=== PATIENT | male | born 1955 | race Caucasian/White ===

== ENCOUNTER 2019-07-05 17:29 | Inpatient (IN) | payer MEDICARE, SELFPAY ==
--- NOTE | ~2019-07-05 | XR_ITS ---
XR finger 4th RT min 2V 07/05/2019 18:31 INDICATION: Infection distal aspect of the right fourth digit PROCEDURE: 3 views right fourth finger COMPARISON: No prior studies for comparison. FINDINGS: Fracture, dislocation or subluxation is not identified. No erosive changes or periosteal re action to suggest osteomyelitis. The soft tissues appear within normal limits. No foreign bodies are identified. IMPRESSION: 1: NO ACUTE BONE OR JOINT ABNORMALITY IDENTIFIED. Reviewed, dictated and finalized at location A.
[2019-07-05 17:30] VITALS: BP 153/84; PULSE 90; RESP 16; TEMP 36.8; O2SAT 100
[2019-07-05 17:39] VITALS: BP 153/84; PULSE 80; RESP 18; TEMP 36.8; O2SAT 98
[2019-07-05 18:20] LABS: Basophils Percent Auto 0.4 % (0.2-1.2); Eosinophils Absolute Auto 0.1 K/mm3 (0-0.3); Eosinophils Percent Auto 1.4 % (0-4.4); Hematocrit 42.7 % (42.0-52.0); Hemoglobin 14.4 g/dL (14.0-18.0); Immature Granulocyte Absolute 0.06 K/mm3 (0.00-0.031); Immature Granulocyte Percent A 0.8 % (0-0.5); Lymphocytes Absolute Auto 2.38 K/mm3 (0.9-3.2); Lymphocytes Percent Auto 31.2 % (18.3-44.2); Mean Corpuscular HGB Conc 33.7 g/dl (32-36); Mean Corpuscular Hemoglobin 27.3 pg (26-34); Mean Corpuscular Volume 80.9 fl (80-100); Mean Platelet Volume 10.5 fl (7.4-10.4); Monocytes Absolute Auto 0.6 K/mm3 (0.1-0.6); Monocytes Percent Auto 8.1 % (2.6-8.5); Neutrophils Absolute Auto 4.4 K/mm3 (1.3-6.7); Neutrophils Percent Auto 58.1 % (45.5-73.1); Platelet Count Result 200 k/mm3 (150-375); Red Blood Count 5.28 M/mm3 (4.6-6.20); White Blood Count 7.6 K/mm3 (4.5-10.0)
[2019-07-05 18:28] LABS: INR 0.9; Prothrombin Time 12.3 Seconds (11.1-14.7)
[2019-07-05 18:30] LABS: Lactic Acid Reflex 3.4 mmol/L (0.7-2.1)
[2019-07-05 18:34] LABS: Partial Thromboplastin Time 27.6 SECONDS (22.3-36.8)
[2019-07-05 18:48] LABS: Alanine Aminotransferase 22 U/L (4-50); Alkaline Phosphatase 86 U/L (38-126); Aspartate Amino Transferase 22 U/L (17-59); Bilirubin,Total 0.4 mg/dL (0.2-1.3); Blood Urea Nitrogen 17 mg/dL (9-20); CRP 3.3 mg/dL (<1.0); Calcium 9.1 mg/dL (8.4-10.2); Carbon Dioxide 26 mmol/L (22-30); Chloride 90 mmol/L (98-107); Estimated CRCL calculation 87 ml/min; Estimated Glomerular Filt Rate > 60; Glucose 597 mg/dL (75-110); Potassium 4.3 mmol/L (3.4-5.0); Sodium 128 mmol/L (137-145)
[2019-07-05] MEDS: SODIUM CHLORIDE 0.9% IV 1,000 ML 999 ML IV CONT ×2 (18:51→19:25)
--- NOTE | 2019-07-05 19:11 | ED.GENADULT ---
HPI - General Adult General Chief complaint: Extremity Injury, Upper <NALDO Wyman Last Filed: 07/05/19 20:06> Stated complaint: infection lower right forearm <NALDO Wyman Last Filed: 07/05/19 20:06> Time Seen by Provider: 07/05/19 18:10 <NALDO Wyman Last Filed: 07/05/19 20:06> Source: patient <NALDO Wyman Last Filed: 07/05/19 20:06> Mode of arrival: ambulatory <NALDO Wyman Last Filed: 07/05/19 20:06> Limitations: no limitations <NALDO Wyman Last Filed: 07/05/19 20:06> History of Present Illness HPI narrative: Patient is a 63-year-old male who presents to emergency department for evaluation of right ring finger infection started with some blistering of the dorsal surface of the finger which blistered and became purulent which she has been cleaning and draining but now has red streaking up to the level above the elbow noting aching pain worse with touch and activity. Patient denies fever chills nausea vomiting. Patient notes that his blood sugars have increased during this. <NALDO Wyman Last Filed: 07/05/19 20:06> Related Data Home medications: Home Medications Medication Instructions Recorded Confirmed multivitamin 1 tablet PO DAILY 03/07/19 06/14/19 pen needle, diabetic 31 gauge x #30 each 03/07/19 06/14/19 5/16 niacin 500 mg tablet 1,000 mg PO BID tablet 03/26/19 06/14/19 omega-3 fatty acids 1,000 mg 2,000 mg PO BID cap 03/26/19 06/14/19 capsule pantoprazole 40 mg tablet,delayed 40 mg PO BID tablet 05/08/19 06/14/19 release calcium carbonate-vitamin D3 600 cap PO 06/14/19 06/14/19 mg calcium-200 unit capsule mecobalamin (vitamin B12) 1,000 1,000 mcg SUBLINGUAL DAILY 06/14/19 06/14/19 mcg disintegrating tablet,sublingual <NALDO Wyman Last Filed: 07/05/19 20:06> Allergies/adverse reactions: Allergies Allergy/AdvReac Type Severity Reaction Status Date / Time No Known Allergies Allergy Unknown Uncoded 07/05/19 17:33 <Job Sofia PA-C - Last Filed: 07/05/19 20:06> Review of Systems Review of Systems: All systems reviewed & are unremarkable except as noted in HPI and below <Job Sofia PA-C - Last Filed: 07/05/19 20:06> PMFSH Past Medical History Medical History: Medical History Arthritis Caputo's esophagus with esophagitis Dietary counseling and surveillance Essential hypertension GERD (gastroesophageal reflux disease) Hyperlipidemia LDL goal <70 Hypertension Myocardial infarction Stroke Type 2 diabetes mellitus with hyperglycemia Type 2 diabetes mellitus with hyperglycemia <Job Sofia PA-C - Last Filed: 07/05/19 20:06> Family History Family History: Family History Mother Hypertension Family history of diabetes mellitus in first degree relative Family history of coronary artery disease Cerebrovascular accident Family history of arthritis Diabetes mellitus Father Family history of alcoholism Other Family history of cardiovascular disease <Job Sofia PA-C - Last Filed: 07/05/19 20:06> Social History Social History: Social History Smoking status: Former smoker Second hand tobacco smoke exposure: No Smoking end date: 04/25/1962 Alcohol intake: current Gender identity (if verbalized by the patient): Male <NALDO Wyman Last Filed: 07/05/19 20:06> Exam Narrative: Exam Narrative: GENERAL: Well-appearing, well-nourished, and in no acute distress. HEAD: Normocephalic, atraumatic. EYES: PERRLA and EOMI. ENT: Nares clear, no rhinorrhea or epistaxis. Mucous membranes moist. CHEST: Clear to auscultation. No respiratory distress. No wheezes rales or rhonchi HEART: Regular rate and rhythm. No murm
[2019-07-05] MEDS: INSULIN HUMAN REGULAR (*BKC) 100 UNITS/ML 8 UNITS IV PUSH (19:24)
[2019-07-05] MEDS: TETANUS,DIPHTHERIA,AC PERTUSSIS ADULT (0.5 ML) BOOSTRIX IM (19:25)
[2019-07-05 19:26] LABS: Add Urine Microscopic? YES; Appearance Urine Clear (Clear); Bilirubin Urine Negative (Negative); Blood Urine 1+ (Negative); Color Urine Straw (Yellow); Glucose Urine UA 3+ mg/dL (Negative); Ketones Urine Negative (Negative); Leukocyte Esterase Ur Negative LEU/UL (Negative); Nitrate Urine Negative (Negative); Protein Urine 2+ mg/dL (Negative); RBC Urine 0-2 /hpf (0-2); Squamous Epithelial Cell Urine Rare /hpf (Few); Urobilinogen Urine Negative mg/dL (<2.0); WBC Urine 0-3 /hpf
[2019-07-05 19:28] LABS: Magnesium 1.8 mg/dL (1.6-2.3); Phosphorus 3.8 mg/dL (2.5-4.5)
[2019-07-05 19:30] LABS: Glucose Point of Care 489 (65-105)
[2019-07-05 19:32] LABS: Specific Grav Ur 1.033 (1.001-1.035)
[2019-07-05 20:16] VITALS: BP 168/100; PULSE 70; RESP 16; O2SAT 100
--- NOTE | 2019-07-05 20:18 | PM.IMHP ---
H&P: HPI History of Present Illness Chief complaint: Cellulitis finger, hyperglycemia <Neftaly Aguayo MD - Last Filed: 07/06/19 03:51> Narrative: This is a 63 year old Diabetic male who presented to the hospital today with a complaint of a right fourth finger infection that started approximately 3 days ago. He describes his infection starting out as a blister that opened up on the dorsal aspect of his fourth finger of his right hand and worsened this morning. He denies any trauma to his finger. He describes having purulent drainage as well as red streaking up his forearm to his elbow. His urged him to come to the hospital as she didn't like the streaking. He has been using antibiotic ointment on his infection without any success. He denies any fevers, chills, nausea, vomiting, abdominal pain, dysuria, hematuria, or diarrhea. He also has a poorly healing wound on his left lower leg which he attributes to minor trauma. He denies any previous history of MRSA but he does report having a bad infection of his right toe in the past. The patient had his infection debrided in the ER and he was started on IV antibiotics. We have been asked to admit the patient the patient to the hospital for further care. He denies any other symptoms such as shortness of breath, cough, chest pain, palpitations, or generalized weakness. <Neftaly Aguayo MD - Last Filed: 07/06/19 03:51> Review of Systems Review of Systems: All systems reviewed & are unremarkable except as noted in HPI and below <Neftaly Aguayo MD - Last Filed: 07/06/19 03:51> [facility] Past Medical History Medical History: Medical History Arthritis Caputo's esophagus with esophagitis Dietary counseling and surveillance Essential hypertension GERD (gastroesophageal reflux disease) Hyperlipidemia LDL goal <70 Hypertension Myocardial infarction Stroke Type 2 diabetes mellitus with hyperglycemia Type 2 diabetes mellitus with hyperglycemia <Neftaly Aguayo MD - Last Filed: 07/06/19 03:51> Family History Family History: Family History Mother Diabetes mellitus Family history of arthritis Family history of diabetes mellitus in first degree relative Family history of coronary artery disease Hypertension Cerebrovascular accident Father Family history of alcoholism Sibling Myocardial infarction Diabetes mellitus Other Family history of cardiovascular disease <Neftaly Aguayo MD - Last Filed: 07/06/19 03:51> Social History Social History: Social History Smoking packs per day: 3 Smoking cigarettes per day: 60.0 Years smoked: 30 Smoking pack-years: 90.00 Smoking status: Former smoker Tobacco type: cigarettes Alcohol intake: never Substance use: never Gender identity (if verbalized by the patient): Male Spiritual care concerns: No Agree to blood products: Yes <Neftaly Aguayo MD - Last Filed: 07/06/19 03:51> Meds Home Medications and Allergies Home medications: Home Medications Medication Instructions Recorded Confirmed Type aspirin 81 mg tablet,delayed 81 mg PO DAILY #30 tablet 02/26/19 07/05/19 Rx release atorvastatin 40 mg tablet 40 mg PO DAILY #30 tablet 02/26/19 07/05/19 Rx clopidogrel 75 mg tablet 75 mg PO DAILY #30 tablet 02/26/19 07/05/19 Rx hydrochlorothiazide 25 mg tablet 25 mg PO DAILY #30 tablet 02/26/19 07/05/19 Rx metoprolol succinate 100 mg 100 mg PO DAILY #30 tablet 02/26/19 07/05/19 Rx tablet,extended release 24 hr multivitamin 1 tablet PO DAILY 03/07/19 07/05/19 History isosorbide mononitrate 60 mg 60 mg PO DAILY #90 tablet 03/15/19 07/05/19 Rx tablet,extended release 24 hr niacin 500 mg tablet 500 mg PO BID tablet 03/26/19 07/05/19 History omega-3 fatty acids 1,000 mg 2,000 mg PO BID cap 03/26/19 07/05/19 History capsule
[2019-07-05 21:10] LABS: Glucose Point of Care 302 (65-105)
[2019-07-05 21:15] VITALS: BP 187/79; PULSE 62; RESP 16; TEMP 36.3; O2SAT 100; BMI 26.5
[2019-07-05 21:17] LABS: Reflex Lactic Acid Yes or No Add Lactic
--- NOTE | 2019-07-05 21:22 | ADMGEN ---
This patient, Cornelius Babin, was admitted to [facility] Surg Room 325-01. Patient/family oriented to hospital policies and general routines including ID bracelet, bed and alarms, visiting hours, pain management, procedures, bathroom and other care routines, personal items, smoking policy, room service/diet, and visiting hours. Valuables list has been completed. Information on how to activate the Rapid Response Team has been discussed. Patient/Family are encouraged to report perceived risks to care and to ask questions if they do not understand what they are told or what they should do.
[2019-07-05 21:31] VITALS: BP 168/100; PULSE 70; RESP 16; O2SAT 98
[2019-07-05 21:59] LABS: Lactic Acid 1.8 mmol/L (0.7-2.1)
[2019-07-05] MEDS: FAMOTIDINE 20 MG/2 ML VIAL IV PUSH (22:23)
[2019-07-05] MEDS: LACTATED RINGERS 1,000 ML 125 ML IV CONT (22:23)
[2019-07-05] MEDS: hydrALAZINE HCL 20 MG/ML VIAL 10 MG IV PUSH (22:29)
[2019-07-05 22:40] LABS: Glucose Point of Care 274 (65-105)
[2019-07-06 00:02] LABS: Lactic Acid Reflex 1.9 mmol/L (0.7-2.1)
[2019-07-06 05:23] VITALS: BP 180/73; PULSE 63; RESP 18; TEMP 36.7; O2SAT 100
[2019-07-06 06:00] LABS: Sodium Urine Random 104 meq/L
[2019-07-06 06:02] LABS: Basophils Percent Auto 0.2 % (0.2-1.2); Eosinophils Absolute Auto 0.1 K/mm3 (0-0.3); Eosinophils Percent Auto 1.6 % (0-4.4); Hematocrit 41.2 % (42.0-52.0); Hemoglobin 14.2 g/dL (14.0-18.0); Immature Granulocyte Absolute 0.04 K/mm3 (0.00-0.031); Immature Granulocyte Percent A 0.5 % (0-0.5); Lymphocytes Absolute Auto 2.45 K/mm3 (0.9-3.2); Lymphocytes Percent Auto 29.4 % (18.3-44.2); Mean Corpuscular HGB Conc 34.5 g/dl (32-36); Mean Corpuscular Hemoglobin 27.4 pg (26-34); Mean Corpuscular Volume 79.5 fl (80-100); Mean Platelet Volume 10.1 fl (7.4-10.4); Monocytes Absolute Auto 0.6 K/mm3 (0.1-0.6); Monocytes Percent Auto 6.8 % (2.6-8.5); Neutrophils Absolute Auto 5.1 K/mm3 (1.3-6.7); Neutrophils Percent Auto 61.5 % (45.5-73.1); Platelet Count Result 197 k/mm3 (150-375); Red Blood Count 5.18 M/mm3 (4.6-6.20); Red Cell Distribution Width 12.9 % (11.5-14.5); White Blood Count 8.3 K/mm3 (4.5-10.0)
[2019-07-06 06:13] LABS: Potassium 3.8 mmol/L (3.4-5.0)
[2019-07-06 06:17] LABS: Blood Urea Nitrogen 10 mg/dL (9-20); Calcium 8.2 mg/dL (8.4-10.2); Carbon Dioxide 25 mmol/L (22-30); Chloride 100 mmol/L (98-107); Estimated CRCL calculation 100 ml/min; Estimated Glomerular Filt Rate > 60; Glucose 258 mg/dL (75-110); Sodium 134 mmol/L (137-145)
[2019-07-06 06:21] LABS: Hemoglobin A1C > 14.0 % (<5.7)
[2019-07-06] MEDS: hydrALAZINE HCL 20 MG/ML VIAL 10 MG IV PUSH (06:21)
[2019-07-06] MEDS: LACTATED RINGERS 1,000 ML 125 ML IV CONT ×2 (06:24→21:05)
[2019-07-06] MEDS: INSULIN ASPART (*BKC) 100 UNITS/ML SUB-Q ×3 (08:08→16:52)
[2019-07-06] MEDS: CLOPIDOGREL BISULFATE 75 MG TABLET PO (08:12)
[2019-07-06] MEDS: OMEGA 3 POLYUNSAT FATTY ACIDS 1 GM CAP 2 GM PO ×2 (08:12→16:55)
[2019-07-06 08:13] VITALS: PULSE 64
[2019-07-06] MEDS: AMLODIPINE BESYLATE 5 MG TABLET 10 MG PO (08:13)
[2019-07-06] MEDS: METOPROLOL SUCCINATE EXT REL 100 MG TABCR PO (08:13)
[2019-07-06] MEDS: NIACIN SA 500 MG TABLET PO ×2 (08:13→16:56)
[2019-07-06] MEDS: DULOXETINE 60 MG CAPSULE.DR PO (08:13)
[2019-07-06] MEDS: FENOFIBRATE NANOCRYSTALLIZED 145 MG TABLET PO (08:14)
[2019-07-06] MEDS: PANTOPRAZOLE 40 MG TABLET PO (08:14)
[2019-07-06] MEDS: CYANOCOBALAMIN 1,000 MCG TABLET 1000 MCG PO (08:14)
[2019-07-06] MEDS: SUCRALFATE 1 GM TABLET PO ×2 (08:14→16:56)
[2019-07-06] MEDS: MULTIVITAMINS THERAPEUTIC TAB (*BKC) 1 TABLET PO (08:14)
[2019-07-06] MEDS: hydroCHLOROthiazide 25 MG TABLET PO (08:14)
[2019-07-06] MEDS: ATORVASTATIN 40 MG TABLET PO (08:14)
[2019-07-06] MEDS: FAMOTIDINE 20 MG/2 ML VIAL IV PUSH (08:15)
[2019-07-06] MEDS: ISOSORBIDE MONONITRATE 60 MG TAB.ER.24H PO (08:15)
[2019-07-06] MEDS: ENOXAPARIN 40 MG/0.4 ML SYRINGE SUB-Q (08:15)
[2019-07-06] MEDS: ASPIRIN 81 MG ENTERIC TABLET PO (08:15)
[2019-07-06] MEDS: lisinopriL 20 MG TABLET 40 MG PO (08:15)
[2019-07-06 10:00] VITALS: BP 141/64; PULSE 62; RESP 18; TEMP 36.4; O2SAT 99
[2019-07-06 11:21] LABS: Glucose Point of Care 361 (65-105)
[2019-07-06 11:36] LABS: Glucose Point of Care 323 (65-105)
--- NOTE | 2019-07-06 13:01 | P.PNIM_ITS ---
Progress Note: A&P Assessment and Plan (1) Cellulitis of finger: Code(s): L03.019 - Cellulitis of unspecified finger Status: Acute Assessment and Plan: * Started on IV ancef in ED, switched to IV vancomycin and imipenem this AM per antibiotic stewardship guidelines. Wound Gram stain showing many Gram-positive cocci. Blood cultures pending. * Patient notes improvement this morning. Appreciate wound RN consult. (2) Uncontrolled diabetes mellitus: Code(s): E11.65 - Type 2 diabetes mellitus with hyperglycemia Status: Chronic Assessment and Plan: * Hgb A1c > 14. He follows with an parking lot chauffeur, last seen February 2019. He is on large doses of Humulin U500. He will be maintained on Humulin U 100 here which is formulary. Monitor with Accu-Cheks and adjust treatment as needed. * Recommend following up with his parking lot chauffeur as soon as possible. Tight glycemic control is important for his wound healing. (3) Elevated lactic acid level: Code(s): R79.89 - Other specified abnormal findings of blood chemistry Status: Resolved Assessment and Plan: * Resolved. May have been secondary to acute infection/dehydration. (4) Hyponatremia: Code(s): E87.1 - Hypo-osmolality and hyponatremia Status: Acute Assessment and Plan: * Improved. Will stop IV hydration and monitor BMP. (5) Hypertension: Code(s): I10 - Essential (primary) hypertension Status: Chronic Assessment and Plan: * Blood pressure is elevated on arrival, may be secondary to pain. More stable today after resuming his home antihypertensive regimen. * Continue his home Norvasc, hydrochlorothiazide, lisinopril, metoprolol. (6) Hyperlipidemia LDL goal <70: Code(s): E78.5 - Hyperlipidemia, unspecified Status: Chronic Assessment and Plan: * Continue home fenofibrate and niacin. (7) CAD (coronary artery disease): Qualifiers: Associated angina: with unspecified angina Coronary Disease-Associated Artery/Lesion type: unspecified vessel or lesion type [place] vs. transplanted heart: unspecified whether [place] or transplanted heart Qualified Code(s): I25.119 - Atherosclerotic heart disease of [place] coronary artery with unspecified angina pectoris Code(s): I25.10 - Atherosclerotic heart disease of [place] coronary artery without angina pectoris Status: Chronic Assessment and Plan: * No chest pain. Continue ASA, Plavix, beta blockade, Imdur. (8) PAD (peripheral artery disease): Code(s): I73.9 - Peripheral vascular disease, unspecified Status: Chronic Assessment and Plan: * Significant peripheral vascular disease. Follows with vascular surgery, Dr. Kaiser. Patient reports he has an upcoming left leg bypass surgery planned. (9) GERD (gastroesophageal reflux disease): Qualifiers: Esophagitis presence: with esophagitis Qualified Code(s): K21.0 - Gastro-esophageal reflux disease with esophagitis Code(s): K21.9 - Gastro-esophageal reflux disease without esophagitis Status: Chronic Assessment and Plan: * With history of Caputo's. Follows with Dr. Rhodes. Continue Carafate and PPI. Subjective Date/time seen: 07/06/19 1245 Interval history: Mr. Babin is a 63yo M admitted for
--- NOTE | 2019-07-06 13:01 | PM.IMPN ---
Progress Note: A&P Assessment and Plan (1) Cellulitis of finger: Code(s): L03.019 - Cellulitis of unspecified finger Status: Acute Assessment and Plan: Started on IV ancef in ED, switched to IV vancomycin and imipenem this AM per antibiotic stewardship guidelines. Wound Gram stain showing many Gram-positive cocci. Blood cultures pending. Patient notes improvement this morning. Appreciate wound RN consult. (2) Uncontrolled diabetes mellitus: Code(s): E11.65 - Type 2 diabetes mellitus with hyperglycemia Status: Chronic Assessment and Plan: Hgb A1c > 14. He follows with an poultry process worker, last seen February 2019. He is on large doses of Humulin U500. He will be maintained on Humulin U 100 here which is formulary. Monitor with Accu-Cheks and adjust treatment as needed. Recommend following up with his poultry process worker as soon as possible. Tight glycemic control is important for his wound healing. (3) Elevated lactic acid level: Code(s): R79.89 - Other specified abnormal findings of blood chemistry Status: Resolved Assessment and Plan: Resolved. May have been secondary to acute infection/dehydration. (4) Hyponatremia: Code(s): E87.1 - Hypo-osmolality and hyponatremia Status: Acute Assessment and Plan: Improved. Will stop IV hydration and monitor BMP. (5) Hypertension: Code(s): I10 - Essential (primary) hypertension Status: Chronic Assessment and Plan: Blood pressure is elevated on arrival, may be secondary to pain. More stable today after resuming his home antihypertensive regimen. Continue his home Norvasc, hydrochlorothiazide, lisinopril, metoprolol. (6) Hyperlipidemia LDL goal <70: Code(s): E78.5 - Hyperlipidemia, unspecified Status: Chronic Assessment and Plan: Continue home fenofibrate and niacin. (7) CAD (coronary artery disease): Qualifiers: Associated angina: with unspecified angina Coronary Disease-Associated Artery/Lesion type: unspecified vessel or lesion type [place] vs. transplanted heart: unspecified whether [place] or transplanted heart Qualified Code(s): I25.119 - Atherosclerotic heart disease of [place] coronary artery with unspecified angina pectoris Code(s): I25.10 - Atherosclerotic heart disease of [place] coronary artery without angina pectoris Status: Chronic Assessment and Plan: No chest pain. Continue ASA, Plavix, beta blockade, Imdur. (8) PAD (peripheral artery disease): Code(s): I73.9 - Peripheral vascular disease, unspecified Status: Chronic Assessment and Plan: Significant peripheral vascular disease. Follows with vascular surgery, Dr. Kaiser. Patient reports he has an upcoming left leg bypass surgery planned. (9) GERD (gastroesophageal reflux disease): Qualifiers: Esophagitis presence: with esophagitis Qualified Code(s): K21.0 - Gastro-esophageal reflux disease with esophagitis Code(s): K21.9 - Gastro-esophageal reflux disease without esophagitis Status: Chronic Assessment and Plan: With history of Caputo's. Follows with Dr. Rhodes. Continue Carafate and PPI. Subjective Date/time seen: 07/06/19 1245 Interval history: Mr. Babin is a 63yo M admitted for wound to right 4th finger with surrounding cellulitis. He is sitting up in the bed eating lunch at time of my exam and reports feeling well today overall. He notes that the redness on his right hand and forearm has improved somewhat since starting the IV antibiotics. He denies any chest pain, shortness of breath, or calf tenderness. He is tolerating oral intake without nausea or vomitin
[2019-07-06 14:00] VITALS: BP 115/59; PULSE 63; RESP 16; TEMP 37; O2SAT 99
[2019-07-06] MEDS: SILVERGEL (ELTA) 45 ML 1 APPLIC TOPICAL (16:55)
[2019-07-06] MEDS: INSULIN HUMAN REGULAR (*BKC) 100 UNITS/ML 70 UNITS SUB-Q (17:28)
[2019-07-06 18:01] LABS: Glucose Point of Care 425 (65-105)
[2019-07-06] MEDS: FAMOTIDINE 20 MG TABLET PO (21:06)
[2019-07-06 21:58] LABS: Glucose Point of Care 197 (65-105)
[2019-07-06 22:00] VITALS: BP 120/47; PULSE 57; RESP 18; TEMP 36.6; O2SAT 95
[2019-07-07 06:00] VITALS: BP 147/67; PULSE 59; RESP 18; TEMP 36.4; O2SAT 96
[2019-07-07 06:35] LABS: Blood Urea Nitrogen 12 mg/dL (9-20); Calcium 8.9 mg/dL (8.4-10.2); Carbon Dioxide 27 mmol/L (22-30); Chloride 100 mmol/L (98-107); Estimated CRCL calculation 100 ml/min; Estimated Glomerular Filt Rate > 60; Glucose 197 mg/dL (75-110); Magnesium 1.6 mg/dL (1.6-2.3); Potassium 3.7 mmol/L (3.4-5.0); Sodium 132 mmol/L (137-145)
[2019-07-07 07:07] LABS: Glucose Point of Care 213 (65-105)
[2019-07-07] MEDS: INSULIN HUMAN REGULAR (*BKC) 100 UNITS/ML 70 UNITS SUB-Q ×2 (07:09→17:07)
[2019-07-07] MEDS: INSULIN ASPART (*BKC) 100 UNITS/ML SUB-Q (07:11)
[2019-07-07] MEDS: ASPIRIN 81 MG ENTERIC TABLET PO (08:38)
[2019-07-07 08:39] VITALS: PULSE 64
[2019-07-07] MEDS: NIACIN SA 500 MG TABLET PO ×2 (08:39→17:11)
[2019-07-07] MEDS: CLOPIDOGREL BISULFATE 75 MG TABLET PO (08:39)
[2019-07-07] MEDS: METOPROLOL SUCCINATE EXT REL 100 MG TABCR PO (08:39)
[2019-07-07] MEDS: ISOSORBIDE MONONITRATE 60 MG TAB.ER.24H PO (08:39)
[2019-07-07] MEDS: DULOXETINE 60 MG CAPSULE.DR PO (08:39)
[2019-07-07] MEDS: hydroCHLOROthiazide 25 MG TABLET PO (08:39)
[2019-07-07] MEDS: lisinopriL 20 MG TABLET 40 MG PO (08:40)
[2019-07-07] MEDS: ATORVASTATIN 40 MG TABLET PO (08:40)
[2019-07-07] MEDS: FENOFIBRATE NANOCRYSTALLIZED 145 MG TABLET PO (08:40)
[2019-07-07] MEDS: CYANOCOBALAMIN 1,000 MCG TABLET 1000 MCG PO (08:40)
[2019-07-07] MEDS: SUCRALFATE 1 GM TABLET PO ×2 (08:40→17:11)
[2019-07-07] MEDS: AMLODIPINE BESYLATE 5 MG TABLET 10 MG PO (08:40)
[2019-07-07] MEDS: MULTIVITAMINS THERAPEUTIC TAB (*BKC) 1 TABLET PO (08:40)
[2019-07-07] MEDS: ENOXAPARIN 40 MG/0.4 ML SYRINGE SUB-Q (08:41)
[2019-07-07] MEDS: OMEGA 3 POLYUNSAT FATTY ACIDS 1 GM CAP 2 GM PO ×2 (08:41→17:11)
[2019-07-07] MEDS: PANTOPRAZOLE 40 MG TABLET PO (08:41)
[2019-07-07] MEDS: FAMOTIDINE 20 MG TABLET PO ×2 (08:41→21:49)
[2019-07-07] MEDS: SILVERGEL (ELTA) 45 ML 1 APPLIC TOPICAL (08:47)
[2019-07-07 13:04] LABS: Glucose Point of Care 189 (65-105)
--- NOTE | 2019-07-07 13:16 | P.PNIM_ITS ---
Progress Note: A&P Assessment and Plan (1) Cellulitis of finger: Qualifiers: Laterality: right Qualified Code(s): L03.011 - Cellulitis of right finger Code(s): L03.019 - Cellulitis of unspecified finger Status: Acute Assessment and Plan: * Continue IV vancomycin and imipenem (day 2). Wound culture growing heavy growth of Staph aureus and moderate growth of gram negative bacilli. Wait for final wound culture results to ensure no MRSA. Blood cultures pending with no growth to date. * Evaluated by wound RN, continue wound care. (2) Uncontrolled diabetes mellitus: Qualifiers: Diabetes mellitus type: type 2 Glycemic state: with hyperglycemia Qualified Code(s): E11.65 - Type 2 diabetes mellitus with hyperglycemia Code(s): E11.65 - Type 2 diabetes mellitus with hyperglycemia Status: Chronic Assessment and Plan: * Hgb A1c > 14. He follows with an communications technologist, last seen February 2019. He is on large doses of Humulin U500. He will be maintained on Humulin U 100 here which is formulary (home dose decreased by 30%). Monitor with Accu-Cheks and adjust treatment as needed. * Recommend following up with his communications technologist as soon as possible. Tight glycemic control is important for his wound healing. * Blood sugars improved today on his insulin regimen. (3) Hyponatremia: Code(s): E87.1 - Hypo-osmolality and hyponatremia Status: Acute Assessment and Plan: * Improved. Monitor BMP. (4) Hypertension: Qualifiers: Hypertension type: unspecified Qualified Code(s): I10 - Essential (primary) hypertension Code(s): I10 - Essential (primary) hypertension Status: Chronic Assessment and Plan: * Stable. Continue his home Norvasc, hydrochlorothiazide, lisinopril, metoprolol and monitor BP. (5) Hyperlipidemia LDL goal <70: Code(s): E78.5 - Hyperlipidemia, unspecified Status: Chronic Assessment and Plan: * Continue home fenofibrate and niacin. (6) CAD (coronary artery disease): Qualifiers: Coronary Disease-Associated Artery/Lesion type: unspecified vessel or lesion type [place] vs. transplanted heart: unspecified whether [place] or transplanted heart Associated angina: with unspecified angina Qualified Code(s): I25.119 - Atherosclerotic heart disease of [place] coronary artery with unspecified angina pectoris Code(s): I25.10 - Atherosclerotic heart disease of [place] coronary artery without angina pectoris Status: Chronic Assessment and Plan: * No chest pain. Continue ASA, Plavix, beta blockade, Imdur. (7) PAD (peripheral artery disease): Code(s): I73.9 - Peripheral vascular disease, unspecified Status: Chronic Assessment and Plan: * Significant peripheral vascular disease. Follows with vascular surgery, Dr. Kaiser. Patient reports he has an upcoming left leg bypass surgery planned. (8) GERD (gastroesophageal reflux disease): Qualifiers: Esophagitis presence: with esophagitis Qualified Code(s): K21.0 - Gastro-esophageal reflux disease with esophagitis Code(s): K21.9 - Gastro-esophageal reflux disease without esophagitis Status: Chronic Assessment and Plan: * With history of Caputo's. Follows with Dr. Rhodes. Continue Carafate and PPI. Subj
--- NOTE | 2019-07-07 13:16 | PM.IMPN ---
Progress Note: A&P Assessment and Plan (1) Cellulitis of finger: Qualifiers: Laterality: right Qualified Code(s): L03.011 - Cellulitis of right finger Code(s): L03.019 - Cellulitis of unspecified finger Status: Acute Assessment and Plan: Continue IV vancomycin and imipenem (day 2). Wound culture growing heavy growth of Staph aureus and moderate growth of gram negative bacilli. Wait for final wound culture results to ensure no MRSA. Blood cultures pending with no growth to date. Evaluated by wound RN, continue wound care. (2) Uncontrolled diabetes mellitus: Qualifiers: Diabetes mellitus type: type 2 Glycemic state: with hyperglycemia Qualified Code(s): E11.65 - Type 2 diabetes mellitus with hyperglycemia Code(s): E11.65 - Type 2 diabetes mellitus with hyperglycemia Status: Chronic Assessment and Plan: Hgb A1c > 14. He follows with an tandem operator, last seen February 2019. He is on large doses of Humulin U500. He will be maintained on Humulin U 100 here which is formulary (home dose decreased by 30%). Monitor with Accu-Cheks and adjust treatment as needed. Recommend following up with his tandem operator as soon as possible. Tight glycemic control is important for his wound healing. Blood sugars improved today on his insulin regimen. (3) Hyponatremia: Code(s): E87.1 - Hypo-osmolality and hyponatremia Status: Acute Assessment and Plan: Improved. Monitor BMP. (4) Hypertension: Qualifiers: Hypertension type: unspecified Qualified Code(s): I10 - Essential (primary) hypertension Code(s): I10 - Essential (primary) hypertension Status: Chronic Assessment and Plan: Stable. Continue his home Norvasc, hydrochlorothiazide, lisinopril, metoprolol and monitor BP. (5) Hyperlipidemia LDL goal <70: Code(s): E78.5 - Hyperlipidemia, unspecified Status: Chronic Assessment and Plan: Continue home fenofibrate and niacin. (6) CAD (coronary artery disease): Qualifiers: Coronary Disease-Associated Artery/Lesion type: unspecified vessel or lesion type [place] vs. transplanted heart: unspecified whether [place] or transplanted heart Associated angina: with unspecified angina Qualified Code(s): I25.119 - Atherosclerotic heart disease of [place] coronary artery with unspecified angina pectoris Code(s): I25.10 - Atherosclerotic heart disease of [place] coronary artery without angina pectoris Status: Chronic Assessment and Plan: No chest pain. Continue ASA, Plavix, beta blockade, Imdur. (7) PAD (peripheral artery disease): Code(s): I73.9 - Peripheral vascular disease, unspecified Status: Chronic Assessment and Plan: Significant peripheral vascular disease. Follows with vascular surgery, Dr. Kaiser. Patient reports he has an upcoming left leg bypass surgery planned. (8) GERD (gastroesophageal reflux disease): Qualifiers: Esophagitis presence: with esophagitis Qualified Code(s): K21.0 - Gastro-esophageal reflux disease with esophagitis Code(s): K21.9 - Gastro-esophageal reflux disease without esophagitis Status: Chronic Assessment and Plan: With history of Caputo's. Follows with Dr. Rhodes. Continue Carafate and PPI. Subjective Date/time seen: 07/07/19 1200 Interval history: Mr. Babin is a 63yo M admitted for wound to right 4th finger with surrounding cellulitis. He reports feeling well today, not having much pain to his finger or arm. He denies any chest pain, shortness of breath, or calf tenderness. He has tolerated breakfast without nausea or vomiting. Review of Systems Review of Systems
[2019-07-07] MEDS: MAGNESIUM SULF 2 GM/WATER 50ML 2 GM/50 ML BAG IVPB (13:37)
[2019-07-07 15:08] VITALS: BP 111/50; PULSE 57; RESP 18; TEMP 37.3; O2SAT 99
[2019-07-07 17:10] LABS: Glucose Point of Care 153 (65-105)
[2019-07-07 22:00] VITALS: BP 130/59; PULSE 55; RESP 18; TEMP 36.4; O2SAT 97
[2019-07-07 22:10] LABS: Vancomycin Trough 12.9 ug/mL (10.0-20.0)
[2019-07-07 22:22] LABS: Glucose Point of Care 148 (65-105)
[2019-07-08 06:00] VITALS: BP 131/64; PULSE 54; RESP 18; TEMP 36.4; O2SAT 98
[2019-07-08] MEDS: INSULIN HUMAN REGULAR (*BKC) 100 UNITS/ML 70 UNITS SUB-Q ×2 (07:12→17:02)
[2019-07-08 07:13] LABS: Glucose Point of Care 191 (65-105)
[2019-07-08] MEDS: NIACIN SA 500 MG TABLET PO ×2 (08:07→17:45)
[2019-07-08] MEDS: FENOFIBRATE NANOCRYSTALLIZED 145 MG TABLET PO (08:07)
[2019-07-08] MEDS: OMEGA 3 POLYUNSAT FATTY ACIDS 1 GM CAP 2 GM PO ×2 (08:07→17:45)
[2019-07-08] MEDS: PANTOPRAZOLE 40 MG TABLET PO (08:07)
[2019-07-08] MEDS: ISOSORBIDE MONONITRATE 60 MG TAB.ER.24H PO (08:07)
[2019-07-08] MEDS: FAMOTIDINE 20 MG TABLET PO ×2 (08:08→21:21)
[2019-07-08] MEDS: DULOXETINE 60 MG CAPSULE.DR PO (08:08)
[2019-07-08] MEDS: SUCRALFATE 1 GM TABLET PO ×2 (08:08→17:46)
[2019-07-08] MEDS: AMLODIPINE BESYLATE 5 MG TABLET 10 MG PO (08:08)
[2019-07-08] MEDS: lisinopriL 20 MG TABLET 40 MG PO (08:08)
[2019-07-08] MEDS: ASPIRIN 81 MG ENTERIC TABLET PO (08:08)
[2019-07-08 08:09] VITALS: PULSE 84
[2019-07-08] MEDS: MULTIVITAMINS THERAPEUTIC TAB (*BKC) 1 TABLET PO (08:09)
[2019-07-08] MEDS: ENOXAPARIN 40 MG/0.4 ML SYRINGE SUB-Q (08:09)
[2019-07-08] MEDS: CLOPIDOGREL BISULFATE 75 MG TABLET PO (08:09)
[2019-07-08] MEDS: METOPROLOL SUCCINATE EXT REL 100 MG TABCR PO (08:09)
[2019-07-08] MEDS: CYANOCOBALAMIN 1,000 MCG TABLET 1000 MCG PO (08:10)
[2019-07-08] MEDS: ATORVASTATIN 40 MG TABLET PO (08:10)
[2019-07-08] MEDS: hydroCHLOROthiazide 25 MG TABLET PO (08:10)
[2019-07-08] MEDS: SILVERGEL (ELTA) 45 ML 1 APPLIC TOPICAL (08:17)
--- NOTE | 2019-07-08 10:28 | P.PNIM_ITS ---
Progress Note: A&P Assessment and Plan (1) Cellulitis of finger: Qualifiers: Laterality: right Qualified Code(s): L03.011 - Cellulitis of right finger Code(s): L03.019 - Cellulitis of unspecified finger Status: Acute Assessment and Plan: * Dorsal right 4th finger wound with surrounding cellulitis. Started as a blister 3 days prior to arrival. Wound bed with eschar being treated with silvergel. * Continue IV vancomycin and imipenem (day 3). Cellulitis improving today but with concerns for the wound bed at this point, appreciate general surgery consultation. * Wound culture growing heavy growth of Staph aureus and moderate growth of Klebsilla. * Assessed by wound RN, continue wound care. * Complicated wound healing in the setting of peripheral vascular disease and uncontrolled DM. (2) Uncontrolled diabetes mellitus: Qualifiers: Diabetes mellitus type: type 2 Glycemic state: with hyperglycemia Qualified Code(s): E11.65 - Type 2 diabetes mellitus with hyperglycemia Code(s): E11.65 - Type 2 diabetes mellitus with hyperglycemia Status: Chronic Assessment and Plan: * Hgb A1c > 14. He follows with an leather novelty parts cutter, last seen February 2019. He is on large doses of Humulin U500. He will be maintained on Humulin U 100 here which is formulary (home dose decreased by 30%). Monitor with Accu-Cheks and adjust treatment as needed. * Recommend following up with his leather novelty parts cutter as soon as possible. Tight glycemic control is important for his wound healing. * Blood sugars improved today on the insulin regimen. (3) Hyponatremia: Code(s): E87.1 - Hypo-osmolality and hyponatremia Status: Acute Assessment and Plan: * Improved. Monitor BMP. (4) Hypertension: Qualifiers: Hypertension type: unspecified Qualified Code(s): I10 - Essential (primary) hypertension Code(s): I10 - Essential (primary) hypertension Status: Chronic Assessment and Plan: * Stable. Continue his home Norvasc, hydrochlorothiazide, lisinopril, metoprolol and monitor BP. (5) Hyperlipidemia LDL goal <70: Code(s): E78.5 - Hyperlipidemia, unspecified Status: Chronic Assessment and Plan: * Continue home fenofibrate and niacin. (6) CAD (coronary artery disease): Qualifiers: Associated angina: with unspecified angina Coronary Disease-Associated Artery/Lesion type: unspecified vessel or lesion type [place] vs. transplanted heart: unspecified whether [place] or transplanted heart Qualified Code(s): I25.119 - Atherosclerotic heart disease of [place] coronary artery with unspecified angina pectoris Code(s): I25.10 - Atherosclerotic heart disease of [place] coronary artery without angina pectoris Status: Chronic Assessment and Plan: * No chest pain. Continue ASA, Plavix, beta blockade, Imdur. (7) PAD (peripheral artery disease): Code(s): I73.9 - Peripheral vascular disease, unspecified Status: Chronic Assessment and Plan: * Significant peripheral vascular disease. Follows with vascular surgery, Dr. Kaiser. Patient reports he has an upcoming left leg bypass surgery planned. (8) GERD (gastroesophageal reflux disease): Qualifiers: Esophagitis presence: with esophagitis Qualified Code(s): K21.0 - Gastro-esophageal reflux disease with esophagitis
--- NOTE | 2019-07-08 10:28 | PM.IMPN ---
Progress Note: A&P Assessment and Plan (1) Cellulitis of finger: Qualifiers: Laterality: right Qualified Code(s): L03.011 - Cellulitis of right finger Code(s): L03.019 - Cellulitis of unspecified finger Status: Acute Assessment and Plan: Dorsal right 4th finger wound with surrounding cellulitis. Started as a blister 3 days prior to arrival. Wound bed with eschar being treated with silvergel. Continue IV vancomycin and imipenem (day 3). Cellulitis improving today but with concerns for the wound bed at this point, appreciate general surgery consultation. Wound culture growing heavy growth of Staph aureus and moderate growth of Klebsilla. Assessed by wound RN, continue wound care. Complicated wound healing in the setting of peripheral vascular disease and uncontrolled DM. (2) Uncontrolled diabetes mellitus: Qualifiers: Diabetes mellitus type: type 2 Glycemic state: with hyperglycemia Qualified Code(s): E11.65 - Type 2 diabetes mellitus with hyperglycemia Code(s): E11.65 - Type 2 diabetes mellitus with hyperglycemia Status: Chronic Assessment and Plan: Hgb A1c > 14. He follows with an him specialist, last seen February 2019. He is on large doses of Humulin U500. He will be maintained on Humulin U 100 here which is formulary (home dose decreased by 30%). Monitor with Accu-Cheks and adjust treatment as needed. Recommend following up with his him specialist as soon as possible. Tight glycemic control is important for his wound healing. Blood sugars improved today on the insulin regimen. (3) Hyponatremia: Code(s): E87.1 - Hypo-osmolality and hyponatremia Status: Acute Assessment and Plan: Improved. Monitor BMP. (4) Hypertension: Qualifiers: Hypertension type: unspecified Qualified Code(s): I10 - Essential (primary) hypertension Code(s): I10 - Essential (primary) hypertension Status: Chronic Assessment and Plan: Stable. Continue his home Norvasc, hydrochlorothiazide, lisinopril, metoprolol and monitor BP. (5) Hyperlipidemia LDL goal <70: Code(s): E78.5 - Hyperlipidemia, unspecified Status: Chronic Assessment and Plan: Continue home fenofibrate and niacin. (6) CAD (coronary artery disease): Qualifiers: Associated angina: with unspecified angina Coronary Disease-Associated Artery/Lesion type: unspecified vessel or lesion type [place] vs. transplanted heart: unspecified whether [place] or transplanted heart Qualified Code(s): I25.119 - Atherosclerotic heart disease of [place] coronary artery with unspecified angina pectoris Code(s): I25.10 - Atherosclerotic heart disease of [place] coronary artery without angina pectoris Status: Chronic Assessment and Plan: No chest pain. Continue ASA, Plavix, beta blockade, Imdur. (7) PAD (peripheral artery disease): Code(s): I73.9 - Peripheral vascular disease, unspecified Status: Chronic Assessment and Plan: Significant peripheral vascular disease. Follows with vascular surgery, Dr. Kaiser. Patient reports he has an upcoming left leg bypass surgery planned. (8) GERD (gastroesophageal reflux disease): Qualifiers: Esophagitis presence: with esophagitis Qualified Code(s): K21.0 - Gastro-esophageal reflux disease with esophagitis Code(s): K21.9 - Gastro-esophageal reflux disease without esophagitis Status: Chronic Assessment and Plan: With history of Caputo's. Follows with Dr. Rhodes. Continue Carafate and PPI. Subjective Date/time seen: 07/08/19 0930 Interval history: Mr. Babin is a 63yo M admitted for wound to right 4th finger with munoz
[2019-07-08 12:16] LABS: Glucose Point of Care 241 (65-105)
[2019-07-08] MEDS: INSULIN ASPART (*BKC) 100 UNITS/ML SUB-Q (12:17)
[2019-07-08 14:00] VITALS: BP 110/59; PULSE 56; RESP 18; TEMP 36.4; O2SAT 98
--- NOTE | 2019-07-08 16:52 | PM.CNGS ---
Assessment and Plan Assessment and plan (1) Open wound of finger of right hand: Onset Date: ~07/02/19 Code(s): S61.209A - Unspecified open wound of unspecified finger without damage to nail, initial encounter Status: Acute Assessment and Plan: Wound inspected and I suspect that this is due to microvascular disease on the end of his finger it seems to be like dry gangrene. This is probably a then super infected wound healing the cellulitis. At this time my recommendation is to continue antibiotics and consult Plastic surgery who works more often with the hand and fingers tomorrow. Their input would be valuable. At this time he did not believe that further debridement is needed just continued dressing changes and we may need to consider use of Santyl ointment to debride some of the thick eschar on the surface of his 4th finger. I will touch base with the wound nurses in the morning and we will follow up with further recommendations. (2) Uncontrolled diabetes mellitus: Onset Date: Unknown Qualifiers: Diabetes mellitus type: type 2 Glycemic state: with hyperglycemia Qualified Code(s): E11.65 - Type 2 diabetes mellitus with hyperglycemia Code(s): E11.65 - Type 2 diabetes mellitus with hyperglycemia Status: Chronic Assessment and Plan: Close control of his diabetes is important has you are trying to do. (3) Cellulitis of finger: Onset Date: ~07/02/19 Qualifiers: Laterality: right Qualified Code(s): L03.011 - Cellulitis of right finger Code(s): L03.019 - Cellulitis of unspecified finger Status: Acute Assessment and Plan: This appears to be resolved at the moment as I did not see much redness proximal to the wound when I examined it today. (4) PAD (peripheral artery disease): Onset Date: Unknown Code(s): I73.9 - Peripheral vascular disease, unspecified Status: Chronic Assessment and Plan: On Plavix for this and is certainly affected by his long-term diabetes. History of Present Illness Consult details Consult date: 07/08/19 Requesting physician: Neftaly Aguayo MD Narrative: Mr. Babin is a 63yo M admitted for wound to right 4th finger with surrounding cellulitis ascending up his finger hand and forearm. He is feeling well today and offers no complaints. He has been under treatment with IV antibiotics for several days and the wound clinic nurses have seen his finger and is being treated with serial dressing changes with silver gel. His finger wound only causes him pain during dressing changes. He denies any chest pain, shortness of breath, or calf tenderness. He is tolerating oral intake without nausea or vomiting. He is trying to keep the finger Rt.hand elevated. Review of Systems Constitutional: Constitutional: Reports as per HPI and Denies headache(s) Eyes: Eyes: Denies loss of vision and Denies eye pain ENT: Reports Normal hearing present, Denies change in voice, Denies dizziness and Denies headache(s) Cardiovascular: Cardiovascular: Denies chest pain and Denies dyspnea Comments: History of peripheral vascular disease on Plavix. Respiratory: Respiratory: Denies dyspnea and Denies wheezing Musculoskeletal: Musculoskeletal: Denies back pain and Denies arthralgias Neurologic: Reports Normal hearing present, Denies dizziness, Denies headache(s), Denies loss of vision and Denies memory loss Psychiatric: Psychiatric: Denies memory loss and Denies panic attacks Endocrine: Comments: Severe long-standing diabetes mellitus on insulin. He may have microvascular disease distally on his digits. Hematologic/Lymphatic: Hematologic/Lymphatic: Reports no additional hematologic/lymphatic complaints Allergic/Immunologic: Allergic/Immunologic: Denies wheezing PMFSH Past Medical History Medical History Arthritis Caputo's esophagus with esophagitis Dietary cou
[2019-07-08 17:10] LABS: Glucose Point of Care 185 (65-105)
[2019-07-08 20:26] LABS: Glucose Point of Care 201 (65-105)
[2019-07-08 22:00] VITALS: BP 119/63; PULSE 51; RESP 16; TEMP 36.3; O2SAT 97
[2019-07-09 05:22] LABS: Osmolality, Urine 374 mOsm/kg (50-1200)
[2019-07-09 06:00] VITALS: BP 148/78; PULSE 58; RESP 20; TEMP 36.4; O2SAT 97
[2019-07-09 06:09] LABS: Hematocrit 39.8 % (42.0-52.0); Hemoglobin 13.8 g/dL (14.0-18.0); Mean Corpuscular HGB Conc 34.7 g/dl (32-36); Mean Corpuscular Hemoglobin 27.8 pg (26-34); Mean Corpuscular Volume 80.2 fl (80-100); Mean Platelet Volume 10.1 fl (7.4-10.4); Platelet Count Result 192 k/mm3 (150-375); Red Blood Count 4.96 M/mm3 (4.6-6.20); Red Cell Distribution Width 13.1 % (11.5-14.5); White Blood Count 7.2 K/mm3 (4.5-10.0)
[2019-07-09 06:28] LABS: Blood Urea Nitrogen 15 mg/dL (9-20); Calcium 8.8 mg/dL (8.4-10.2); Carbon Dioxide 33 mmol/L (22-30); Estimated CRCL calculation 69 ml/min; Estimated Glomerular Filt Rate > 60; Glucose 225 mg/dL (75-110); Magnesium 1.5 mg/dL (1.6-2.3)
[2019-07-09 06:38] LABS: Chloride 93 mmol/L (98-107); Potassium 4.1 mmol/L (3.4-5.0); Sodium 133 mmol/L (137-145)
[2019-07-09 07:01] LABS: Glucose Point of Care 240 (65-105)
[2019-07-09] MEDS: INSULIN HUMAN REGULAR (*BKC) 100 UNITS/ML 70 UNITS SUB-Q ×2 (08:07→17:32)
[2019-07-09] MEDS: INSULIN ASPART (*BKC) 100 UNITS/ML SUB-Q ×3 (08:08→17:09)
[2019-07-09] MEDS: ENOXAPARIN 40 MG/0.4 ML SYRINGE SUB-Q (08:17)
[2019-07-09] MEDS: DULOXETINE 60 MG CAPSULE.DR PO (08:19)
[2019-07-09] MEDS: OMEGA 3 POLYUNSAT FATTY ACIDS 1 GM CAP 2 GM PO ×2 (08:19→17:19)
[2019-07-09] MEDS: FAMOTIDINE 20 MG TABLET PO (08:19)
[2019-07-09] MEDS: PANTOPRAZOLE 40 MG TABLET PO (08:20)
[2019-07-09] MEDS: MULTIVITAMINS THERAPEUTIC TAB (*BKC) 1 TABLET PO (08:20)
[2019-07-09] MEDS: ISOSORBIDE MONONITRATE 60 MG TAB.ER.24H PO (08:20)
[2019-07-09] MEDS: FENOFIBRATE NANOCRYSTALLIZED 145 MG TABLET PO (08:20)
[2019-07-09] MEDS: hydroCHLOROthiazide 25 MG TABLET PO (08:21)
[2019-07-09] MEDS: lisinopriL 20 MG TABLET 40 MG PO (08:21)
[2019-07-09] MEDS: NIACIN SA 500 MG TABLET PO ×2 (08:22→17:19)
[2019-07-09] MEDS: SUCRALFATE 1 GM TABLET PO ×2 (08:22→17:20)
[2019-07-09] MEDS: AMLODIPINE BESYLATE 5 MG TABLET 10 MG PO (08:22)
[2019-07-09] MEDS: CYANOCOBALAMIN 1,000 MCG TABLET 1000 MCG PO (08:22)
[2019-07-09 08:23] VITALS: PULSE 72
[2019-07-09] MEDS: ATORVASTATIN 40 MG TABLET PO (08:23)
[2019-07-09] MEDS: METOPROLOL SUCCINATE EXT REL 100 MG TABCR PO (08:23)
[2019-07-09] MEDS: SILVERGEL (ELTA) 45 ML 1 APPLIC TOPICAL (08:26)
[2019-07-09 11:34] LABS: Glucose Point of Care 222 (65-105)
[2019-07-09] MEDS: MAGNESIUM SULF 2 GM/WATER 50ML 2 GM/50 ML BAG IVPB (13:29)
[2019-07-09 14:00] VITALS: BP 138/57; PULSE 56; RESP 18; TEMP 36.3; O2SAT 100
--- NOTE | 2019-07-09 15:11 | P.PNIM_ITS ---
Progress Note: A&P Assessment and Plan (1) Open wound of finger of right hand: Onset Date: ~07/02/19 Qualifiers: Encounter type: initial encounter Qualified Code(s): S61.209A - Unspecified open wound of unspecified finger without damage to nail, initial encounter Code(s): S61.209A - Unspecified open wound of unspecified finger without damage to nail, initial encounter Status: Acute Assessment and Plan: Discharged. See discharge summary. * Dorsal right 4th finger wound with surrounding cellulitis. Started as a blister 3 days prior to arrival. * Continue IV vancomycin and imipenem (day 4). * Appreciate General Surgery and Plastic Surgery recommendations. * Wound culture growing heavy growth of Staph aureus and moderate growth of Kleb siella. * Assessed by wound RN, continue wound care. * Complicated wound healing in the setting of peripheral vascular disease and uncontrolled DM. (2) Cellulitis of finger: Onset Date: ~07/02/19 Qualifiers: Laterality: right Qualified Code(s): L03.011 - Cellulitis of right finger Code(s): L03.019 - Cellulitis of unspecified finger Status: Acute Assessment and Plan: * See above. Improved with IV abx. (3) Uncontrolled diabetes mellitus: Onset Date: Unknown Qualifiers: Diabetes mellitus type: type 2 Glycemic state: with hyperglycemia Qualified Code(s): E11.65 - Type 2 diabetes mellitus with hyperglycemia Code(s): E11.65 - Type 2 diabetes mellitus with hyperglycemia Status: Chronic Assessment and Plan: * Hgb A1c > 14. He follows with an commercial service technician, last seen February 2019. He is on large doses of Humulin U500. He will be maintained on Humulin U 100 here which is formulary (home dose decreased by 30%). Monitor with Accu-Cheks and adjust treatment as needed. * Recommend following up with his commercial service technician as soon as possible. Tight glycemic control is important for his wound healing. * Blood sugars improved on the insulin regimen. (4) Hyponatremia: Code(s): E87.1 - Hypo-osmolality and hyponatremia Status: Acute Assessment and Plan: * Improved. Monitor BMP. (5) Hypertension: Qualifiers: Hypertension type: unspecified Qualified Code(s): I10 - Essential (primary) hypertension Code(s): I10 - Essential (primary) hypertension Status: Chronic Assessment and Plan: * Stable. Continue his home Norvasc, hydrochlorothiazide, lisinopril, metoprolol and monitor BP. (6) Hyperlipidemia LDL goal <70: Code(s): E78.5 - Hyperlipidemia, unspecified Status: Chronic Assessment and Plan: * Continue home fenofibrate and niacin. (7) CAD (coronary artery disease): Qualifiers: Associated angina: with unspecified angina Coronary Disease-Associated Artery/Lesion type: unspecified vessel or lesion type [place] vs. transplanted heart: unspecified whether [place] or transplanted heart Qualified Code(s): I25.119 - Atherosclerotic heart disease of [place] coronary artery with unspecified angina pectoris Code(s): I25.10 - Atherosclerotic heart disease of [place] coronary artery without angina pectoris Status: Chronic Assessment and Plan: * No chest pain. Continue ASA, Plavix, beta blockade, Imdur. He has an upcoming stress test to clear for him for L leg vascular surgery. _
--- NOTE | 2019-07-09 15:11 | PM.IMPN ---
Progress Note: A&P Assessment and Plan (1) Open wound of finger of right hand: Onset Date: ~07/02/19 Qualifiers: Encounter type: initial encounter Qualified Code(s): S61.209A - Unspecified open wound of unspecified finger without damage to nail, initial encounter Code(s): S61.209A - Unspecified open wound of unspecified finger without damage to nail, initial encounter Status: Acute Assessment and Plan: Discharged. See discharge summary. Dorsal right 4th finger wound with surrounding cellulitis. Started as a blister 3 days prior to arrival. Continue IV vancomycin and imipenem (day 4). Appreciate General Surgery and Plastic Surgery recommendations. Wound culture growing heavy growth of Staph aureus and moderate growth of Klebsiella. Assessed by wound RN, continue wound care. Complicated wound healing in the setting of peripheral vascular disease and uncontrolled DM. (2) Cellulitis of finger: Onset Date: ~07/02/19 Qualifiers: Laterality: right Qualified Code(s): L03.011 - Cellulitis of right finger Code(s): L03.019 - Cellulitis of unspecified finger Status: Acute Assessment and Plan: See above. Improved with IV abx. (3) Uncontrolled diabetes mellitus: Onset Date: Unknown Qualifiers: Diabetes mellitus type: type 2 Glycemic state: with hyperglycemia Qualified Code(s): E11.65 - Type 2 diabetes mellitus with hyperglycemia Code(s): E11.65 - Type 2 diabetes mellitus with hyperglycemia Status: Chronic Assessment and Plan: Hgb A1c > 14. He follows with an coding support specialist, last seen February 2019. He is on large doses of Humulin U500. He will be maintained on Humulin U 100 here which is formulary (home dose decreased by 30%). Monitor with Accu-Cheks and adjust treatment as needed. Recommend following up with his coding support specialist as soon as possible. Tight glycemic control is important for his wound healing. Blood sugars improved on the insulin regimen. (4) Hyponatremia: Code(s): E87.1 - Hypo-osmolality and hyponatremia Status: Acute Assessment and Plan: Improved. Monitor BMP. (5) Hypertension: Qualifiers: Hypertension type: unspecified Qualified Code(s): I10 - Essential (primary) hypertension Code(s): I10 - Essential (primary) hypertension Status: Chronic Assessment and Plan: Stable. Continue his home Norvasc, hydrochlorothiazide, lisinopril, metoprolol and monitor BP. (6) Hyperlipidemia LDL goal <70: Code(s): E78.5 - Hyperlipidemia, unspecified Status: Chronic Assessment and Plan: Continue home fenofibrate and niacin. (7) CAD (coronary artery disease): Qualifiers: Associated angina: with unspecified angina Coronary Disease-Associated Artery/Lesion type: unspecified vessel or lesion type [place] vs. transplanted heart: unspecified whether [place] or transplanted heart Qualified Code(s): I25.119 - Atherosclerotic heart disease of [place] coronary artery with unspecified angina pectoris Code(s): I25.10 - Atherosclerotic heart disease of [place] coronary artery without angina pectoris Status: Chronic Assessment and Plan: No chest pain. Continue ASA, Plavix, beta blockade, Imdur. He has an upcoming stress test to clear for him for L leg vascular surgery. (8) PAD (peripheral artery disease): Onset Date: Unknown Code(s): I73.9 - Peripheral vascular disease, unspecified Status: Chronic Assessment and Plan: Significant peripheral vascular disease. Follows with vascular surgery, Dr. Kaiser. Patient reports he has an upcoming left leg bypass surgery planned.
[2019-07-09 16:33] LABS: Glucose Point of Care 205 (65-105)
--- NOTE | 2019-07-09 17:05 | WPDCN ---
Assessment and Plan Additional Plan Okay for discharge. Continue Silvergel daily as long as there is eschar or open wound. May wash area with soap and water. He can follow up with his primary regarding this. Should resolve in about 4 weeks. HPI Data of Consult Date/Time: 07/09/19 17:05 Requesting Physician: MARISELA Acosta Primary Care Provider: Shakila Smyth MD Consult Narrative Narrative: Cornelius Babin Jr. is a 63 year old male poorly controled diabetic admitted several days ago with black eschar on his right ring finger distal phalanx and associated cellulitis and lymphangitis. The redness has resolved on IV antibiotics, culture results have been reported. The eschar which is dorsal and periungual has begun to slough. It seems to involve mostly epidermis and superficial dermis. This infection apparently began with small blisters. Pt's Hb A1c is 14. He has peripheral neuropathy. He seems to have a good grasp of the process he is experiencing and is comfortable going home to continue the Silvergel daily dressing. [facility] Past Medical History Medical History Arthritis Caputo's esophagus with esophagitis Dietary counseling and surveillance Essential hypertension GERD (gastroesophageal reflux disease) Hyperlipidemia LDL goal <70 Hypertension Myocardial infarction Stroke Type 2 diabetes mellitus with hyperglycemia Type 2 diabetes mellitus with hyperglycemia Family History Family History Mother Diabetes mellitus Family history of arthritis Family history of diabetes mellitus in first degree relative Family history of coronary artery disease Hypertension Cerebrovascular accident Father Family history of alcoholism Sibling Myocardial infarction Diabetes mellitus Other Family history of cardiovascular disease Social History Social History Smoking packs per day: 3 Smoking cigarettes per day: 60.0 Years smoked: 30 Smoking pack-years: 90.00 Smoking status: Former smoker Tobacco type: cigarettes Alcohol intake: never Substance use: never Gender identity (if verbalized by the patient): Male Spiritual care concerns: No Agree to blood products: Yes Meds Home Medications and Allergies Home Medications Medication Instructions Recorded Confirmed Type aspirin 81 mg tablet,delayed 81 mg PO DAILY #30 tablet 02/26/19 07/05/19 Rx release atorvastatin 40 mg tablet 40 mg PO DAILY #30 tablet 02/26/19 07/05/19 Rx clopidogrel 75 mg tablet 75 mg PO DAILY #30 tablet 02/26/19 07/05/19 Rx hydrochlorothiazide 25 mg tablet 25 mg PO DAILY #30 tablet 02/26/19 07/05/19 Rx metoprolol succinate 100 mg 100 mg PO DAILY #30 tablet 02/26/19 07/05/19 Rx tablet,extended release 24 hr multivitamin 1 tablet PO DAILY 03/07/19 07/05/19 History isosorbide mononitrate 60 mg 60 mg PO DAILY #90 tablet 03/15/19 07/05/19 Rx tablet,extended release 24 hr niacin 500 mg tablet 500 mg PO BID tablet 03/26/19 07/05/19 History omega-3 fatty acids 1,000 mg 2,000 mg PO BID cap 03/26/19 07/05/19 History capsule sucralfate 1 gram tablet 1 gm PO BID #60 tablet 04/02/19 07/05/19 Rx pantoprazole 40 mg tablet,delayed 40 mg PO DAILY tablet 05/08/19 07/05/19 History release lisinopril 40 mg tablet 40 mg PO DAILY #90 tablet 05/28/19 07/05/19 Rx albuterol sulfate 90 mcg/actuation 1 inhalation INHALATION Q4H PRN 06/01/19 07/05/19 Rx aerosol inhaler #6.7 gm amlodipine 10 mg tablet 10 mg PO DAILY #30 tablet 06/05/19 07/05/19 Rx duloxetine 60 mg capsule,delayed 60 mg PO DAILY #30 cap 06/05/19 07/05/19 Rx release calcium carbonate-vitamin D3 600 1 cap PO DAILY 06/14/19 07/05/19 History mg calcium-200 unit capsule mecobalamin (vitamin B12) 1,000 1,000 mcg SUBLINGUAL DAILY 06/14/19 07/05/19 History mcg disintegrating tablet,
--- NOTE | 2019-07-09 17:42 | PM.DS ---
DS: Diagnosis Admitting Diagnosis Admitting Diagnosis: Cellulitis of unspecified finger Discharge Diagnosis (1) Open wound of finger of right hand: Onset Date: ~07/02/19 Qualifiers: Encounter type: initial encounter Qualified Code(s): S61.209A - Unspecified open wound of unspecified finger without damage to nail, initial encounter Code(s): S61.209A - Unspecified open wound of unspecified finger without damage to nail, initial encounter Status: Acute Assessment and Plan: Date of Service 07/09/19 Mr. Babin is a 63yo M with hypertension, peripheral vascular disease, and uncontrolled insulin-dependent type 2 diabetes mellitus who presented to the ER for evaluation of a wound to his right 4th finger. He noted that the wound began as a blister 3 days prior to arrival. It was debrided by the ER provider. Surrounding the wound, the entire digit was edematous and erythematous with a linear erythematous streak up his posterior forearm to the elbow. He was treated with 5 days of IV vancomycin and imipenem. His cellulitis was much improved with this regimen. He was evaluated by General Surgery - Dr Vergara, and Plastic Surgery, Dr Montoya. Dr Montoya advised daily dressing changes with Silver Gel (while the wound still had black eschar) to be followed by PCP, which he anticipated would heal over the next 4 weeks. Wound culture grew Staph aureus and Klebsiella. He was discharged with oral Bactrim based on the wound culture sensitivity report and instructed to follow up with PCP to monitor wound healing. He was hemodynamically stable for discharge 07/09/19. Hgb A1c > 14. He does follow with an conflicts analyst and he is encouraged to follow up as soon as possible due to poor glycemic control in the setting of wound healing. He is on large doses of insulin and was continued on the same regimen, decreased by 30% while inpatient which he tolerated well. Consultations: -- General Surgery - Dr Vergara -- Plastic Surgery - Dr Montoya Dorsal right 4th finger wound with surrounding cellulitis. Started as a blister 3 days prior to arrival. Treated with IV vancomycin and imipenem (day 4). Appreciate General Surgery and Plastic Surgery recommendations. Wound culture growing heavy growth of Staph aureus and moderate growth of Klebsiella. Blood cultures negative. Assessed by wound RN, continue wound care with daily dressing changes. Complicated wound healing in the setting of peripheral vascular disease and uncontrolled DM. (2) Cellulitis of finger: Onset Date: ~07/02/19 Qualifiers: Laterality: right Qualified Code(s): L03.011 - Cellulitis of right finger Code(s): L03.019 - Cellulitis of unspecified finger Status: Acute Assessment and Plan: See above. Improved with IV abx. (3) Uncontrolled diabetes mellitus: Onset Date: Unknown Qualifiers: Diabetes mellitus type: type 2 Glycemic state: with hyperglycemia Qualified Code(s): E11.65 - Type 2 diabetes mellitus with hyperglycemia Code(s): E11.65 - Type 2 diabetes mellitus with hyperglycemia Status: Chronic Assessment and Plan: Hgb A1c > 14. He follows with an conflicts analyst, last seen February 2019. He is on large doses of Humulin U500. He will be maintained on Humulin U 100 here which is formulary (home dose decreased by 30%). Monitor with Accu-Cheks and adjust treatment as needed. Recommend following up with his conflicts analyst as soon as possible. Tight glycemic control is important for his wound healing. Blood sugars improved on the insulin regimen. (4) Hyponatremia: Code(s): E87.1 - Hypo-osmolality and hyponatremia Status: Acute Assessment and Plan: Improved. Monitor BMP. (5) Hypertension: Qualifiers: Hypertension typ
== END 2019-07-09 20:20 | disposition home or self-care (01) | DRG 603 ==
LOC: ANHED 20:08 → ANH3MEDSUR 21:03
PROVIDERS: Emergency Medicine Emergency Medical Services; Physician Assistant; Admitting Provider Family Medicine; Emergency Provider Emergency Medicine; PCP Family Medicine; Visit Provider Internal Medicine
DX: L03.011 Cellulitis of right finger (principal); E87.1 Hypo-osmolality and hyponatremia; E11.52 Type 2 diabetes mellitus with diabetic peripheral angiopathy with gangrene; I96 Gangrene, not elsewhere classified; Z23 Encounter for immunization; E11.65 Type 2 diabetes mellitus with hyperglycemia; M19.90 Unspecified osteoarthritis, unspecified site; I10 Essential (primary) hypertension; I25.2 Old myocardial infarction; Z86.73 Personal history of transient ischemic attack (TIA), and cerebral infarction without residual deficits; Z87.891 Personal history of nicotine dependence; E78.5 Hyperlipidemia, unspecified; K21.9 Gastro-esophageal reflux disease without esophagitis; A49.01 Methicillin susceptible Staphylococcus aureus infection, unspecified site; E11.51 Type 2 diabetes mellitus with diabetic peripheral angiopathy without gangrene; I25.10 Atherosclerotic heart disease of native coronary artery without angina pectoris; E11.42 Type 2 diabetes mellitus with diabetic polyneuropathy
CPT/HCPCS: 11042; 36415; 73140; 80048; 80053; 80202; 81001; 82010; 82948; 83036; 83605; 83735; 83935; 84100; 84300; 85025; 85027; 85610; 85730; 86140; 87040; 87070; 87075; 87077; 87147; 87186; 87205; 90471; 90715; 96361; 96365; 96366; 96367; 96372; 96375; 99285; A9270; G0378; J0360; J0690; J0743; J1650; J1815; J3370; J3475; J7030; J7120

== ENCOUNTER 2019-07-20 06:33 | Outpatient (CLI) | payer MEDICARE, SELFPAY ==
--- NOTE | ~2019-07-20 | NM_ITS ---
EXAMINATION: NM cele stress w perfusion DATE: 07/20/2019 11:33 INDICATION: Dyspnea TECHNIQUE: Rest images were obtained following intravenous administration of 11.3 mCi Tc99m tetrofosm in (Myoview). The patient was infused intravenously with Lexiscan (Regadenoson). Then, 32.4 mCi Tc99m tetrofosmin (Myoview) was administered intravenously, and stress images were obtained. Data was phu nstructed into short axis and horizontal and vertical long axis SPECT images. Gated SPECT images were also obtained. COMPARISON: None. FINDINGS: There is no definite reversible or fixed perfusion abnormality to suggest ischemia or infar ction. There is normal left ventricular chamber size, wall motion and ejection fraction. Left ventr icular ejection fraction measures 55%. IMPRESSION: 1. Normal myocardial perfusion at rest and during stress. 2. Left ventricular ejection fraction measuring 55%. Reviewed, dictated and finalized at location A.
--- NOTE | 2019-07-20 06:55 | ECHO_ITS ---
Patient Info Name: Cornelius Babin Age: 63 years : 1955 Gender: Male Ht: 67 in Wt: 167 lbs BSA: 1.91 m2 HR: 62 bpm BP: 145 / 81 mmHg Heart Rhythm: Sinus Rhythm Technical Quality: Good Exam Date: 07/20/2019 7:05 AM Exam Location: [facility] Pulmonary Patient Status: Outpatient Admit Date: 07/20/2019 Staff Ordering Physician: Raulito Hoyt DO Title Curative Specialist: Ghada García RDCS Attending Provider: Raulito Hoyt DO Referring Physician: Lia GONSALVES; Exam Type: CA echo doppler color flow Study Info Indications R01.1 - Cardiac murmur, unspecified Complete two-dimensional, color flow and Doppler transthoracic echocardiogram is performed. Summary 1. Left ventricular chamber dimension is normal. 2. Left ventricular systolic function is normal, estimated at 60-65%. 3. There is mildly increased left ventricular wall thickness. 4. The left ventricular diastolic function is grade II diastolic dysfunction. 5. E/e' 14 is mildly elevated. 6. Left atrial chamber dimension is mildly enlarged. 7. There is mild aortic valve sclerosis. 8. No pulmonary hypertension, estimated pulmonary arterial systolic pressure is 33 mmHg. 9. The aortic root size at the sinus of Valsalva is borderline dilated at 4.0 cm. 10. There is trivial pericardial effusion. Left Ventricle E/e' 14 is mildly elevated. Left ventricular chamber dimension is normal. Left ventricular systolic function is normal, estimated at 60-65%. There is mildly increased left ventricular wall thickness. The left ventricular diastolic function is grade II diastolic dysfunction. Right Ventricle Right ventricular chamber dimension is normal. Right ventricular systolic function is normal. Left Atria Left atrial chamber dimension is mildly enlarged. Right Atria Right atrial chamber dimension is normal. Aortic Valve The aortic valve is trileaflet. There is mild aortic valve sclerosis. There is no aortic valve stenosis. There is no aortic valve regurgitation. Pulmonic Valve There is no pulmonic regurgitation. Mitral Valve There is no mitral valve stenosis. There is no mitral valve regurgitation. Tricuspid Valve There is no tricuspid valve regurgitation. No pulmonary hypertension, estimated pulmonary arterial systolic pressure is 33 mmHg. Pericardium/Pleural There is trivial pericardial effusion. Inferior Vena Cava Normal inferior vena cava with >50% collapse upon inspiration consistent with normal right atrial pressure, 5 mmHg. Aorta The aortic root size at the sinus of Valsalva is borderline dilated at 4.0 cm. Left Ventricular Outflow Tract Name Value Normal LVOT 2D LVOT Diameter 2.0 cm LVOT Doppler LVOT Peak Gradient 4 mmHg LVOT Mean Gradient 2 mmHg LVOT VTI 19 cm LVOT VTI/AV VTI Ratio 0.8 LVOT Stroke Volume 61 ml LVOT CO 3.2 l/min LVOT CI 1.7 l/min/m2 Pulmonic Valve
--- NOTE | 2019-07-20 06:55 | EST_ITS ---
Patient Info Name: Cornelius Babin Age: 63 years : 1955 Gender: Male Ht: 67 in Wt: 167 lbs BSA: 1.91 m2 Exam Date: 07/20/2019 9:24 AM Exam Location: [facility] Stress Patient Status: Outpatient Admit Date: 07/20/2019 Staff Ordering Physician: Raulito Hoyt DO Attending Provider: Raulito Hoyt DO Exercise Technologist: Ghada García RDCS Exercise Physician: Raulito Hoyt DO Exam Type: CA stress cele w NM Study Info Indications Z01.818 - Encounter for other preprocedural examination R06.09 - Other forms of dyspnea A regadenoson stress test was performed. Summary 1. 1. Negative lexiscan stress test for ischemic ST changes by ECG criteria. 2. 2. Relative hypotension with lexiscan. 3. 3. Nuclear scan to follow and will be reported separately. Please correlate with it. 4. 4. Patient informed of the above results. Protocol: Lexiscan Stress ECG Details Stage: REST Duration (min): 10 min : 41 sec HR (bpm): 57 SBP (mmHg): 118 DBP (mmHg): 75 Stage: REST Duration (min): 21 min : 19 sec HR (bpm): 54 SBP (mmHg): 118 DBP (mmHg): 75 Stage: STAGE 1 Duration (min): 1 min : 0 sec HR (bpm): 56 SBP (mmHg): 136 DBP (mmHg): 67 Stage: RECOVERY Duration (min): 1 min : 0 sec HR (bpm): 58 SBP (mmHg): 126 DBP (mmHg): 64 Stage: RECOVERY Duration (min): 2 min : 0 sec HR (bpm): 55 SBP (mmHg): 126 DBP (mmHg): 64 Stage: RECOVERY Duration (min): 3 min : 0 sec HR (bpm): 56 SBP (mmHg): 92 DBP (mmHg): 59 Stage: RECOVERY Duration (min): 3 min : 59 sec HR (bpm): 64 SBP (mmHg): 84 DBP (mmHg): 57 Stage: RECOVERY Duration (min): 5 min : 0 sec HR (bpm): 59 SBP (mmHg): 95 DBP (mmHg): 57 Stage: RECOVERY Duration (min): 6 min : 0 sec HR (bpm): 59 SBP (mmHg): 95 DBP (mmHg): 57 Stage: RECOVERY Duration (min): 7 min : 0 sec HR (bpm): 57 SBP (mmHg): 97 DBP (mmHg): 57 Stage: RECOVERY Duration (min): 8 min : 0 sec HR (bpm): 56 SBP (mmHg): 97 DBP (mmHg): 57 Stage: RECOVERY Duration (min): 8 min : 43 sec HR (bpm): 57 SBP (mmHg): 105 DBP (mmHg): 63 Rest HR: 54 bpm Peak HR: 64 bpm Rest Sys BP: 118 mmHg Peak Sys BP: 136 mmHg Max Pred HR: 157 bpm % Max Pred HR: 41 % Target HR: 133 bpm Max RPP: 8,704 bpm*mmHg Termination Reason: Completed protocol Cardiac Symptoms: Shortness of breath, Dizziness Total Time: 1 min : 0 sec Rest Sheriff BP: 75 mmHg Peak Sheriff BP: 67 mmHg Total Dose: 0.4 mg Resting ECG Sinus rhythm with borderline T wave in inf/lat leads. Stress ECG No ST changes. Arrhythmias None. Report Signatures
== END 2019-07-20 06:34 | disposition home or self-care (01) ==
LOC: ANHCARD 06:36
PROVIDERS: PCP Family Medicine; Visit Provider Internal Medicine Cardiovascular Disease
DX: Z01.810 Encounter for preprocedural cardiovascular examination (principal); R01.1 Cardiac murmur, unspecified; R06.09 Other forms of dyspnea
CPT/HCPCS: 78452; 93017; 93306; A9502; J2785

== ENCOUNTER 2019-11-13 08:45 | Outpatient (CLI) | payer MEDICARE, SELFPAY ==
[2019-11-13 09:24] LABS: Alanine Aminotransferase 27 U/L (4-50); Albumin Level 4.3 g/dL (3.5-5.1); Alkaline Phosphatase 94 U/L (38-126); Aspartate Amino Transferase 27 U/L (17-59); Bilirubin,Total 0.3 mg/dL (0.2-1.3); Blood Urea Nitrogen 25 mg/dL (9-20); Calcium 9.8 mg/dL (8.4-10.2); Carbon Dioxide 29 mmol/L (22-30); Chloride 95 mmol/L (98-107); Cholesterol 175 mg/dL (0-200); Estimated Glomerular Filt Rate > 60; Glucose 186 mg/dL (75-110); HDL Direct 26 mg/dL; Potassium 4.2 mmol/L (3.4-5.0); Sodium 136 mmol/L (137-145); Triglycerides 488 mg/dL (<150)
[2019-11-13 09:35] LABS: LDL Cholesterol Direct 101 mg/dL
== END 2019-11-13 08:46 | disposition home or self-care (01) ==
PROVIDERS: PCP Family Medicine; Visit Provider Internal Medicine Cardiovascular Disease
DX: E78.5 Hyperlipidemia, unspecified (principal)
CPT/HCPCS: 36415; 80053; 80061

== ENCOUNTER 2020-04-10 08:56 | Outpatient (CLI) | payer MEDICARE, SELFPAY ==
[2020-04-10 10:19] LABS: Cholesterol 191 mg/dL (0-200); HDL Direct 34 mg/dL; Triglycerides 436 mg/dL (<150)
[2020-04-10 10:29] LABS: LDL Cholesterol Direct 121 mg/dL
== END 2020-04-10 08:57 | disposition home or self-care (01) ==
LOC: ANHLAB 08:59
PROVIDERS: PCP Family Medicine; Visit Provider Internal Medicine Cardiovascular Disease
DX: E78.5 Hyperlipidemia, unspecified (principal)
CPT/HCPCS: 36415; 80061

== ENCOUNTER 2020-04-14 16:03 | Emergency (ER) | payer MEDICARE, SELFPAY ==
--- NOTE | ~2020-04-14 | XR_ITS ---
XR chest 2V 04/14/2020 17:39 Indication: Left-sided chest pain Procedure: 2 view chest Comparison: 09/03/2015 Findings: Chronic left basilar atelectasis/scarring. There is left pleural calcification at the diaph ragm. There are scattered calcified granulomas. Impression: 1: No acute cardiopulmonary disease. 2: Chronic left basilar atelectasis/scarring with adjacent pleural calcification. Reviewed, dictated and finalized at location A. S OPERATIONS ANALYST Impression: 1: No acute cardiopulmonary disease. 2: Chronic left basilar atelectasis/scarring with adjacent pleural calcificatio n.
[2020-04-14 16:10] VITALS: BP 137/82; PULSE 70; RESP 16; TEMP 36; O2SAT 100
--- NOTE | 2020-04-14 16:11 | ECG_ITS ---
Measurements Intervals [place] Rate: 71 P: 54 TN: 163 QRS: 12 QRSD: 98 T: 78 QT: 351 QTc: 383 Interpretive Statements SINUS RHYTHM DELAYED PRECORDIAL R/S TRANSITION INFERIOR INFARCT, AGE INDETERMINATE BORDERLINE T WAVE ABNORMALITY- HIGH LATERAL LEADS BASELINE ARTIFACT- I, II, AVR, AVL, AVF, V3 ABNORMAL ECG Electronically Signed On 04-14-2020 16:16:24 STOCK SHIPPER by Raulito Hoyt D.O.
[2020-04-14 16:24] LABS: Basophils Percent Auto 0.4 % (0.2-1.2); Eosinophils Absolute Auto 0.2 K/mm3 (0-0.3); Eosinophils Percent Auto 1.8 % (0-4.4); Hematocrit 47.3 % (42.0-52.0); Hemoglobin 15.8 g/dL (14.0-18.0); Immature Granulocyte Absolute 0.05 K/mm3 (0.00-0.031); Immature Granulocyte Percent A 0.6 % (0-0.5); Lymphocytes Absolute Auto 2.61 K/mm3 (0.9-3.2); Lymphocytes Percent Auto 30.5 % (18.3-44.2); Mean Corpuscular HGB Conc 33.4 g/dl (32-36); Mean Corpuscular Hemoglobin 27.7 pg (26-34); Mean Platelet Volume 9.5 fl (7.4-10.4); Monocytes Absolute Auto 0.6 K/mm3 (0.1-0.6); Monocytes Percent Auto 6.9 % (2.6-8.5); Neutrophils Absolute Auto 5.1 K/mm3 (1.3-6.7); Neutrophils Percent Auto 59.8 % (45.5-73.1); Platelet Count Result 216 k/mm3 (150-375); Red Cell Distribution Width 13.5 % (11.5-14.5); White Blood Count 8.6 K/mm3 (4.5-10.0)
[2020-04-14 16:34] LABS: Anion Gap 11 mmol/L (8-16); Blood Urea Nitrogen 22 mg/dL (9-20); Calcium 10.3 mg/dL (8.4-10.2); Carbon Dioxide 25 mmol/L (22-30); Chloride 97 mmol/L (98-107); Estimated CRCL calculation 68 ml/min; Estimated Glomerular Filt Rate > 60; Glucose 227 mg/dL (75-110); INR 0.9; Partial Thromboplastin Time 26.1 SECONDS (22.3-36.8); Potassium 4.7 mmol/L (3.4-5.0); Sodium 133 mmol/L (137-145)
[2020-04-14 16:46] LABS: Troponin I 0.013 ng/mL (0.000-0.034)
[2020-04-14 18:06] VITALS: BP 157/84; PULSE 66; RESP 20; O2SAT 99
[2020-04-14] MEDS: FAMOTIDINE 20 MG/2 ML VIAL IV PUSH (18:07)
[2020-04-14] MEDS: ASPIRIN 81 MG CHEWABLE TABLET 324 MG PO (18:08)
[2020-04-14] MEDS: BELLADONNA ALK/PHENOB ELIX 10 ML, MAG HYDROX/ALUMINUM HYD/SIMETH 30 ML, LIDOCAINE HCL 2... PO (18:08)
--- NOTE | 2020-04-14 18:10 | ED.CHESTPAIN ---
HPI - Chest Pain General Chief Complaint: Chest Pain <Yesenia Ni PA-C - Last Filed: 04/14/20 20:02> Stated Complaint: chest pain <Yesenia Ni PA-C - Last Filed: 04/14/20 20:02> Time Seen by Provider: 04/14/20 17:29 <Yesenia Ni PA-C - Last Filed: 04/14/20 20:02> Source: patient <NALDO Salinas Last Filed: 04/14/20 20:02> Mode of arrival: ambulatory <NALDO Salinas Last Filed: 04/14/20 20:02> Limitations: no limitations <Yesenia Ni PA-C - Last Filed: 04/14/20 20:02> History of Present Illness HPI narrative: This is a 64-year-old male that presents to the emergency department for burning chest pain since yesterday. Reports he took Nexium with some relief. Pain seems to be worsened by certain foods. Reports he does have history of reflux and noticed that it was worsening lately. Denies fever, cough, shortness of breath. <Yesenia Ni PA-C - Last Filed: 04/14/20 20:02> Related Data Home Medications: Home Medications Medication Instructions Recorded Confirmed multivitamin 1 tablet PO DAILY 03/07/19 03/27/20 pantoprazole 40 mg tablet,delayed 40 mg PO DAILY tablet 05/08/19 03/27/20 release mecobalamin (vitamin B12) 1,000 1,000 mcg SUBLINGUAL DAILY 06/14/19 03/27/20 mcg disintegrating tablet,sublingual omega-3 fatty acids 1,000 mg 3,000 mg PO BID cap 11/14/19 03/27/20 capsule metoprolol succinate 50 mg 50 mg PO DAILY 01/08/20 03/27/20 tablet,extended release 24 hr <NALDO Salinas Last Filed: 04/14/20 20:02> Allergies/Adverse Reactions: Allergies Allergy/AdvReac Type Severity Reaction Status Date / Time No Known Allergies Allergy Verified 03/27/20 14:15 <NALDO Salinas Last Filed: 04/14/20 20:02> Review of Systems Review of Systems: Narrative: CONSTITUTIONAL: Denies fever CARDIOVASCULAR: Reports chest pain. Denies edema. RESPIRATORY: Denies cough or dyspnea. GASTROINTESTINAL: Denies abdominal pain, nausea, vomiting <Yesenia Ni PA-C - Last Filed: 04/14/20 20:02> All systems reviewed & are unremarkable except as noted in HPI and below <Yesenia Ni PA-C - Last Filed: 04/14/20 20:02> [facility] Past Medical History Medical History: Medical History Arthritis Caputo's esophagus with esophagitis CAD (coronary artery disease) Diabetic foot ulcer Diabetic peripheral neuropathy Dietary counseling and surveillance Essential hypertension GERD (gastroesophageal reflux disease) Hyperlipidemia LDL goal <70 IDDM (insulin dependent diabetes mellitus) Myocardial infarction (~2003) Open wound of finger of right hand (~07/02/19) PAD (peripheral artery disease) (~2011) Stroke Type 2 diabetes mellitus with hyperglycemia Vitamin D deficiency <Yesenia Ni PA-C - Last Filed: 04/14/20 20:02> Surgical History Surgical History: Surgical History History of coronary artery stent placement 2004 History of femoropopliteal bypass left - 09/11 <NALDO Salinas Last Filed: 04/14/20 20:02> Family History Family History: Family History Mother Diabetes mellitus Family history of arthritis Family history of diabetes mellitus in first degree relative Family history of coronary artery disease Hypertension Cerebrovascular accident Father Family history of alcoholism Sibling Myocardial infarction Diabetes mellitus Other Family history of cardiovascular disease <NALDO Salinas Last Filed: 04/14/20 20:02> Social History Social History: Social History (Updated 03/27/20 @ 14:16 by Sherri Garza [facility]) Smoking packs per day: 3 Smoking cigarettes per day: 60.0 Years smoked: 30 Smoking pack-years: 90.00 Smoking status: Former smoker Tobacco type:
[2020-04-14 18:56] VITALS: BP 145/72; PULSE 62; RESP 17; O2SAT 100
[2020-04-14 19:37] LABS: Troponin I 0.016 ng/mL (0.000-0.034)
[2020-04-14 20:09] VITALS: BP 145/78; PULSE 78; RESP 18; O2SAT 98
== END 2020-04-14 20:10 | disposition home or self-care (01) ==
PROVIDERS: Emergency Provider Emergency Medicine; PCP Family Medicine
DX: K21.9 Gastro-esophageal reflux disease without esophagitis (principal); K22.70 Barrett's esophagus without dysplasia; I25.10 Atherosclerotic heart disease of native coronary artery without angina pectoris; E11.42 Type 2 diabetes mellitus with diabetic polyneuropathy; I10 Essential (primary) hypertension; I25.2 Old myocardial infarction; E11.51 Type 2 diabetes mellitus with diabetic peripheral angiopathy without gangrene; Z86.73 Personal history of transient ischemic attack (TIA), and cerebral infarction without residual deficits; E55.9 Vitamin D deficiency, unspecified; Z87.891 Personal history of nicotine dependence
CPT/HCPCS: 36415; 71046; 80048; 84484; 85025; 85610; 85730; 93005; 96374; 99284; A9270

== ENCOUNTER 2020-05-24 12:23 | Emergency (ER) | payer MEDICARE, SELFPAY ==
--- NOTE | ~2020-05-24 | XR_ITS ---
EXAMINATION: XR chest 2V DATE: 05/24/2020 13:39 INDICATION: Chest pain TECHNIQUE: PA and lateral views of the chest were obtained. COMPARISON: Chest radiograph dated 04/14/2020 FINDINGS: Few bilateral small scattered calcified pulmonary nodules consistent with old granulomatous disease. Chronic calcified pleural plaque along the left hemidiaphragm with minimal adjacent linear atelectasi s/scarring. No other airspace opacities, pulmonary edema, pleural effusion or pneumothorax. The cardi omediastinal silhouette is normal. Mild thoracic and moderate upper lumbar spondylosis with bridging osteophytes at multiple levels consistent with diffuse idiopathic skeletal hyperostosis (DISH). IMPRESSION: 1. Minimal chronic atelectasis/scarring at the left lower lung zone along side a calcified pleural pl aque along the diaphragm likely sequela of chronic infection or trauma. 2. No acute cardiopulmonary disease. Reviewed, dictated and finalized at location A. ERY SHOPPER IMPRESSION: 1. Minimal chronic atelectasis/scarring at the left lower lung zone along side a calcified pleural plaque along the diaphragm likely sequela of chronic infect ion or trauma. 2. No acute cardiopulmonary disease.
--- NOTE | 2020-05-24 12:27 | ED.CHESTPAIN ---
HPI - Chest Pain General Chief Complaint: Chest Pain Stated Complaint: chest pain, SOB Time Seen by Provider: 05/24/20 12:26 Source: patient and RN notes reviewed Mode of arrival: ambulatory Limitations: no limitations History of Present Illness MD complaint: chest discomfort Pertinent past history: coronary artery disease and prior AL Onset (ago): day(s) (1) Timing of current episode: episodic Prior episodes: Yes Onset: during rest Pain location: left chest Pain radiation: none Severity: severe Pain scale (0-10): 10 Quality: aching Exacerbating factors: eating Associated symptoms: nausea and dyspnea (sometimes mild) Treatment prior to arrival: none Risk Factors Coronary artery disease risk factors: smoking history, hyperlipidemia and hypertension Related Data Home Medications Medication Instructions Recorded Confirmed multivitamin 1 tablet PO DAILY 03/07/19 04/30/20 pantoprazole 40 mg tablet,delayed 40 mg PO DAILY tablet 05/08/19 04/30/20 release mecobalamin (vitamin B12) 1,000 1,000 mcg SUBLINGUAL DAILY 06/14/19 04/30/20 mcg disintegrating tablet,sublingual omega-3 fatty acids 1,000 mg 3,000 mg PO BID cap 11/14/19 04/30/20 capsule metoprolol succinate 50 mg 50 mg PO DAILY 01/08/20 04/30/20 tablet,extended release 24 hr Allergies Allergy/AdvReac Type Severity Reaction Status Date / Time No Known Allergies Allergy Verified 05/22/20 08:11 Review of Systems Constitutional: Constitutional: Denies chills, Denies fever(s) and Denies weakness Eyes: Eyes: Reports no additional eye complaints ENT: Reports system reviewed and no additional complaints, except as documented Cardiovascular: Cardiovascular: Reports as per HPI, Denies rapid heart rate and Denies radiating jaw, neck or arm pain Respiratory: Respiratory: Denies cough and Denies wheezing Gastrointestinal: Gastrointestinal: Denies constipation, Reports heartburn and Denies diarrhea Genitourinary: Genitourinary: Reports no additional male genitourinary complaints Musculoskeletal: Musculoskeletal: Reports no additional musculoskeletal complaints Integumentary/Breasts: Skin/Breast: Reports system reviewed and no additional complaints, except as docu Neurologic: Reports system reviewed and no additional complaints, except as documented Psychiatric: Psychiatric: Reports no additional psychiatric complaints PMFSH Past Medical History Medical History Adenomatous colon polyp Arthritis Caputo's esophagus with esophagitis CAD (coronary artery disease) Diabetic foot ulcer Diabetic peripheral neuropathy Dietary counseling and surveillance Essential hypertension GERD (gastroesophageal reflux disease) Hyperlipidemia LDL goal <70 IDDM (insulin dependent diabetes mellitus) Myocardial infarction (~2003) Non-cardiac chest pain Open wound of finger of right hand (~07/02/19) PAD (peripheral artery disease) (~2011) Stroke Type 2 diabetes mellitus with hyperglycemia Vitamin D deficiency Surgical History Surgical History History of coronary artery stent placement 2004 History of femoropopliteal bypass left - 09/11 Family History Family History Mother Diabetes mellitus Family history of arthritis Family history of diabetes mellitus in first degree relative Family history of coronary artery disease Hypertension Cerebrovascular accident Father Family history of alcoholism Sibling Myocardial infarction Diabetes mellitus Other Family history of cardiovascular disease Social History Social History Smoking packs per day: 3 Smoking cigarettes per day: 60.0 Years smoked: 30 Smoking pack-years: 90.00 Smoking status: Former smoker Tobacco type: cigarettes Second hand tobacco smoke exposure: Yes
[2020-05-24 12:35] VITALS: BP 174/93; PULSE 75; RESP 16; TEMP 36.7; O2SAT 100
--- NOTE | 2020-05-24 12:48 | ECG_ITS ---
Measurements Intervals [place] Rate: 72 P: 38 [place]: 173 QRS: 0 QRSD: 107 T: 75 QT: 371 QTc: 409 Interpretive Statements SINUS RHYTHM INFERIOR INFARCT, AGE INDETERMINATE BASELINE ARTIFACT- I, II, III, AVR, AVF ABNORMAL ECG Electronically Signed On 05-25-2020 17:13:42 FRAUD EXAMINER by Raulito Hoyt D.O.
[2020-05-24] MEDS: MAG HYDROX/ALUMINUM HYD/SIMETH 30 ML, PHENobarb/HYOSCY/ATROPINE/SCOP 32.4 MG, LIDOCAINE... PO (12:58)
[2020-05-24 13:09] LABS: Basophils Absolute Auto 0.02 K/mm3 (0.00-0.10); Basophils Percent Auto 0.3 % (0.0-1.0); Eosinophils Absolute Auto 0.16 K/mm3 (0.02-0.50); Eosinophils Percent Auto 2.4 % (1.0-6.0); Hematocrit 46.2 % (40.0-54.0); Hemoglobin 15.3 g/dL (14.0-18.0); Immature Granulocyte Absolute 0.04 K/mm3 (0.00-0.00); Immature Granulocyte Percent A 0.6 % (0.0-0.0); Lymphocytes Absolute Auto 1.89 K/mm3 (1.10-4.50); Mean Corpuscular HGB Conc 33.1 g/dL (32.0-36.0); Mean Corpuscular Hemoglobin 27.5 pg (27.0-31.0); Mean Corpuscular Volume 82.9 fL (78.0-102.0); Mean Platelet Volume 9.9 fl (8.7-11.0); Monocytes Absolute Auto 0.51 K/mm3 (0.10-0.90); Monocytes Percent Auto 7.6 % (2.0-11.0); Neutrophils Absolute Auto 4.1 K/mm3 (1.7-7.2); Neutrophils Percent Auto 61.1 % (50.0-70.0); Platelet Count Result 216 K/mm3 (150-420); Red Blood Count 5.57 M/mm3 (4.70-6.10); Red Cell Distribution Width 12.3 % (11.6-14.4); White Blood Count 6.8 K/mm3 (4.8-10.8)
[2020-05-24 13:26] LABS: Alanine Aminotransferase 43 U/L (16-63); Albumin Level 3.6 g/dL (3.4-5.0); Alkaline Phosphatase 91 U/L (46-116); Anion Gap 6 mmol/L (8-16); Aspartate Amino Transferase 22 U/L (15-37); Bilirubin,Total 0.3 mg/dL (0.00-1.00); Blood Urea Nitrogen 38 mg/dL (7-18); CRP 0.5 mg/dL (0.0-0.9); Calcium 9.6 mg/dL (8.5-10.1); Carbon Dioxide 32 mmol/L (21-32); Chloride 93 mmol/L (98-108); Estimated CRCL calculation 43 ml/min; Estimated Glomerular Filt Rate 49; Glucose 322 mg/dL (70-99); Osmolality Calculated 293 mOsm/kg (285-295); Potassium 5.5 mmol/L (3.5-5.1); Sodium 131 mmol/L (136-145); Total Protein 7.3 g/dL (6.4-8.2); Troponin I 11.2 ng/L (0.00-60.4)
[2020-05-24 14:30] VITALS: PULSE 71; RESP 16; O2SAT 99
[2020-05-24 14:45] VITALS: BP 119/80; PULSE 69; O2SAT 100
== END 2020-05-24 15:04 | disposition home or self-care (01) ==
PROVIDERS: Emergency Provider Emergency Medicine; PCP Family Medicine
DX: R07.89 Other chest pain (principal); K21.9 Gastro-esophageal reflux disease without esophagitis; Z87.891 Personal history of nicotine dependence; I25.10 Atherosclerotic heart disease of native coronary artery without angina pectoris; I10 Essential (primary) hypertension; E78.5 Hyperlipidemia, unspecified; E11.9 Type 2 diabetes mellitus without complications; Z79.4 Long term (current) use of insulin
CPT/HCPCS: 36415; 71046; 80053; 84484; 85025; 86140; 93005; 99283; 99284; A9270

== ENCOUNTER → 2020-06-07 00:52 | Outpatient (CLI) | payer MEDICARE, SELFPAY ==
[2020-06-07 19:48] LABS: SARS-CoV-2 RNA PCR Negative
== END ==
PROVIDERS: PCP Family Medicine; Visit Provider Internal Medicine Gastroenterology
DX: Z01.812 Encounter for preprocedural laboratory examination (principal); Z20.822 Contact with and (suspected) exposure to COVID-19
CPT/HCPCS: C9803; U0003; U0005

== ENCOUNTER 2020-06-10 01:22 | Day surgery (SDC) | payer MEDICARE, SELFPAY ==
[2020-06-03 10:38] VITALS: BMI 27.6
[2020-06-10 09:03] VITALS: BP 142/78; PULSE 66; RESP 16; TEMP 36.7; O2SAT 99
[2020-06-10] MEDS: LACTATED RINGERS 1,000 ML 150 ML IV CONT (09:06)
[2020-06-10 09:15] LABS: Glucose Point of Care 127 (65-105)
--- NOTE | 2020-06-10 09:27 | WPDANESEPPF ---
Anes - Initial Pre Proc Eval Procedure: Operation Date: 06/10/20 10:30 Proposed Procedures p Esophagogastroduodenoscopy & Screening Colonoscopy - Jayden Baker MD Date/Time: 06/10/20 09:27 Surgeon: Jayden Baker MD Pre Op Diagnosis: hx of colon polyp, GERD Patient Data Age: 64 Gender: M Height: 5 ft 7 in Weight: 79.2 kg Last Vital Signs Temp 36.7 C 06/10/20 09:03 Pulse 66 06/10/20 09:03 Resp 16 06/10/20 09:03 BP 142/78 H 06/10/20 09:03 Pulse Ox 99 06/10/20 09:03 Allergies Allergy/AdvReac Type Severity Reaction Status Date / Time No Known Allergies Allergy Verified 06/10/20 09:02 Home Medications Medication Instructions Recorded Confirmed Type aspirin 81 mg tablet,delayed 81 mg PO DAILY #30 tablet 02/26/19 06/03/20 Rx release multivitamin 1 tablet PO DAILY 03/07/19 06/03/20 History pantoprazole 40 mg tablet,delayed 40 mg PO DAILY tablet 05/08/19 06/03/20 History release albuterol sulfate 90 mcg/actuation 1 inhalation INHALATION Q4H PRN 06/01/19 06/03/20 Rx aerosol inhaler #6.7 gm mecobalamin (vitamin B12) 1,000 1,000 mcg SUBLINGUAL DAILY 06/14/19 06/03/20 History mcg disintegrating tablet,sublingual atorvastatin 80 mg tablet 80 mg PO DAILY 90 Days #90 tablet 07/17/19 06/10/20 Rx lisinopril 20 mg tablet 20 mg PO DAILY #90 tablet 09/06/19 06/03/20 Rx nitroglycerin 0.4 mg sublingual 0.4 mg SUBLINGUAL Q5M PRN #30 11/08/19 06/03/20 Rx tablet tablet fenofibrate 160 mg tablet 160 mg PO DAILY #30 tablet 11/14/19 06/03/20 Rx niacin 500 mg tablet 1,000 mg PO BID #120 tablet 11/14/19 06/03/20 Rx omega-3 fatty acids 1,000 mg 3,000 mg PO BID cap 11/14/19 06/03/20 History capsule metoprolol succinate 50 mg 50 mg PO DAILY 01/08/20 06/03/20 History tablet,extended release 24 hr clopidogrel 75 mg tablet 75 mg PO DAILY #90 tablet 01/31/20 06/03/20 Rx hydrochlorothiazide 25 mg tablet 25 mg PO DAILY #90 tablet 01/31/20 06/03/20 Rx pen needle, diabetic 31 gauge x #200 each 02/21/20 04/30/20 Rx 3/16 gabapentin 300 mg capsule See Rx Instructions .ROUTE 04/03/20 06/03/20 Rx .COMPLEX #90 cap dulaglutide 1.5 mg/0.5 mL 1.5 mg SUB-Q WEEKLY 112 Days #8 ml 04/10/20 06/03/20 Rx subcutaneous pen injector ezetimibe 10 mg tablet 10 mg PO DAILY #30 tablet 04/10/20 06/03/20 Rx icosapent ethyl 1 gram capsule 2 g PO BID #60 cap 04/10/20 06/03/20 Rx insulin regular hum U-500 conc 90 unit SUBCUT BID 120 Days #43.2 04/10/20 06/03/20 Rx ml fluconazole 200 mg tablet 200 mg PO DAILY #15 tablet 04/30/20 06/03/20 Rx lidocaine HCl 2 % mucosal solution 1 applic MUCOUS MEMBRANE QID PRN 04/30/20 06/03/20 Rx #600 ml duloxetine 60 mg capsule,delayed 60 mg PO DAILY #30 cap 05/08/20 06/03/20 Rx release sucralfate [Carafate] 1 g PO .qac and hs #120 tablet 05/24/20 06/03/20 Rx amlodipine 10 mg tablet See Rx Instructions .ROUTE 06/05/20 06/10/20 Rx .COMPLEX #30 tablet isosorbide mononitrate 60 mg See Rx Instructions .ROUTE 06/05/20 06/10/20 Rx tablet,extended release 24 hr .COMPLEX #90 tablet Laboratory Tests 06/10/20 09:11 POC Capillary Glucose 127 mg/dl H mg/dl (65-105) Patient hx anesthesia problems: none Family hx anesthesia problems: none PMFSH Past Medical History Medical History Adenomatous colon polyp Arthritis Caputo's esophagus with esophagitis CAD (coronary artery disease) Diabetic foot ulcer Diabetic peripheral neuropathy Dietary counseling and surveillance Essential hypertension GERD (gastroesophageal reflux disease) Hyperlipidemia LDL goal <70 IDDM (insulin dependent diabetes mellitus) Myocardial infarction (~2003) Non-cardiac chest pain Open wound of finger of right hand (~07/02/19) PAD (peripheral artery disease) (~2011) Stroke Type 2 diabetes mellitus with hyperglycemia Vitamin D deficiency Surgical History Surgical History (Reviewed 06/10/20 @ 09:27 by Matthew
[2020-06-10] MEDS: BENZOCAINE (*SP) 60 ML SPRAY CAN (HURRICAINE) 1 SPRAY MUCOUS MEM (10:01)
--- NOTE | 2020-06-10 10:01 | WPDHPUPDATE1 ---
History and Physical Update Update Date/Time: 06/10/20 10:01 History and Physical has been reviewed, including an updated exam of the patient. There are NO changes in the patient's condition. Risks, benefits, and alternatives have been discussed and questions answered. Patient agrees to proceed with procedure.
[2020-06-10 10:30] VITALS: BP 114/63; PULSE 61; RESP 17; O2SAT 100
[2020-06-10 10:36] LABS: Glucose Point of Care 128 (65-105)
[2020-06-10 10:40] VITALS: BP 115/67; PULSE 71; RESP 19; O2SAT 99
[2020-06-10 10:50] VITALS: BP 114/69; PULSE 68; RESP 21; O2SAT 99
== END 2020-06-10 11:10 | disposition home or self-care (01) ==
PROVIDERS: PCP Family Medicine; Visit Provider Internal Medicine Gastroenterology
PROC: 0DJ08ZZ Inspection of Upper Intestinal Tract, Via Natural or Artificial Opening Endoscopic (ICD-10-PCS; CPT 43235; principal; 2020-06-10 10:30)
DX: K21.00 Gastro-esophageal reflux disease with esophagitis, without bleeding (principal); K29.50 Unspecified chronic gastritis without bleeding; K44.9 Diaphragmatic hernia without obstruction or gangrene; D12.2 Benign neoplasm of ascending colon; K64.4 Residual hemorrhoidal skin tags; I73.9 Peripheral vascular disease, unspecified; I10 Essential (primary) hypertension; I25.10 Atherosclerotic heart disease of native coronary artery without angina pectoris; I25.2 Old myocardial infarction; E11.51 Type 2 diabetes mellitus with diabetic peripheral angiopathy without gangrene; E11.42 Type 2 diabetes mellitus with diabetic polyneuropathy; E55.9 Vitamin D deficiency, unspecified; E78.5 Hyperlipidemia, unspecified; M19.90 Unspecified osteoarthritis, unspecified site; Z86.010 Personal history of colon polyps; Z95.5 Presence of coronary angioplasty implant and graft; Z86.73 Personal history of transient ischemic attack (TIA), and cerebral infarction without residual deficits; Z87.891 Personal history of nicotine dependence; Z79.4 Long term (current) use of insulin
CPT/HCPCS: 43239; 45380; 82948; 88305; C9803; J2405; J2704; J7120; U0003; U0005

== ENCOUNTER 2020-09-18 10:11 | Outpatient (CLI) | payer MEDICARE, SELFPAY ==
--- NOTE | ~2020-09-18 | XR_ITS ---
EXAMINATION: XR ribs RT 2V w CXR 2V INDICATION: Right chest pain TECHNIQUE: PA and lateral views of the chest and 3 views of the right ribs were obtained. COMPARISON: 05/24/2020 FINDINGS: The lungs are free of acute opacities. Again seen is calcified pleural plaque along the lef t hemidiaphragm with mild atelectasis of the left lung base. No pleural effusion or pneumothorax. Winston cified pulmonary nodules are consistent with old granulomatous disease. The cardiomediastinal silhoue tte is normal. There is moderate osteoarthritis of the right shoulder. There are bridging osteophytes at multiple levels in the spine, consistent with diffuse idiopathic skeletal hyperostosis (DISH). No displaced rib fracture is identified. IMPRESSION: 1. No acute cardiopulmonary abnormality or evidence of displaced rib fracture. Reviewed, dictated and finalized at location A.
[2020-09-18 10:41] LABS: Basophils Percent Auto 0.2 % (0.2-1.2); Eosinophils Absolute Auto 0.4 K/mm3 (0-0.3); Eosinophils Percent Auto 4.8 % (0-4.4); Hematocrit 42.9 % (42.0-52.0); Hemoglobin 14.3 g/dL (14.0-18.0); Immature Granulocyte Absolute 0.07 K/mm3 (0.00-0.031); Immature Granulocyte Percent A 0.8 % (0-0.5); Lymphocytes Absolute Auto 2.27 K/mm3 (0.9-3.2); Lymphocytes Percent Auto 25.1 % (18.3-44.2); Mean Corpuscular HGB Conc 33.3 g/dl (32-36); Mean Corpuscular Hemoglobin 27.9 pg (26-34); Mean Corpuscular Volume 83.8 fl (80-100); Monocytes Absolute Auto 0.7 K/mm3 (0.1-0.6); Monocytes Percent Auto 7.2 % (2.6-8.5); Neutrophils Absolute Auto 5.6 K/mm3 (1.3-6.7); Neutrophils Percent Auto 61.9 % (45.5-73.1); Platelet Count Result 238 k/mm3 (150-375); Red Blood Count 5.12 M/mm3 (4.6-6.20); Red Cell Distribution Width 13.7 % (11.5-14.5); White Blood Count 9.1 K/mm3 (4.5-10.0)
[2020-09-18 10:51] LABS: Alanine Aminotransferase 27 U/L (4-50); Albumin Level 4.2 g/dL (3.5-5.1); Alkaline Phosphatase 82 U/L (38-126); Anion Gap 8 mmol/L (8-16); Aspartate Amino Transferase 34 U/L (17-59); Bilirubin,Total 0.6 mg/dL (0.2-1.3); Blood Urea Nitrogen 19 mg/dL (9-20); Calcium 9.9 mg/dL (8.4-10.2); Carbon Dioxide 31 mmol/L (22-30); Chloride 102 mmol/L (98-107); Cholesterol 198 mg/dL (0-200); Estimated Glomerular Filt Rate > 60; Glucose 119 mg/dL (75-110); HDL Direct 30 mg/dL; Sodium 141 mmol/L (137-145); Triglycerides 281 mg/dL (<150)
[2020-09-18 10:59] LABS: Creatinine Urine 85.3 mg/dL
[2020-09-18 11:03] LABS: LDL Cholesterol Direct 114 mg/dL
[2020-09-18 11:23] LABS: Prostate Specific Antigen 9.4 ng/mL (< OR = 4.0)
[2020-09-18 11:28] LABS: Thyroid Stimulating Hormone Reflex 0.595 uIU/mL (0.465-4.68)
[2020-09-18 11:56] LABS: MALB Creatinine Ratio 1092.8 mg/g (0-30); Microalbumin Urine Random 932.2 mg/L (0-16.7)
== END 2020-09-18 10:12 | disposition home or self-care (01) ==
LOC: ANHLAB 10:17
PROVIDERS: PCP Family Medicine; Visit Provider Family Medicine
DX: R07.81 Pleurodynia (principal); I10 Essential (primary) hypertension; E78.5 Hyperlipidemia, unspecified; Z12.5 Encounter for screening for malignant neoplasm of prostate; E53.8 Deficiency of other specified B group vitamins; E11.42 Type 2 diabetes mellitus with diabetic polyneuropathy; E55.9 Vitamin D deficiency, unspecified
CPT/HCPCS: 36415; 71046; 71100; 80053; 80061; 82043; 82306; 82607; 84153; 84443; 85025; G0103

== ENCOUNTER 2020-10-09 09:32 | Outpatient (CLI) | payer MEDICARE, SELFPAY ==
--- NOTE | ~2020-10-09 | XR_ITS ---
XR foot RT min 3V DATE: 10/09/2020 10:13 INDICATION: Lateral foot pain since fall one week ago. TECHNIQUE: 3 views COMPARISON: 04/28/2018 right foot 02/14/2018 right foot FINDINGS: Old fracture deformity of the head of the proximal phalanx of the first digit. Osteoarthrit is at the interphalangeal joint of the first digit and the first metatarsophalangeal joint. Plantar and posterior calcaneal enthesopathy. Chronic small bony ossicle at the lateral aspect of the base of the fifth metatarsal. No recent fracture or dislocation, periosteal reaction or bone destruction. IMPRESSION: No recent fracture or dislocation Old fracture deformity of proximal phalanx of great toe Osteoarthritis at first metatarsophalangeal and interphalangeal joints Plantar and posterior calcaneal enthesopathy Reviewed, dictated and finalized at location A.
== END 2020-10-09 09:33 | disposition home or self-care (01) ==
LOC: CHSIMG 09:39
PROVIDERS: PCP Family Medicine
DX: M79.671 Pain in right foot (principal)
CPT/HCPCS: 73630

== ENCOUNTER 2020-12-20 08:20 | Outpatient (CLI) | payer MEDICARE, SELFPAY ==
[2020-12-20 09:07] LABS: Alanine Aminotransferase 22 U/L (4-50); Albumin Level 4.3 g/dL (3.5-5.1); Alkaline Phosphatase 103 U/L (38-126); Anion Gap 12 mmol/L (8-16); Aspartate Amino Transferase 22 U/L (17-59); Bilirubin,Total 0.2 mg/dL (0.2-1.3); Blood Urea Nitrogen 44 mg/dL (9-20); Calcium 10.4 mg/dL (8.4-10.2); Carbon Dioxide 26 mmol/L (22-30); Chloride 94 mmol/L (98-107); Cholesterol 175 mg/dL (0-200); Estimated Glomerular Filt Rate 55; Glucose 380 mg/dL (65-110); LDL Cholesterol Direct 80 mg/dL; Potassium 5.1 mmol/L (3.4-5.0); Sodium 132 mmol/L (137-145)
[2020-12-20 09:16] LABS: Triglycerides 674 mg/dL (<150)
== END 2020-12-20 08:21 | disposition home or self-care (01) ==
PROVIDERS: PCP Family Medicine; Visit Provider Internal Medicine Cardiovascular Disease
DX: E78.5 Hyperlipidemia, unspecified (principal)
CPT/HCPCS: 36415; 80053; 80061

== ENCOUNTER 2020-12-30 14:15 | Emergency (ER) | payer MEDICARE, SELFPAY ==
--- NOTE | ~2020-12-30 | CT_ITS ---
EXAMINATION: CT abdomen pelvis wo con EXAM DATE: 12/30/2020 15:25 INDICATION: Left Flank Pain. TECHNIQUE: Spiral CT of the abdomen and pelvis was performed without contrast. Axial, coronal and sag ittal images were reviewed. The dose-length product (DLP) for this examination was 569.78 mGy-cm. T he exposure was tailored according to patient size (auto mA exposure control), and iterative reconstr uction (ASIR) was used as additional dose reduction technique. Comparison is made to prior examinatio n from 02/20/2019. FINDINGS: Renal hilar calcifications appear most likely vascular. No ureteral stones or hydronephros is. The prostate is unremarkable. Small bilateral inguinal fat-containing hernias. There is left sup erficial femoral arterial graft or stent. The bladder is undistended at time of imaging. Pancreatic calcifications, chronic pancreatitis. Liver, spleen, left adrenal gland unremarkable. There is 12 mm right adrenal gland adenoma. Gallbladder is unremarkable. No biliary obstruction. There is no ret roperitoneal or pelvic lymphadenopathy. There is moderate to severe scattered arteriosclerotic dise ase. The appendix is normal. The stomach and small bowel are unremarkable. There is expected amount of c olonic stool. No free intraperitoneal gas. The heart is normal in size. There are no pericardial or pleural effusions. Chronic focal left pleural calcifications likely from resolved chronic empyema or loculated effusion. There are no osteoblastic or osteolytic lesions identified. IMPRESSION: 1. No nephrolithiasis, hydronephrosis or acute intra-abdominal findings. 2. Chronic pancreatitis. 3. Small inguinal hernias. 4. Right adrenal adenoma. Reviewed, dictated and finalized at location A.
--- NOTE | 2020-12-30 14:53 | ED.MALEGU ---
HPI - Male Genitourinary General Chief complaint: Urogenital-Male Stated complaint: kidney pain Source: patient, family and RN notes reviewed Mode of arrival: ambulatory Limitations: no limitations Related Data Home Medications Medication Instructions Recorded Confirmed multivitamin 1 tablet PO DAILY 03/07/19 10/21/20 mecobalamin (vitamin B12) 1,000 1,000 mcg SUBLINGUAL DAILY 06/14/19 10/21/20 mcg disintegrating tablet,sublingual metoprolol succinate 50 mg 50 mg PO DAILY 01/08/20 10/21/20 tablet,extended release 24 hr amlodipine 10 mg tablet 10 mg PO DAILY tablet 09/16/20 10/21/20 fenofibrate 160 mg tablet 160 mg PO DAILY tablet 09/16/20 10/21/20 isosorbide mononitrate 60 mg 60 mg PO DAILY tablet 09/16/20 10/21/20 tablet,extended release 24 hr omega-3 fatty acids 1,000 mg 2,000 mg PO BID cap 10/21/20 10/21/20 capsule Allergies Allergy/AdvReac Type Severity Reaction Status Date / Time No Known Allergies Allergy Verified 10/21/20 11:27 [facility] Past Medical History Medical History Adenomatous colon polyp Arthritis Caputo's esophagus with esophagitis CAD (coronary artery disease) Diabetic peripheral neuropathy Essential hypertension GERD (gastroesophageal reflux disease) History of stroke 11/2016 Hyperlipidemia LDL goal <70 Myocardial infarction (~2003) Open wound of finger of right hand (~07/02/19) PAD (peripheral artery disease) (~2011) Type 2 diabetes mellitus with hyperglycemia Vitamin D deficiency Surgical History Surgical History History of coronary artery stent placement 2003 History of femoropopliteal bypass left - 09/11 History of skin graft for left 5th toe diabetic ulcer Family History Family History Mother Diabetes mellitus Family history of arthritis Family history of diabetes mellitus in first degree relative Family history of coronary artery disease Hypertension Cerebrovascular accident Father Family history of alcoholism Sibling Myocardial infarction Diabetes mellitus Other Family history of cardiovascular disease Social History Social History Smoking packs per day: 4 Smoking cigarettes per day: 80.0 Years smoked: 30 Smoking pack-years: 120.00 Smoking status: Former smoker Tobacco type: cigarettes Second hand tobacco smoke exposure: Yes Alcohol intake: never Substance use: former Substance use type: does not use Gender identity (if verbalized by the patient): Male Spiritual care concerns: No Agree to blood products: Yes Discharge Plan Discharge Prescriptions: No Action nitroglycerin 0.4 mg tablet, sublingual 0.4 mg SUBLINGUAL Q5M PRN (Reason: chest pain) Qty: 30 RF: 2 atorvastatin 80 mg tablet 80 mg PO DAILY 90 Days Qty: 90 RF: 3 Trulicity 3 mg/0.5 mL pen injector 3 mg subcut WEEKLY 30 Days Qty: 2.5 RF: 6 amlodipine 10 mg tablet 10 mg PO DAILY RF: 0 fenofibrate 160 mg tablet 160 mg PO DAILY RF: 0 isosorbide mononitrate 60 mg tablet extended release 24 hr 60 mg PO DAILY RF: 0 gabapentin 300 mg capsule 300 mg PO TID Qty: 270 RF: 0 omega-3 fatty acids [Fish Oil Concentrate] 1,000 mg capsule 2,000 mg PO BID RF: 0 aspirin [Aspir-81] 81 mg tablet,delayed release (DR/EC) 81 mg PO DAILY Qty: 30 RF: 0 multivitamin [Multiple Vitamins] Tablet 1 tablet PO DAILY RF: 0 mecobalamin (vitamin B12) 1,000 mcg tablet,disintegrating 1,000 mcg SUBLINGUAL DAILY RF: 0 albuterol sulfate 90 mcg/actuation HFA aerosol inhaler 1 inhalation INHALATION Q4H PRN (Reason: shortness of breath or wheezing) Qty: 6.7 RF: 0 metoprolol succinate 50 mg tablet extended release 24 hr 50 mg PO DAILY RF: 0 clopidogrel 75 mg tablet 75 mg PO DAILY Qty: 90 RF: 3 hydro
[2020-12-30 14:58] LABS: Appearance Urine Clear (Clear); Bilirubin Urine Negative (Negative); Color Urine Light Yellow (Yellow); Glucose Urine UA 3+ (Negative); Ketones Urine Negative (Negative); Leukocyte Esterase Ur Negative LEU/UL (Negative); Nitrate Urine Negative (Negative); Protein Urine 2+ (Negative); Urobilinogen Urine 0.2 mg/dL (0.2-1.0)
[2020-12-30 15:00] VITALS: BP 142/98; PULSE 69; RESP 14; TEMP 36.3; O2SAT 97
[2020-12-30 15:03] LABS: Add Urine Microscopic? YES; Bacteria Urine Trace /hpf; Blood Urine Trace-Intact (Negative); RBC Urine 0-2 /hpf (0-2); Squamous Epithelial Cell Urine Rare /hpf (Few); WBC Urine None seen /hpf (0-3)
[2020-12-30 15:16] LABS: Basophils Absolute Auto 0.03 K/mm3 (0.00-0.10); Basophils Percent Auto 0.4 % (0.0-1.0); Eosinophils Absolute Auto 0.45 K/mm3 (0.02-0.50); Eosinophils Percent Auto 5.6 % (1.0-6.0); Hemoglobin 13.5 g/dL (12.4-15.3); Immature Granulocyte Absolute 0.05 K/mm3 (0.00-0.00); Immature Granulocyte Percent A 0.6 % (0.0-0.0); Lymphocytes Absolute Auto 2.05 K/mm3 (1.10-4.50); Lymphocytes Percent Auto 25.7 % (18.0-42.0); Mean Corpuscular HGB Conc 34.6 g/dL (32.0-36.0); Mean Corpuscular Hemoglobin 27.7 pg (27.0-31.0); Mean Corpuscular Volume 80.1 fL (78.0-102.0); Monocytes Absolute Auto 0.43 K/mm3 (0.10-0.90); Monocytes Percent Auto 5.4 % (2.0-11.0); Neutrophils Percent Auto 62.3 % (50.0-70.0); Platelet Count Result 188 K/mm3 (150-420); Red Blood Count 4.87 M/mm3 (4.70-6.10); Red Cell Distribution Width 12.9 % (11.6-14.4)
[2020-12-30 15:30] LABS: Alanine Aminotransferase 30 U/L (16-63); Albumin Level 3.5 g/dL (3.4-5.0); Alkaline Phosphatase 101 U/L (46-116); Anion Gap 8 mmol/L (8-16); Aspartate Amino Transferase 24 U/L (15-37); Bilirubin,Total 0.2 mg/dL (0.00-1.00); Blood Urea Nitrogen 39 mg/dL (7-18); Calcium 9.6 mg/dL (8.5-10.1); Carbon Dioxide 30 mmol/L (21-32); Chloride 95 mmol/L (98-108); Estimated CRCL calculation 37 ml/min; Estimated Glomerular Filt Rate 41; Osmolality Calculated 307 mOsm/kg (285-295); Potassium 4.7 mmol/L (3.5-5.1); Sodium 133 mmol/L (136-145); Total Protein 7.1 g/dL (6.4-8.2)
[2020-12-30 15:33] LABS: Glucose 492 mg/dL (70-99)
[2020-12-30 15:34] LABS: CRP 1.3 mg/dL (0.0-0.9)
--- NOTE | 2020-12-30 15:57 | ED.ABDPAIN ---
HPI - Abdominal Pain General Chief Complaint: Urogenital-Male Stated Complaint: kidney pain Source: patient, family and RN notes reviewed Mode of arrival: ambulatory History of Present Illness HPI narrative: patient thinks he may have a kidney stone he has had those in the past. MD elicited complaint: flank pain Pertinent past history: none Onset (ago): day(s) (3) Pain Consistency: intermittent Location: LUQ and L flank Severity: moderate Quality: cramping, aching and dull Radiation: none Migration to: no migration Exacerbating factors: movement Relieving factors: nothing Related Data Home Medications Medication Instructions Recorded Confirmed multivitamin 1 tablet PO DAILY 03/07/19 10/21/20 mecobalamin (vitamin B12) 1,000 1,000 mcg SUBLINGUAL DAILY 06/14/19 10/21/20 mcg disintegrating tablet,sublingual metoprolol succinate 50 mg 50 mg PO DAILY 01/08/20 10/21/20 tablet,extended release 24 hr fenofibrate 160 mg tablet 160 mg PO DAILY tablet 09/16/20 10/21/20 isosorbide mononitrate 60 mg 60 mg PO DAILY tablet 09/16/20 10/21/20 tablet,extended release 24 hr omega-3 fatty acids 1,000 mg 2,000 mg PO BID cap 10/21/20 10/21/20 capsule Allergies Allergy/AdvReac Type Severity Reaction Status Date / Time No Known Allergies Allergy Verified 10/21/20 11:27 Review of Systems Review of Systems: All systems reviewed & are unremarkable except as noted in HPI and below Constitutional: Constitutional: Denies chills and Denies fever(s) Cardiovascular: Cardiovascular: Denies chest pain Respiratory: Respiratory: Denies cough and Denies dyspnea Gastrointestinal: Gastrointestinal: Denies diarrhea, Denies nausea and Denies vomiting PMF Past Medical History Medical History Adenomatous colon polyp Arthritis Caputo's esophagus with esophagitis CAD (coronary artery disease) Diabetic peripheral neuropathy Essential hypertension GERD (gastroesophageal reflux disease) History of stroke 11/2016 Hyperlipidemia LDL goal <70 Myocardial infarction (~2003) Open wound of finger of right hand (~07/02/19) PAD (peripheral artery disease) (~2011) Type 2 diabetes mellitus with hyperglycemia Vitamin D deficiency Surgical History Surgical History History of coronary artery stent placement 2004 History of femoropopliteal bypass left - 09/11 History of skin graft for left 5th toe diabetic ulcer Family History Family History Mother Diabetes mellitus Family history of arthritis Family history of diabetes mellitus in first degree relative Family history of coronary artery disease Hypertension Cerebrovascular accident Father Family history of alcoholism Sibling Myocardial infarction Diabetes mellitus Other Family history of cardiovascular disease Social History Social History Smoking packs per day: 4 Smoking cigarettes per day: 80.0 Years smoked: 30 Smoking pack-years: 120.00 Smoking status: Former smoker Tobacco type: cigarettes Second hand tobacco smoke exposure: Yes Alcohol intake: never Substance use: former Substance use type: does not use Gender identity (if verbalized by the patient): Male Spiritual care concerns: No Agree to blood products: Yes Course Course Emergency Course: I had a long discussion with patient and spouse. He has evidence of chronic pancreatitis although his amylase and lipase are normal. The pain he has on his left side would correspond with episode of pancreatitis. Also to his knowledge he has no problem with his kidney function. I offered observation admission overnight with IV fluids and they declined at this time. They want to go home and try just drinking clear liquids for the next 24 hours and a prescription for some pain
[2020-12-30 16:23] LABS: Amylase 63 U/L (25-115); Lipase 235 U/L (73-393)
[2020-12-30] MEDS: INSULIN HUMAN REGULAR (*BKC) 100 UNITS/ML 15 UNITS SUB-Q (16:45)
[2020-12-30 17:17] VITALS: BP 131/82; PULSE 86; RESP 16
== END 2020-12-30 17:18 | disposition home or self-care (01) ==
PROVIDERS: Emergency Provider Emergency Medicine; PCP Family Medicine
DX: K86.1 Other chronic pancreatitis (principal); N28.9 Disorder of kidney and ureter, unspecified; I25.10 Atherosclerotic heart disease of native coronary artery without angina pectoris; I10 Essential (primary) hypertension; K21.9 Gastro-esophageal reflux disease without esophagitis; E78.5 Hyperlipidemia, unspecified; E11.9 Type 2 diabetes mellitus without complications; E55.9 Vitamin D deficiency, unspecified; Z87.891 Personal history of nicotine dependence
CPT/HCPCS: 36415; 74176; 80053; 81001; 82150; 83690; 85025; 86140; 99283; 99284; J1815

== ENCOUNTER 2021-01-13 12:19 | Outpatient (CLI) | payer MEDICARE, SELFPAY ==
--- NOTE | ~2021-01-13 | CT_ITS ---
EXAMINATION: CT abdomen pelvis w con DATE: 01/13/2021 12:53 INDICATION: Prostate cancer TECHNIQUE: Computed tomography (CT) of the abdomen and pelvis was performed with 100 cc Omnipaque 350 intravenous contrast. The dose-length product was 596.70 mGy-cm. Automated exposure control and iter ative reconstruction technique were employed. COMPARISON: CT dated 12/30/2020. FINDINGS: There are chronic left pleural calcifications, likely from resolved pneumonia/empyema. Hear t size normal. There is atherosclerosis. Small hiatal hernia with mild thickening of the distal esoph julius. Fatty infiltration of the liver. No focal hepatic masses. The spleen and left adrenal gland are unrem arkable. There are small low-density lesions in both kidneys, likely cysts. There is a subtle area of decreased cortical perfusion in the right kidney, upper pole. Consider pyelonephritis in the appropr iate clinical setting. Gallbladder is contracted. There is sequela of chronic pancreatitis. Nonobstru ctive bowel gas pattern. Normal appendix. Bladder is unremarkable. Prostate gland is enlarged and het erogeneous with bladder base impression. There is atherosclerosis of the aorta. No aneurysm. Stable s mall low-density lesion in the right adrenal gland, most likely benign adenoma. No lymphadenopathy. No focal lytic or blastic lesions. IMPRESSION: 1. No evidence for metastatic disease. Mildly enlarged heterogeneous prostate gland with mild bladder base impression. 2: Chronic pancreatitis. 3: Subtle hypoperfusion at the upper pole of the right kidney. Consider pyelonephritis in the appropr iate clinical setting. Reviewed, dictated and finalized at location A. IMPRESSION: 1. No evidence for metastatic disease. Mildly enlarged heterogeneous prostate g land with mild bladder base impression. 2: Chronic pancreatitis. 3: Subtle hypoperfusion at the upper pole of the right kidney. Consider pyelone phritis in the appropriate clinical setting.
== END 2021-01-13 12:20 | disposition home or self-care (01) ==
LOC: ANHIMG 12:20
PROVIDERS: PCP Family Medicine; Visit Provider Urology
DX: C61 Malignant neoplasm of prostate (principal); K85.90 Acute pancreatitis without necrosis or infection, unspecified
CPT/HCPCS: 74177; Q9967

== ENCOUNTER 2021-02-09 14:41 | Inpatient (IN) | payer MEDICARE, MEDICAID, SELFPAY ==
[2021-02-09] VITALS (7 sets, daily range): BP systolic 128–161; BP diastolic 73–81; PULSE 71–95; RESP 14–20; TEMP 36.9–37.2; O2SAT 99–100
--- NOTE | ~2021-02-09 | CT_ITS ---
EXAMINATION: CT abdomen pelvis w con DATE: 02/09/2021 15:58 INDICATION: Epigastric pain, nausea and vomiting TECHNIQUE: Computed tomography (CT) of the abdomen and pelvis was performed with 100 mL Omnipaque-350 intravenous contrast. Automated exposure control and iterative reconstruction technique were employe d. The dose-length product was 587.98 mGy-cm. COMPARISON: 01/13/2021 and 08/29/2020 FINDINGS: Calcified nodules in the right middle lobe and lingula and calcified left hilar and mediastinal lymph nodes consistent with old granulomatous disease. Calcified pleural plaque along the posterior left h emidiaphragm with associated chronic atelectasis/scarring, likely sequela of chronic pneumonia/empyem a.. Heart size is normal. Atherosclerotic coronary artery calcific location. Aortic valve calcificati on. No pericardial or pleural effusion. Small sliding-type hiatal hernia with mild wall thickening an d fluid in the distal esophagus consistent with reflux. Diffuse hepatic steatosis. Gallbladder and left adrenal gland are normal. Unchanged 10 mm left adrena l adenoma with characteristic low attenuation on prior noncontrast CT . Multiple splenic calcific les ions consistent with old granulomatous disease. Multiple dystrophic calcifications throughout the jones creas consistent with sequela of chronic pancreatitis. No peripancreatic inflammatory stranding to munoz ggest acute pancreatitis. Bilateral low-attenuation renal cysts, the largest measuring 1.6 cm the upp er pole of the left kidney. Interval evolution of a hypoenhancing infarct at the upper pole of the ri ght kidney with mild interval volume loss. Bowels including the appendix are normal. There is calcifi ed atherosclerosis of the aorta and several of its branch arteries. Prostatomegaly measuring 5.2 x 3. 5 cm. Bilateral small fat-containing inguinal hernias. No free intraperitoneal gas or fluid. No patho logically enlarged abdominal or pelvic lymphadenopathy. There are bridging osteophytes at multiple le vels in the lower thoracic spine consistent with diffuse idiopathic skeletal hyperostosis (DISH). IMPRESSION: 1. Small sliding-type hiatal hernia with mild reflux and mild wall thickening the distal esophagus li tita due to secondary esophagitis. 2. Likely evolving subacute infarct at the upper pole of the right kidney. 3. Prostatomegaly. Reviewed, dictated and finalized at location A. IMPRESSION: 1. Small sliding-type hiatal hernia with mild reflux and mild wall thickening t he distal esophagus likely due to secondary esophagitis. 2. Likely evolving subacute infarct at the upper pole of the right kidney. 3. Prostatomegaly.
--- NOTE | ~2021-02-09 | CT_ITS ---
EXAMINATION: CTA abdomen pelvis DATE: 02/12/2021 08:39 INDICATION: Epigastric abdominal pain. TECHNIQUE: Computed tomographic angiography (CTA) of the abdomen and pelvis was performed with 100 mL Omnipaque-350 intravenous contrast. Automated exposure control and iterative reconstruction techniqu e were employed. The dose-length product was 564.29 mGy-cm. Maximum intensity projection 3D-reconstru ctions of the aorta and other arteries were constructed by the technologist on a separate workstation . COMPARISON: CT abdomen and pelvis 02/09/2021, 01/13/2021, 12/30/2020, 02/20/2019 FINDINGS: The visualized portions of the lung bases demonstrate mild atelectasis. There are calcified pleural plaques on the left. Calcified bilateral lung nodules and calcified paraesophageal lymph nod es are consistent with old granulomatous disease. The heart size is normal. There are coronary artery calcifications. No pericardial effusion. There is a 4 mm cyst in the liver. Calcifications in the sp aiden are consistent with old granulomatous disease. There is contrast in the gallbladder. There is th ickening of the wall of the fundus of the gallbladder, consistent with adenomyomatosis. There are pancho cifications in the pancreas, consistent with chronic pancreatitis. There is a 13 mm mass in right adr enal gland measuring low attenuation, consistent with an adenoma. Left adrenal gland is normal. There is cortical thinning of the kidneys. There is a striated nephrogram in right kidney upper pole. Ther e are cysts in the kidneys measuring up to 16 mm on the right. The prostate is moderately enlarged. T here is a small left inguinal hernia containing fat. There is prominent fat in right inguinal canal t hat may be a hernia. There are no dilated loops of bowel. The appendix is normal. There are no pathol ogically enlarged lymph nodes. There is no free intraperitoneal fluid. There is calcified atheroscler osis of the aorta and many of the other arteries. There is mild stenosis of celiac axis and moderate stenosis of superior mesenteric artery. There is moderate stenosis of origin of inferior mesenteric a rtery. There is mild stenosis of proximal right renal artery. There are foci of moderate stenosis in the mid left renal artery and in branches of left renal artery. There is total occlusion of [place] ira le ft superficial femoral artery. There is a bypass graft from left common femoral artery that extends d istally. There is mild thoracolumbar spondylosis. IMPRESSION: 1. Striated nephrogram of right kidney upper pole that was first seen on 01/13/2021 and may be seconda ry to infarct or pyelonephritis. 2. Arterial occlusive disease including moderate stenosis of superior and inferior mesenteric arterie s and left renal artery. Reviewed, dictated and finalized at location A. IMPRESSION: 1. Striated nephrogram of right kidney upper pole that was first seen on 021 and may be secondary to infarct or pyelonephritis. 2. Arterial occlusive disease including moderate stenosis of superior and infer ior mesenteric arteries and left renal artery.
--- NOTE | ~2021-02-09 | XR_ITS ---
XR abdomen/kub 1V 02/09/2021 16:05 Indication: GI bleed. Vomiting. Procedure: KUB Comparison: CT dated 01/13/2021 Findings: Bowel gas pattern is nonobstructive. Moderate colonic fecal loading. There is residual cont rast in nondilated renal collecting systems. There are coarse left diaphragmatic calcifications. Mild lumbar spondylosis. Impression: 1: Nonobstructive bowel gas pattern. Reviewed, dictated and finalized at location B. Impression: 1: Nonobstructive bowel gas pattern.
[2021-02-09 15:06] LABS: Basophils Absolute Auto 0.1 K/mm3 (0.0-0.1); Basophils Percent Auto 0.4 % (0.2-1.2); Eosinophils Absolute Auto 0.1 K/mm3 (0-0.3); Eosinophils Percent Auto 0.6 % (0-4.4); Hematocrit 45.1 % (42.0-52.0); Hemoglobin 15.4 g/dL (14.0-18.0); Immature Granulocyte Absolute 0.09 K/mm3 (0.00-0.031); Immature Granulocyte Percent A 0.6 % (0-0.5); Lymphocytes Absolute Auto 1.72 K/mm3 (0.9-3.2); Lymphocytes Percent Auto 11.8 % (18.3-44.2); Mean Corpuscular HGB Conc 34.1 g/dl (32-36); Mean Corpuscular Hemoglobin 29.1 pg (26-34); Mean Corpuscular Volume 85.1 fl (80-100); Monocytes Absolute Auto 0.9 K/mm3 (0.1-0.6); Neutrophils Absolute Auto 11.7 K/mm3 (1.3-6.7); Neutrophils Percent Auto 80.6 % (45.5-73.1); Platelet Count Result 242 k/mm3 (150-375); Red Cell Distribution Width 13.5 % (11.5-14.5); White Blood Count 14.6 K/mm3 (4.5-10.0)
[2021-02-09 15:26] LABS: INR 0.9; Prothrombin Time 12.4 Seconds (11.1-14.7)
[2021-02-09 15:27] LABS: Partial Thromboplastin Time 29.2 SECONDS (22.3-36.8)
[2021-02-09 15:28] LABS: Alanine Aminotransferase 25 U/L (4-50); Albumin Level 4.9 g/dL (3.5-5.1); Alkaline Phosphatase 92 U/L (38-126); Anion Gap 12 mmol/L (8-16); Aspartate Amino Transferase 29 U/L (17-59); Bilirubin,Total 0.6 mg/dL (0.2-1.3); Blood Urea Nitrogen 31 mg/dL (9-20); Calcium 10.1 mg/dL (8.4-10.2); Carbon Dioxide 30 mmol/L (22-30); Chloride 94 mmol/L (98-107); Estimated CRCL calculation 44 ml/min; Estimated Glomerular Filt Rate 51; Glucose 178 mg/dL (65-110); Potassium 4.5 mmol/L (3.4-5.0); Sodium 136 mmol/L (137-145)
--- NOTE | 2021-02-09 15:45 | ED.GENADULT ---
HPI - General Adult General Chief complaint: Abdominal Pain Stated complaint: vomiting dark fluid Time Seen by Provider: 02/09/21 15:22 Source: patient and family Limitations: no limitations History of Present Illness HPI narrative: 65 years old white male presented to the ED with his from home complaining of vomiting dark, blackish, brownish material at least 4 times a day. Patient been complaining of upper abdominal pain for the last 2 days. Patient denies any fever, chills, diarrhea, constipation. Patient is fully vaccinated for COVID-19. History of GERD on Protonix and Pepcid. Patient also on aspirin and Plavix. No history of GI bleed. Related Data Home Medications Medication Instructions Recorded Confirmed multivitamin 1 tablet PO DAILY 03/07/19 01/02/21 mecobalamin (vitamin B12) 1,000 1,000 mcg SUBLINGUAL DAILY 06/14/19 01/02/21 mcg disintegrating tablet,sublingual metoprolol succinate 50 mg 50 mg PO DAILY 01/08/20 01/02/21 tablet,extended release 24 hr fenofibrate 160 mg tablet 160 mg PO DAILY tablet 09/16/20 01/02/21 isosorbide mononitrate 60 mg 60 mg PO DAILY tablet 09/16/20 01/02/21 tablet,extended release 24 hr omega-3 fatty acids 1,000 mg 2,000 mg PO BID cap 10/21/20 01/02/21 capsule icosapent ethyl 1 gram capsule 2 g PO BID 01/02/21 01/02/21 Allergies Allergy/AdvReac Type Severity Reaction Status Date / Time No Known Allergies Allergy Verified 02/09/21 15:08 Review of Systems Review of Systems: CONSTITUTIONAL: Denies fever, chills, or sweats. EYES: Denies visual changes, redness, or discharge. ENT: Denies rhinorrhea, congestion, sore throat, or otalgia. CARDIOVASCULAR: Denies chest pain, palpitations, or edema. RESPIRATORY: Denies cough or dyspnea. GASTROINTESTINAL: Denies abdominal pain, nausea, vomiting, or diarrhea. GENITOURINARY: Denies dysuria or hematuria. SKIN: Denies rash or itching. MUSCULOSKELETAL: Denies back pain, joint pain, or myalgia. NEUROLOGIC: Denies headache, numbness, or weakness. PSYCHIATRIC: Denies anxiety or depression. [facility] Past Medical History Medical History Adenomatous colon polyp Arthritis Caputo's esophagus with esophagitis CAD (coronary artery disease) Chronic pancreatitis CKD (chronic kidney disease) stage 3, GFR 30-59 ml/min Diabetic peripheral neuropathy Essential hypertension GERD (gastroesophageal reflux disease) History of stroke 11/2016 Hyperlipidemia LDL goal <70 Myocardial infarction (~2003) Open wound of finger of right hand (~07/02/19) PAD (peripheral artery disease) (~2011) Renal insufficiency Type 2 diabetes mellitus with hyperglycemia Vitamin D deficiency Surgical History Surgical History History of coronary artery stent placement 2003 History of femoropopliteal bypass left - 09/11 History of skin graft for left 5th toe diabetic ulcer Family History Family History Mother Diabetes mellitus Family history of arthritis Family history of diabetes mellitus in first degree relative Family history of coronary artery disease Hypertension Cerebrovascular accident Father Family history of alcoholism Sibling Myocardial infarction Diabetes mellitus Other Family history of cardiovascular disease Social History Social History Smoking packs per day: 4 Smoking cigarettes per day: 80.0 Years smoked: 30 Smoking pack-years: 120.00 Smoking status: Former smoker Tobacco type: cigarettes Second hand tobacco smoke exposure: Yes Alcohol intake: never Substance use: former Substance use type: does not use Gender identity (if verbalized by the patient): Male Spiritual care concerns: No Agree to blood products: Yes Exam Narrative: General appearance: Well-developed, well-nourished, r
--- NOTE | 2021-02-09 15:49 | PC.NURSE ---
Called lab to add on Lip
[2021-02-09] MEDS: SODIUM CHLORIDE 0.9% IV 1,000 ML 999 ML IV CONT (16:13)
[2021-02-09] MEDS: ONDANSETRON INJ 4 MG/2 ML VIAL 8 MG IV PUSH (16:14)
[2021-02-09] MEDS: HYDROmorphone HCL INJ (*CRX) 1 MG/ML SYR 0.5 MG IV PUSH ×2 (16:19→23:32)
[2021-02-09] MEDS: PANTOPRAZOLE SODIUM IV 40 MG VIAL IV PUSH ×2 (16:25→21:12)
[2021-02-09 16:49] LABS: Lipase 171 U/L (23-300)
[2021-02-09 17:53] LABS: Hematocrit 40.3 % (42.0-52.0); Hemoglobin 13.6 g/dL (14.0-18.0)
--- NOTE | 2021-02-09 21:00 | PM.IMHP ---
H&P: HPI History of Present Illness Date/Time: 02/09/21 21:00 Chief Complaint: Coffee-ground emesis Narrative: This is a 65-year-old male with past medical history significant for hypertension, GERD, coronary artery disease, type 2 diabetes mellitus, peripheral diabetic neuropathy, chronic kidney disease, dyslipidemia, peripheral vascular disease. Patient was brought to the emergency room after he had several bouts of coffee-ground emesis, epigastric pain, retrosternal burning and heartburn, patient denies any melena, any hematemesis, hematochezia, no weight loss, no stool character changes no changes in bowel habits, no weight loss, has been tolerating his meals well ,no constipation, no diarrhea. At the time of my visit his main complaint was retrosternal burning, his appetite has been however has early satiety. Preliminary workup has been essentially nonrevealing CT of abdomen and pelvis was significant for small sliding-type hiatal hernia with mild reflux and mild wall thickening the distal esophagus likely due to secondary esophagitis,likely evolving subacute infarct at the upper pole of the right kidney,prostatomegaly. Review of Systems Review of Systems: Coffee-ground emesis, Constitutional: Constitutional: Denies chills, Denies fatigue, Denies fever(s), Denies malaise and Denies weight loss Eyes: Eyes: Denies change in vision ENT: Denies dysphagia, Denies vertigo, Denies dizziness, Denies nasal congestion, Denies nasal discharge, Denies nasal obstruction and Denies odynophagia Cardiovascular: Cardiovascular: Denies edema, Denies irregular heart rhythm, Denies lightheadedness, Denies radiating jaw, neck or arm pain, Denies palpitations, Denies dyspnea on exertion and Denies orthopnea Respiratory: Respiratory: Denies cough and Denies dyspnea Gastrointestinal: Gastrointestinal: Reports abdominal pain (Epigastric), Reports coffee ground emesis, Denies dysphagia, Reports heartburn, Reports nausea and Reports vomiting Genitourinary: Genitourinary: Reports no additional male genitourinary complaints Musculoskeletal: Musculoskeletal: Reports no additional musculoskeletal complaints Integumentary/Breasts: Skin/Breast: Reports system reviewed and no additional complaints, except as docu Neurologic: Reports system reviewed and no additional complaints, except as documented Psychiatric: Psychiatric: Reports no additional psychiatric complaints Endocrine: Endocrine: Reports no additional endocrine complaints Hematologic/Lymphatic: Hematologic/Lymphatic: Reports no additional hematologic/lymphatic complaints Allergic/Immunologic: Allergic/Immunologic: Reports no additional allergic/immunologic complaints [facility] Past Medical History Medical History Adenomatous colon polyp Arthritis Caputo's esophagus with esophagitis CAD (coronary artery disease) Chronic pancreatitis CKD (chronic kidney disease) stage 3, GFR 30-59 ml/min Diabetic peripheral neuropathy Essential hypertension GERD (gastroesophageal reflux disease) History of stroke 11/2016 Hyperlipidemia LDL goal <70 Myocardial infarction (~2003) Open wound of finger of right hand (~07/02/19) PAD (peripheral artery disease) (~2011) Renal insufficiency Type 2 diabetes mellitus with hyperglycemia Vitamin D deficiency Surgical History Surgical History History of coronary artery stent placement 2003 History of femoropopliteal bypass left - 09/11 History of skin graft for left 5th toe diabetic ulcer Family History Family History Mother Diabetes mellitus Family history of arthritis Family history of diabetes mellitus in first degree relative Family history of coronary artery disease Hypertension Cerebrovascular accident Father Family history of alcoholism Sibling Myocardial infarction Diabetes mellitus Ot
[2021-02-09] MEDS: SODIUM CHLORIDE 0.9% IV 1,000 ML 75 ML IV CONT (21:12)
--- NOTE | 2021-02-09 21:16 | ADMGEN ---
This patient, Cornelius Babin Jr., was admitted to Medical Room 252-01. Patient/family oriented to hospital policies and general routines including ID bracelet, bed and alarms, visiting hours, pain management, procedures, bathroom and other care routines, personal items, smoking policy, room service/diet, and visiting hours. Information on how to activate the Rapid Response Team has been discussed. Patient/Family are encouraged to report perceived risks to care and to ask questions if they do not understand what they are told or what they should do.
[2021-02-09 21:53] LABS: Hematocrit 37.3 % (42.0-52.0); Hemoglobin 12.8 g/dL (14.0-18.0)
[2021-02-09 21:58] LABS: Glucose Point of Care 36 mg/dl (65-105)
[2021-02-09 21:58] LABS: Glucose Point of Care 84 mg/dl (65-105)
[2021-02-10] MEDS: HYDROcodone/acetaminophen (*CRX) 5-325 MG TABLET 1 TAB PO ×2 (05:43→17:33)
[2021-02-10 06:00] VITALS: BP 169/78; PULSE 69; RESP 16; TEMP 36.7; O2SAT 97
[2021-02-10 06:15] LABS: Hemoglobin 12.4 g/dL (14.0-18.0)
[2021-02-10 06:50] LABS: Glucose Point of Care 72 mg/dl (65-105)
[2021-02-10 07:32] VITALS: BMI 27.4
[2021-02-10] MEDS: NIACIN SA 500 MG TABLET 1000 MG PO ×2 (08:46→16:47)
[2021-02-10] MEDS: DULoxetine HCL 60 MG CAPSULE.DR PO (08:46)
[2021-02-10 08:47] VITALS: PULSE 66
[2021-02-10] MEDS: ISOSORBIDE MONONITRATE 60 MG TAB.ER.24H PO (08:47)
[2021-02-10] MEDS: CYANOCOBALAMIN 1,000 MCG TABLET 1000 MCG PO (08:47)
[2021-02-10] MEDS: PANTOPRAZOLE 40 MG TABLET PO ×2 (08:47→16:48)
[2021-02-10] MEDS: MULTIVITAMINS THERAPEUTIC TAB (*BKC) 1 TABLET PO (08:47)
[2021-02-10] MEDS: amLODIPine BESYLATE 5 MG TABLET 10 MG PO (08:47)
[2021-02-10] MEDS: METOPROLOL SUCCINATE EXT REL 50 MG TABCR PO (08:47)
[2021-02-10] MEDS: ATORVASTATIN 40 MG TABLET 80 MG PO (08:47)
[2021-02-10] MEDS: SODIUM CHLORIDE 0.9% IV 1,000 ML 75 ML IV CONT (08:49)
--- NOTE | 2021-02-10 11:05 | WPDGICN ---
Assessment and Plan Assessment and plan (1) Gastrointestinal hemorrhage with hematemesis: Code(s): K92.0 - Hematemesis Status: Acute Assessment and Plan: admitted to hospital known history of esophagitis, also previously had Caputo's continue with iv protonix monitor for more signs of bleeding also wonder if more nausea and vomiting due to uncontrolled DM (2) Acute blood loss anemia: Code(s): D62 - Acute posthemorrhagic anemia Status: Acute Assessment and Plan: continue to monitor (3) Erosive esophagitis: Code(s): K22.10 - Ulcer of esophagus without bleeding Status: Acute Assessment and Plan: continue with medical treatment (4) CAD (coronary artery disease): Qualifiers: Coronary Disease-Associated Artery/Lesion type: unspecified vessel or lesion type [place] vs. transplanted heart: unspecified whether [place] or transplanted heart Associated angina: with unspecified angina Qualified Code(s): I25.119 - Atherosclerotic heart disease of [place] coronary artery with unspecified angina pectoris Code(s): I25.10 - Atherosclerotic heart disease of [place] coronary artery without angina pectoris Status: Chronic (5) Type 2 diabetes mellitus with hyperglycemia: Code(s): E11.65 - Type 2 diabetes mellitus with hyperglycemia Status: Acute Assessment and Plan: by primary team (6) Caputo's esophagus with esophagitis: Code(s): K22.70 - Caputo's esophagus without dysplasia; K20.9 - Esophagitis, unspecified Status: Acute GI Consult Note Consult date/time: 02/10/21 11:05 Reason for consult: coffee ground emesis, esophagitis HPI: Cornelius Gautam Babin Jr. is a 65 year old male with history of hypertension, coronary artery disease on plavix, type 2 diabetes mellitus, peripheral diabetic neuropathy, chronic kidney disease, dyslipidemia, peripheral vascular disease. He is my clinic patient and I performed EGD and colonoscopy on May 2020 that showed moderate esophagitis and 1 cm hiatal hernia recommended to keep using protonix bid and carafate because persistent esophagitis. He was in our office not too long about and was doing better with less breakthrough symptoms however lately had harder time to control his DM, few days glucose as high as 600's. His doctor increased dose of trulance and better readings lately. He came to ER with worsening chest burning and nausea with coffee ground emesis. He had CT scan that was reviewed, small sliding-type hiatal hernia with mild reflux and mild wall thickening the distal esophagus likely due to secondary esophagitis, likely evolving subacute infarct at the upper pole of the right kidney,prostatomegaly. Admitted to hospital, started on iv protonix and doing better, no more emesis. Hb 12.8 (baseline 14-15) Review of Systems Constitutional: Constitutional: Denies chills Eyes: Eyes: Reports no additional eye complaints ENT: Reports Normal hearing present Cardiovascular: Cardiovascular: Reports chest pain Respiratory: Respiratory: Denies cough Gastrointestinal: Gastrointestinal: Reports abdominal pain, Reports nausea and Reports vomiting Genitourinary: Genitourinary: Denies dysuria Musculoskeletal: Musculoskeletal: Denies neck pain Integumentary/Breasts: Skin/Breast: Denies dry skin Neurologic: Denies headache(s) Psychiatric: Psychiatric: Reports no additional psychiatric complaints [facility] Past Medical History Medical History (Updated 02/10/21 @ 11:20 by Jayden Baker MD) Acute blood loss anemia Adenomatous colon polyp Arthritis Caputo's esophagus with esophagitis CAD (coronary artery disease) Chronic pancreatitis CKD (chronic kidney disease) stage 3, GFR 30-59 ml/min Diabetic peripheral neuropathy Erosive esophagitis Essential hypertension GERD (gastroesophageal reflux disease) History of stroke 11/2016 Hyperlipidemia LDL goal <70 Myocardial infarction (~2003) Open
[2021-02-10 11:08] LABS: Hematocrit 34.5 % (42.0-52.0); Hemoglobin 11.9 g/dL (14.0-18.0)
[2021-02-10 11:56] LABS: Glucose Point of Care 103 mg/dl (65-105)
--- NOTE | 2021-02-10 13:01 | PM.IMPN ---
Progress Note: A&P Assessment and Plan (1) Gastrointestinal hemorrhage with hematemesis: Code(s): K92.0 - Hematemesis Status: Acute Assessment and Plan: No further Gi bleeds, Pt is on oral protonix Holding Plavix and aspirin GI consult, pt is for EGD tomorrow (2) Esophageal hiatal hernia: Code(s): K44.9 - Diaphragmatic hernia without obstruction or gangrene Status: Acute Assessment and Plan: Small hernia (3) Caputo's esophagus with esophagitis: Code(s): K22.70 - Caputo's esophagus without dysplasia; K20.9 - Esophagitis, unspecified Status: Acute Assessment and Plan: Follow-up in outpatient setting (4) GERD (gastroesophageal reflux disease): Qualifiers: Esophagitis presence: with esophagitis Esophagitis bleeding: with hemorrhage Qualified Code(s): K21.01 - Gastro-esophageal reflux disease with esophagitis, with bleeding Code(s): K21.9 - Gastro-esophageal reflux disease without esophagitis Status: Chronic Assessment and Plan: On PPI (5) CAD (coronary artery disease): Qualifiers: Coronary Disease-Associated Artery/Lesion type: unspecified vessel or lesion type [place] vs. transplanted heart: unspecified whether [place] or transplanted heart Associated angina: with unspecified angina Qualified Code(s): I25.119 - Atherosclerotic heart disease of [place] coronary artery with unspecified angina pectoris Code(s): I25.10 - Atherosclerotic heart disease of [place] coronary artery without angina pectoris Status: Chronic Assessment and Plan: Continue home medications hold plavix and ASA. (6) PAD (peripheral artery disease): Onset Date: ~2011 Code(s): I73.9 - Peripheral vascular disease, unspecified Status: Chronic Assessment and Plan: Stable (7) Essential hypertension: Code(s): I10 - Essential (primary) hypertension Status: Acute Assessment and Plan: Bp is 161/78 cut back fluids (8) Type 2 diabetes mellitus with hyperglycemia: Code(s): E11.65 - Type 2 diabetes mellitus with hyperglycemia Status: Acute Assessment and Plan: Insulin sliding scale as needed (9) CKD (chronic kidney disease) stage 3, GFR 30-59 ml/min: Code(s): N18.30 - Chronic kidney disease, stage 3 unspecified Status: Acute Assessment and Plan: creat is 1.4 Subjective Date/time seen: 02/10/21 13:01 Interval history: 65-year-old male with past medical history significant for hypertension, GERD, coronary artery disease, type 2 diabetes mellitus, peripheral diabetic neuropathy, chronic kidney disease, dyslipidemia, peripheral vascular disease. Patient was brought to the emergency room after he had several bouts of coffee-ground emesis, epigastric pain, retrosternal burning and heartburn. Pt complains of GERD symptoms, pt seen by GI will be going to have EGD tomorrow. Review of Systems Review of Systems: All systems reviewed & are unremarkable except as noted in HPI and below Exam Const: General: cooperative, comfortable, no acute distress, well developed, alert, awake and other (Well-appearing) Orientation/consciousness: patient oriented x3 Resp: Effort & Inspection: normal respiratory effort and able to speak in complete sentences Cardio: Rate: regular rate Rhythm: regular rhythm Heart sounds: S1 normal heart sound present and S2 normal heart sound present GI: Inspection: other (Soft non tender ) Skin: Rashes: no rashes Wounds: no wounds Neuro: General: patient oriented x3 and CN's II-XI intact bilaterally Cranial nerves: Yes CN's II-XII intact bilaterally and Yes Equal, round and reactive pupils present Cognition (Neuro): normal cognition Speech: normal speech Gait exam (Neuro): Normal gait present Motor exam (neuro): 5/5 motor strength present throughout Extrem: General: normal to inspection, full ROM, no joint enlargement and no pedal e
[2021-02-10] MEDS: ONDANSETRON INJ 4 MG/2 ML VIAL IV PUSH (13:35)
[2021-02-10 14:00] VITALS: BP 127/61; PULSE 72; RESP 22; TEMP 36.6; O2SAT 100
[2021-02-10 16:24] LABS: Glucose Point of Care 116 mg/dl (65-105)
[2021-02-10] MEDS: polyethylene glycoL 3350 17 GM POWD.PACK PO (17:33)
[2021-02-10 20:40] VITALS: PULSE 72; RESP 20; O2SAT 98
[2021-02-10 21:06] LABS: Glucose Point of Care 153 mg/dl (65-105)
[2021-02-10 22:00] VITALS: BP 156/75; PULSE 74; RESP 18; TEMP 37.2; O2SAT 98
[2021-02-11] VITALS (12 sets, daily range): BP systolic 134–174; BP diastolic 64–82; PULSE 69–79; RESP 16–18; TEMP 36.4–36.8; O2SAT 98–100
[2021-02-11] MEDS: SODIUM CHLORIDE 0.9% IV 1,000 ML 50 ML IV CONT (06:29)
[2021-02-11] MEDS: ONDANSETRON INJ 4 MG/2 ML VIAL IV PUSH (06:32)
[2021-02-11 07:48] LABS: Glucose Point of Care 134 mg/dl (65-105)
[2021-02-11 09:11] LABS: Hematocrit 37.7 % (42.0-52.0); Hemoglobin 12.5 g/dL (14.0-18.0); Mean Corpuscular HGB Conc 33.2 g/dl (32-36); Mean Corpuscular Hemoglobin 28.9 pg (26-34); Mean Corpuscular Volume 87.1 fl (80-100); Mean Platelet Volume 9.6 fl (7.4-10.4); Platelet Count Result 192 k/mm3 (150-375); Red Blood Count 4.33 M/mm3 (4.6-6.20); Red Cell Distribution Width 13.2 % (11.5-14.5); White Blood Count 8.4 K/mm3 (4.5-10.0)
--- NOTE | 2021-02-11 09:46 | PC.NURSE ---
Called report to [facility].
[2021-02-11 09:50] LABS: Anion Gap 8 mmol/L (8-16); Blood Urea Nitrogen 14 mg/dL (9-20); Calcium 8.6 mg/dL (8.4-10.2); Carbon Dioxide 26 mmol/L (22-30); Chloride 100 mmol/L (98-107); Estimated CRCL calculation 67 ml/min; Estimated Glomerular Filt Rate > 60; Glucose 152 mg/dL (65-110); Potassium 4.1 mmol/L (3.4-5.0); Sodium 134 mmol/L (137-145)
[2021-02-11 11:55] LABS: Glucose Point of Care 138 mg/dl (65-105)
--- NOTE | 2021-02-11 13:15 | PM.IMPN ---
Progress Note: A&P Assessment and Plan (1) Gastrointestinal hemorrhage with hematemesis: Code(s): K92.0 - Hematemesis Status: Acute Assessment and Plan: No clinically active bleeding, patient wa started on oral protonix Holding Plavix and aspirin GI consult, plan for EGD today. (2) Esophageal hiatal hernia: Code(s): K44.9 - Diaphragmatic hernia without obstruction or gangrene Status: Acute Assessment and Plan: Small hernia. (3) Caputo's esophagus with esophagitis: Code(s): K22.70 - Caputo's esophagus without dysplasia; K20.9 - Esophagitis, unspecified Status: Acute Assessment and Plan: Follow-up with GI in outpatient setting Continue PPI (4) GERD (gastroesophageal reflux disease): Qualifiers: Esophagitis presence: with esophagitis Esophagitis bleeding: with hemorrhage Qualified Code(s): K21.01 - Gastro-esophageal reflux disease with esophagitis, with bleeding Code(s): K21.9 - Gastro-esophageal reflux disease without esophagitis Status: Chronic Assessment and Plan: On PPI (5) CAD (coronary artery disease): Qualifiers: Coronary Disease-Associated Artery/Lesion type: unspecified vessel or lesion type [place] vs. transplanted heart: unspecified whether [place] or transplanted heart Associated angina: with unspecified angina Qualified Code(s): I25.119 - Atherosclerotic heart disease of [place] coronary artery with unspecified angina pectoris Code(s): I25.10 - Atherosclerotic heart disease of [place] coronary artery without angina pectoris Status: Chronic Assessment and Plan: No active symptoms Continue home medications; hold plavix and ASA. (6) PAD (peripheral artery disease): Onset Date: ~2011 Code(s): I73.9 - Peripheral vascular disease, unspecified Status: Chronic Assessment and Plan: Stable (7) Essential hypertension: Code(s): I10 - Essential (primary) hypertension Status: Acute Assessment and Plan: Bp is 165/78 Continue metoprolol 50 mg PO daily Continue amlodipine 10 mg PO daily Resume hydrochlorothiazide 25 mg PO daily. (8) Type 2 diabetes mellitus with hyperglycemia: Code(s): E11.65 - Type 2 diabetes mellitus with hyperglycemia Status: Acute Assessment and Plan: Insulin sliding scale as needed trulicity on hold Fasting blood sugar 152. Accu-checks 134-138. (9) CKD (chronic kidney disease) stage 3, GFR 30-59 ml/min: Code(s): N18.30 - Chronic kidney disease, stage 3 unspecified Status: Acute Assessment and Plan: Creatinine back to normal at 1. CT scan: Bilateral low-attenuation renal cysts, the largest measuring 1.6 cm the upper pole of the left kidney. Interval evolution of a hypoenhancing infarct at the upper pole of the right kidney with mild interval volume loss. Start telemetry Obtain renal US . Nephrology consult. Subjective Date/time seen: 02/11/21 11:15 S: The patient was examined at the bedside. He is NPO for EGD and complains of dry mouth. Interval history: 65-year-old male with past medical history significant for hypertension, GERD, coronary artery disease, type 2 diabetes mellitus, peripheral diabetic neuropathy, chronic kidney disease, dyslipidemia, peripheral vascular disease. Patient was brought to the emergency room after he had several bouts of coffee-ground emesis, epigastric pain, retrosternal burning and heartburn. He is scheduled for an EGD today. Review of Systems Review of Systems: All systems reviewed & are unremarkable except as noted in HPI and below Constitutional: Constitutional: Denies chills, Denies fatigue, Denies fever(s), Denies malaise and Denies weight loss Eyes: Eyes: Denies change in vision ENT: Denies dysphagia, Denies vertigo, Denies dizziness, Denies nasal congestion, Denies nasal discharge, Denies nasal obstruction and Denies odynophagia Cardiovascular: Ca
--- NOTE | 2021-02-11 13:30 | PC.NURSE ---
To GI Lab via stretcher. Voiding without difficulty.
[2021-02-11 13:40] LABS: Glucose Point of Care 145 mg/dl (65-105)
[2021-02-11] MEDS: LACTATED RINGERS 1,000 ML 150 ML IV CONT (13:46)
--- NOTE | 2021-02-11 13:49 | WPDANESEPPF ---
Anes - Initial Pre Proc Eval Procedure: Operation Date: 02/11/21 14:30 Proposed Procedures p Esophagogastroduodenoscopy - Jayden Baker MD Date/Time: 02/11/21 13:49 Surgeon: Carmelo Pre Op Diagnosis: Hematemesis,GERD with Esophagitis Patient Data Age: 65 Gender: M Height: 1.7 m Weight: 79.6 kg Last Vital Signs Temp 36.8 C 02/11/21 13:43 Pulse 69 02/11/21 13:43 Resp 18 02/11/21 13:43 BP 174/81 H 02/11/21 13:43 Pulse Ox 98 02/11/21 13:43 Allergies Allergy/AdvReac Type Severity Reaction Status Date / Time No Known Allergies Allergy Verified 02/11/21 13:41 Home Medications Medication Instructions Recorded Confirmed Type aspirin 81 mg tablet,delayed 81 mg PO DAILY #30 tablet 02/26/19 02/09/21 Rx release multivitamin 1 tablet PO DAILY 03/07/19 02/09/21 History mecobalamin (vitamin B12) 1,000 1,000 mcg SUBLINGUAL DAILY 06/14/19 02/09/21 History mcg disintegrating tablet,sublingual nitroglycerin 0.4 mg sublingual 0.4 mg SUBLINGUAL Q5M PRN #30 11/08/19 02/09/21 Rx tablet tablet metoprolol succinate 50 mg 50 mg PO DAILY 01/08/20 02/09/21 History tablet,extended release 24 hr clopidogrel 75 mg tablet 75 mg PO DAILY #90 tablet 01/31/20 02/09/21 Rx hydrochlorothiazide 25 mg tablet 25 mg PO DAILY #90 tablet 01/31/20 02/09/21 Rx duloxetine 60 mg capsule,delayed 60 mg PO DAILY #30 cap 05/08/20 02/09/21 Rx release blood sugar diagnostic #400 ea 08/26/20 02/09/21 Rx pen needle, diabetic 31 gauge x #200 each 08/28/20 02/09/21 Rx 3/16 fenofibrate 160 mg tablet 160 mg PO DAILY tablet 09/16/20 01/02/21 History gabapentin 300 mg capsule 300 mg PO TID #270 cap 09/16/20 02/09/21 Rx isosorbide mononitrate 60 mg 60 mg PO DAILY tablet 09/16/20 02/09/21 History tablet,extended release 24 hr lisinopril 20 mg tablet 20 mg PO DAILY #90 tablet 09/30/20 02/09/21 Rx omega-3 fatty acids 1,000 mg 2,000 mg PO BID cap 10/21/20 02/09/21 History capsule dulaglutide 3 mg/0.5 mL 3 mg SUBCUT WEEKLY 30 Days #2.5 ml 12/10/20 02/09/21 Rx subcutaneous pen injector niacin 500 mg tablet See Rx Instructions .ROUTE 12/20/20 02/09/21 Rx .COMPLEX #120 tablet hydrocodone-acetaminophen 1 tablet PO Q8H PRN #10 tablet 12/30/20 02/09/21 Rx icosapent ethyl 1 gram capsule 2 g PO BID 01/02/21 02/09/21 History amlodipine [Norvasc] 10 mg PO DAILY 02/09/21 02/09/21 History atorvastatin [Lipitor] 80 mg PO DAILY 02/09/21 02/09/21 History ezetimibe [Zetia] See Rx Instructions .ROUTE .COMPLEX 02/09/21 02/09/21 History famotidine [Pepcid] See Rx Instructions .ROUTE .COMPLEX 02/09/21 02/09/21 History pantoprazole [Protonix] 40 mg PO BID 02/09/21 02/09/21 History Laboratory Tests 02/10/21 02/10/21 02/11/21 16:22 20:55 07:45 WBC RBC Hgb Hct MCV MCH MCHC RDW Plt Count MPV Sodium Potassium Chloride Carbon Dioxide Anion Gap BUN Creatinine Estim Creat Clear Calc Estimated GFR Glucose POC Capillary Glucose 116 mg/dl H mg/dl 153 mg/dl H mg/dl 134 mg/dl H mg/dl (65-105) (65-105) (65-105) Calcium Iron TIBC % Saturation Ferritin 02/11/21 02/11/21 02/11/21 09:03 09:03 09:03 WBC 8.4 K/mm3 K/mm3 (4.5-10.0) RBC 4.33 M/mm3 L M/mm3 (4.6-6.20) Hgb 12.5 g/dL L g/dL (14.0-18.0) Hct 37.7 % L % (42.0-52.0) MCV 87.1 fl fl (80-100) MCH 28.9 pg pg (26-34) MCHC 33.2 g/dl g/dl (32-36) RDW 13.2 % % (11.5-14.5) Plt Count 192 k/mm3 k/mm3 (150-375) MPV 9.6 fl fl (7.4-10.4) Sodium 134 mmol/L L mmol/L (137-145) Potassium 4.1 mmol/L mmol/L (3.4-5.0) Chlori
[2021-02-11 15:02] LABS: Iron 41 ug/dL (49-181)
[2021-02-11 15:14] LABS: Percent Iron Saturation 13 % (20-50)
--- NOTE | 2021-02-11 15:20 | PC.NURSE ---
Returned from GI Lab via stretcher. Voiding without difficulty.
[2021-02-11] MEDS: DULoxetine HCL 60 MG CAPSULE.DR PO (15:43)
[2021-02-11] MEDS: amLODIPine BESYLATE 5 MG TABLET 10 MG PO (15:43)
[2021-02-11] MEDS: ISOSORBIDE MONONITRATE 60 MG TAB.ER.24H PO (15:43)
[2021-02-11] MEDS: METOPROLOL SUCCINATE EXT REL 50 MG TABCR PO (15:45)
[2021-02-11 16:36] LABS: Glucose Point of Care 124 mg/dl (65-105)
[2021-02-11] MEDS: PANTOPRAZOLE 40 MG TABLET PO (17:16)
[2021-02-11] MEDS: NIACIN SA 500 MG TABLET 1000 MG PO (17:16)
--- NOTE | 2021-02-11 19:13 | PM.CNNEP ---
Assessment and Plan Assessment and plan (1) Renal infarction: Code(s): N28.0 - Ischemia and infarction of kidney Status: Acute Assessment and Plan: Cornelius has a subacute infarct in the superior pole of his right kidney. Etiology of this is unclear. This could be embolic. Atrial fibrillation could do this or possibly just very rough atherosclerotic disease in the aorta Or an artery to artery embolus from within the kidney.. This could be thrombotic or have some other vascular issues such as an aneurysm or dissection. Has no history of other types of clots to suggest a primary clotting defect. At this point on like to get a CT angio to see what the renal arteries and the aorta look like. (2) Acute blood loss anemia: Code(s): D62 - Acute posthemorrhagic anemia Status: Acute Assessment and Plan: his hemoglobin was low. He was vomiting blood. EGD was unremarkable however. (3) Esophageal hiatal hernia: Code(s): K44.9 - Diaphragmatic hernia without obstruction or gangrene Status: Acute (4) History of stroke: Code(s): Z86.73 - Personal history of transient ischemic attack (TIA), and cerebral infarction without residual deficits Status: Acute Assessment and Plan: No recent symptoms (5) CAD (coronary artery disease): Qualifiers: Coronary Disease-Associated Artery/Lesion type: unspecified vessel or lesion type [place] vs. transplanted heart: unspecified whether [place] or transplanted heart Associated angina: with unspecified angina Qualified Code(s): I25.119 - Atherosclerotic heart disease of [place] coronary artery with unspecified angina pectoris Code(s): I25.10 - Atherosclerotic heart disease of [place] coronary artery without angina pectoris Status: Chronic Assessment and Plan: no cardiac issues now (6) Abnormal kidney function study: Code(s): R94.4 - Abnormal results of kidney function studies Status: Acute Assessment and Plan: the creatinine is actually normal today. He has had elevated creatinine is in the past but they look like more of an acute change rather than a chronic issue. History of Present Illness Reason for Consult Consult date: 02/11/21 Chief Complaint Chief complaint: Hematemesis,GERD with Esophagitis History of Present Illness Narrative: Cornelius is a very pleasant 65-year-old gentleman who has multiple medical problems including coronary artery disease, myocardial infarction, hypertension, hyperlipidemia, peripheral arterial disease, chronic kidney disease, vitamin-D deficiency, stroke, CKD stage 3, chronic pancreatitis, Caputo's esophagus, arthritis, adenomatous colon polyp. The patient came in the hospital because he had nausea and vomiting with dark vomit plus black vomit. He felt he was bleeding. This would get better so he came to the ER. In the ER he was evaluated and given IV fluids and admitted. His Plavix and aspirin were held. He was given clear liquids and PPI his. GI consult was obtained. Dr. Rhodes to [facility] for any EGD and this showed Caputo's esophagus and hiatal hernia but no evidence of active bleeding. In the meantime he had a CT of the abdomen which showed a subacute infarct at the upper pole of the right kidney so renal consultation was requested. The patient does not have any flank pain. He has not had any problems with blood in his urine. His creatinine has not changed. His liver enzymes were not elevated. He does not have a history of blood clots. He has no history of atrial fibrillation. Review of Systems Constitutional: Constitutional: Reports no additional constitutional complaints Eyes: Eyes: Reports no additional eye complaints ENT: Reports system reviewed and no additional complaints, except as documented Cardiovascular: Cardiovascular: Reports no additional cardiovascular complaints Respiratory: Respiratory: Reports no ad
[2021-02-11 19:58] LABS: Prothrombin Time 13.3 Seconds (11.1-14.7)
[2021-02-11 19:59] LABS: Partial Thromboplastin Time 33.3 SECONDS (22.3-36.8)
[2021-02-11] MEDS: HYDROCORTISONE ACETATE 25 MG SUPPOSITORY RECTAL (20:21)
[2021-02-11 20:50] LABS: Glucose Point of Care 199 mg/dl (65-105)
[2021-02-12] VITALS (10 sets, daily range): BP systolic 127–143; BP diastolic 59–70; PULSE 66–80; RESP 14–20; TEMP 36.6–36.9; O2SAT 100
[2021-02-12 05:34] LABS: Hematocrit 36.6 % (42.0-52.0); Hemoglobin 12.3 g/dL (14.0-18.0); Mean Corpuscular HGB Conc 33.6 g/dl (32-36); Mean Corpuscular Hemoglobin 28.8 pg (26-34); Mean Corpuscular Volume 85.7 fl (80-100); Mean Platelet Volume 9.6 fl (7.4-10.4); Platelet Count Result 205 k/mm3 (150-375); Red Blood Count 4.27 M/mm3 (4.6-6.20); Red Cell Distribution Width 13.2 % (11.5-14.5); White Blood Count 10.2 K/mm3 (4.5-10.0)
[2021-02-12 05:46] LABS: Albumin Level 3.7 g/dL (3.5-5.1); Anion Gap 7 mmol/L (8-16); Blood Urea Nitrogen 14 mg/dL (9-20); Carbon Dioxide 31 mmol/L (22-30); Chloride 97 mmol/L (98-107); Estimated CRCL calculation 51 ml/min; Estimated Glomerular Filt Rate > 60; Glucose 158 mg/dL (65-110); Phosphorus 3.7 mg/dL (2.5-4.5); Sodium 135 mmol/L (137-145)
--- NOTE | 2021-02-12 07:24 | PM.IMPN ---
Progress Note: A&P Assessment and Plan (1) Gastrointestinal hemorrhage with hematemesis: Code(s): K92.0 - Hematemesis Status: Acute Assessment and Plan: No clinically active bleeding, patient was started on oral protonix consider push enteroscopy, capsule endoscopy Differential diagnoses may include Dieulafoy, AVMs Holding Plavix and aspirin (2) Esophageal hiatal hernia: Code(s): K44.9 - Diaphragmatic hernia without obstruction or gangrene Status: Acute Assessment and Plan: Small hernia. (3) Caputo's esophagus with esophagitis: Code(s): K22.70 - Caputo's esophagus without dysplasia; K20.9 - Esophagitis, unspecified Status: Acute Assessment and Plan: Follow-up with GI in outpatient setting Continue PPI (4) GERD (gastroesophageal reflux disease): Qualifiers: Esophagitis bleeding: with hemorrhage Esophagitis presence: with esophagitis Qualified Code(s): K21.01 - Gastro-esophageal reflux disease with esophagitis, with bleeding Code(s): K21.9 - Gastro-esophageal reflux disease without esophagitis Status: Chronic Assessment and Plan: On PPI (5) CAD (coronary artery disease): Qualifiers: Associated angina: with unspecified angina Coronary Disease-Associated Artery/Lesion type: unspecified vessel or lesion type [place] vs. transplanted heart: unspecified whether [place] or transplanted heart Qualified Code(s): I25.119 - Atherosclerotic heart disease of [place] coronary artery with unspecified angina pectoris Code(s): I25.10 - Atherosclerotic heart disease of [place] coronary artery without angina pectoris Status: Chronic Assessment and Plan: No active symptoms Continue home medications; hold plavix and ASA. (6) PAD (peripheral artery disease): Onset Date: ~2011 Code(s): I73.9 - Peripheral vascular disease, unspecified Status: Chronic Assessment and Plan: Stable (7) Essential hypertension: Code(s): I10 - Essential (primary) hypertension Status: Acute Assessment and Plan: Bp is 127/70 this AM Continue metoprolol 50 mg PO daily Continue amlodipine 10 mg PO daily Continue hydrochlorothiazide 25 mg PO daily. (8) Type 2 diabetes mellitus with hyperglycemia: Code(s): E11.65 - Type 2 diabetes mellitus with hyperglycemia Status: Acute Assessment and Plan: Insulin sliding scale as needed trulicity on hold Fasting blood sugar 158. Accu-checks 138. (9) CKD (chronic kidney disease) stage 3, GFR 30-59 ml/min: Code(s): N18.30 - Chronic kidney disease, stage 3 unspecified Status: Deleted Assessment and Plan: Creatinine stable 1-1.2. CT scan: Bilateral low-attenuation renal cysts, the largest measuring 1.6 cm the upper pole of the left kidney. Interval evolution of a hypoenhancing infarct at the upper pole of the right kidney with mild interval volume loss. No telemetry events overnight Rule out thrombotic, or embolic phenomenon Delineate aortic vasculature Plan for CT abdomen pelvis with contrast and echocardiogram today. Continue telemetry monitoring. Subjective Date/time seen: 02/12/21 07:24 S: Patient is examined at the bedside. Mild abdominal discomfort. Currently NPO for abdomen CT scan; will also undergo echocardiogram. Interval history: 65-year-old male with past medical history significant for hypertension, GERD, coronary artery disease, type 2 diabetes mellitus, peripheral diabetic neuropathy, chronic kidney disease, dyslipidemia, peripheral vascular disease. Patient was brought to the emergency room after he had several bouts of coffee-ground emesis, epigastric pain, retrosternal burning and heartburn. He underwent an EGD on 02/12/2021. Review of Systems Review of Systems: All systems reviewed & are unremarkable except as noted in HPI and below Constitutional: Constitutional: Denies chills, Denies fatigue, Denies f
[2021-02-12 07:33] LABS: Glucose Point of Care 138 mg/dl (65-105)
--- NOTE | 2021-02-12 07:41 | PM.PNNEP ---
Progress Note: A&P Assessment and Plan (1) Renal infarction: Code(s): N28.0 - Ischemia and infarction of kidney Status: Acute Assessment and Plan: Cornelius has a subacute infarct in the superior pole of his right kidney. Etiology of this is unclear. The timing is also unclear. CT angio is ordered. I will also order an echocardiogram, To look for an embolic source. (2) Acute blood loss anemia: Code(s): D62 - Acute posthemorrhagic anemia Status: Acute Assessment and Plan: his hemoglobin was low. He was vomiting blood. EGD was unremarkable however. (3) Esophageal hiatal hernia: Code(s): K44.9 - Diaphragmatic hernia without obstruction or gangrene Status: Acute (4) History of stroke: Code(s): Z86.73 - Personal history of transient ischemic attack (TIA), and cerebral infarction without residual deficits Status: Acute Assessment and Plan: No recent symptoms (5) CAD (coronary artery disease): Qualifiers: Coronary Disease-Associated Artery/Lesion type: unspecified vessel or lesion type [place] vs. transplanted heart: unspecified whether [place] or transplanted heart Associated angina: with unspecified angina Qualified Code(s): I25.119 - Atherosclerotic heart disease of [place] coronary artery with unspecified angina pectoris Code(s): I25.10 - Atherosclerotic heart disease of [place] coronary artery without angina pectoris Status: Chronic Assessment and Plan: No chest pain or shortness of breath (6) Abnormal kidney function study: Code(s): R94.4 - Abnormal results of kidney function studies Status: Acute Assessment and Plan: his GFR is above 60. Because of the renal infarct this would be considered CKD stage 2.. Subjective Date/time seen: 02/12/21 07:41 Interval history: Patient is feeling about the same. He slept well last night. He eating okay. Review of Systems Cardiovascular: Cardiovascular: Reports no additional cardiovascular complaints Respiratory: Respiratory: Reports no additional respiratory complaints Gastrointestinal: Gastrointestinal: Reports no additional gastrointestinal complaints Genitourinary: Genitourinary: Reports no additional male genitourinary complaints Exam Narrative: WDWN in NAD skin no rash head ncat lungs clear cor reg no rub abd BS+ nontender and soft ext no edema. Objective Data Vital Signs Vital Signs: Vital Signs - 24 hr 02/11/21 09:30 02/11/21 13:00 02/11/21 13:43 Temperature 36.5 C 36.8 C Pulse Rate 69 69 Respiratory Rate 16 16 18 Blood Pressure 165/78 H 174/81 H Pulse Oximetry 98 98 98 02/11/21 14:48 02/11/21 14:58 02/11/21 15:08 Temperature Pulse Rate 70 71 72 Respiratory Rate 18 18 18 Blood Pressure 160/72 H 160/82 H 163/80 H Pulse Oximetry 100 100 100 02/11/21 15:45 02/11/21 16:00 02/11/21 20:00 Temperature Pulse Rate 72 79 79 Respiratory Rate Blood Pressure Pulse Oximetry 02/11/21 20:25 02/11/21 21:44 02/12/21 00:00 Temperature 36.8 C Pulse Rate 70 71 80 Respiratory Rate 18 16 Blood Pressure 134/66 Pulse Oximetry 99 98 02/12/21 04:00 02/12/21 04:36 Temperature 36.6 C Pulse Rate 71 69 Respiratory Rate 14 Blood Pressure 127/70 Pulse Oximetry 100 Intake/Output Intake/Output: Intake & Output 02/09/21 02/10/21 02/11/21 02/12/21 23:59 23:59 23:59 23:59 Intake Total 1000 2850 1120 250 Output Total 1175 2250 400 Balance 1000 8435 -1130 -150 Meds/Results Medications: Active Medications Generic Name Dose Route Start Last Admin Trade Name Freq PRN Reason Stop Dose Admin Hydrocodone Bitart/Acetaminophen 1 tab 02/09/21 23:13 02/10/21 17:33 Hydrocodone/Acetaminophen (*Crx) 5-325 Mg Tablet PO 1 tab Q8H PRN Administration Pain Rated 4-6 Amlodipine Besylate 10 mg 02/10/21 09:00 02/11/21 15:43 Amlodipine Besylate 5 Mg Tablet PO 10 mg D
--- NOTE | 2021-02-12 07:43 | ECHO_ITS ---
Patient Info Name: Cornelius Babin Age: 65 years : 1955 Gender: Male Ht: 67 in Wt: 175 lbs BSA: 1.95 m2 HR: 67 bpm BP: 127 / 70 mmHg Technical Quality: Fair Exam Date: 02/12/2021 10:33 AM Exam Location: [facility] Exam Room: 252 Patient Status: Inpatient Admit Date: 02/09/2021 Staff Ordering Physician: hBaskar Coto MD Agriculture Teacher: Yanelis Heredia RDCS Attending Provider: Toni Smiley MD Referring Physician: Chica ROGERS; Exam Type: CA echo doppler color flow Study Info Indications - renal infarct r/o cse Complete two-dimensional, color flow and Doppler transthoracic echocardiogram is performed. Summary 1. Complete two-dimensional, color flow and Doppler transthoracic echocardiogram is performed. 2. Left ventricular systolic function is normal, estimated at 55-60%. 3. There is moderately increased left ventricular wall thickness. 4. The left ventricular diastolic function is grade I diastolic dysfunction. 5. There is mild aortic valve calcification. 6. There is mild tricuspid valve regurgitation. 7. No pulmonary hypertension, estimated pulmonary arterial systolic pressure is 24 mmHg. 8. There is mild pulmonic regurgitation. 9. There is trivial pericardial effusion. Left Ventricle Left ventricular chamber dimension is normal. Left ventricular systolic function is normal, estimated at 55-60%. There is moderately increased left ventricular wall thickness. Left ventricular septal wall motion is normal. The left ventricular diastolic function is grade I diastolic dysfunction. Right Ventricle Right ventricular chamber dimension is normal. Right ventricular systolic function is normal. Left Atria Left atrial chamber dimension is normal. Right Atria Right atrial chamber dimension is normal. Atrial Septum Intact interatrial septum visualized by color flow imaging. Aortic Valve The aortic valve is trileaflet. There is no aortic valve stenosis. There is no aortic valve regurgitation. There is mild aortic valve calcification. Pulmonic Valve The pulmonic valve is normal. There is no pulmonic valve stenosis. There is mild pulmonic regurgitation. Mitral Valve The mitral valve has normal leaflets. There is no mitral valve stenosis. There is no mitral valve regurgitation. Tricuspid Valve The tricuspid valve leaflets are normal. There is no significant tricuspid valve stenosis. There is mild tricuspid valve regurgitation. No pulmonary hypertension, estimated pulmonary arterial systolic pressure is 24 mmHg. Pericardium/Pleural The pericardium appears normal. There is trivial pericardial effusion. Inferior Vena Cava Normal inferior vena cava with >50% collapse upon inspiration consistent with normal right atrial pressure, 5 mmHg. Aorta The aortic root size at the sinus of Valsalva is normal. The prox ascending aorta size is normal. Left Ventricular Outflow Tract Name Value Normal LVOT 2D LVOT Diameter 2.1 cm LVOT Doppler LVOT Peak Gradient 5 mmHg LVOT Mean Gradient 2 mmHg
--- NOTE | 2021-02-12 09:02 | WPDANESPN ---
Anes - Prog Note Post-Op Date/Time: 02/12/21 09:02 Cardiovascular status: normal Respiratory status: normal Airway patency: baseline Mental status: baseline Post-Op hydration status: normal Vital Signs: Last Vital Signs Temp 97.9 F 02/12/21 04:36 Pulse 69 02/12/21 04:36 Resp 14 02/12/21 04:36 BP 127/70 02/12/21 04:36 Pulse Ox 100 02/12/21 04:36 Pain Score (VAS): 05/04 I/O: Intake & Output 02/11/21 02/12/21 02/12/21 23:59 07:59 15:59 Intake Total 240 250 Output Total 700 400 Balance -460 -150 Laboratory Tests 02/12/21 05:17 02/12/21 05:17 02/11/21 02/11/21 02/11/21 09:03 09:03 09:03 WBC 8.4 RBC 4.33 L Hgb 12.5 L Hct 37.7 L MCV 87.1 MCH 28.9 MCHC 33.2 RDW 13.2 Plt Count 192 MPV 9.6 PT INR APTT Sodium 134 L Potassium 4.1 Chloride 100 Carbon Dioxide 26 Anion Gap 8 BUN 14 D Creatinine 0.90 Estim Creat Clear Calc 67 Estimated GFR > 60 Glucose 152 H POC Capillary Glucose Calcium 8.6 Phosphorus Iron 41 L TIBC 311 % Saturation 13 L Ferritin 198.00 Albumin 02/11/21 02/11/21 02/11/21 11:52 13:38 16:34 WBC RBC Hgb Hct MCV MCH MCHC RDW Plt Count MPV PT INR APTT Sodium Potassium Chloride Carbon Dioxide Anion Gap BUN Creatinine Estim Creat Clear Calc Estimated GFR Glucose POC Capillary Glucose 138 H 145 H 124 H Calcium Phosphorus Iron TIBC % Saturation Ferritin Albumin 02/11/21 02/11/21 02/12/21 19:43 20:45 05:17 WBC 10.2 H RBC 4.27 L Hgb 12.3 L Hct 36.6 L MCV 85.7 MCH 28.8 MCHC 33.6 RDW 13.2 Plt Count 205 MPV 9.6 PT 13.3 INR 1.0 APTT 33.3 Sodium Potassium Chloride Carbon Dioxide Anion Gap BUN Creatinine Estim Creat Clear Calc Estimated GFR Glucose POC Capillary Glucose 199 H Calcium Phosphorus Iron TIBC % Saturation Ferritin Albumin 02/12/21 02/12/21 05:17 07:26 WBC RBC Hgb Hct MCV MCH MCHC RDW Plt Count MPV PT INR APTT Sodium 135 L Potassium 4.0 Chloride 97 L Carbon Dioxide 31 H Anion Gap 7 L BUN 14 Creatinine 1.20 Estim Creat Clear Calc 51 Estimated GFR > 60 Glucose 158 H POC Capillary Glucose 138 H Calcium 9.0 Phosphorus 3.7 Iron TIBC % Saturation Ferritin Albumin 3.7 Post-procedural complaints: none Patient Feedback: Patient satisfied with anesthetic care.
[2021-02-12] MEDS: ISOSORBIDE MONONITRATE 60 MG TAB.ER.24H PO (09:16)
[2021-02-12] MEDS: ATORVASTATIN 40 MG TABLET 80 MG PO (09:16)
[2021-02-12] MEDS: amLODIPine BESYLATE 5 MG TABLET 10 MG PO (09:17)
[2021-02-12] MEDS: PANTOPRAZOLE 40 MG TABLET PO ×2 (09:17→16:43)
[2021-02-12] MEDS: CYANOCOBALAMIN 1,000 MCG TABLET 1000 MCG PO (09:17)
[2021-02-12] MEDS: NIACIN SA 500 MG TABLET 1000 MG PO ×2 (09:17→16:43)
[2021-02-12] MEDS: DULoxetine HCL 60 MG CAPSULE.DR PO (09:17)
[2021-02-12] MEDS: MULTIVITAMINS THERAPEUTIC TAB (*BKC) 1 TABLET PO (09:18)
[2021-02-12] MEDS: HYDROCORTISONE ACETATE 25 MG SUPPOSITORY RECTAL ×2 (09:18→20:30)
[2021-02-12] MEDS: METOPROLOL SUCCINATE EXT REL 50 MG TABCR PO (09:18)
[2021-02-12] MEDS: hydroCHLOROthiazide 25 MG TABLET PO (09:19)
[2021-02-12] MEDS: polyethylene glycoL 3350 17 GM POWD.PACK PO (09:19)
[2021-02-12 11:40] LABS: Glucose Point of Care 222 mg/dl (65-105)
[2021-02-12] MEDS: INSULIN ASPART (*BKC) 100 UNITS/ML SUB-Q (12:21)
--- NOTE | 2021-02-12 13:08 | WPDGIPROGNO ---
Progress Note: A&P Assessment and Plan (1) Gastrointestinal hemorrhage with hematemesis: Code(s): K92.0 - Hematemesis Status: Acute Assessment and Plan: no signs of bleeding continue ppi because he also has Lewis's, next egd in 3 years for surveillance but final recommendation based on path report (2) Lewis's esophagus with esophagitis: Code(s): K22.70 - Lewis's esophagus without dysplasia; K20.9 - Esophagitis, unspecified Status: Acute (3) Nausea and vomiting in adult: Code(s): R11.2 - Nausea with vomiting, unspecified Status: Acute Assessment and Plan: improved probably from other medical issues (uncontrolled DM, renal infarction, etc) tolerating diet (4) Type 2 diabetes mellitus with hyperglycemia: Code(s): E11.65 - Type 2 diabetes mellitus with hyperglycemia Status: Acute (5) Renal infarction: Code(s): N28.0 - Ischemia and infarction of kidney Status: Acute Assessment and Plan: just completed CT angiogram, nephrology on board Subjective Date/time seen: 02/12/21 13:08 Interval history: egd yesterday showed lewis's, no active esophagitis or signs of bleeding. Nausea better, now undergoing work up for renal infarct Review of Systems Review of Systems: All systems reviewed & are unremarkable except as noted in HPI and below Exam Const: General: comfortable and no acute distress HENMT: General nose exam: Normal nares present Eyes: General: appearance normal, both eyes and all related structures Neck: Neck: no JVD Resp: Auscultation: clear to auscultation bilaterally Cardio: Rate: regular rate Rhythm: regular rhythm GI: Inspection: non-distended GI Palp: Yes Soft to palpation and No Guarding due to palpation present (GI) Auscultation: normal bowel sounds Skin: General skin exam: normal color Neuro: Speech: normal speech Motor exam (neuro): Normal motor muscle tone present throughout Extrem: General: normal to inspection Psych: Mental Status: mental status grossly normal Objective Data Vital Signs Vital Signs: Vital Signs - 24 hr 02/11/21 13:43 02/11/21 14:48 02/11/21 14:58 Temperature 98.3 F Pulse Rate 69 70 71 Respiratory Rate 18 18 18 Blood Pressure 174/81 H 160/72 H 160/82 H Pulse Oximetry 98 100 100 02/11/21 15:08 02/11/21 15:45 02/11/21 16:00 Temperature Pulse Rate 72 72 79 Respiratory Rate 18 Blood Pressure 163/80 H Pulse Oximetry 100 02/11/21 20:00 02/11/21 20:25 02/11/21 21:44 Temperature 98.2 F Pulse Rate 79 70 71 Respiratory Rate 18 16 Blood Pressure 134/66 Pulse Oximetry 99 98 02/12/21 00:00 02/12/21 04:00 02/12/21 04:36 Temperature 97.9 F Pulse Rate 80 71 69 Respiratory Rate 14 Blood Pressure 127/70 Pulse Oximetry 100 02/12/21 08:00 02/12/21 09:18 Temperature Pulse Rate 68 69 Respiratory Rate Blood Pressure Pulse Oximetry Intake/Output Intake/Output: Intake & Output 02/09/21 02/10/21 02/11/21 02/12/21 23:59 23:59 23:59 23:59 Intake Total 1000 2850 1120 250 Output Total 1175 2250 400 Balance 1000 1675 -1130 -150 Meds/Results Medications: Active Medications Generic Name Dose Route Start Last Admin Trade Name Freq PRN Reason Stop Dose Admin Hydrocodone Bitart/Acetaminophen 1 tab 02/09/21 23:13 02/10/21 17:33 Hydrocodone/Acetaminophen (*Crx) 5-325 Mg Tablet PO 1 tab Q8H PRN Administration Pain Rated 4-6 Amlodipine Besylate 10 mg 02/10/21 09:00 02/12/21 09:17 Amlodipine Besylate 5 Mg Tablet PO 10 mg DAILY SAVITA Administration Atorvastatin Calcium 80 mg 02/10/21 09:00 02/12/21 09:16 Atorvastatin 40 Mg Tablet PO 80 mg DAILY SAVITA Administration Cyanocobalamin 1,000 mcg 02/10/21 09:00 02/12/21 09:17 Cyanocobalamin 1,000 Mcg Tablet PO 1,000 mcg QAM SAVITA Administration Dextrose 12.5 gm 02/12/21 11:58 Dextrose 50% 25 Gm/50 Ml Syringe IV PUSH PRN PRN
[2021-02-12 16:38] LABS: Glucose Point of Care 198 mg/dl (65-105)
[2021-02-12 21:14] LABS: Glucose Point of Care 168 mg/dl (65-105)
[2021-02-13] VITALS (9 sets, daily range): BP systolic 120–142; BP diastolic 63–74; PULSE 67–76; RESP 14; TEMP 36.6; O2SAT 96
[2021-02-13] MEDS: ONDANSETRON INJ 4 MG/2 ML VIAL IV PUSH (04:37)
[2021-02-13 05:30] LABS: Hematocrit 38.5 % (42.0-52.0); Hemoglobin 12.9 g/dL (14.0-18.0); Mean Corpuscular HGB Conc 33.5 g/dl (32-36); Mean Corpuscular Hemoglobin 28.6 pg (26-34); Mean Corpuscular Volume 85.4 fl (80-100); Mean Platelet Volume 9.8 fl (7.4-10.4); Platelet Count Result 224 k/mm3 (150-375); Red Blood Count 4.51 M/mm3 (4.6-6.20); Red Cell Distribution Width 13.1 % (11.5-14.5); White Blood Count 11.3 K/mm3 (4.5-10.0)
[2021-02-13 05:49] LABS: Anion Gap 7 mmol/L (8-16); Blood Urea Nitrogen 16 mg/dL (9-20); Calcium 9.2 mg/dL (8.4-10.2); Carbon Dioxide 28 mmol/L (22-30); Chloride 98 mmol/L (98-107); Estimated CRCL calculation 51 ml/min; Estimated Glomerular Filt Rate > 60; Glucose 173 mg/dL (65-110); Potassium 3.6 mmol/L (3.4-5.0); Sodium 133 mmol/L (137-145)
[2021-02-13 06:47] LABS: Glucose Point of Care 204 mg/dl (65-105)
[2021-02-13 08:13] LABS: Glucose Point of Care 174 mg/dl (65-105)
[2021-02-13] MEDS: MULTIVITAMINS THERAPEUTIC TAB (*BKC) 1 TABLET PO (08:36)
[2021-02-13] MEDS: polyethylene glycoL 3350 17 GM POWD.PACK PO (08:36)
[2021-02-13] MEDS: amLODIPine BESYLATE 5 MG TABLET 10 MG PO (08:37)
[2021-02-13] MEDS: ATORVASTATIN 40 MG TABLET 80 MG PO (08:37)
[2021-02-13] MEDS: hydroCHLOROthiazide 25 MG TABLET PO (08:38)
[2021-02-13] MEDS: ISOSORBIDE MONONITRATE 60 MG TAB.ER.24H PO (08:38)
[2021-02-13] MEDS: PANTOPRAZOLE 40 MG TABLET PO ×2 (08:38→16:12)
[2021-02-13] MEDS: METOPROLOL SUCCINATE EXT REL 50 MG TABCR PO (08:38)
[2021-02-13] MEDS: NIACIN SA 500 MG TABLET 1000 MG PO ×2 (08:38→16:12)
[2021-02-13] MEDS: CYANOCOBALAMIN 1,000 MCG TABLET 1000 MCG PO (08:38)
[2021-02-13] MEDS: HYDROCORTISONE ACETATE 25 MG SUPPOSITORY RECTAL (08:38)
[2021-02-13] MEDS: DULoxetine HCL 60 MG CAPSULE.DR PO (08:38)
[2021-02-13 11:24] LABS: Glucose Point of Care 235 mg/dl (65-105)
[2021-02-13] MEDS: INSULIN ASPART (*BKC) 100 UNITS/ML SUB-Q ×2 (11:49→16:36)
--- NOTE | 2021-02-13 13:18 | PM.DS ---
DS: Admitting Diagnosis Discharge Date 02/13/2021 Admitting Diagnosis Upper GI bleeding. DS: Discharge Diagnosis Discharge Diagnosis (1) Gastrointestinal hemorrhage with hematemesis: Code(s): K92.0 - Hematemesis Status: Acute Assessment and Plan: No clinically active bleeding, patient was started on oral protonix consider push enteroscopy, capsule endoscopy Differential diagnoses may include Dieulafoy, AVMs Holding Plavix and aspirin (2) Esophageal hiatal hernia: Code(s): K44.9 - Diaphragmatic hernia without obstruction or gangrene Status: Acute Assessment and Plan: Small hernia. (3) Caputo's esophagus with esophagitis: Code(s): K22.70 - Caputo's esophagus without dysplasia; K20.9 - Esophagitis, unspecified Status: Acute Assessment and Plan: Follow-up with GI in outpatient setting Continue PPI (4) GERD (gastroesophageal reflux disease): Qualifiers: Esophagitis presence: with esophagitis Esophagitis bleeding: with hemorrhage Qualified Code(s): K21.01 - Gastro-esophageal reflux disease with esophagitis, with bleeding Code(s): K21.9 - Gastro-esophageal reflux disease without esophagitis Status: Chronic Assessment and Plan: On PPI (5) CAD (coronary artery disease): Qualifiers: Coronary Disease-Associated Artery/Lesion type: unspecified vessel or lesion type [place] vs. transplanted heart: unspecified whether [place] or transplanted heart Associated angina: with unspecified angina Qualified Code(s): I25.119 - Atherosclerotic heart disease of [place] coronary artery with unspecified angina pectoris Code(s): I25.10 - Atherosclerotic heart disease of [place] coronary artery without angina pectoris Status: Chronic Assessment and Plan: No active symptoms Continue home medications; hold plavix and ASA. (6) PAD (peripheral artery disease): Onset Date: ~2011 Code(s): I73.9 - Peripheral vascular disease, unspecified Status: Chronic Assessment and Plan: Stable (7) Essential hypertension: Code(s): I10 - Essential (primary) hypertension Status: Acute Assessment and Plan: Bp is 127/70 this AM Continue metoprolol 50 mg PO daily Continue amlodipine 10 mg PO daily Continue hydrochlorothiazide 25 mg PO daily. (8) Type 2 diabetes mellitus with hyperglycemia: Code(s): E11.65 - Type 2 diabetes mellitus with hyperglycemia Status: Acute Assessment and Plan: Insulin sliding scale as needed trulicity on hold Fasting blood sugar 158. Accu-checks 138. (9) CKD (chronic kidney disease) stage 3, GFR 30-59 ml/min: Code(s): N18.30 - Chronic kidney disease, stage 3 unspecified Status: Deleted Assessment and Plan: Creatinine stable 1-1.2. CT scan: Bilateral low-attenuation renal cysts, the largest measuring 1.6 cm the upper pole of the left kidney. Interval evolution of a hypoenhancing infarct at the upper pole of the right kidney with mild interval volume loss. No telemetry events overnight Rule out thrombotic, or embolic phenomenon Delineate aortic vasculature Plan for CT abdomen pelvis with contrast and echocardiogram today. Continue telemetry monitoring. DS: Summary Hospital Course Reason for hospitalization: Coffee-ground emesis. Hospital Course: This is a 65-year-old gentleman with past medical history significant for hypertension, GERD, coronary artery disease, type 2 diabetes mellitus, peripheral diabetic neuropathy, chronic kidney disease, dyslipidemia, peripheral vascular disease. Patient was brought to the emergency room after he had several bouts of coffee-ground emesis, epigastric pain, retrosternal burning and heartburn, patient denies any melena, any hematemesis, hematochezia, no weight loss, no stool character changes no changes in bowel habits, no weight loss, has been tolerating his meals well ,no constipation, no diarrhea.
--- NOTE | 2021-02-13 15:17 | PC.NURSE ---
Dr. Rhodes and Dr. Coto okay for discharge. Dr. Coto stated to follow up with vascular surgery. Dr. Rhodes wants patient to follow up in four weeks. Otherwise both are okay with Discharge.
[2021-02-13 16:35] LABS: Glucose Point of Care 202 mg/dl (65-105)
== END 2021-02-13 17:45 | disposition home or self-care (01) | DRG 377 ==
LOC: ANHED 16:55 → ANH2MED 19:29
PROVIDERS: Emergency Medicine; Family Medicine; Internal Medicine Gastroenterology; Internal Medicine Nephrology; Admitting Provider Internal Medicine; Emergency Provider Emergency Medicine; PCP Family Medicine; Visit Provider Internal Medicine
PROC: 0DJ08ZZ Inspection of Upper Intestinal Tract, Via Natural or Artificial Opening Endoscopic (ICD-10-PCS; CPT 43235; principal; 2021-02-11 14:30)
DX: K92.0 Hematemesis (principal); K21.01 Gastro-esophageal reflux disease with esophagitis, with bleeding; N28.0 Ischemia and infarction of kidney; D62 Acute posthemorrhagic anemia; E11.22 Type 2 diabetes mellitus with diabetic chronic kidney disease; I12.9 Hypertensive chronic kidney disease with stage 1 through stage 4 chronic kidney disease, or unspecified chronic kidney disease; N18.30 Chronic kidney disease, stage 3 unspecified; K44.9 Diaphragmatic hernia without obstruction or gangrene; K22.70 Barrett's esophagus without dysplasia; I25.10 Atherosclerotic heart disease of native coronary artery without angina pectoris; E11.65 Type 2 diabetes mellitus with hyperglycemia; E11.42 Type 2 diabetes mellitus with diabetic polyneuropathy; I73.9 Peripheral vascular disease, unspecified; M19.90 Unspecified osteoarthritis, unspecified site; E55.9 Vitamin D deficiency, unspecified; Z79.02 Long term (current) use of antithrombotics/antiplatelets; Z79.82 Long term (current) use of aspirin; Z86.73 Personal history of transient ischemic attack (TIA), and cerebral infarction without residual deficits; I25.2 Old myocardial infarction; Z95.5 Presence of coronary angioplasty implant and graft; Z87.891 Personal history of nicotine dependence
CPT/HCPCS: 36415; 74018; 74174; 74177; 80048; 80053; 80069; 82728; 82948; 83540; 83550; 83690; 85014; 85018; 85025; 85027; 85610; 85730; 86850; 86900; 86901; 88305; 93306; 96361; 96374; 96375; 96376; 99285; A9270; C9113; G0378; J1170; J1815; J2405; J2704; J7030; J7120; Q9967

== ENCOUNTER 2021-02-16 17:49 | Emergency (ER) | payer MEDICARE, MEDICAID, SELFPAY ==
--- NOTE | ~2021-02-16 | CT_ITS ---
EXAMINATION: CT abdomen pelvis w con DATE: 02/16/2021 20:16 INDICATION: Perirectal abscess TECHNIQUE: Computed tomography (CT) of the abdomen and pelvis was performed with 100 cc Omnipaque 350 intravenous contrast. The dose-length product was 815.40 mGy-cm. Automated exposure control and iter ative reconstruction technique were employed. COMPARISON: CT dated 02/12/2021. FINDINGS: Dependent atelectasis. Heart size normal. No significant pleural or pericardial effusion. T here are left pleural calcifications, consistent with previous asbestos exposure. There are areas of renal hypoperfusion particularly in the right kidney upper pole. Considerations include resolving inf arct and pyelonephritis. There are pancreatic calcifications, consistent with chronic pancreatitis. F atty infiltration of the liver. The spleen, adrenal glands are unremarkable. Gallbladder is present. Nonobstructive bowel gas pattern. Bladder is unremarkable. Enlarged prostate gland. There is a comple x septated perirectal abscess measuring approximately 5.4 x 4.8 x 6.8 cm. There is atherosclerosis of the aorta without aneurysm. No lymphadenopathy. IMPRESSION: 1. Complex septated perirectal abscess measuring 5.4 x 4.8 x 6.8 cm. 2: Irregular hypoperfusion of the kidneys, most prominent at the upper pole of the right kidney which may represent resolving infarction or pyelonephritis. 3: Chronic pancreatitis. Reviewed, dictated and finalized at location A.
[2021-02-16 18:05] VITALS: BP 142/70; PULSE 75; RESP 18; TEMP 36.4; O2SAT 100
--- NOTE | 2021-02-16 18:07 | ED.SKABFB ---
HPI - Skin/Abscess/Foreign Bdy General Chief complaint: Wound/Laceration Stated complaint: lump on butt Time Seen by Provider: 02/16/21 18:16 Source: patient Mode of arrival: ambulatory Limitations: no limitations History of Present Illness HPI narrative: 65-year-old man With a history of type 2 diabetes, peripheral artery disease, and hypertension comes to the ER complaining of several days of a bump on his bottom that is becoming larger and more painful. pain is worse with sitting, palpation and having a bowel movement. He has had no blood or pus in his stools. Patient states that he has had no fever or vomiting but feels nauseous and has some pain in his right groin. He denies prior similar symptoms. He was recently discharged from the hospital after upper GI bleeding and diagnosis of Caputo's esophagus. MD complaint: lesion Onset (ago): day(s) (2-3) Tetanus up to date: unsure Location: buttocks Severity: severe Quality: burning and sharp Pain Consistency: constant Relieving factors: none Exacerbating factors: palpation and other ( BMs and sitting) Associated symptoms: nausea Treatments prior to arrival: none Related Data Home Medications Medication Instructions Recorded Confirmed multivitamin 1 tablet PO DAILY 03/07/19 02/16/21 mecobalamin (vitamin B12) 1,000 1,000 mcg SUBLINGUAL DAILY 06/14/19 02/16/21 mcg disintegrating tablet,sublingual metoprolol succinate 50 mg 50 mg PO DAILY 01/08/20 02/16/21 tablet,extended release 24 hr fenofibrate 160 mg tablet 160 mg PO DAILY tablet 09/16/20 02/16/21 isosorbide mononitrate 60 mg 60 mg PO DAILY tablet 09/16/20 02/16/21 tablet,extended release 24 hr omega-3 fatty acids 1,000 mg 2,000 mg PO BID cap 10/21/20 02/16/21 capsule icosapent ethyl 1 gram capsule 2 g PO BID 01/02/21 02/16/21 amlodipine [Norvasc] 10 mg PO DAILY 02/09/21 02/16/21 atorvastatin [Lipitor] 80 mg PO DAILY 02/09/21 02/16/21 ezetimibe [Zetia] See Rx Instructions .ROUTE .COMPLEX 02/09/21 02/16/21 famotidine [Pepcid] See Rx Instructions .ROUTE .COMPLEX 02/09/21 02/16/21 pantoprazole [Protonix] 40 mg PO BID 02/09/21 02/16/21 Allergies Allergy/AdvReac Type Severity Reaction Status Date / Time No Known Allergies Allergy Verified 02/11/21 13:41 Review of Systems Review of Systems: All systems reviewed & are unremarkable except as noted in HPI and below Constitutional: Constitutional: Denies chills, Denies fever(s) and Denies weakness Eyes: Eyes: Denies change in vision and Denies photophobia ENT: Denies nasal congestion and Denies sore throat Cardiovascular: Cardiovascular: Denies chest pain and Denies radiating jaw, neck or arm pain Respiratory: Respiratory: Denies cough, Denies dyspnea and Denies wheezing Gastrointestinal: Gastrointestinal: Reports abdominal pain, Denies diarrhea, Reports nausea and Denies vomiting Genitourinary: Genitourinary: Denies hematuria, Denies dysuria and Denies urinary frequency Musculoskeletal: Musculoskeletal: Denies arthralgias and Denies joint swelling Integumentary/Breasts: Skin/Breast: Denies pruritus, Denies erythema and Denies rash Neurologic: Denies vertigo, Denies dizziness and Denies syncope Allergic/Immunologic: Allergic/Immunologic: Denies lip swelling and Denies throat swelling PMFSH Past Medical History Medical History Abnormal kidney function study Acute blood loss anemia Adenomatous colon polyp Arthritis Caputo's esophagus with esophagitis CAD (coronary artery disease) Chronic pancreatitis Diabetic peripheral neuropathy Erosive esophagitis Essential hypertension GERD (gastroesophageal reflux disease) History of stroke 11/2016 Hyperlipidemia LDL goal <70 Myocardial infarction (~2003) Nausea and vomiting in adult Open wound of finger of right hand (~07/02/19) PAD (peripheral artery disease) (~2011) Renal infarction Renal insufficiency Type 2 diabetes mellitus with hyp
[2021-02-16 18:30] LABS: Occult Blood Negative (Negative)
[2021-02-16 18:40] LABS: Basophils Absolute Auto 0.03 K/mm3 (0.00-0.10); Basophils Percent Auto 0.2 % (0.0-1.0); Eosinophils Absolute Auto 0.17 K/mm3 (0.02-0.50); Eosinophils Percent Auto 1.2 % (1.0-6.0); Hematocrit 42.5 % (37.0-46.0); Hemoglobin 14.5 g/dL (12.4-15.3); Immature Granulocyte Absolute 0.09 K/mm3 (0.00-0.00); Immature Granulocyte Percent A 0.6 % (0.0-0.0); Lymphocytes Absolute Auto 1.82 K/mm3 (1.10-4.50); Lymphocytes Percent Auto 12.6 % (18.0-42.0); Mean Corpuscular HGB Conc 34.1 g/dL (32.0-36.0); Mean Corpuscular Volume 82.2 fL (78.0-102.0); Monocytes Absolute Auto 1.19 K/mm3 (0.10-0.90); Monocytes Percent Auto 8.2 % (2.0-11.0); Neutrophils Absolute Auto 11.1 K/mm3 (1.7-7.2); Neutrophils Percent Auto 77.2 % (50.0-70.0); Platelet Count Result 279 K/mm3 (150-420); Red Blood Count 5.17 M/mm3 (4.70-6.10); Red Cell Distribution Width 12.9 % (11.6-14.4); White Blood Count 14.4 K/mm3 (4.8-10.8)
[2021-02-16 18:53] LABS: INR 1.1; Prothrombin Time 11.7 Seconds (9.50-12.10)
[2021-02-16 18:55] LABS: Alanine Aminotransferase 37 U/L (16-63); Albumin Level 3.2 g/dL (3.4-5.0); Alkaline Phosphatase 107 U/L (46-116); Anion Gap 10 mmol/L (8-16); Aspartate Amino Transferase 18 U/L (15-37); Bilirubin,Total 0.4 mg/dL (0.00-1.00); Blood Urea Nitrogen 19 mg/dL (7-18); Calcium 8.6 mg/dL (8.5-10.1); Carbon Dioxide 29 mmol/L (21-32); Chloride 96 mmol/L (98-108); Estimated CRCL calculation 39 ml/min; Estimated Glomerular Filt Rate 44; Glucose 239 mg/dL (70-99); Osmolality Calculated 290 mOsm/kg (285-295); Sodium 135 mmol/L (136-145); Total Protein 7.5 g/dL (6.4-8.2)
[2021-02-16 18:56] LABS: Partial Thromboplastin Time 27.5 SEC (23.90-30.70)
--- NOTE | 2021-02-16 19:23 | PC.NURSE ---
[facility] who states im waiting for the surgeon to call, youre tying up my line Will attempt to speak with [place] general surgeon.
--- NOTE | 2021-02-16 19:27 | PC.NURSE ---
Information provided to Magaly Nath at this time. ERP speaking with Dr. Galvez.
[2021-02-16] MEDS: SODIUM CHLORIDE 0.9% IV 1,000 ML 999 ML IV CONT ×2 (19:50→20:58)
[2021-02-16] MEDS: HYDROmorphone HCL INJ (*CRX) 2 MG/ML VIAL 0.5 MG IV PUSH ×2 (19:50→20:59)
[2021-02-16] MEDS: ONDANSETRON INJ 4 MG/2 ML VIAL IV PUSH (19:55)
--- NOTE | 2021-02-16 20:02 | PC.NURSE ---
PATIENT UNABLE TO URINATE AT THIS TIME. WILL TRY AGAIN AFTER IVF BOLUS
[2021-02-16] MEDS: CIPROFLOXACIN 400 MG/D5W 200ML 200 ML 200 MG IVPB (20:28)
[2021-02-16] MEDS: metroNIDAZOLE 500 MG/ISO 100ML 500 MG/100 ML BAG 100 MG IVPB (20:58)
[2021-02-16 21:19] LABS: Appearance Urine Clear (Clear); Bilirubin Urine Negative (Negative); Color Urine Yellow (Yellow); Glucose Urine UA 1+ (Negative); Ketones Urine Negative (Negative); Leukocyte Esterase Ur Negative LEU/UL (Negative); Nitrate Urine Negative (Negative); Protein Urine 3+ (Negative); Specific Grav Ur 1.025 (1.010-1.020)
--- NOTE | 2021-02-16 21:21 | PC.NURSE ---
SHONDA PARISI SUPERVISOR AT [facility] PROVIDED ROOM 320 FOR TRANSFER.
[2021-02-16 21:22] LABS: Add Urine Microscopic? YES; Blood Urine Trace (Negative)
[2021-02-16 21:26] LABS: Amorphous Sediment Urine Few; Bacteria Urine Trace /hpf; RBC Urine 0-2 /hpf (0-2); WBC Urine 0-3 /hpf (0-3)
[2021-02-16 21:30] VITALS: BP 162/63; PULSE 65; RESP 18; O2SAT 99
--- NOTE | 2021-02-16 22:09 | PC.NURSE ---
ATTEMPTED TO CALL REPORT TO RECEIVING RN AT [facility] FOR THE 4TH TIME.
--- NOTE | 2021-02-16 22:20 | PC.NURSE ---
TELEPHONE REPORT PROVIDED TO SHONDA MANJARREZ AT [facility].
== END 2021-02-16 21:52 | disposition short-term general hospital (02) ==
PROVIDERS: Emergency Provider Emergency Medicine; PCP Family Medicine
DX: K61.1 Rectal abscess (principal); I25.10 Atherosclerotic heart disease of native coronary artery without angina pectoris; K21.9 Gastro-esophageal reflux disease without esophagitis; E78.5 Hyperlipidemia, unspecified; E55.9 Vitamin D deficiency, unspecified; Z87.891 Personal history of nicotine dependence; N28.9 Disorder of kidney and ureter, unspecified; E11.42 Type 2 diabetes mellitus with diabetic polyneuropathy
CPT/HCPCS: 36415; 74177; 80053; 81001; 85025; 85610; 85730; 96361; 96365; 96375; 96376; 99285; J0744; J1170; J2405; J7030; Q9967

== ENCOUNTER 2021-02-16 23:52 | Observation (INO) | payer MEDICARE, MEDICAID, SELFPAY ==
--- NOTE | ~2021-02-16 | US_ITS ---
EXAMINATION: US retroperitoneal duplex ltd EXAM DATE: 02/17/2021 09:34 INDICATION: Elevated bp, possible renal infarction. Abnormal CT scan. TECHNIQUE: Multiple grayscale and Doppler images of the kidneys and renal arteries were obtained. Co rrelation is made to CTA abdomen from 02/12/2021. FINDINGS: Right renal artery demonstrated mild origin stenosis on recent CTA. There are 2 left renal arteries which are both patent proximally but with scattered regions of left renal artery narrowing a t the hilar branches. The aorta peak systolic velocity is 69 cm/s. Renal arteries interrogated in several segments from origin to hilum. RIGHT RENAL ARTERY Proximal segment (origin): 225 cm/s. Middle segment: 81 cm/s. Distal segment (hilum): 91 cm/s. LEFT RENAL ARTERY (likely dominant artery image) Proximal segment (origin): 232 cm/s. Middle segment: 115 cm/s. Distal segment (hilum): 169 cm/s. IMPRESSION: Mildly elevated velocities in the proximal renal artery origins, with only mild stenosis on the right identified on recent CTA. Reviewed, dictated and finalized at location B. IMPRESSION: Mildly elevated velocities in the proximal renal artery origins, wi th only mild stenosis on the right identified on recent CTA.
--- NOTE | 2021-02-16 23:13 | ADMGEN ---
This patient, Cornelius Babin Jr., was admitted to 3 [facility] Surg Room 320-01. Patient/family oriented to hospital policies and general routines including ID bracelet, bed and alarms, visiting hours, pain management, procedures, bathroom and other care routines, personal items, smoking policy, room service/diet, and visiting hours. Information on how to activate the Rapid Response Team has been discussed. Patient/Family are encouraged to report perceived risks to care and to ask questions if they do not understand what they are told or what they should do.
[2021-02-16 23:24] VITALS: BMI 28.3
[2021-02-16 23:58] VITALS: BP 180/57; PULSE 67; RESP 18; TEMP 36.9; O2SAT 99
[2021-02-17] VITALS (15 sets, daily range): BP systolic 99–159; BP diastolic 53–73; PULSE 58–84; RESP 14–20; TEMP 36.6–37.7; O2SAT 95–100
[2021-02-17] MEDS: MORPHINE SULFATE (*CRX) 2 MG/ML INJ IV PUSH ×2 (00:29→04:05)
[2021-02-17] MEDS: SODIUM CHLORIDE 0.9% IV 1,000 ML 100 ML IV CONT ×2 (02:07→21:42)
--- NOTE | 2021-02-17 04:28 | PM.IMHP ---
H&P: HPI History of Present Illness Date/Time: 02/17/21 04:28 Chief Complaint: A painful lump on his bottom Narrative: 65-year-old male with past medical history of peripheral vascular disease, coronary artery disease, Caputo's esophagus with recent coffee-ground emesis, historically poorly controlled diabetes mellitus, and hypertension who presented to the ER at [facility] due to a painful lump on his bottom. The patient had been admitted to [facility] 02/12/2021 through 02/13/2021 due to coffee-ground emesis and had EGD which demonstrated Caputo's esophagus. Patient had no active bleeding while he was in the hospital. However he does report that he had actually started to have pain with a small lump to the left side of his rectum a few days before that admission. He thought it was due to hemorrhoids. While he was hospitalized he was provided with preparation H but the preparation H did not help his symptoms. The day after he was discharged from hospital above lump got larger and over the following days it became significantly more tender. He was no longer able to sit without discomfort. Any time he tried to walk or move it also hurt. He reports the pain is constant and throbbing but when it is touched is much more severe. His pain is been as bad as a 10/10 in intensity and after he received morphine on admission his pain was down to a 7/10 in intensity. He has not been having any pain with bowel movements in his last bowel movement was yesterday. He has never had any pain similar to this before. He denies any hematochezia or melena. He had a reports that he does have a large prostate. He occasionally has difficulty starting and stopping his urine. At the time of my evaluation he denied having any difficulty urinating in the last tear to however in the ER at [facility] he was unable to urinate despite 1 L fluid bolus and evidently had a Ruiz catheter placed. The patient reports that he has prostate cancer and had his 1st appointment with Urology last month and the patient has decided to proceed with a prostatectomy in the near future. He has not been having any hematuria or dysuria. Although he did report significant discomfort when they were placing the Ruiz catheter. He had noticed that his urine had been darker the last couple of days. He has had decreased appetite due to his discomfort in his rectum. He denies any nausea or vomiting. He denies any cough, congestion or history of COPD however he did have a history of heavy tobacco use. Labs from his on hospital [place] was 19618 hemoglobin 14.5 platelet count 279,000 with 77% neutrophils. His BMP did show acute kidney injury with BUN of 19 creatinine of 1.6 up from prior values of 0.9 and 1.2. His glucoses were 239 and the patient's last hemoglobin A1c was 9.8 in November 2020. He reports that his glucoses have been much improved after initiating therapy with Tresiba. He is edentulous and does not wear his dentures at home. He denies any history of snoring or excessive daytime fatigue but has crowded posterior oropharynx and large neck circumference. Review of Systems Review of Systems: 12 systems were reviewed with pertinent positives and negatives per HPI. Except as documented in the HPI, all other systems were reviewed and are negative. [facility] Past Medical History Medical History (Updated 02/17/21 @ 05:06 by Johnna Joyner, DO) Adenomatous colon polyp Arthritis Caputo's esophagus with esophagitis CAD (coronary artery disease) Managed by Dr. Hoyt Chronic pancreatitis CVA (cerebral vascular accident) (~2014) Diabetic peripheral neuropathy Esophageal hiatal hernia Essential hypertension GERD (gastroesophageal reflux disease) History of stroke (~11/2016) Hyperlipidemia LDL goal <70 Kidney stones Myocardial infarction (~2003) Open wound of finger of right hand (~07/02/19) PAD (peripheral artery disease) (~2011) With right lower extremity stent and left aortofemo
[2021-02-17 06:04] LABS: Basophils Percent Auto 0.3 % (0.2-1.2); Eosinophils Absolute Auto 0.2 K/mm3 (0-0.3); Eosinophils Percent Auto 1.5 % (0-4.4); Hematocrit 36.6 % (42.0-52.0); Hemoglobin 12.5 g/dL (14.0-18.0); Immature Granulocyte Absolute 0.13 K/mm3 (0.00-0.031); Immature Granulocyte Percent A 0.9 % (0-0.5); Lymphocytes Absolute Auto 1.84 K/mm3 (0.9-3.2); Lymphocytes Percent Auto 12.2 % (18.3-44.2); Mean Corpuscular HGB Conc 34.2 g/dl (32-36); Mean Corpuscular Hemoglobin 28.4 pg (26-34); Mean Corpuscular Volume 83.2 fl (80-100); Mean Platelet Volume 9.2 fl (7.4-10.4); Monocytes Absolute Auto 1.2 K/mm3 (0.1-0.6); Monocytes Percent Auto 8.2 % (2.6-8.5); Neutrophils Absolute Auto 11.7 K/mm3 (1.3-6.7); Neutrophils Percent Auto 76.9 % (45.5-73.1); Platelet Count Result 240 k/mm3 (150-375); White Blood Count 15.1 K/mm3 (4.5-10.0)
[2021-02-17 06:50] LABS: Anion Gap 7 mmol/L (8-16); Blood Urea Nitrogen 17 mg/dL (9-20); Calcium 8.1 mg/dL (8.4-10.2); Carbon Dioxide 27 mmol/L (22-30); Chloride 100 mmol/L (98-107); Estimated CRCL calculation 61 ml/min; Estimated Glomerular Filt Rate > 60; Glucose 164 mg/dL (65-110); Potassium 3.8 mmol/L (3.4-5.0); Sodium 134 mmol/L (137-145)
[2021-02-17 07:50] LABS: Glucose Point of Care 138 mg/dl (65-105)
[2021-02-17] MEDS: MORPHINE SULFATE (*CRX) 4 MG/ML INJ IV PUSH (08:00)
[2021-02-17] MEDS: ONDANSETRON INJ 4 MG/2 ML VIAL IV PUSH (08:03)
[2021-02-17 09:01] LABS: Glucose Point of Care 178 mg/dl (65-105)
--- NOTE | 2021-02-17 11:26 | PM.IMPN ---
Progress Note: A&P Assessment and Plan (1) Perirectal abscess: Code(s): K61.1 - Rectal abscess Status: Acute Assessment and Plan: Plans for surgery later today -continue Zosyn and pain control (2) Acute kidney injury: Code(s): N17.9 - Acute kidney failure, unspecified Status: Acute Assessment and Plan: Could be due to combination of dehydration, possible retention, and IV contrast used recently -his creatinine has improved to normal today -he was just seen by Urology last month due to new onset prostate cancer I spoke with him about the plan of care. Will continue the Ruiz throughout today due to surgery and likely do a voiding trial tomorrow. I will start Flomax as well. (3) Type 2 diabetes mellitus with hyperglycemia: Qualifiers: Diabetes mellitus mcc insulin use: without mcc use Qualified Code(s): E11.65 - Type 2 diabetes mellitus with hyperglycemia Code(s): E11.65 - Type 2 diabetes mellitus with hyperglycemia Status: Acute Assessment and Plan: Last glucose 138 -continue sliding scale insulin (4) Hypertension: Qualifiers: Hypertension type: unspecified Qualified Code(s): I10 - Essential (primary) hypertension Code(s): I10 - Essential (primary) hypertension Status: Acute Assessment and Plan: Last blood pressure 147/59 but patient was much higher last night -continue amlodipine, hydrochlorothiazide, isosorbide, and metoprolol Additional Plan Additional problems- -CT of the abdomen pelvis noted, it does mention irregular hypoperfusion of the kidneys which may represent resolving infarction or pyelonephritis. UA shows no sign infection. He does have bilateral evidence of stenosis in his renal arteries. Consider stopping lisinopril -urinary retention. Urology consulted, likely undergo voiding trial tomorrow. Start Flomax. Patient does have a recent history prostate cancer. Time Spent With Patient Time with patient: 25 - 35 minutes Subjective Date/time seen: 02/17/21 11:26 Interval history: Pt is a 65-year-old male here for perirectal abscess. Patient was seen today and states his pain continues to be a 7/10. He says the pain is little bit better with the medication but can get up to 10/10. He has had some nausea with this pain but no vomiting. He denies diarrhea, constipation, fevers, chills, chest pain or shortness of breath. He said that he was told at the prior hospital that he was not urinating enough and that he would probably get a catheter during surgery anyway so a catheter was placed. He has no history of retention that he knows of. He was just diagnosed with prostate cancer and sees Dr. Diaz he thinks. Review of Systems Review of Systems: All systems reviewed & are unremarkable except as noted in HPI and below Exam Narrative: General: Well developed well nourished patient in NAD HEENT: normocephalic Neck: supple Neuro: Alert and oriented x4 CV:RRR Resp:CTA Abd: Soft, non distended. No pain to palpation. Positive bowel sounds : Large tender fluctuant abscess with erythema to the right of the gluteal cleft Extremities: No swelling, erythema, or pain to palpation. Objective Data Vital Signs Vital Signs: Vital Signs - 24 hr 02/16/21 23:58 02/17/21 08:05 Temperature 98.5 F 98.8 F Pulse Rate 67 65 Respiratory Rate 18 16 Blood Pressure 180/57 H 147/59 H Pulse Oximetry 99 100 Intake/Output Intake/Output: Intake & Output 02/14/21 02/15/21 02/16/21 02/17/21 23:59 23:59 23:59 23:59 Output Total 750 Balance -750 Meds/Results Medications: Active Medications Generic Name Dose Route Start Last Admin Trade Name Freq PRN Reason Stop Dose Admin Amlodipine Besylate 10 mg 02/17/21 09:00 Amlodipine Besylate 5 Mg Tablet PO DAILY SAVITA Aspirin 81 mg 02/17/21 09:00 Aspirin 81 Mg Enteric Tablet PO COURT
--- NOTE | 2021-02-17 11:30 | PM.CNGS ---
Assessment and Plan Assessment and plan (1) Perirectal abscess: Code(s): K61.1 - Rectal abscess Status: Acute Assessment and Plan: This is the reason for our consultation. CT scan reviewed and discussed with the patient and his in detail. There is evidence of a perirectal abscess that correlates with his physical exam. We discussed treatment options at this point, including the recommendation of proceeding with an incision and drainage of the perirectal abscess in the OR by Dr. Almonte later today. Description of the procedure, as well as the risks, typical post-operative wound care, and expected recovery were discussed. All questions were answered. He agrees to proceed with surgery. Would continue with broad-spectrum IV antibiotics, NPO status, IV fluids, and analgesics pre-operatively. Thank you for allowing us to see the patient in consultation and we will continue to follow along with you. (2) Acute kidney injury: Code(s): N17.9 - Acute kidney failure, unspecified Status: Acute Assessment and Plan: Creatinine normalized today following IV fluid hydration. He had issues with urinating in [place] ED, unsure if this was retention, but a Ruiz catheter was placed. Discussed with the Hospitalist and plan will be to attempt a voiding trial tomorrow and initiate Flomax. (3) CAD (coronary artery disease): Qualifiers: Coronary Disease-Associated Artery/Lesion type: unspecified vessel or lesion type [place] vs. transplanted heart: unspecified whether [place] or transplanted heart Associated angina: with unspecified angina Qualified Code(s): I25.119 - Atherosclerotic heart disease of [place] coronary artery with unspecified angina pectoris Code(s): I25.10 - Atherosclerotic heart disease of [place] coronary artery without angina pectoris Status: Chronic Assessment and Plan: Currently on Plavix. (4) PAD (peripheral artery disease): Onset Date: ~2011 Code(s): I73.9 - Peripheral vascular disease, unspecified Status: Chronic (5) Antiplatelet or antithrombotic long-term use: Code(s): Z79.02 - terminologist (current) use of antithrombotics/antiplatelets Status: Acute Assessment and Plan: Plavix has been continued. (6) Type 2 diabetes mellitus with hyperglycemia: Qualifiers: Diabetes mellitus terminal make up operator insulin use: without alf use Qualified Code(s): E11.65 - Type 2 diabetes mellitus with hyperglycemia Code(s): E11.65 - Type 2 diabetes mellitus with hyperglycemia Status: Acute (7) History of stroke: Onset Date: ~11/2016 Code(s): Z86.73 - Personal history of transient ischemic attack (TIA), and cerebral infarction without residual deficits Status: Acute Assessment and Plan: 2014 (8) Caputo's esophagus with esophagitis: Code(s): K22.70 - Caputo's esophagus without dysplasia; K20.9 - Esophagitis, unspecified Status: Acute Assessment and Plan: Known history. Most recent EGD was 02/11/21 on his last hospitalization. (9) Hypertension: Qualifiers: Hypertension type: unspecified Qualified Code(s): I10 - Essential (primary) hypertension Code(s): I10 - Essential (primary) hypertension Status: Acute (10) Prostate cancer: Code(s): C61 - Malignant neoplasm of prostate Status: Inactive Additional Plan I have discussed the patient's case and plan of care with Dr. Almonte. History of Present Illness Consult details Consult date: 02/17/21 Reason for consult: other (Perirectal abscess) Requesting physician: Johnna Joyner, Narrative: This is a 65-year-old male with multiple medical problems including but not limited to coronary artery disease, peripheral vascular disease, on chronic anti-platelet therapy, and diabetes mellitus type 2, who presented to the emergency department in [place] for perirectal pain and swelling. The noman
--- NOTE | 2021-02-17 11:38 | PC.NURSE ---
On 02/17/21, the student, [Meka Machuca ], provided care and completed [facility] documentation on this patient. I have reviewed the student's documentation and agree with the findings.
--- NOTE | 2021-02-17 12:10 | WPDANESEPPF ---
Anes - Initial Pre Proc Eval Procedure: Operation Date: 02/17/21 15:00 Proposed Procedures p I&D Renetta-Rectal Abscess - Augusto Almonte DO Date/Time: 02/17/21 12:10 Surgeon: Cristina Loving PA-C Pre Op Diagnosis: Renetta Rectal abscess Patient Data Age: 65 Gender: M Height: 1.7 m Weight: 82 kg Last Vital Signs Temp 37.1 C 02/17/21 08:05 Pulse 65 02/17/21 08:05 Resp 16 02/17/21 08:05 BP 147/59 H 02/17/21 08:05 Pulse Ox 100 02/17/21 08:05 Allergies Allergy/AdvReac Type Severity Reaction Status Date / Time No Known Allergies Allergy Verified 02/11/21 13:41 Home Medications Medication Instructions Recorded Confirmed Type aspirin 81 mg tablet,delayed 81 mg PO DAILY #30 tablet 02/26/19 02/17/21 Rx release multivitamin 1 tablet PO DAILY 03/07/19 02/17/21 History nitroglycerin 0.4 mg sublingual 0.4 mg SUBLINGUAL Q5M PRN #30 11/08/19 02/17/21 Rx tablet tablet metoprolol succinate 50 mg 50 mg PO DAILY 01/08/20 02/17/21 History tablet,extended release 24 hr clopidogrel 75 mg tablet 75 mg PO DAILY #90 tablet 01/31/20 02/17/21 Rx hydrochlorothiazide 25 mg tablet 25 mg PO DAILY #90 tablet 01/31/20 02/17/21 Rx duloxetine 60 mg capsule,delayed 60 mg PO DAILY #30 cap 05/08/20 02/17/21 Rx release blood sugar diagnostic #400 ea 08/26/20 02/16/21 Rx pen needle, diabetic 31 gauge x #200 each 08/28/20 02/16/21 Rx 3/16 fenofibrate 160 mg tablet 160 mg PO DAILY tablet 09/16/20 02/17/21 History gabapentin 300 mg capsule 300 mg PO TID #270 cap 09/16/20 02/17/21 Rx isosorbide mononitrate 60 mg 60 mg PO DAILY tablet 09/16/20 02/17/21 History tablet,extended release 24 hr lisinopril 20 mg tablet 20 mg PO DAILY #90 tablet 09/30/20 02/17/21 Rx omega-3 fatty acids 1,000 mg 2,000 mg PO BID cap 10/21/20 02/17/21 History capsule dulaglutide 3 mg/0.5 mL 3 mg SUBCUT WEEKLY 30 Days #2.5 ml 12/10/20 02/17/21 Rx subcutaneous pen injector icosapent ethyl 1 gram capsule 2 g PO BID 01/02/21 02/17/21 History amlodipine [Norvasc] 10 mg PO DAILY 02/09/21 02/17/21 History ezetimibe [Zetia] See Rx Instructions .ROUTE .COMPLEX 02/09/21 02/17/21 History famotidine [Pepcid] See Rx Instructions .ROUTE .COMPLEX 02/09/21 02/17/21 History pantoprazole [Protonix] 40 mg PO BID 02/09/21 02/17/21 History niacin 1,000 mg PO BID 02/17/21 02/17/21 History Laboratory Tests 02/17/21 02/17/21 02/17/21 02:57 05:50 05:50 WBC 15.1 K/mm3 H K/mm3 (4.5-10.0) RBC 4.40 M/mm3 L M/mm3 (4.6-6.20) Hgb 12.5 g/dL L g/dL (14.0-18.0) Hct 36.6 % L % (42.0-52.0) MCV 83.2 fl fl (80-100) MCH 28.4 pg pg (26-34) MCHC 34.2 g/dl g/dl (32-36) RDW 13.0 % % (11.5-14.5) Plt Count 240 k/mm3 k/mm3 (150-375) MPV 9.2 fl fl (7.4-10.4) Immature Gran % (Auto) 0.9 % H % (0-0.5) Neut % (Auto) 76.9 % H % (45.5-73.1) Lymph % (Auto) 12.2 % L % (18.3-44.2) [place] % (Auto) 8.2 % % (2.6-8.5) Eos % (Auto) 1.5 % % (0-4.4) Baso % (Auto) 0.3 % % (0.2-1.2) Lymph # (Auto) 1.84 K/mm3 K/mm3 (0.9-3.2) Lyon # (Auto) 1.2 K/mm3 H K/mm3 (0.1-0.6) Eos # (Auto) 0.2 K/mm3 K/mm3 (0-0.3) Baso # (Auto) 0.0 K/mm3 K/mm3 (0.0-0.1) Abs Immat Gran (auto) 0.13 K/mm3 H K/mm3 (0.00-0.031) Absolute Neuts (auto) 11.7 K/mm3 H K/mm3 (1.3-6.7) Absolute Nucleated RBC 0.0 K/mm3 K/mm3 (0.0-0.012) Nucleated RBC % 0.0 % % (0.0-0.2) Sodium 134 mmol/L L mmol/L (137-145) Potassium 3.8 mmol/L mmol/L (3.4-5.0) Chloride 100 mmol/L mmol/L (98-107) Carbon Dioxide 27 mmol/L mmol/L (22-30) Anion Gap 7 mmol/L L mmol/L (8-16) BUN 17 mg/dL mg/dL (9-20) Creatinine 1.00 mg/dL mg/dL (0.7-1.3) Estim Creat Clear Calc 61 ml/min ml/min
[2021-02-17 12:11] LABS: Glucose Point of Care 150 mg/dl (65-105)
[2021-02-17] MEDS: METOPROLOL SUCCINATE EXT REL 50 MG TABCR PO (12:27)
[2021-02-17] MEDS: LACTATED RINGERS 1,000 ML 30 ML IV CONT (13:24)
--- NOTE | 2021-02-17 14:05 | WPDHPUPDATE1 ---
History and Physical Update Update Date/Time: 02/17/21 14:05 History and Physical has been reviewed, including an updated exam of the patient. There are NO changes in the patient's condition. Risks, benefits, and alternatives have been discussed and questions answered. Patient agrees to proceed with procedure.
[2021-02-17] MEDS: BUPIVACAINE HCL 0.5% PF 30 ML VIAL INFILTRATE (14:25)
--- NOTE | 2021-02-17 14:44 | W.PM.PROC2 ---
Procedure Note - Detailed Date of Procedure 02/17/21 Pre-op Diagnosis Renetta Rectal abscess Post-op Diagnosis same Procedure Performed Incision and drainage of complex left anterior perirectal abscess Surgeon Augusto Almonte, DO Anesthesia general and local (0.5% bupivacaine) Indications This is a 65-year-old man who presented to [facility] last night with complaints of perirectal swelling and pain. Pain had progressively worsened over the past several days. He does have a history of transrectal prostate biopsies about 1 month ago, but did not seem to be complaining of any issues with his rectum until just the past few days. He was found to have evidence of a large left perirectal abscess. Decision was made to proceed with incision and drainage of the perirectal abscess in the operating room. Findings Incision and drainage of perirectal abscess was performed. Patient was found to have a large perirectal abscess in the left anterior region. A 2 cm cruciate incision was made over this region and about 4 oz of purulence fluid was drained. The loculations were broken up and then the abscess cavity was irrigated with sterile saline. This was then packed with half-inch iodoform gauze. No specimens were obtained for pathology and no cultures were taken. Description of Procedure Procedure as well as risks, benefits, and alternatives were discussed with the patient. Written consent was obtained and placed in chart prior to procedure. Patient was brought back to surgical suite. He was placed supine on operating table. Time-out was done to confirm patient and procedure. He was then placed in under general anesthesia with LMA by the Anesthesia Department. He was then repositioned to dorsal lithotomy position. His perirectal region was prepped and draped in sterile fashion using Betadine prep. The area of fluctuance was palpated in the left anterior region. 0.5% bupivacaine with epinephrine was infiltrated over the skin overlying this region. A 2 cm incision was then made with a 15 blade scalpel. Purulence fluid was drained. The incision was then extended to a 2 cm cruciate incision. Loculations were broken up with careful finger dissection. All the purulence fluid was drained and then the abscess cavity was irrigated with sterile saline. Careful inspection was made no other loculations or abnormalities were noted. The abscess cavity was then packed with half-inch iodoform gauze. About 10 ft of packing was used. Fluff gauze ABD pads and mesh underwear were then applied. The patient was then awakened from anesthesia, extubated, and transferred to recovery. Estimated Blood Loss 10 Packing Yes (Half-inch iodoform gauze) Complications No immediate complications Condition stable Disposition floor
[2021-02-17 15:01] LABS: Glucose Point of Care 113 mg/dl (65-105)
[2021-02-17 16:56] LABS: Glucose Point of Care 117 mg/dl (65-105)
[2021-02-17] MEDS: FENOFIBRATE 160 MG TABLET PO (18:44)
[2021-02-17] MEDS: ASPIRIN 81 MG ENTERIC TABLET PO (18:44)
[2021-02-17] MEDS: TAMSULOSIN HCL 0.4 MG CAPSULE PO (18:45)
[2021-02-17] MEDS: CLOPIDOGREL BISULFATE 75 MG TABLET PO (18:45)
[2021-02-17] MEDS: PANTOPRAZOLE 40 MG TABLET PO (18:45)
[2021-02-17] MEDS: DULoxetine HCL 60 MG CAPSULE.DR PO (18:45)
[2021-02-17 21:50] LABS: Glucose Point of Care 220 mg/dl (65-105)
[2021-02-17] MEDS: HYDROcodone/acetaminophen (*CRX) 5-325 MG TABLET 1 TAB PO (23:42)
[2021-02-18] VITALS (7 sets, daily range): BP systolic 97–163; BP diastolic 47–89; PULSE 54–64; RESP 16–18; TEMP 36.5–36.7; O2SAT 94–100
[2021-02-18 06:17] LABS: Basophils Percent Auto 0.3 % (0.2-1.2); Eosinophils Absolute Auto 0.3 K/mm3 (0-0.3); Eosinophils Percent Auto 2.4 % (0-4.4); Hematocrit 37.3 % (42.0-52.0); Hemoglobin 12.4 g/dL (14.0-18.0); Immature Granulocyte Absolute 0.13 K/mm3 (0.00-0.031); Immature Granulocyte Percent A 1.1 % (0-0.5); Lymphocytes Absolute Auto 2.14 K/mm3 (0.9-3.2); Lymphocytes Percent Auto 18.8 % (18.3-44.2); Mean Corpuscular HGB Conc 33.2 g/dl (32-36); Mean Corpuscular Hemoglobin 28.6 pg (26-34); Mean Corpuscular Volume 85.9 fl (80-100); Mean Platelet Volume 9.3 fl (7.4-10.4); Monocytes Absolute Auto 0.8 K/mm3 (0.1-0.6); Neutrophils Percent Auto 70.4 % (45.5-73.1); Platelet Count Result 218 k/mm3 (150-375); Red Blood Count 4.34 M/mm3 (4.6-6.20); Red Cell Distribution Width 13.2 % (11.5-14.5); White Blood Count 11.4 K/mm3 (4.5-10.0)
[2021-02-18 06:39] LABS: Anion Gap 10 mmol/L (8-16); Blood Urea Nitrogen 14 mg/dL (9-20); Carbon Dioxide 25 mmol/L (22-30); Chloride 101 mmol/L (98-107); Estimated CRCL calculation 56 ml/min; Estimated Glomerular Filt Rate > 60; Glucose 186 mg/dL (65-110); Potassium 3.9 mmol/L (3.4-5.0); Sodium 136 mmol/L (137-145)
[2021-02-18 08:43] LABS: Glucose Point of Care 178 mg/dl (65-105)
[2021-02-18] MEDS: METOPROLOL SUCCINATE EXT REL 50 MG TABCR PO (10:03)
[2021-02-18] MEDS: OMEGA 3 POLYUNSAT FATTY ACIDS 1 GM CAP 2 GM PO ×2 (10:03→16:30)
[2021-02-18] MEDS: GABAPENTIN 300 MG CAPSULE PO ×3 (10:04→16:29)
[2021-02-18] MEDS: PANTOPRAZOLE 40 MG TABLET PO ×2 (10:04→16:30)
[2021-02-18] MEDS: hydroCHLOROthiazide 25 MG TABLET PO (10:04)
[2021-02-18] MEDS: HYDROcodone/acetaminophen (*CRX) 5-325 MG TABLET 1 TAB PO (10:10)
--- NOTE | 2021-02-18 12:05 | PM.PNGS ---
Progress Note: A&P Assessment and Plan (1) Perirectal abscess: Code(s): K61.1 - Rectal abscess Status: Acute Assessment and Plan: POD#1 and doing well. This has been adequately drained in the OR. Continue IV antibiotics and local wound care. Possibly discharge home tomorrow if he continues to do well. (2) Antiplatelet or antithrombotic long-term use: Code(s): Z79.02 - correction (current) use of antithrombotics/antiplatelets Status: Acute (3) Type 2 diabetes mellitus with hyperglycemia: Qualifiers: Diabetes mellitus longterm insulin use: without exterminator helper termite use Qualified Code(s): E11.65 - Type 2 diabetes mellitus with hyperglycemia Code(s): E11.65 - Type 2 diabetes mellitus with hyperglycemia Status: Acute Subjective Subjective Date/Time Seen: 02/18/21 12:05 Post Op day: 1 (I&D perirectal abscess) Patient reports: no new complaints, feels better, pain is less, flatus, no bowel movement and afebrile Interval history: Patient seen and examined today. He reports the pressure pain he was having yesterday has improved since surgery. He is still having some pain and is unable to sit up due to the discomfort. No nausea. Tolerating his diet. He had a low grade fever of 99.8F yesterday afternoon, but afebrile since. Review of Systems Review of Systems: All systems reviewed & are unremarkable except as noted in HPI and below Exam Const: General: cooperative, comfortable and no acute distress Orientation/consciousness: patient oriented x3 Skin: Other: Perirectal abscess dressing and packing removed. Induration and erythema improved. No purulent drainage. Neuro: General: moves all extremities and no focal motor deficits Extrem: General: normal to inspection Psych: Mental Status: mental status grossly normal Insight: Good insight present (Psych) Judgement: Good judgement present (Psych) Objective Data Vital Signs Vital Signs: Vital Signs - 24 hr 02/17/21 12:15 02/17/21 12:27 02/17/21 13:17 Temperature 98.7 F 98.9 F Pulse Rate 63 84 62 Respiratory Rate 14 18 Blood Pressure 143/67 H 147/69 H Pulse Oximetry 98 99 02/17/21 14:44 02/17/21 15:00 02/17/21 15:15 Temperature 97.9 F Pulse Rate 58 L 58 L 58 L Respiratory Rate 20 19 19 Blood Pressure 99/60 L 115/62 119/67 Pulse Oximetry 100 100 100 02/17/21 15:18 02/17/21 15:30 02/17/21 15:45 Temperature Pulse Rate 59 L 62 61 Respiratory Rate 19 18 20 Blood Pressure 140/71 143/69 H Pulse Oximetry 100 98 97 02/17/21 16:00 02/17/21 16:15 02/17/21 17:04 Temperature 99.8 F H 99.8 F H Pulse Rate 68 62 68 Respiratory Rate 18 18 18 Blood Pressure 159/73 H 154/69 H 159/73 H Pulse Oximetry 95 99 95 02/17/21 18:35 02/17/21 22:00 02/18/21 03:53 Temperature 98.3 F 98.5 F 98.1 F Pulse Rate 65 65 59 L Respiratory Rate 16 18 18 Blood Pressure 125/68 135/53 L 138/62 Pulse Oximetry 99 98 97 02/18/21 08:00 02/18/21 10:03 Temperature 97.7 F Pulse Rate 58 L 64 Respiratory Rate 18 Blood Pressure 161/76 H Pulse Oximetry 100 Intake/Output Intake/Output: Intake & Output 02/15/21 02/16/21 02/17/21 02/18/21 23:59 23:59 23:59 23:59 Intake Total 1860 930 Output Total 1450 900 Balance 410 30 Meds/Results Medications: Active Medications Generic Name Dose Route Start Last Admin Trade Name Freq PRN Reason Stop Dose Admin Acetaminophen 500 mg 02/17/21 16:19 Acetaminophen 500 Mg Tablet PO Q6H PRN Mild Pain (1-3) or Fever Hydrocodone Bitart/Acetaminophen 1 tab 02/17/21 16:19 02/18/21 10:10 Hydrocodone/Acetaminophen (*Crx) 5-325 Mg Tablet PO 1 tab Q4H PRN Administration Pain Rated 4-6 Hydrocodone Bitart/Acetaminophen 1 tab 02/17/21 16:19 Hydrocodone/Acetaminophen (*Crx) 10-325 Mg Tablet PO Q6H PRN Pain Rated 7-10 Amlodipine Besylate 10 mg 02/17/21 09:00 02/17/21 18:46 Amlodipine Besylate 5 Mg Tablet PO Not Given GUME
[2021-02-18 12:12] LABS: Glucose Point of Care 240 mg/dl (65-105)
--- NOTE | 2021-02-18 12:24 | WPDURCON ---
Assessment and Plan Assessment and plan (1) Acute kidney injury: Code(s): N17.9 - Acute kidney failure, unspecified Status: Acute Assessment and Plan: Creatinine is stable. (2) Renal infarction: Code(s): N28.0 - Ischemia and infarction of kidney Status: Acute Assessment and Plan: Versus Pyelonephritis, no urine culture or UA obtained this visit. Will get a UA to assess despite being on Zosyn to rule out pyelonephritis. Will plan to re-image with CT in one month. (3) BPH (benign prostatic hyperplasia): Code(s): N40.0 - Benign prostatic hyperplasia without lower urinary tract symptoms Status: Acute Assessment and Plan: Continue Tamsulosin, Start Finasteride. (4) Retention of urine: Code(s): R33.9 - Retention of urine, unspecified Status: Acute Assessment and Plan: I recommend keeping nguyen for duration of hospital stay, ok to do a voiding trial prior to discharge, however if for recovery purposes for rectal abscess the catheter is helpful, it may stay in for up to one month before needing to be changed. If it needs to stay in until then that is fine, we can remove it when Dr. Acuna is comfortable with that either way he needs to f/u in the office within a month of discharge. No further evaluation at this time. Ok to discharge at anytime. Urology Consult Note HPI Date Seen: 02/18/21 Requesting Physician: Cristina Loving PA-C Primary Care Provider: Jan Espinosa MD Consult Narrative Narrative: Cornelius Babin Jr. is a 65 year old male who presented to the ER on 02/16/2021 for a bump near his rectum and worsening pain. He was diagnosed with a perirectal abscess, however was also found to be in retention and had a nguyen placed. This was placed in [facility] ER before his transfer. His CT scan showed a possible right renal infarct versus pyelonephritis on both 02/09/2021 and 02/16/2021 which seems to be improving, however prostatomegaly is also noted. He denies hesitancy or straining with urination except on 02/16/2021 this was the first time he couldn't urinate. He does state he gets up at night to urinate 4-5x and urinates every 30 minutes during the day. He denies dysuria, hematuria, flank pain, abdominal pain or incontinence. His WBC is 11.4 down from 14.4 on 02/16/2021 and creatinine is stable at 1.10. He was started on Tamsulosin yesterday. The amount of urine that was removed via catheter initially at [facility] is unknown. He is s/p I&D perirectal abscess of the left anterior position which was noted as complex. His catheterization was noted to be difficult in the ER at [facility]. Review of Systems Cardiovascular: Cardiovascular: Denies chest pain Respiratory: Respiratory: Reports no additional respiratory complaints Gastrointestinal: Gastrointestinal: Denies abdominal pain, Denies nausea and Denies vomiting Comments: Rectal Pain Genitourinary: Genitourinary: Denies hematuria, Denies genital pain, Denies dysuria, Denies flank pain, Reports nocturia, Denies testicular pain, Reports urinary frequency, Denies urinary incontinence and Reports urinary urgency [facility] Past Medical History Medical History Adenomatous colon polyp Arthritis Caputo's esophagus with esophagitis CAD (coronary artery disease) Managed by Dr. Hoyt Chronic pancreatitis CVA (cerebral vascular accident) (~2014) Diabetic peripheral neuropathy Esophageal hiatal hernia Essential hypertension GERD (gastroesophageal reflux disease) History of stroke (~11/2016) Hyperlipidemia LDL goal <70 Kidney stones Myocardial infarction (~2003) Open wound of finger of right hand (~07/02/19) PAD (peripheral artery disease) (~2011) With right lower extremity stent and left aortofemoral bypass in 2019. CT evidence of moderate stenosis. 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
[2021-02-18] MEDS: CLOPIDOGREL BISULFATE 75 MG TABLET PO (12:30)
[2021-02-18] MEDS: FENOFIBRATE 160 MG TABLET PO (12:30)
[2021-02-18] MEDS: amLODIPine BESYLATE 5 MG TABLET 10 MG PO (12:30)
[2021-02-18] MEDS: TAMSULOSIN HCL 0.4 MG CAPSULE PO (12:30)
[2021-02-18] MEDS: DULoxetine HCL 60 MG CAPSULE.DR PO (12:30)
[2021-02-18] MEDS: ASPIRIN 81 MG ENTERIC TABLET PO (12:30)
[2021-02-18] MEDS: ISOSORBIDE MONONITRATE 60 MG TAB.ER.24H PO (12:30)
[2021-02-18] MEDS: INSULIN ASPART (*BKC) 100 UNITS/ML SUB-Q ×2 (12:58→18:01)
--- NOTE | 2021-02-18 13:47 | WPDANESPN ---
Anes - Prog Note Post-Op Date/Time: 02/18/21 13:47 Cardiovascular status: normal Respiratory status: normal Airway patency: baseline Mental status: baseline Post-Op hydration status: normal Vital Signs: Last Vital Signs Temp 97.8 F 02/18/21 10:04 Pulse 59 L 02/18/21 10:04 Resp 18 02/18/21 10:04 BP 163/89 H 02/18/21 10:04 Pulse Ox 100 02/18/21 10:04 Pain Score (VAS): 0 I/O: Intake & Output 02/17/21 02/18/21 02/18/21 23:59 07:59 15:59 Intake Total 460 450 480 Output Total 200 900 Balance 260 -450 480 Laboratory Tests 02/18/21 05:49 02/18/21 05:49 02/17/21 02/17/21 02/17/21 14:57 16:40 21:44 WBC RBC Hgb Hct MCV MCH MCHC RDW Plt Count MPV Immature Gran % (Auto) Neut % (Auto) Lymph % (Auto) [place] % (Auto) Eos % (Auto) Baso % (Auto) Lymph # (Auto) [place] # (Auto) Eos # (Auto) Baso # (Auto) Abs Immat Gran (auto) Absolute Neuts (auto) Absolute Nucleated RBC Nucleated RBC % Sodium Potassium Chloride Carbon Dioxide Anion Gap BUN Creatinine Estim Creat Clear Calc Estimated GFR Glucose POC Capillary Glucose 113 H 117 H 220 H Calcium 02/18/21 02/18/21 02/18/21 05:49 05:49 08:39 WBC 11.4 H RBC 4.34 L Hgb 12.4 L Hct 37.3 L MCV 85.9 MCH 28.6 MCHC 33.2 RDW 13.2 Plt Count 218 MPV 9.3 Immature Gran % (Auto) 1.1 H Neut % (Auto) 70.4 Lymph % (Auto) 18.8 [place] % (Auto) 7.0 Eos % (Auto) 2.4 Baso % (Auto) 0.3 Lymph # (Auto) 2.14 [place] # (Auto) 0.8 H Eos # (Auto) 0.3 Baso # (Auto) 0.0 Abs Immat Gran (auto) 0.13 H Absolute Neuts (auto) 8.0 H Absolute Nucleated RBC 0.0 Nucleated RBC % 0.0 Sodium 136 L Potassium 3.9 Chloride 101 Carbon Dioxide 25 Anion Gap 10 BUN 14 Creatinine 1.10 Estim Creat Clear Calc 56 Estimated GFR > 60 Glucose 186 H POC Capillary Glucose 178 H Calcium 8.0 L 02/18/21 12:00 WBC RBC Hgb Hct MCV MCH MCHC RDW Plt Count MPV Immature Gran % (Auto) Neut % (Auto) Lymph % (Auto) [place] % (Auto) Eos % (Auto) Baso % (Auto) Lymph # (Auto) [place] # (Auto) Eos # (Auto) Baso # (Auto) Abs Immat Gran (auto) Absolute Neuts (auto) Absolute Nucleated RBC Nucleated RBC % Sodium Potassium Chloride Carbon Dioxide Anion Gap BUN Creatinine Estim Creat Clear Calc Estimated GFR Glucose POC Capillary Glucose 240 H Calcium Post-procedural complaints: none Patient Feedback: Patient satisfied with anesthetic care.
--- NOTE | 2021-02-18 14:02 | PM.IMPN ---
Progress Note: A&P Assessment and Plan (1) Perirectal abscess: Code(s): K61.1 - Rectal abscess Status: Acute Assessment and Plan: Status post I&D from the OR postop day 1 -continue Zosyn and pain control -likely transition to oral antibiotics and discharge tomorrow if patient continues to improve (2) Acute kidney injury: Code(s): N17.9 - Acute kidney failure, unspecified Status: Acute Assessment and Plan: Resolved, Could be due to combination of dehydration, possible retention, and IV contrast used recently -Flomax started, will put in for a voiding trial -he was just seen by Urology last month due to new onset prostate cancer I spoke with him about the plan of care. 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 I have called the RN who was going to verify what he takes at home (4) Hypertension: Qualifiers: Hypertension type: unspecified Qualified Code(s): I10 - Essential (primary) hypertension Code(s): I10 - Essential (primary) hypertension Status: Acute Assessment and Plan: Last blood pressure 163/89 but fluctuates -continue amlodipine, hydrochlorothiazide, isosorbide, and metoprolol -consider adding schedule hydralazine if he continues to run high since we have stopped his lisinopril. Additional Plan Additional problems- -CT of the abdomen pelvis noted, it does mention irregular hypoperfusion of the kidneys which may represent resolving infarction or pyelonephritis. UA shows no sign infection. He does have bilateral evidence of stenosis in his renal arteries. lisinopril discontinued -urinary retention. Urology consulted, vodiing trial today. continue flomax. Patient does have a recent history prostate cancer. Subjective Date/time seen: 02/18/21 14:02 Interval history: Pt is a 65-year-old male here for perirectal abscess. P patient was seen today and doing much better. He says his pain is now a 2/10 and he is finally feeling relief. Pt denies nausea, vomiting, fevers, chills, constipation, diarrhea, chest pain, sob, or abdominal pain. He is eating and drinking well. Exam Narrative: General: Well developed well nourished patient in NAD HEENT: normocephalic Neck: supple Neuro: Alert and oriented x4 CV:RRR Resp:CTA Abd: Soft, non distended. No pain to palpation. Positive bowel sounds : Bandage over the abscess which was just packed. This was deferred. Please see to surgery note Extremities: No swelling, erythema, or pain to palpation. Objective Data Vital Signs Vital Signs: Vital Signs - 24 hr 02/17/21 14:44 02/17/21 15:00 02/17/21 15:15 Temperature 97.9 F Pulse Rate 58 L 58 L 58 L Respiratory Rate 20 19 19 Blood Pressure 99/60 L 115/62 119/67 Pulse Oximetry 100 100 100 02/17/21 15:18 02/17/21 15:30 02/17/21 15:45 Temperature Pulse Rate 59 L 62 61 Respiratory Rate 19 18 20 Blood Pressure 140/71 143/69 H Pulse Oximetry 100 98 97 02/17/21 16:00 02/17/21 16:15 02/17/21 17:04 Temperature 99.8 F H 99.8 F H Pulse Rate 68 62 68 Respiratory Rate 18 18 18 Blood Pressure 159/73 H 154/69 H 159/73 H Pulse Oximetry 95 99 95 02/17/21 18:35 02/17/21 22:00 02/18/21 03:53 Temperature 98.3 F 98.5 F 98.1 F Pulse Rate 65 65 59 L Respiratory Rate 16 18 18 Blood Pressure 125/68 135/53 L 138/62 Pulse Oximetry 99 98 97 02/18/21 08:00 02/18/21 10:03 02/18/21 10:04 Temperature 97.7 F 97.8 F Pulse Rate 58 L 64 59 L Respirat
--- NOTE | 2021-02-18 14:46 | PC.NURSE ---
On 02/18/21, the student, Caryl Azul, provided care and completed [facility] documentation on this patient. I have reviewed the student's documentation and agree with the findings.
[2021-02-18] MEDS: HYDROcodone/acetaminophen (*CRX) 10-325 MG TABLET 1 TAB PO ×2 (16:28→22:49)
[2021-02-18] MEDS: FINASTERIDE 5 MG TABLET PO (16:30)
[2021-02-18 17:04] LABS: Glucose Point of Care 202 mg/dl (65-105)
[2021-02-18 22:34] LABS: Glucose Point of Care 173 mg/dl (65-105)
[2021-02-19 06:00] VITALS: BP 129/51; PULSE 55; RESP 16; TEMP 36; O2SAT 99
[2021-02-19 06:20] LABS: Basophils Percent Auto 0.5 % (0.2-1.2); Eosinophils Absolute Auto 0.3 K/mm3 (0-0.3); Eosinophils Percent Auto 3.7 % (0-4.4); Hematocrit 34.3 % (42.0-52.0); Hemoglobin 11.6 g/dL (14.0-18.0); Immature Granulocyte Absolute 0.11 K/mm3 (0.00-0.031); Immature Granulocyte Percent A 1.3 % (0-0.5); Lymphocytes Absolute Auto 1.97 K/mm3 (0.9-3.2); Lymphocytes Percent Auto 23.7 % (18.3-44.2); Mean Corpuscular HGB Conc 33.8 g/dl (32-36); Mean Corpuscular Hemoglobin 28.2 pg (26-34); Mean Corpuscular Volume 83.5 fl (80-100); Mean Platelet Volume 9.6 fl (7.4-10.4); Monocytes Absolute Auto 0.5 K/mm3 (0.1-0.6); Monocytes Percent Auto 5.8 % (2.6-8.5); Neutrophils Absolute Auto 5.4 K/mm3 (1.3-6.7); Platelet Count Result 240 k/mm3 (150-375); Red Blood Count 4.11 M/mm3 (4.6-6.20); Red Cell Distribution Width 12.9 % (11.5-14.5); White Blood Count 8.3 K/mm3 (4.5-10.0)
[2021-02-19 06:27] LABS: Anion Gap 9 mmol/L (8-16); Blood Urea Nitrogen 16 mg/dL (9-20); Calcium 8.5 mg/dL (8.4-10.2); Carbon Dioxide 30 mmol/L (22-30); Chloride 96 mmol/L (98-107); Estimated CRCL calculation 51 ml/min; Estimated Glomerular Filt Rate > 60; Glucose 155 mg/dL (65-110); Sodium 135 mmol/L (137-145)
[2021-02-19 07:44] LABS: Glucose Point of Care 146 mg/dl (65-105)
[2021-02-19 08:00] VITALS: PULSE 60; RESP 16; O2SAT 99
[2021-02-19 08:00] LABS: Glucose Point of Care 149 mg/dl (65-105)
--- NOTE | 2021-02-19 08:09 | PM.DS ---
DS: Admitting Diagnosis Discharge Date 02/19/21 Admitting Diagnosis perirectal abscess DS: Discharge Diagnosis Discharge Diagnosis (1) Perirectal abscess: Code(s): K61.1 - Rectal abscess Status: Acute Assessment and Plan: Status post I&D from the OR postop day 2 -Pt was on Zosyn during his stay and transitioned to Augmentin at d/c. WBC now down to 8.3 -plan to f/u with surgery outpt (2) Acute kidney injury: Code(s): N17.9 - Acute kidney failure, unspecified Status: Acute Assessment and Plan: Resolved, Could be due to combination of dehydration, possible retention, and IV contrast used recently -He did have a catheter during his stay but successfully completed a voiding trial. 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 If he has questions I told him to call his pcp and/or pharmacist (4) Hypertension: Qualifiers: Hypertension type: unspecified Qualified Code(s): I10 - Essential (primary) hypertension Code(s): I10 - Essential (primary) hypertension Status: Acute Assessment and Plan: Last blood pressure 129/51 but fluctuates -continue amlodipine, hydrochlorothiazide, isosorbide, and metoprolol -lisinopril discontinueddue to bilateral SUSAN -pt to f/u with pcp for routine bp monitoring DS: Summary Hospital Course Hospital Course: dos 02/19/21 Patient is a 65-year-old male who presented to an outside area emergency room on 02/16/2021 for pain and swelling to his gluteal cleft. Vitals in the ER were temperature 36.4? C, pulse 75, respiratory rate 18, blood pressure 142/70, pulse ox 100 on room air. Initial white blood cell count 14.4, hemoglobin 14.5, hematocrit 42.5, platelets 279. BMP showed slight BALTAZAR 1.6. He apparently may have had retention in the ER and a Ruiz catheter was placed. CT of the area showed complex septated perirectal abscess measuring 5 x 4 x 6. It also showed an irregular hypoperfusion of the kidneys most predominant in the right kidney which could be infarction or pyelonephritis as well as chronic pancreatitis. Patient was transferred to [facility] and evaluated by the surgeon. He underwent incision and drainage in the OR 02/17 with resolution of pain and IV antibiotics. His white blood cell count resolves with this treatment and the patient was feeling much better. Urology was consulted and he underwent a voiding trial and did well with this. They are going to follow up with him outpatient he is just been diagnosed with prostate cancer so they are going to see him for that as well. He does have some evidence of bilateral renal artery stenosis so his lisinopril was discontinued. His blood pressure fluctuated but was 129/51 at discharge. She is I do recommend he follow-up with his primary care physician for monitoring of his blood pressure. He is also going to follow up with surgery as well. He was educated about the worrisome signs and symptoms to come back to emergency room for and was discharged in stable condition. Time Spent with Patient Time attestation: Total time spent providing and/or coordinating discharge services: 38 minutes Exam Narrative: General: Well developed well nourished patient in NAD HEENT: normocephalic Neck: supple Neuro: Alert and oriented x4 CV:RRR Resp:CTA Abd: Soft, non distended. No pain to palpation. Positive bowel sounds : Abscess much resolv
[2021-02-19] MEDS: FINASTERIDE 5 MG TABLET PO (08:28)
[2021-02-19] MEDS: hydroCHLOROthiazide 25 MG TABLET PO (08:28)
[2021-02-19] MEDS: OMEGA 3 POLYUNSAT FATTY ACIDS 1 GM CAP 2 GM PO (08:28)
[2021-02-19 08:29] VITALS: PULSE 60
[2021-02-19] MEDS: amLODIPine BESYLATE 5 MG TABLET 10 MG PO (08:29)
[2021-02-19] MEDS: GABAPENTIN 300 MG CAPSULE PO ×2 (08:29→12:10)
[2021-02-19] MEDS: METOPROLOL SUCCINATE EXT REL 50 MG TABCR PO (08:29)
[2021-02-19] MEDS: ASPIRIN 81 MG ENTERIC TABLET PO (08:29)
[2021-02-19] MEDS: TAMSULOSIN HCL 0.4 MG CAPSULE PO (08:29)
[2021-02-19] MEDS: CLOPIDOGREL BISULFATE 75 MG TABLET PO (08:30)
[2021-02-19] MEDS: PANTOPRAZOLE 40 MG TABLET PO (08:30)
[2021-02-19] MEDS: DULoxetine HCL 60 MG CAPSULE.DR PO (08:30)
[2021-02-19] MEDS: ISOSORBIDE MONONITRATE 60 MG TAB.ER.24H PO (08:30)
[2021-02-19] MEDS: FENOFIBRATE 160 MG TABLET PO (08:30)
[2021-02-19] MEDS: HYDROcodone/acetaminophen (*CRX) 10-325 MG TABLET 1 TAB PO (08:32)
--- NOTE | 2021-02-19 09:14 | PM.PNGS ---
Progress Note: A&P Assessment and Plan (1) Perirectal abscess: Code(s): K61.1 - Rectal abscess Status: Acute Assessment and Plan: Adequately drained in the OR. Continue local wound care with gauze dressing changes. Can stop packing the incision. Agree with oral antibiotics on discharge as ordered by Hospitalist. Follow-up with Dr. Almonte in the office in 2 weeks. (2) Antiplatelet or antithrombotic long-term use: Code(s): Z79.02 - superintendent terminal (current) use of antithrombotics/antiplatelets Status: Acute (3) Type 2 diabetes mellitus with hyperglycemia: Qualifiers: Diabetes mellitus alf insulin use: without alf use Qualified Code(s): E11.65 - Type 2 diabetes mellitus with hyperglycemia Code(s): E11.65 - Type 2 diabetes mellitus with hyperglycemia Status: Acute Additional Plan I have discussed the plan of care with Dr. Almonte. Subjective Subjective Date/Time Seen: 02/19/21 09:14 Post Op day: 2 (I&D perirectal abscess) Patient reports: no new complaints, tolerating a regular diet, voiding w/o difficulty, flatus and afebrile Interval history: Patient seen this morning without any new complaints. He feels his pain is better again today. Exam Const: General: comfortable and no acute distress Orientation/consciousness: patient oriented x3 Skin: Other: Perirectal abscess with no packing in place, no purulent drainage, no induration and erythema improving. Extrem: General: normal to inspection Psych: Mental Status: mental status grossly normal Insight: Good insight present (Psych) Judgement: Good judgement present (Psych) Objective Data Vital Signs Vital Signs: Vital Signs - 24 hr 02/18/21 10:03 02/18/21 10:04 02/18/21 21:10 Temperature 97.8 F Pulse Rate 64 59 L Respiratory Rate 18 Blood Pressure 163/89 H Pulse Oximetry 100 94 02/18/21 22:00 02/18/21 22:30 02/19/21 06:00 Temperature 97.7 F 96.8 F L Pulse Rate 54 L 55 L Respiratory Rate 16 16 Blood Pressure 97/47 L 131/64 129/51 L Pulse Oximetry 98 99 02/19/21 08:29 Temperature Pulse Rate 60 Respiratory Rate Blood Pressure Pulse Oximetry Intake/Output Intake/Output: Intake & Output 02/16/21 02/17/21 02/18/21 02/19/21 23:59 23:59 23:59 23:59 Intake Total 1860 2130 100 Output Total 1450 2200 Balance 410 -70 100 Meds/Results Medications: Active Medications Generic Name Dose Route Start Last Admin Trade Name Freq PRN Reason Stop Dose Admin Acetaminophen 500 mg 02/17/21 16:19 Acetaminophen 500 Mg Tablet PO Q6H PRN Mild Pain (1-3) or Fever Hydrocodone Bitart/Acetaminophen 1 tab 02/17/21 16:19 02/18/21 10:10 Hydrocodone/Acetaminophen (*Crx) 5-325 Mg Tablet PO 1 tab Q4H PRN Administration Pain Rated 4-6 Hydrocodone Bitart/Acetaminophen 1 tab 02/17/21 16:19 02/19/21 08:32 Hydrocodone/Acetaminophen (*Crx) 10-325 Mg Tablet PO 1 tab Q6H PRN Administration Pain Rated 7-10 Amlodipine Besylate 10 mg 02/17/21 09:00 02/19/21 08:29 Amlodipine Besylate 5 Mg Tablet PO 10 mg DAILY SAVITA Administration Aspirin 81 mg 02/17/21 09:00 02/19/21 08:29 Aspirin 81 Mg Enteric Tablet PO 81 mg DAILY SAVITA Administration Clopidogrel Bisulfate 75 mg 02/17/21 09:00 02/19/21 08:30 Clopidogrel Bisulfate 75 Mg Tablet PO 75 mg DAILY SAVITA Administration Dextrose 12.5 gm 02/16/21 23:57 Dextrose 50% 25 Gm/50 Ml Syringe IV PUSH PRN PRN Hypoglycemia Protocol Duloxetine HCl 60 mg 02/17/21 09:00 02/19/21 08:30 Duloxetine Hcl 60 Mg Capsule.Dr PO 60 mg DAILY ASVITA Administration Fenofibrate 160 mg 02/17/21 09:00 02/19/21 08:30 Fenofibrate 160 Mg Tablet PO 160 mg DAILY SAVITA Administration Finasteride 5 mg 02/18/21 14:00 02/19/21 08:28 Finasteride 5 Mg Tablet PO 5 mg QAM SAVITA Administration Fish Oil 2 gm 02/17/21 09:00 02/19/21 08:28 [place] 3 Polyunsat Fatt
[2021-02-19 11:51] LABS: Glucose Point of Care 217 mg/dl (65-105)
[2021-02-19] MEDS: INSULIN ASPART (*BKC) 100 UNITS/ML SUB-Q (12:07)
--- NOTE | 2021-02-19 13:31 | PCAUD ---
Pt declined flu shot at discharge.
== END 2021-02-19 13:25 | disposition home health service (06) ==
PROVIDERS: Physician Assistant; Surgery; Admitting Provider Internal Medicine; PCP Family Medicine; Visit Provider Family Medicine
PROC: (CPT 46040; principal; 2021-02-17 15:00)
DX: K61.1 Rectal abscess (principal); R33.9 Retention of urine, unspecified; C61 Malignant neoplasm of prostate; E11.65 Type 2 diabetes mellitus with hyperglycemia; I10 Essential (primary) hypertension; I73.9 Peripheral vascular disease, unspecified; I25.10 Atherosclerotic heart disease of native coronary artery without angina pectoris; K22.70 Barrett's esophagus without dysplasia; Z87.891 Personal history of nicotine dependence; Z79.02 Long term (current) use of antithrombotics/antiplatelets; Z86.73 Personal history of transient ischemic attack (TIA), and cerebral infarction without residual deficits; Z79.4 Long term (current) use of insulin
CPT/HCPCS: 46040; 36415; 80048; 82948; 85025; 93976; 96365; 96372; 96375; 96376; 97161; 97165; A9270; G0378; G0379; J1170; J1815; J2250; J2270; J2405; J2543; J2704; J3010; J7030; J7120

== ENCOUNTER 2021-02-27 17:27 | Emergency (ER) | payer MEDICARE, MEDICAID, SELFPAY ==
[2021-02-27 17:31] VITALS: BP 157/92; PULSE 86; RESP 14; TEMP 36.3; O2SAT 100
[2021-02-27 17:33] LABS: Glucose Point of Care 415 mg/dl (65-105)
[2021-02-27] MEDS: SODIUM CHLORIDE 0.9% IV 1,000 ML 999 ML IV CONT ×2 (18:13→19:30)
[2021-02-27 18:30] LABS: Basophils Percent Auto 0.4 % (0.2-1.2); Eosinophils Absolute Auto 0.3 K/mm3 (0-0.3); Hematocrit 39.5 % (42.0-52.0); Hemoglobin 13.3 g/dL (14.0-18.0); Immature Granulocyte Absolute 0.07 K/mm3 (0.00-0.031); Immature Granulocyte Percent A 0.7 % (0-0.5); Lymphocytes Absolute Auto 2.34 K/mm3 (0.9-3.2); Lymphocytes Percent Auto 23.4 % (18.3-44.2); Mean Corpuscular HGB Conc 33.7 g/dl (32-36); Mean Corpuscular Hemoglobin 28.6 pg (26-34); Mean Corpuscular Volume 84.9 fl (80-100); Mean Platelet Volume 9.9 fl (7.4-10.4); Monocytes Absolute Auto 0.6 K/mm3 (0.1-0.6); Monocytes Percent Auto 6.2 % (2.6-8.5); Neutrophils Absolute Auto 6.6 K/mm3 (1.3-6.7); Neutrophils Percent Auto 66.3 % (45.5-73.1); Platelet Count Result 246 k/mm3 (150-375); Red Blood Count 4.65 M/mm3 (4.6-6.20); Red Cell Distribution Width 13.2 % (11.5-14.5)
[2021-02-27 18:36] LABS: Add Urine Microscopic? YES; Appearance Urine Clear (Clear); Bilirubin Urine Negative (Negative); Blood Urine Negative (Negative); Color Urine Yellow (Yellow); Glucose Urine UA 3+ mg/dL (Negative); Ketones Urine Negative (Negative); Leukocyte Esterase Ur Negative LEU/UL (Negative); Nitrate Urine Negative (Negative); Protein Urine 2+ mg/dL (Negative); RBC Urine 0-2 /hpf (0-2); Specific Grav Ur 1.022 (1.001-1.035); Urobilinogen Urine Negative mg/dL (<2.0); WBC Urine 0-3 /hpf
--- NOTE | 2021-02-27 18:46 | ED.RECABL ---
HPI - Recheck/Abnormal Lab/Rx General Chief Complaint: Recheck/Abnormal Lab/Rx Stated Complaint: High Blood Sugars Time Seen by Provider: 02/27/21 17:43 Source: patient, family and RN notes reviewed Mode of arrival: ambulatory Limitations: no limitations History of Present Illness HPI narrative: This is a 65 year old male with history of hypertension, diabetes mellitus who presents for evaluation of hyperglycemia. Patient reports he takes insulin 25 units BID with breakfast and dinner. This morning his blood sugar was 105 at 830 so he did not give himself his insulin but he ate breakfast. His home health nurse found his blood sugar to be 570 at 1130 am. Patient gave himself insulin 25 units at 1130. His blood sugar was checked again at 4 pm, and it was still elevated in 500s. His home health nurse spoke to PCP office who recommended patient go to ER. He took an additional 100 units of insulin before coming to ER. Patient states he used to take insulin 100 units twice a day before he was decreased to 25 units. He states he feels great and he has no complaints. Related Data Home Medications Medication Instructions Recorded Confirmed multivitamin 1 tablet PO DAILY 03/07/19 02/26/21 metoprolol succinate 50 mg 50 mg PO DAILY 01/08/20 02/26/21 tablet,extended release 24 hr fenofibrate 160 mg tablet 160 mg PO DAILY tablet 09/16/20 02/26/21 isosorbide mononitrate 60 mg 60 mg PO DAILY tablet 09/16/20 02/26/21 tablet,extended release 24 hr omega-3 fatty acids 1,000 mg 2,000 mg PO BID cap 10/21/20 02/26/21 capsule icosapent ethyl 1 gram capsule 2 g PO BID 01/02/21 02/26/21 amlodipine [Norvasc] 10 mg PO DAILY 02/09/21 02/26/21 pantoprazole [Protonix] 40 mg PO BID 02/09/21 02/26/21 niacin 1,000 mg PO BID 02/17/21 02/26/21 ezetimibe 10 mg tablet 10 mg PO DAILY tablet 02/26/21 02/26/21 famotidine 40 mg tablet 40 mg PO DAILY tablet 02/26/21 02/26/21 insulin regular hum U-500 conc 25 unit SUBCUT BID ml 02/26/21 02/26/21 Allergies Allergy/AdvReac Type Severity Reaction Status Date / Time No Known Allergies Allergy Verified 02/27/21 17:34 Review of Systems Review of Systems: All systems reviewed & are unremarkable except as noted in HPI and below Constitutional: Constitutional: Denies chills, Denies fever(s) and Denies weakness Eyes: Eyes: Denies change in vision Cardiovascular: Cardiovascular: Denies chest pain Respiratory: Respiratory: Denies cough and Denies dyspnea Gastrointestinal: Gastrointestinal: Denies abdominal pain, Denies diarrhea, Denies nausea and Denies vomiting [facility] Past Medical History Medical History Adenomatous colon polyp Arthritis Caputo's esophagus with esophagitis CAD (coronary artery disease) Managed by Dr. Hoyt Chronic pancreatitis CVA (cerebral vascular accident) (~2014) Diabetic peripheral neuropathy Esophageal hiatal hernia Essential hypertension GERD (gastroesophageal reflux disease) History of stroke (~11/2016) Hyperlipidemia LDL goal <70 Kidney stones Myocardial infarction (~2003) Open wound of finger of right hand (~07/02/19) PAD (peripheral artery disease) (~2011) With right lower extremity stent and left aortofemoral bypass in 2019. CT evidence of moderate stenosis. 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
[2021-02-27 18:49] LABS: Alanine Aminotransferase 35 U/L (4-50); Albumin Level 4.5 g/dL (3.5-5.1); Alkaline Phosphatase 74 U/L (38-126); Anion Gap 12 mmol/L (8-16); Aspartate Amino Transferase 35 U/L (17-59); Bilirubin,Total 0.3 mg/dL (0.2-1.3); Blood Urea Nitrogen 48 mg/dL (9-20); Calcium 10.3 mg/dL (8.4-10.2); Carbon Dioxide 27 mmol/L (22-30); Chloride 97 mmol/L (98-107); Estimated CRCL calculation 41 ml/min; Estimated Glomerular Filt Rate 47; Glucose 308 mg/dL (65-110); Potassium 4.8 mmol/L (3.4-5.0); Sodium 136 mmol/L (137-145)
[2021-02-27 20:54] LABS: Glucose Point of Care 154 mg/dl (65-105)
[2021-02-27 20:59] VITALS: BP 122/78; PULSE 78; RESP 18; O2SAT 99
[2021-02-27 21:53] LABS: Glucose Point of Care 117 mg/dl (65-105)
== END 2021-02-27 22:43 | disposition home or self-care (01) ==
PROVIDERS: Emergency Provider General Practice; PCP Family Medicine
DX: E11.65 Type 2 diabetes mellitus with hyperglycemia (principal); N17.9 Acute kidney failure, unspecified; E86.0 Dehydration; E11.42 Type 2 diabetes mellitus with diabetic polyneuropathy; E11.51 Type 2 diabetes mellitus with diabetic peripheral angiopathy without gangrene; I10 Essential (primary) hypertension; I25.2 Old myocardial infarction; K86.1 Other chronic pancreatitis; K22.70 Barrett's esophagus without dysplasia; E55.9 Vitamin D deficiency, unspecified; M19.90 Unspecified osteoarthritis, unspecified site; Z86.010 Personal history of colon polyps; Z86.73 Personal history of transient ischemic attack (TIA), and cerebral infarction without residual deficits; Z79.4 Long term (current) use of insulin; Z87.442 Personal history of urinary calculi; Z85.46 Personal history of malignant neoplasm of prostate; Z95.5 Presence of coronary angioplasty implant and graft; Z98.42 Cataract extraction status, left eye; Z98.41 Cataract extraction status, right eye; Z96.1 Presence of intraocular lens; Z87.891 Personal history of nicotine dependence
CPT/HCPCS: 36415; 80053; 81001; 82948; 85025; 96360; 96361; 99283; J7030

== ENCOUNTER 2021-03-23 07:15 | Outpatient (CLI) | payer MEDICARE, MEDICAID, SELFPAY ==
--- NOTE | ~2021-03-23 | CT_ITS ---
EXAMINATION: CT abdomen pelvis wo/w con EXAM DATE: 03/23/2021 08:28 INDICATION: N28.0 - Ischemia and infarction of kidney. TECHNIQUE: Spiral CT of the abdomen without contrast followed by both abdomen and pelvis with 100 cc intravenous Omnipaque 350. Axial, coronal and sagittal images of the abdomen and pelvis were reviewe d. The dose-length product (DLP) for this examination was 1059.60 mGy-cm. The exposure was tailored according to patient size (auto mA exposure control), and iterative reconstruction (ASIR) was used a s additional dose reduction technique. Comparison is made to prior examination from 02/16/2021. FINDINGS: Are scattered regions of cortical scarring bilaterally, with some interval evolution of the previously seen region in the superior pole right kidney, expected evolution. Renal hilar calcificat ions, difficult to exclude punctate nephrolithiasis. Prostate normal in size. Pancreatic calcificatio ns, chronic pancreatitis. Right adrenal adenoma. Liver and splenic granulomata. The gallbladder is contracted but otherwise unremarkable. Small inguinal fat-containing hernias. Th e bladder is unremarkable. There is no retroperitoneal or pelvic lymphadenopathy. There is moderat e to severe scattered arteriosclerotic disease. Regions of moderate right-sided iliac artery stenosis . There are no findings to suggest appendicitis. There are a few sigmoid diverticula. The stomach and s mall bowel are unremarkable. There is expected amount of colonic stool. Previously seen perirectal a bscess not identified. No free intraperitoneal gas. The heart is normal in size. There are no елена cardial or pleural effusions. The lung bases are unremarkable. The bones are unremarkable. IMPRESSION: 1. Resolution of perirectal abscess. 2. Scattered regions of renal cortical scarring. 3. Chronic pancreatitis. 4. Small inguinal hernias. Reviewed, dictated and finalized at location A. EN ROOM OPERATOR
== END 2021-03-23 07:16 | disposition home or self-care (01) ==
LOC: ANHIMG 07:18
PROVIDERS: PCP Family Medicine; Visit Provider Nurse Practitioner Adult Health
DX: N28.0 Ischemia and infarction of kidney (principal); K40.90 Unilateral inguinal hernia, without obstruction or gangrene, not specified as recurrent; K86.1 Other chronic pancreatitis
CPT/HCPCS: 74178; Q9967

== ENCOUNTER 2021-03-30 03:16 | Day surgery (SDC) | payer MEDICARE, MEDICAID, SELFPAY ==
[2021-03-23 10:20] VITALS: BMI 28.3
[2021-03-30] MEDS: LACTATED RINGERS 1,000 ML 150 ML IV CONT (11:02)
[2021-03-30 11:03] VITALS: BP 120/60; PULSE 77; RESP 18; TEMP 36.2; O2SAT 100; BMI 30.1
--- NOTE | 2021-03-30 11:06 | WPDANESEPPF ---
Anes - Initial Pre Proc Eval Procedure: Operation Date: 03/30/21 11:30 Proposed Procedures p Esophagogastroduodenoscopy - Jayden Baker MD Date/Time: 03/30/21 11:06 Surgeon: Jayden Baker MD Pre Op Diagnosis: dysphagia Patient Data Age: 65 Gender: M Height: 1.7 m Weight: 87.3 kg Last Vital Signs Temp 97.1 F L 03/30/21 11:03 Pulse 77 03/30/21 11:03 Resp 18 03/30/21 11:03 BP 120/60 03/30/21 11:03 Pulse Ox 100 03/30/21 11:03 Allergies Allergy/AdvReac Type Severity Reaction Status Date / Time No Known Allergies Allergy Verified 03/30/21 10:52 Home Medications Medication Instructions Recorded Confirmed Type aspirin 81 mg tablet,delayed 81 mg PO DAILY #30 tablet 02/26/19 03/30/21 Rx release multivitamin 1 tablet PO DAILY 03/07/19 03/30/21 History clopidogrel 75 mg tablet 75 mg PO DAILY #90 tablet 01/31/20 03/30/21 Rx hydrochlorothiazide 25 mg tablet 25 mg PO DAILY #90 tablet 01/31/20 03/30/21 Rx blood sugar diagnostic #400 ea 08/26/20 03/30/21 Rx pen needle, diabetic 31 gauge x #200 each 08/28/20 03/30/21 Rx 3/16 fenofibrate 160 mg tablet 160 mg PO DAILY tablet 09/16/20 03/30/21 History isosorbide mononitrate 60 mg 60 mg PO DAILY tablet 09/16/20 03/30/21 History tablet,extended release 24 hr omega-3 fatty acids 1,000 mg 2,000 mg PO BID cap 10/21/20 03/30/21 History capsule amlodipine [Norvasc] 10 mg PO DAILY 02/09/21 03/30/21 History niacin 500 mg PO BID 02/17/21 03/30/21 History finasteride [Proscar] 5 mg PO QAM 30 Days #30 tablet 02/18/21 03/30/21 Rx tamsulosin 0.4 mg PO QAM 30 Days #30 cap 02/18/21 03/30/21 Rx duloxetine 60 mg capsule,delayed 60 mg PO DAILY #30 cap 02/23/21 03/30/21 Rx release ezetimibe 10 mg tablet 10 mg PO DAILY tablet 02/26/21 03/30/21 History famotidine 40 mg tablet 40 mg PO DAILY tablet 02/26/21 03/30/21 History dulaglutide 3 mg/0.5 mL 3 mg SUBCUT WEEKLY 30 Days #2.5 ml 03/04/21 03/30/21 Rx subcutaneous pen injector insulin regular hum U-500 conc 25 unit SUBCUT BID #9 ml 03/04/21 03/30/21 Rx flash glucose scanning reader #1 ea 03/17/21 03/30/21 Rx metoprolol succinate 50 mg 50 mg PO DAILY #90 tablet 03/17/21 03/30/21 Rx tablet,extended release 24 hr pantoprazole 40 mg tablet,delayed See Rx Instructions .ROUTE 03/17/21 03/30/21 Rx release .COMPLEX #60 tablet atorvastatin 80 mg tablet 80 mg PO DAILY #90 tablet 03/23/21 03/30/21 Rx nitroglycerin 0.4 mg sublingual See Rx Instructions .ROUTE 03/24/21 03/30/21 Rx tablet .COMPLEX #25 tablet Patient hx anesthesia problems: none Family hx anesthesia problems: none Results Review: All pre-operative results and documents have been reviewed as part of the pre-operative evaluation. [facility] Past Medical History Medical History Adenomatous colon polyp Arthritis Caputo's esophagus with esophagitis CAD (coronary artery disease) Managed by Dr. Hoyt Chronic pancreatitis CVA (cerebral vascular accident) (~2014) Diabetic peripheral neuropathy Esophageal hiatal hernia Essential hypertension GERD (gastroesophageal reflux disease) History of stroke (~11/2016) Hyperlipidemia LDL goal <70 Kidney stones Myocardial infarction (~2003) Open wound of finger of right hand (~07/02/19) PAD (peripheral artery disease) (~2011) With right lower extremity stent and left aortofemoral bypass in 2018. CT evidence of moderate stenosis. 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
[2021-03-30 11:08] LABS: Glucose Point of Care 134 mg/dl (65-105)
--- NOTE | 2021-03-30 11:30 | WPDHPUPDATE1 ---
History and Physical Update Update Date/Time: 03/30/21 11:30 History and Physical has been reviewed, including an updated exam of the patient. There are NO changes in the patient's condition. Risks, benefits, and alternatives have been discussed and questions answered. Patient agrees to proceed with procedure.
[2021-03-30 11:48] VITALS: BP 100/54; PULSE 64; RESP 22; O2SAT 99
[2021-03-30 11:58] VITALS: BP 120/63; PULSE 66; RESP 18; O2SAT 99
[2021-03-30 12:08] VITALS: BP 129/68; PULSE 65; RESP 18; O2SAT 99
[2021-03-30 12:15] LABS: Glucose Point of Care 100 mg/dl (65-105)
== END 2021-03-30 12:30 | disposition home or self-care (01) ==
PROVIDERS: PCP Family Medicine; Visit Provider Internal Medicine Gastroenterology
PROC: 0DJ08ZZ Inspection of Upper Intestinal Tract, Via Natural or Artificial Opening Endoscopic (ICD-10-PCS; CPT 43235; principal; 2021-03-30 11:30)
DX: R13.10 Dysphagia, unspecified (principal); K22.70 Barrett's esophagus without dysplasia; K44.9 Diaphragmatic hernia without obstruction or gangrene; K31.84 Gastroparesis; K21.00 Gastro-esophageal reflux disease with esophagitis, without bleeding; I25.10 Atherosclerotic heart disease of native coronary artery without angina pectoris; K86.1 Other chronic pancreatitis; E11.42 Type 2 diabetes mellitus with diabetic polyneuropathy; I10 Essential (primary) hypertension; E11.51 Type 2 diabetes mellitus with diabetic peripheral angiopathy without gangrene; E78.5 Hyperlipidemia, unspecified; I25.2 Old myocardial infarction; E55.9 Vitamin D deficiency, unspecified; Z86.73 Personal history of transient ischemic attack (TIA), and cerebral infarction without residual deficits; Z85.46 Personal history of malignant neoplasm of prostate; Z79.02 Long term (current) use of antithrombotics/antiplatelets; Z79.82 Long term (current) use of aspirin; Z79.899 Other long term (current) drug therapy; Z95.5 Presence of coronary angioplasty implant and graft; Z95.820 Peripheral vascular angioplasty status with implants and grafts; Z87.891 Personal history of nicotine dependence; E66.9 Obesity, unspecified; Z68.30 Body mass index [BMI] 30.0-30.9, adult
CPT/HCPCS: 43248; 82948; 88305; J2704; J7120

== ENCOUNTER 2021-03-31 09:23 | Outpatient (CLI) | payer MEDICARE, MEDICAID, SELFPAY ==
--- NOTE | ~2021-03-31 | XR_ITS ---
EXAMINATION: XR chest 2V DATE: 03/31/2021 11:51 INDICATION: Malignant neoplasm of the prostate TECHNIQUE: PA and lateral views of the chest are obtained. COMPARISON: 09/18/2020 FINDINGS: The lungs are free of acute opacities. There is no pleural effusion or pneumothorax. The ca rdiomediastinal silhouette is normal. There are bridging osteophytes at multiple levels in the spine, consistent with diffuse idiopathic skeletal hyperostosis (DISH). Calcified pulmonary nodules are con sistent with old granulomatous disease. Calcified pleural plaque on the left suggest prior asbestos e xposure. IMPRESSION: 1. No acute cardiopulmonary abnormality. Reviewed, dictated and finalized at location A. ES SUPERVISOR
[2021-03-31 11:03] LABS: Add Urine Microscopic? YES; Appearance Urine Clear (Clear); Bilirubin Urine Negative (Negative); Blood Urine Negative (Negative); Color Urine Yellow (Yellow); Glucose Urine UA Negative (Negative); Ketones Urine Negative (Negative); Leukocyte Esterase Ur Negative LEU/UL (Negative); Nitrate Urine Negative (Negative); Protein Urine 2+ mg/dL (Negative); RBC Urine 0-2 /hpf (0-2); Specific Grav Ur 1.015 (1.001-1.035); Urobilinogen Urine Negative mg/dL (<2.0); WBC Urine 0-3 /hpf
[2021-03-31 11:18] LABS: Alanine Aminotransferase 30 U/L (4-50); Alkaline Phosphatase 64 U/L (38-126); Anion Gap 8 mmol/L (8-16); Aspartate Amino Transferase 33 U/L (17-59); Bilirubin,Total 0.2 mg/dL (0.2-1.3); Blood Urea Nitrogen 22 mg/dL (9-20); Carbon Dioxide 28 mmol/L (22-30); Chloride 97 mmol/L (98-107); Estimated Glomerular Filt Rate > 60; Glucose 243 mg/dL (65-110); Potassium 4.7 mmol/L (3.4-5.0); Sodium 133 mmol/L (137-145)
== END 2021-03-31 09:24 | disposition home or self-care (01) ==
PROVIDERS: PCP Family Medicine; Visit Provider Urology
DX: C61 Malignant neoplasm of prostate (principal); Z01.818 Encounter for other preprocedural examination
CPT/HCPCS: 36415; 71046; 80053; 81001; 86850; 86900; 86901

== ENCOUNTER 2021-04-02 12:58 | Outpatient (CLI) | payer MEDICARE, MEDICAID, SELFPAY ==
--- NOTE | ~2021-04-02 | NM_ITS ---
EXAM: NM gastric emptying study DATE: 04/02/2021 12:57 INDICATION: Type 2 diabetes with hyperglycemia TECHNIQUE: A gastric emptying study was performed using the methodology of Vaughn GUTIERRES, et al. J Nucl Med 2007; 48:568-572. The patient was given a meal consisting of 2 scrambled eggs labeled with 0.942 mCi Tc-99m sulfur colloid, 2 slices of toast, two packages of jam, and approximately 120 mL of water . Simultaneous anterior and posterior 1-min images of the abdomen were obtained with the patient supi ne at multiple time points over a total period of 4 hours. The geometric mean of anterior and posteri or views was determined, and the percentage retention was calculated for each time point. COMPARISON: None. FINDINGS: Gastric retention of the radiotracer-labeled meal was 66%, 23%, and 8% at the 1-hour, 2-hour, and 4-h our time points, respectively. With this technique, apparent rapid gastric emptying is suggested by < 30% gastric retention at 1 hour. Delayed gastric emptying is defined by gastric retention of >90% at 1 hour, >60% retention at 2 hours, or >10% retention at 4 hours. IMPRESSION: 1. Normal gastric emptying. Reviewed, dictated and finalized at location B. N RESOURCE ADVISOR IMPRESSION: 1. Normal gastric emptying.
[2021-04-02 13:20] LABS: Hematocrit 39.7 % (42.0-52.0); Mean Corpuscular HGB Conc 32.7 g/dl (32-36); Mean Corpuscular Hemoglobin 28.4 pg (26-34); Mean Corpuscular Volume 86.9 fl (80-100); Mean Platelet Volume 10.3 fl (7.4-10.4); Platelet Count Result 207 k/mm3 (150-375); Red Blood Count 4.57 M/mm3 (4.6-6.20); Red Cell Distribution Width 14.2 % (11.5-14.5); White Blood Count 6.9 K/mm3 (4.5-10.0)
== END 2021-04-02 12:59 | disposition home or self-care (01) ==
PROVIDERS: PCP Family Medicine; Referring Provider Nurse Practitioner Family; Visit Provider Internal Medicine Gastroenterology
DX: E11.65 Type 2 diabetes mellitus with hyperglycemia (principal); R11.0 Nausea; K92.1 Melena
CPT/HCPCS: 36415; 78264; 85027; A9541

== ENCOUNTER 2021-04-08 13:00 | Inpatient (IN) | payer MEDICARE, MEDICAID, SELFPAY ==
[2021-04-08] VITALS (14 sets, daily range): BP systolic 113–160; BP diastolic 67–104; PULSE 75–95; RESP 12–20; TEMP 35.9–37; O2SAT 97–100; BMI 28.2
--- NOTE | ~2021-04-08 | XR_ITS ---
EXAMINATION: XR chest 2V DATE: 04/08/2021 13:40 INDICATION: Chest pain. TECHNIQUE: Frontal and lateral views of the chest were obtained. COMPARISON: Chest 2 views 03/31/2021, CT abdomen and pelvis 03/23/2021 FINDINGS: Calcified bilateral pulmonary nodules and calcified hilar lymph nodes are consistent with o ld granulomatous disease. There are calcified pleural plaques on the left. No pleural effusion or pne umothorax. The heart size is normal. There is a prominent left paracardial fat pad. IMPRESSION: 1. No acute cardiopulmonary disease. Reviewed, dictated and finalized at location A. 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
--- NOTE | 2021-04-08 13:01 | ECG_ITS ---
Measurements Intervals [place] Rate: 96 P: 103 OH: 146 QRS: 6 QRSD: 106 T: 73 QT: 354 QTc: 449 Interpretive Statements SINUS RHYTHM CONSIDER INFERIOR INFARCT, AGE INDETERMINATE BORDERLINE ST ABNORMALITY- ANTEROLATERAL LEADS ABNORMAL ECG Electronically Signed On 04-08-2021 14:08:07 CNC MILL AND LATHE OPERATOR by Raulito Hoyt D.O.
[2021-04-08 13:26] LABS: Basophils Percent Auto 0.4 % (0.2-1.2); Eosinophils Absolute Auto 0.2 K/mm3 (0-0.3); Hematocrit 42.7 % (42.0-52.0); Hemoglobin 14.3 g/dL (14.0-18.0); Immature Granulocyte Absolute 0.05 K/mm3 (0.00-0.031); Immature Granulocyte Percent A 0.6 % (0-0.5); Lymphocytes Percent Auto 22.7 % (18.3-44.2); Mean Corpuscular HGB Conc 33.5 g/dl (32-36); Mean Corpuscular Hemoglobin 28.7 pg (26-34); Mean Corpuscular Volume 85.6 fl (80-100); Mean Platelet Volume 9.8 fl (7.4-10.4); Monocytes Absolute Auto 0.7 K/mm3 (0.1-0.6); Monocytes Percent Auto 8.1 % (2.6-8.5); Neutrophils Absolute Auto 5.5 K/mm3 (1.3-6.7); Neutrophils Percent Auto 66.2 % (45.5-73.1); Platelet Count Result 244 k/mm3 (150-375); Red Blood Count 4.99 M/mm3 (4.6-6.20); White Blood Count 8.4 K/mm3 (4.5-10.0)
[2021-04-08 13:42] LABS: INR 0.9; Prothrombin Time 12.5 Seconds (11.1-14.7)
[2021-04-08 13:43] LABS: Partial Thromboplastin Time 29.1 SECONDS (22.3-36.8)
[2021-04-08 13:44] LABS: Alanine Aminotransferase 29 U/L (4-50); Albumin Level 4.6 g/dL (3.5-5.1); Alkaline Phosphatase 79 U/L (38-126); Anion Gap 10 mmol/L (8-16); Aspartate Amino Transferase 30 U/L (17-59); Bilirubin,Total 0.3 mg/dL (0.2-1.3); Blood Urea Nitrogen 21 mg/dL (9-20); Calcium 10.1 mg/dL (8.4-10.2); Carbon Dioxide 27 mmol/L (22-30); Chloride 96 mmol/L (98-107); Estimated Glomerular Filt Rate > 60; Glucose 164 mg/dL (65-110); Lipase 186 U/L (23-300); Potassium 4.5 mmol/L (3.4-5.0); Sodium 133 mmol/L (137-145)
[2021-04-08] MEDS: ASPIRIN 81 MG CHEWABLE TABLET 324 MG PO (14:00)
[2021-04-08 14:03] LABS: Troponin I 0.295 ng/mL (0.000-0.034)
[2021-04-08] MEDS: ONDANSETRON INJ 4 MG/2 ML VIAL (14:17)
[2021-04-08] MEDS: NITROGLYCERIN SL 0.4 MG TABLET SUBLINGUAL (14:17)
[2021-04-08] MEDS: NITROGLYCERIN SL 0.4 MG TABLET (14:36)
--- NOTE | 2021-04-08 14:49 | ED.CHESTPAIN ---
HPI - Chest Pain General Chief Complaint: Chest Pain Stated Complaint: CP Time Seen by Provider: 04/08/21 13:04 History of Present Illness HPI narrative: Patient is a 65-year-old male who presents ER with chest pain. Feels like acid reflux. Began at 3 AM. Radiates from lower chest up towards his neck. Symptoms persisted. Patient then started a bowel prep given the fact that he is supposed to have surgery tomorrow and had drinks of magnesium citrate. Symptoms continue to intensify. Has history of coronary disease. Sees Dr. Hoyt. Does not describe any exertional component. No sweats or shortness of breath. Related Data Home Medications Medication Instructions Recorded Confirmed multivitamin 1 tablet PO DAILY 03/07/19 04/08/21 fenofibrate 160 mg tablet 160 mg PO DAILY tablet 09/16/20 04/08/21 isosorbide mononitrate 60 mg 60 mg PO DAILY tablet 09/16/20 04/08/21 tablet,extended release 24 hr omega-3 fatty acids 1,000 mg 2,000 mg PO BID cap 10/21/20 04/08/21 capsule amlodipine [Norvasc] 10 mg PO DAILY 02/09/21 04/08/21 niacin 1,000 mg PO BID 02/17/21 04/08/21 ezetimibe 10 mg tablet 10 mg PO DAILY tablet 02/26/21 04/08/21 famotidine 40 mg tablet 40 mg PO DAILY tablet 02/26/21 04/08/21 gabapentin 300 mg PO TID 03/31/21 04/08/21 icosapent ethyl [Vascepa] 2 g PO BID 03/31/21 04/08/21 pantoprazole 40 mg BID 03/31/21 04/08/21 Allergies Allergy/AdvReac Type Severity Reaction Status Date / Time No Known Allergies Allergy Verified 04/08/21 13:47 Review of Systems Review of Systems: All systems reviewed & are unremarkable except as noted in HPI and below Constitutional: Constitutional: Denies chills, Denies fever(s) and Denies weakness ENT: Denies nasal congestion and Denies sore throat Cardiovascular: Cardiovascular: Reports chest pain, Denies rapid heart rate and Denies radiating jaw, neck or arm pain Respiratory: Respiratory: Denies cough, Denies dyspnea and Denies wheezing Gastrointestinal: Gastrointestinal: Denies abdominal pain, Reports bloating, Reports heartburn, Denies nausea and Denies vomiting [facility] Past Medical History Medical History Adenomatous colon polyp Arthritis Caputo's esophagus with esophagitis CAD (coronary artery disease) Managed by Dr. Hoyt Chronic pancreatitis CVA (cerebral vascular accident) (~2014) Diabetic peripheral neuropathy Esophageal hiatal hernia Essential hypertension GERD (gastroesophageal reflux disease) History of stroke (~11/2016) Hyperlipidemia LDL goal <70 Kidney stones Myocardial infarction (~2003) Nausea Open wound of finger of right hand (~07/02/19) PAD (peripheral artery disease) (~2011) With right lower extremity stent and left aortofemoral bypass in 2019. CT evidence of moderate stenosis. 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 Prostate cancer Renal infarction Right kidney Renal insufficiency Multiple episodes of acute kidney injury Type 2 diabetes mellitus with hyperglycemia Vitamin D deficiency Surgical History Surgical History History of colonoscopy with polypectomy (05/2020) History of coronary artery stent placement (~2003) 4 stents placed History of esophagogastroduodenoscopy (EGD) (01/2021) May 2020 and January 2020 History of femoropopliteal bypass left - 09/11 History of incision and drainage perirectal abscess left anterior 02/17/21 History of skin graft for left 5th toe diabetic ulcer S/P peripheral artery angioplasty with stent placement 11/2020 right superficial femoral artery stent Status post cataract extraction of both eyes with insertion of intraocular lens Status post open reduction with internal fixation of fracture Hips and legs as a child Family History Family History Mother Diabetes mellitus Family history of arthritis Family history o
[2021-04-08] MEDS: HEPARIN SOD/D5W 100 UNITS/ML 25,000 UNITS/250 ML BAG 9 UNITS IV CONT (15:07)
[2021-04-08] MEDS: HEPARIN SODIUM 5,000 UNITS/ML VIAL 4000 UNITS IV PUSH ×2 (15:09→21:51)
--- NOTE | 2021-04-08 15:09 | PM.CNCAR ---
Assessment and Plan Assessment and plan (1) Chest pain: Code(s): R07.9 - Chest pain, unspecified Status: Acute Assessment and Plan: Trend troponin. Start Heparin drip. Continue aspirin, Metoprolol. Intolerant of statins due to myalgia. NTP for chest pain. Clopidogrel was on hold due to supposed to have prostatectomy tomorrow for prostate cancer. Will notify HCG for left heart cath to be done tomorrow. (2) Essential hypertension: Code(s): I10 - Essential (primary) hypertension Status: Acute Assessment and Plan: Resume home BP medication. (3) Hyperlipidemia LDL goal <70: Code(s): E78.5 - Hyperlipidemia, unspecified Status: Chronic Assessment and Plan: Resume Zetia, Fenofibrate, Vascepa, Niacin. (4) PAD (peripheral artery disease): Onset Date: ~2011 Code(s): I73.9 - Peripheral vascular disease, unspecified Status: Chronic (5) CAD (coronary artery disease): Qualifiers: Coronary Disease-Associated Artery/Lesion type: unspecified vessel or lesion type [place] vs. transplanted heart: unspecified whether [place] or transplanted heart Associated angina: with unspecified angina Qualified Code(s): I25.119 - Atherosclerotic heart disease of [place] coronary artery with unspecified angina pectoris Code(s): I25.10 - Atherosclerotic heart disease of [place] coronary artery without angina pectoris Status: Chronic History of Present Illness History of Present Illness Consult date/time: 04/08/21 15:09 Reason for consult: CP. Patient is a 65 yr old man who is my regular cardiology patient presents to ER with chest pain. He has a history of CAD, hypertension, dyslipidemia (not on statins due to myalgia), PAD with left leg bypass surgery by Dr. Kaiser in September 2019 and stenting of right lower leg, IDDM. Reports he woke up with severe chest pain described as a burning sensation. He took some antacids without relief so he came to ER. Patient was given NTG SL with some relief of pain to only mild burning now. He has associated nausea with it. Normally, he can walk up to 1 block now before he has severe bilateral calf pains due to neuropathy. Denies sob, palpitations, edema, orthopnea. EKG shows Sinus rhythm with borderline ST abnormality in anterolateral leads, consider inferior infarct age indeterminate. Troponin 0.295. Cardiovascular Procedures Shot Coat Tender:: 11/01/14 Cardiac cath in [place], [place]: Patent distal RCA stent into right PL branch; Right PDA stent occluded with distal Right PDA filling from collaterals from left circulation; 90% mid LCx stenosis; PCI with MICHELLE to mid LCx with good result. Echo/MUGA:: 02/12/21 Echo: EF 55-60%, mod LVH, grade I diastolic dysfunction, mild TR/PI, trace pericardial effusion. 07/20/19 Echo: EF 60-65%, mild LVH, grade II diastolic dysfunction (E/e' 14), mild LAE, trace pericardial effusion. Echo (EF 69%, grade I diastolic dysfunction, mild LVE, mild LAE, trace MR/TR, trivial pericardial effusion.) - 05/24/2016 Electrophysiology:: EKG (Sinus bradycardia, inferior infarct, age indeterminate.) - 02/13/2018 Stress Tests:: 07/20/19 Lexiscan myoview: Negative for ischemia. MISAEL (Right MISAEL 1.06, TBI 0.33; Left MISAEL 0.88, TBI 0.52.) - 12/05/2018 Carotid Duplex (<50% ICA bilaterally, mild plaques.) - 05/24/2016 Reason For Visit: CP Review of Systems Review of Systems: All systems reviewed & are unremarkable except as noted in HPI and below Constitutional: Constitutional: Reports as per HPI, Denies chills and Denies fever(s) Cardiovascular: Cardiovascular: Reports as per HPI, Reports chest pain, Denies irregular heart rhythm, Denies leg edema and Denies lightheadedness Respiratory: Respiratory: Reports as per HPI and Denies dyspnea Gastrointestinal: Gastrointestinal: Reports as per HPI, Denies abdominal pain, Reports heartburn, Reports nausea and Reports vomiting Genitourinary: Genitourinary: Reports as per HPI and Denies dysuria Musc
[2021-04-08 17:09] LABS: Glucose Point of Care 114 mg/dl (65-105)
[2021-04-08 17:57] LABS: Troponin I 0.314 ng/mL (0.000-0.034)
[2021-04-08 20:57] LABS: Glucose Point of Care 129 mg/dl (65-105)
[2021-04-08] MEDS: ONDANSETRON INJ 4 MG/2 ML VIAL IV PUSH (21:03)
[2021-04-08 21:21] LABS: Partial Thromboplastin Time 35.7 SECONDS (22.3-36.8)
--- NOTE | 2021-04-08 21:59 | PM.IMHP ---
H&P: HPI History of Present Illness Date/Time: 04/08/21 21:59 Chief Complaint: Chest pain Narrative: This is a 65-year-old male presents to the ED with chest pain which started about 3:00 a.m. in the morning. He is scheduled to have a prostatectomy done today and had rings of magnesium citrate for the preoperation. He initially thought he had of her acid reflux as he normally gets 1 but it continued to bother him and persisted and came to the ER for evaluation. His EKG showed some nonspecific ST-T changes however his troponin came back elevated and hence getting admitted for further evaluation and management. He does have a history of coronary artery disease and had stents in the past. He denies any shortness of breath or diaphoresis during the episode of other chest pain that he had. He does have severe GERD om and history of Caputo's esophagus at requiring what is what sounds like dilatation in the past. Review of Systems Review of Systems: - CONSTITUTIONAL: Denies weight loss, fever and chills. - HEENT: Denies changes in vision and hearing - RESPIRATORY: Denies SOB and cough. - CV: Denies palpitations and reports CP. - GI: Denies abdominal pain, nausea, vomiting and diarrhea. - : Denies dysuria and urinary frequency. - MSK: Denies myalgia and joint pain. - SKIN: Denies rash and pruritus. - NEUROLOGICAL: Denies headache and syncope. - PSYCHIATRIC: Denies recent changes in mood. Denies anxiety and depression. All systems reviewed & are unremarkable except as noted in HPI and below Constitutional: Constitutional: Reports fatigue and Reports weakness Neurologic: Reports weakness Endocrine: Endocrine: Reports fatigue [facility] Past Medical History Medical History (Reviewed 04/07/21 @ 10:24 by Rae Harris [facility]) Adenomatous colon polyp Arthritis Caputo's esophagus with esophagitis CAD (coronary artery disease) Managed by Dr. Hoyt Chronic pancreatitis CVA (cerebral vascular accident) (~2014) Diabetic peripheral neuropathy Esophageal hiatal hernia Essential hypertension GERD (gastroesophageal reflux disease) History of stroke (~11/2016) Hyperlipidemia LDL goal <70 Kidney stones Myocardial infarction (~2003) Nausea Open wound of finger of right hand (~07/02/19) PAD (peripheral artery disease) (~2011) With right lower extremity stent and left aortofemoral bypass in 2019. CT evidence of moderate stenosis. 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 Prostate cancer Renal infarction Right kidney Renal insufficiency Multiple episodes of acute kidney injury Type 2 diabetes mellitus with hyperglycemia Vitamin D deficiency Surgical History Surgical History History of colonoscopy with polypectomy (05/2020) History of coronary artery stent placement (~2003) 4 stents placed History of esophagogastroduodenoscopy (EGD) (01/2021) May 2020 and January 2020 History of femoropopliteal bypass left - 09/11 History of incision and drainage perirectal abscess left anterior 02/17/21 History of skin graft for left 5th toe diabetic ulcer S/P peripheral artery angioplasty with stent placement 11/2020 right superficial femoral artery stent Status post cataract extraction of both eyes with insertion of intraocular lens Status post open reduction with internal fixation of fracture Hips and legs as a child Family History Family History Mother Diabetes mellitus Family history of arthritis Family history of diabetes mellitus in first degree relative Family history of coronary artery disease Hypertension Cerebrovascular accident Father Family history of alcoholism Sibling Myocardial infarction Diabetes mellitus Other Family history of cardiovascular disease Social History Social History Social History: Patient lives with h
[2021-04-08 23:17] LABS: Troponin I 0.289 ng/mL (0.000-0.034)
[2021-04-09] VITALS (34 sets, daily range): BP systolic 100–170; BP diastolic 56–116; PULSE 73–89; RESP 12–20; TEMP 36.1–36.9; O2SAT 95–99
[2021-04-09 05:12] LABS: Basophils Percent Auto 0.3 % (0.2-1.2); Eosinophils Absolute Auto 0.2 K/mm3 (0-0.3); Eosinophils Percent Auto 2.5 % (0-4.4); Hematocrit 38.7 % (42.0-52.0); Immature Granulocyte Absolute 0.05 K/mm3 (0.00-0.031); Immature Granulocyte Percent A 0.7 % (0-0.5); Lymphocytes Percent Auto 32.8 % (18.3-44.2); Mean Corpuscular HGB Conc 33.6 g/dl (32-36); Mean Corpuscular Hemoglobin 28.9 pg (26-34); Mean Platelet Volume 9.8 fl (7.4-10.4); Monocytes Absolute Auto 0.6 K/mm3 (0.1-0.6); Monocytes Percent Auto 8.8 % (2.6-8.5); Neutrophils Absolute Auto 3.7 K/mm3 (1.3-6.7); Neutrophils Percent Auto 54.9 % (45.5-73.1); Platelet Count Result 238 k/mm3 (150-375); Red Cell Distribution Width 14.1 % (11.5-14.5); White Blood Count 6.7 K/mm3 (4.5-10.0)
[2021-04-09 06:04] LABS: Partial Thromboplastin Time 45.3 SECONDS (22.3-36.8)
[2021-04-09] MEDS: HEPARIN SODIUM 5,000 UNITS/ML VIAL 4000 UNITS IV PUSH (06:30)
--- NOTE | 2021-04-09 07:04 | PM.PNCARD ---
Progress Note: A&P Assessment and Plan (1) Chest pain: Code(s): R07.9 - Chest pain, unspecified Status: Acute Assessment and Plan: Troponin peaked at 0.314. Probably mild NSTEMI. On Heparin drip. Continue aspirin, Metoprolol. Intolerant of statins due to myalgia. NTP for chest pain. Clopidogrel was on hold due to supposed to have prostatectomy today for prostate cancer. Will resume either Clopidogrel or Brilinta depending on findings of left heart cath. Notified [facility] for left heart cath to be done this morning. (2) Essential hypertension: Code(s): I10 - Essential (primary) hypertension Status: Acute Assessment and Plan: Stable. Resumed home BP medication. (3) Hyperlipidemia LDL goal <70: Code(s): E78.5 - Hyperlipidemia, unspecified Status: Chronic Assessment and Plan: Resume Zetia, Fenofibrate, Vascepa, Niacin. (4) PAD (peripheral artery disease): Onset Date: ~2011 Code(s): I73.9 - Peripheral vascular disease, unspecified Status: Chronic (5) CAD (coronary artery disease): Qualifiers: Coronary Disease-Associated Artery/Lesion type: unspecified vessel or lesion type [place] vs. transplanted heart: unspecified whether sax[place] or transplanted heart Associated angina: with unspecified angina Qualified Code(s): I25.119 - Atherosclerotic heart disease of sax[place] coronary artery with unspecified angina pectoris Code(s): I25.10 - Atherosclerotic heart disease of sax[place] coronary artery without angina pectoris Status: Chronic Subjective Date/time seen: 04/09/21 07:04 Patient had intermittent chest pressure and some heartburn also this morning. Exam Const: General: cooperative, healthy appearing and comfortable Resp: Auscultation: clear to auscultation bilaterally, no crackles, no rales, no rhonchi and no wheezes Cardio: Jugular venous distension: no JVD Rate: regular rate Rhythm: regular rhythm Heart sounds: no murmurs Other: Very diminished to no appreciable DP/PT pulses bilaterally GI: GI Palp: No abdominal tenderness and Yes Soft to palpation Neuro: General: oriented to person, oriented to place and oriented to time Extrem: Right lower extremity: no edema Left lower extremity: no edema Objective Data Vital Signs Vital Signs: Vital Signs - 24 hr 04/08/21 13:18 04/08/21 13:30 04/08/21 13:44 Temperature 98.6 F Pulse Rate 92 95 93 Respiratory Rate 18 18 18 Blood Pressure 158/104 H Pulse Oximetry 99 04/08/21 13:50 04/08/21 14:05 04/08/21 14:15 Temperature Pulse Rate 94 90 84 Respiratory Rate 18 14 15 Blood Pressure Pulse Oximetry 04/08/21 14:30 04/08/21 14:31 04/08/21 17:46 Temperature 96.6 F L Pulse Rate 92 92 89 Respiratory Rate 12 18 20 Blood Pressure 113/67 153/85 H Pulse Oximetry 100 04/08/21 18:00 04/08/21 20:00 04/08/21 22:00 Temperature 98 F Pulse Rate 75 87 88 Respiratory Rate 20 Blood Pressure 138/84 Pulse Oximetry 100 04/08/21 23:39 04/09/21 00:00 04/09/21 02:00 Temperature 98.2 F Pulse Rate 82 83 85 Respiratory Rate 20 20 Blood Pressure 160/89 H Pulse Oximetry 98 98 04/09/21 04:00 04/09/21 06:00 Temperature 98.1 F Pulse Rate 85 88 Respiratory Rate 20 Blood Pressure 142/56 H Pulse Oximetry 99 Intake/Output Intake/Output: Intake & Output 04/06/21 04/07/21 04/08/21 04/09/21 23:59 23:59 23:59 23:59 Intake Total 440 Balance 440 Meds/Results Medications: Active Medications Generic Name Dose Route Start Last Admin Trade Name Freq PRN Reason Stop Dose Admin Acetaminophen 650 mg 04/08/21 14:59 Acetaminophen 325 Mg Tablet PO Q4H PRN Mild Pain (1-3) or Fever Hydrocodone Bitart/Acetaminophen 1 tab 04/08/21 14:59 Hydrocodone/Acetaminophen (*Crx) 5-325 Mg Tablet PO Q4H PRN Pain Rated 4-6 Amlodipine Besylate 10 mg 04/09/21 09:00 Amlodipine Besylate [address]
[2021-04-09 09:02] LABS: Glucose Point of Care 163 mg/dl (65-105)
--- NOTE | 2021-04-09 09:13 | PM.IMPN ---
Progress Note: A&P Assessment and Plan (1) Non-ST elevation IN (NSTEMI): Code(s): I21.4 - Non-ST elevation (NSTEMI) myocardial infarction Status: Acute (2) Chest pain: Code(s): R07.9 - Chest pain, unspecified Status: Acute (3) Prostate cancer: Code(s): C61 - Malignant neoplasm of prostate Status: Acute (4) BPH (benign prostatic hyperplasia): Code(s): N40.0 - Benign prostatic hyperplasia without lower urinary tract symptoms Status: Acute (5) Chronic pancreatitis: Qualifiers: Pancreatitis type: unspecified pancreatitis type Qualified Code(s): K86.1 - Other chronic pancreatitis Code(s): K86.1 - Other chronic pancreatitis Status: Acute (6) CAD (coronary artery disease): Qualifiers: Associated angina: with unspecified angina Coronary Disease-Associated Artery/Lesion type: unspecified vessel or lesion type [place] vs. transplanted heart: unspecified whether [place]ski or transplanted heart Qualified Code(s): I25.119 - Atherosclerotic heart disease of [place] coronary artery with unspecified angina pectoris Code(s): I25.10 - Atherosclerotic heart disease of [place] coronary artery without angina pectoris Status: Chronic (7) PAD (peripheral artery disease): Onset Date: ~2011 Code(s): I73.9 - Peripheral vascular disease, unspecified Status: Chronic (8) History of stroke: Onset Date: ~11/2016 Code(s): Z86.73 - Personal history of transient ischemic attack (TIA), and cerebral infarction without residual deficits Status: Acute (9) Diabetic peripheral neuropathy: Code(s): E11.42 - Type 2 diabetes mellitus with diabetic polyneuropathy Status: Acute (10) Essential hypertension: Code(s): I10 - Essential (primary) hypertension Status: Acute (11) Hyperlipidemia LDL goal <70: Code(s): E78.5 - Hyperlipidemia, unspecified Status: Chronic Additional Plan # chest pain EKG with ST depressions in lateral leads. Troponin came back elevated suggestive of non ST-elevation IN. # non ST-elevation IN heparin drip aspirin metoprolol intolerant to statins due to myalgia nitroglycerin p.r.n. for chest pain. His clopidogrel was on hold for planned prostatectomy. Three hundred twenty-five aspirin received in the ER with nitroglycerin. Continue aspirin and heparin drip. Plan for heart catheterization in the morning for further assessment # hypertension # hyperlipidemia # intolerance to statin # peripheral vascular disease status post left leg bypass surgery in September 2019 and stenting of right lower leg 11/2020 # coronary artery disease status post stents 2003 # insulin-dependent diabetes mellitus on U 500 Humulin R 20 5 units b.i.d. along with Trulicity at home both of them are currently on hold blood sugar goal will place on SSI for now as he will be NPO for planned procedure. 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 HEAD: Normocephalic, atraumatic. ENT: Mucous membranes moist. NECK: Supple. Nontender CHEST: Clear to auscultation. No respiratory distress. HEART: Regular rate and rhythm. Normal peripheral pulses. ABDOMEN: Soft, nontender, nondistended. EXTREMITIES: No ecchymosis no hematoma pulses symmetric ski
[2021-04-09] MEDS: amLODIPine BESYLATE 5 MG TABLET 10 MG PO (09:17)
[2021-04-09] MEDS: ASPIRIN 81 MG ENTERIC TABLET PO (09:17)
[2021-04-09] MEDS: METOPROLOL SUCCINATE EXT REL 50 MG TABCR PO (09:18)
--- NOTE | 2021-04-09 09:29 | PM.CNCAR ---
Assessment and Plan Additional Plan 1- NSTEMI 2- history of coronary artery disease with stents to right coronary artery left circumflex artery. 3- Peripheral arterial disease with left leg bypass surgery and right leg stent 4- hypertension 5- hyperlipidemia 6- diabetes this 65-year-old patient with history of multiple coronary stents, peripheral arterial disease presents to the hospital chest pain. Troponins mildly elevated. Ischemic changes in EKG. I was consulted by Dr. Hoyt to evaluate this patient and to do cardiac catheterization. risks and benefits of cardiac catheterization discussed with the patient he agrees to proceed. Continue aspirin and Plavix History of Present Illness History of Present Illness Consult date/time: Interventional cardiology consultation date of /16/21 09:29 Requesting physician: Raulito Hoyt, DO Consult reason: chest pain and Other ( NSTEMI, patient needs cardiac catheterization) Reason For Visit: nstemi Narrative: this 65-year-old patient with past medical history of coronary artery disease with stents, peripheral arterial disease with left leg bypass, right lower extremity stenting, hypertension, remote history of tobacco use, diabetes and hyperlipidemia who presents to the hospital with chest pain. It feels burning in sensation, central in location with no radiation. Patient states that he gets a lot of heartburns usually but yesterday was bad. it is associated with nausea. He took some nitroglycerin with partial relief of symptoms. He has limited in terms of physical activity because of neuropathy and claudication. Denies palpitations, dizziness, syncope, orthopnea or paroxysmal nocturnal dyspnea. On review of EKG which was analyzed myself showed sinus rhythm with inferior Q-waves, ST depression V4, V5 and subtle ST depression in V6. 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 Echo/MUGA:: 02/12/21 Echo: EF 55-60%, mod LVH, grade I diastolic dysfunction, mild TR/PI, trace pericardial effusion. 07/20/19 Echo: EF 60-65%, mild LVH, grade II diastolic dysfunction (E/e' 14), mild LAE, trace pericardial effusion. Echo (EF 69%, grade I diastolic dysfunction, mild LVE, mild LAE, trace MR/TR, trivial pericardial effusion.) - 05/24/2016 Electrophysiology:: EKG (Sinus bradycardia, inferior infarct, age indeterminate.) - 02/13/2018 Stress Tests:: 07/20/19 Lexiscan myoview: Negative for ischemia. MISAEL (Right MISAEL 1.06, TBI 0.33; Left MISAEL 0.88, TBI 0.52.) - 12/05/2018 Carotid Duplex (<50% ICA bilaterally, mild plaques.) - 05/24/2016 Review of Systems Constitutional: Constitutional: Denies chills, Denies fever(s) and Denies poor appetite Eyes: Eyes: Denies eye discharge, Denies loss of vision, Denies eye pain and Denies photophobia ENT: Denies dizziness, Denies epistaxis, Denies nasal congestion and Denies sore throat Cardiovascular: Cardiovascular: Reports chest pain, Denies syncope, Denies pedal edema, Denies leg edema, Denies palpitations, Denies dyspnea, Denies dyspnea on exertion and Denies orthopnea Respiratory: Respiratory: Denies cough, Denies dyspnea, Denies dyspnea on exertion and Denies wheezing Gastrointestinal: Gastrointestinal: Denies abdominal pain, Denies diarrhea, Denies nausea and Denies vomiting Genitourinary: Genitourinary: Denies hematuria, Denies genital lesions and Denies dysuria Musculoskeletal: Musculoskeletal: Denies arthralgias, Denies joint swelling and Denies numbness Integumentary/Breasts: Skin/Breast: Denies pruritus and Denies rash Neurologic: Denies dizziness, Denies syncope, Denies loss of vision and Denies numbness Psychiatric: Psychiatric: Denies anxiety and Denies depression Endocrine: Endocrine: Denies cold intolerance, D
--- NOTE | 2021-04-09 09:38 | WPDMODSED ---
Moderate Sedation Note-Pt Data Patient Data Allergies Allergy/AdvReac Type Severity Reaction Status Date / Time No Known Allergies Allergy Verified 04/08/21 13:47 Home Medications Medication Instructions Recorded Confirmed Type aspirin 81 mg tablet,delayed 81 mg PO DAILY #30 tablet 02/26/19 04/08/21 Rx release multivitamin 1 tablet PO DAILY 03/07/19 04/08/21 History clopidogrel 75 mg tablet 75 mg PO DAILY #90 tablet 01/31/20 04/08/21 Rx hydrochlorothiazide 25 mg tablet 25 mg PO DAILY #90 tablet 01/31/20 04/08/21 Rx blood sugar diagnostic #400 ea 08/26/20 04/08/21 Rx pen needle, diabetic 31 gauge x #200 each 08/28/20 04/08/21 Rx 16 fenofibrate 160 mg tablet 160 mg PO DAILY tablet 09/16/20 04/08/21 History isosorbide mononitrate 60 mg 60 mg PO DAILY tablet 09/16/20 04/08/21 History tablet,extended release 24 hr omega-3 fatty acids 1,000 mg 2,000 mg PO BID cap 10/21/20 04/08/21 History capsule amlodipine [Norvasc] 10 mg PO DAILY 02/09/21 04/08/21 History niacin 1,000 mg PO BID 02/17/21 04/08/21 History finasteride [Proscar] 5 mg PO QAM 30 Days #30 tablet 02/18/21 04/08/21 Rx tamsulosin 0.4 mg PO QAM 30 Days #30 cap 02/18/21 04/08/21 Rx duloxetine 60 mg capsule,delayed 60 mg PO DAILY #30 cap 02/23/21 04/08/21 Rx release ezetimibe 10 mg tablet 10 mg PO DAILY tablet 02/26/21 04/08/21 History famotidine 40 mg tablet 40 mg PO DAILY tablet 02/26/21 04/08/21 History dulaglutide 3 mg/0.5 mL 3 mg SUBCUT WEEKLY 30 Days #2.5 ml 03/04/21 04/08/21 Rx subcutaneous pen injector insulin regular hum U-500 conc 25 unit SUBCUT BID #9 ml 03/04/21 04/08/21 Rx metoprolol succinate 50 mg 50 mg PO DAILY #90 tablet 03/17/21 04/08/21 Rx tablet,extended release 24 hr nitroglycerin 0.4 mg sublingual See Rx Instructions .ROUTE 03/24/21 04/08/21 Rx tablet .COMPLEX #25 tablet gabapentin 300 mg PO TID 03/31/21 04/08/21 History icosapent ethyl [Vascepa] 2 g PO BID 03/31/21 04/08/21 History pantoprazole 40 mg BID 03/31/21 04/08/21 History flash glucose scanning reader #1 ea 04/01/21 04/08/21 Rx flash glucose sensor #6 ea 04/01/21 04/08/21 Rx Current Medications: Active Medications Acetaminophen (Acetaminophen 325 Mg Tablet) 650 mg PO Q4H PRN PRN Reason: Mild Pain (1-3) or Fever Hydrocodone Bitart/Acetaminophen (Hydrocodone/Acetaminophen (*Crx) 5-325 Mg Tablet) 1 tab PO Q4H PRN PRN Reason: Pain Rated 4-6 Amlodipine Besylate (Amlodipine Besylate 5 Mg Tablet) 10 mg PO DAILY [facility] Last Admin: 04/09/21 09:17 Dose: 10 mg Documented by: Aspirin (Aspirin 81 Mg Enteric Tablet) 81 mg PO DAILY [facility] Last Admin: 04/09/21 09:17 Dose: 81 mg Documented by: Dextrose (Dextrose 50% 25 Gm/50 Ml Syringe) 12.5 gm IV PUSH PRN PRN; Protocol PRN Reason: Hypoglycemia Duloxetine HCl (Duloxetine Hcl 60 Mg Capsule.Dr) 60 mg PO DAILY [facility] Ezetimibe (Ezetimibe 10 Mg Tablet) 10 mg PO DAILY [facility] Famotidine (Famotidine 20 Mg Tablet) 40 mg PO DAILY [facility] Fenofibrate (Fenofibrate 160 Mg Tablet) 160 mg PO DAILY [facility] Finasteride (Finasteride 5 Mg Tablet) 5 mg PO QAM [facility] Fish Oil ([place] 3 Polyunsat Fatty Acids 1 Gm Cap) 2 gm PO BID [facility] Gabapentin (Gabapentin 300 Mg Capsule) 300 mg PO TID [facility] Glucagon (Glucagon For Inj 1 Mg Vial) 1 mg IM PRN PRN; Protocol PRN Reason: Hypoglycemia Glucose (Glucose Oral Gel 15 Gm Of Glucse In 37.5 Gm Tube) 15 gm PO PRN PRN; Protocol PRN Reason: Hypoglycemia Heparin Sodium (Porcine) (Heparin Sodium 5,000 Units/Ml Vial) 4,000 units IV PUSH PRN PRN PRN Reason: aPTT less than 55 seconds Last Admin: 04/09/21 06:30 Dose: 4,000 units Documented by: Heparin Sodium (Porcine) (Heparin Sodium 5,000 Units/Ml Vial) 3,000 units IV PUSH PRN PRN PRN Reason: aPTT 55 - 70 seconds Hydrochlorothiazide (Hydrochlorothiazide 25 Mg Tablet) 25 mg PO DAILY [facility] Heparin Sodium/Dextrose (Heparin Sodium/D5w 100 Units/Ml) 25,000 units in 250 mls @ 12 mls/hr IV CONT .[id number] [facility]; Protocol Last Titration: 04/08/21 21:00 Dose: 1,200 units/hr
--- NOTE | 2021-04-09 09:38 | WPDCARDPROC ---
Cardiac Cath Procedure Note Date of procedure:: 04/09/21 Performing physician:: Nikole Harman MD date of service 04/09/2021- Indication:: NSTEMI Brief clinical history:: this 65-year-old patient with past medical history of coronary artery disease with stents, peripheral arterial disease with left leg bypass, right lower extremity stenting, hypertension, remote history of tobacco use, diabetes and hyperlipidemia who presents to the hospital with chest pain. It feels burning in sensation, central in location with no radiation. Patient states that he gets a lot of heartburns usually but yesterday was bad. it is associated with nausea. He took some nitroglycerin with partial relief of symptoms. He has limited in terms of physical activity because of neuropathy and claudication. Denies palpitations, dizziness, syncope, orthopnea or paroxysmal nocturnal dyspnea. On review of EKG which was analyzed myself showed sinus rhythm with inferior Q-waves, ST depression V4, V5 and subtle ST depression in V6. 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 Echo/MUGA:: 02/12/21 Echo: EF 55-60%, mod LVH, grade I diastolic dysfunction, mild TR/PI, trace pericardial effusion. 07/20/19 Echo: EF 60-65%, mild LVH, grade II diastolic dysfunction (E/e' 14), mild LAE, trace pericardial effusion. Echo (EF 69%, grade I diastolic dysfunction, mild LVE, mild LAE, trace MR/TR, trivial pericardial effusion.) - 05/24/2016 Electrophysiology:: EKG (Sinus bradycardia, inferior infarct, age indeterminate.) - 02/13/2018 Stress Tests:: 07/20/19 Lexiscan myoview: Negative for ischemia. MISAEL (Right MISAEL 1.06, TBI 0.33; Left MISAEL 0.88, TBI 0.52.) - 12/05/2018 Carotid Duplex (<50% ICA bilaterally, mild plaques.) - 05/24/2016 Procedure Procedure performed:: 1-Moderate sedation that started at 9:46 a.m.and ended at 11:29 a.m. with total duration 104 minutes using 4mg of Versed and 100mcg fentanyl. The registered nurse was luciano madera. 2-Selective left and right coronary angiogram. 3-Left heart catheterization with measurement of LVEDP and measurement of gradient across aortic valve. 4-Right common femoral arterial angiogram. 5-Deployment of a drug-eluting stent 4 x 12 covering ostial right coronary artery and overlapping proximal right coronary stent. 6- Deployment of a drug-eluting stent 3.5 by 33 to distal and mid RCA overlapping distal stent. Deployment under size corresponding to 3.7 mm. Sedation/Medication given:: Moderate sedation. Access site:: Right common femoral artery. Estimated blood loss:: 10cc Procedure note:: After informed consent patient was brought in to r&d lab technician with the was draped and prepped in usual manner. Moderate sedation was given and the right groin was infiltrated using 1% lidocaine. Five [place] sheath was obtained using micropuncture needle and the modified Seldinger technique. Selective left coronary angiogram was done using JL4 catheter with the tip of the catheter placed in the left main coronary artery. Selective right coronary angiogram was done using JR4 catheter with the tip of the catheter placed to the right coronary artery. After that 5 [place] pigtail catheter was advanced across the aortic valve into the left ventricle with measurement of LVEDP and measurement of gradient across aortic valve. Right common femoral arterial angiogram was done. After that the 5 [place] sheath was upgraded to 6 [place] sheath. Subsequently we attempted to cross the lesion using a JR4 guide and we tried luge coronary wire and Trimming Department Blocker 150 but the JR4 was providing very poor support. He switched to WRP guide catheter and using a Trimming Department Blocker 150 wire he managed to cross the lesion. Then balloon angioplasty of the ostial RCA was done using 4 by 15 balloon wi
--- NOTE | 2021-04-09 13:06 | ECG_ITS ---
Measurements Intervals [place] Rate: 75 P: 92 CT: 140 QRS: -4 QRSD: 109 T: 93 QT: 393 QTc: 441 Interpretive Statements SINUS RHYTHM INFERIOR INFARCT, AGE INDETERMINATE BORDERLINE ST-T WAVE ABNORMALITY- HIGH LATERAL LEADS ABNORMAL ECG Electronically Signed On 04-09-2021 13:11:09 MACHINE MAINTENANCE SERVICER by Raulito Hoyt D.O.
[2021-04-09] MEDS: fentaNYL CITRATE INJ (*CRX) 100 MCG/2 ML VIAL 25 MCG IV PUSH (13:28)
[2021-04-09] MEDS: ISOSORBIDE MONONITRATE 60 MG TAB.ER.24H PO (13:29)
[2021-04-09 13:43] LABS: Glucose Point of Care 124 mg/dl (65-105)
--- NOTE | 2021-04-09 15:28 | SUR.PHASEII ---
Report called to Viviane CASEY
--- NOTE | 2021-04-09 16:10 | PC.NURSE ---
Patient returned to 202 with cardiac catheter staff. Oriented x3, no c/o chest pain/shortness of breath. Dressing to right groin dry and intact, pedal pulse palpable.
[2021-04-09 16:33] LABS: Glucose Point of Care 108 mg/dl (65-105)
[2021-04-09] MEDS: NIACIN SA 500 MG TABLET 1000 MG PO (18:08)
[2021-04-09] MEDS: TAMSULOSIN HCL 0.4 MG CAPSULE PO (18:10)
[2021-04-09] MEDS: FENOFIBRATE 160 MG TABLET PO (18:10)
[2021-04-09] MEDS: FAMOTIDINE 20 MG TABLET 40 MG PO (18:10)
[2021-04-09] MEDS: GABAPENTIN 300 MG CAPSULE PO (18:11)
[2021-04-09] MEDS: hydroCHLOROthiazide 25 MG TABLET PO (18:11)
[2021-04-09] MEDS: FINASTERIDE 5 MG TABLET PO (18:11)
[2021-04-09] MEDS: DULoxetine HCL 60 MG CAPSULE.DR PO (18:12)
[2021-04-09] MEDS: EZETIMIBE 10 MG TABLET PO (18:12)
[2021-04-09] MEDS: PANTOPRAZOLE 40 MG TABLET BY MOUTH (18:13)
[2021-04-09] MEDS: HYDROcodone/acetaminophen (*CRX) 5-325 MG TABLET 1 TAB PO (20:28)
[2021-04-09 21:42] LABS: Glucose Point of Care 234 mg/dl (65-105)
[2021-04-10] VITALS (7 sets, daily range): BP systolic 135–154; BP diastolic 67–80; PULSE 76–99; RESP 18–20; TEMP 36.2–36.5; O2SAT 96–100
[2021-04-10 02:34] LABS: Glucose Point of Care 155 mg/dl (65-105)
--- NOTE | 2021-04-10 07:30 | PM.PNCARD ---
Progress Note: A&P Assessment and Plan (1) Chest pain: Code(s): R07.9 - Chest pain, unspecified Status: Acute Assessment and Plan: Resolved. (2) Essential hypertension: Code(s): I10 - Essential (primary) hypertension Status: Acute Assessment and Plan: Stable. Resumed home BP medication. (3) Hyperlipidemia LDL goal <70: Code(s): E78.5 - Hyperlipidemia, unspecified Status: Chronic Assessment and Plan: Resume Zetia, Fenofibrate, Vascepa, Niacin. (4) PAD (peripheral artery disease): Onset Date: ~2011 Code(s): I73.9 - Peripheral vascular disease, unspecified Status: Chronic (5) CAD (coronary artery disease): Qualifiers: Coronary Disease-Associated Artery/Lesion type: unspecified vessel or lesion type [place] vs. transplanted heart: unspecified whether [place] or transplanted heart Associated angina: with unspecified angina Qualified Code(s): I25.119 - Atherosclerotic heart disease of [place] coronary artery with unspecified angina pectoris Code(s): I25.10 - Atherosclerotic heart disease of [place] coronary artery without angina pectoris Status: Chronic Assessment and Plan: Troponin peaked at 0.314. NSTEMI. Continue aspirin, Clopidogrel, Metoprolol. Intolerant of statins due to myalgia. LHC with Dr. Rowland on 04/09/21 shows distal LM 30%, OM ostial 90% and mid LCx 90% as bifurcation lesions, ostial RCA 99% and mid RCA 70%, patent stent RPL, occluded stent in PDA, patent stent in mid LCx. PCI with MICHELLE to ostial and mid RCA, successful. Will need staged PCI of bifurcation lesions at [facility] in [address] Rowland. Informed patient of the results of coronary angiogram. Due to being back on dual antiplatelet agents, will need to hold off on prostatectomy for minimum 3 months unless urgently needed to be done sooner. Check BMP and CBC. If OK, patient may d/c home from cardiology standpoint and f/u with me next week. Subjective Date/time seen: 04/10/21 07:30 He had mild heartburn last night, but no more chest pressure. Right groin access site without bleeding/pain/tenderness/hematoma. Exam Const: General: cooperative, healthy appearing and comfortable Resp: Auscultation: clear to auscultation bilaterally, no crackles, no rales, no rhonchi and no wheezes Cardio: Jugular venous distension: no JVD Rate: regular rate Rhythm: regular rhythm Heart sounds: no murmurs Other: Very diminished to no appreciable DP/PT pulses bilaterally GI: GI Palp: No abdominal tenderness and Yes Soft to palpation Neuro: General: oriented to person, oriented to place and oriented to time Extrem: Right lower extremity: no edema Left lower extremity: no edema Objective Data Vital Signs Vital Signs: Vital Signs - 24 hr 04/09/21 08:00 04/09/21 08:30 04/09/21 09:18 Temperature 98.3 F Pulse Rate 78 78 84 Respiratory Rate 20 Blood Pressure 167/91 H Pulse Oximetry 99 04/09/21 11:40 04/09/21 12:00 04/09/21 12:15 Temperature Pulse Rate 75 80 78 Respiratory Rate 14 14 14 Blood Pressure 158/92 H 153/91 H 156/90 H Pulse Oximetry 97 95 96 04/09/21 12:30 04/09/21 12:45 04/09/21 13:00 Temperature Pulse Rate 76 75 76 Respiratory Rate 18 18 12 Blood Pressure 164/94 H 159/90 H 158/116 H Pulse Oximetry 98 98 98 04/09/21 13:15 04/09/21 13:30 04/09/21 13:45 Temperature Pulse Rate 76 78 78 Respiratory Rate 12 12 15 Blood Pressure 160/85 H 160/85 H 170/93 H Pulse Oximetry 98 98 98 04/09/21 14:00 04/09/21 14:05 04/09/21 14:10 Temperature Pulse Rate 82 83 86 Respiratory Rate 12 12 12 Blood Pressure 133/87 133/86 145/86 H Pulse Oximetry 98 98 98 04/09/21 14:15 04/09/21 14:25 04/09/21 14:30 Temperature Pulse Rate 89 89 87 Respiratory Rate 16 15 20 Blood Pressure 148/88 H 151/93 H 121/84 Pulse Oximetry 99 98 98 04/09/21 14:35 04/09/21 14:45 04/09/21 15:00 Temperature Pulse Rate 84 84
[2021-04-10 08:06] LABS: Glucose Point of Care 178 mg/dl (65-105)
[2021-04-10 08:18] LABS: Hematocrit 36.4 % (42.0-52.0); Hemoglobin 12.3 g/dL (14.0-18.0); Mean Corpuscular HGB Conc 33.8 g/dl (32-36); Mean Corpuscular Hemoglobin 28.5 pg (26-34); Mean Corpuscular Volume 84.3 fl (80-100); Mean Platelet Volume 10.1 fl (7.4-10.4); Platelet Count Result 200 k/mm3 (150-375); Red Blood Count 4.32 M/mm3 (4.6-6.20); Red Cell Distribution Width 13.9 % (11.5-14.5)
[2021-04-10 08:28] LABS: Anion Gap 8 mmol/L (8-16); Blood Urea Nitrogen 30 mg/dL (9-20); Carbon Dioxide 29 mmol/L (22-30); Chloride 96 mmol/L (98-107); Estimated CRCL calculation 44 ml/min; Estimated Glomerular Filt Rate 51; Glucose 155 mg/dL (65-110); Potassium 4.4 mmol/L (3.4-5.0); Sodium 133 mmol/L (137-145)
--- NOTE | 2021-04-10 09:39 | WPDCDIQUERY2 ---
CDI Query Clarification Request Please clarify clinical significance of increased creatinine if known. 04/08/21 0.90 04/10/21 1.40 Thank you! <CHARLEEN Leslie - Last Filed: 04/10/21 09:42> BALTAZAR <Leigh Ann Elizondo MD - Last Filed: 04/10/21 11:23>
[2021-04-10] MEDS: ISOSORBIDE MONONITRATE 60 MG TAB.ER.24H PO (10:00)
[2021-04-10] MEDS: ASPIRIN 81 MG ENTERIC TABLET PO (10:00)
[2021-04-10] MEDS: amLODIPine BESYLATE 5 MG TABLET 10 MG PO (10:00)
[2021-04-10] MEDS: GABAPENTIN 300 MG CAPSULE PO ×2 (10:00→12:31)
[2021-04-10] MEDS: CLOPIDOGREL BISULFATE 75 MG TABLET PO (10:00)
[2021-04-10] MEDS: METOPROLOL SUCCINATE EXT REL 50 MG TABCR PO (10:03)
[2021-04-10] MEDS: OMEGA 3 POLYUNSAT FATTY ACIDS 1 GM CAP 2 GM PO (10:04)
[2021-04-10] MEDS: PANTOPRAZOLE 40 MG TABLET BY MOUTH (10:04)
[2021-04-10] MEDS: MULTIVITAMINS THERAPEUTIC TAB (*BKC) 1 TABLET PO (10:04)
[2021-04-10] MEDS: NIACIN SA 500 MG TABLET 1000 MG PO (10:09)
--- NOTE | 2021-04-10 11:03 | PM.DS ---
DS: Admitting Diagnosis Discharge Date 04/10/21 Admitting Diagnosis (1) Non-ST elevation [place] (NSTEMI): Code(s): I21.4 - Non-ST elevation (NSTEMI) myocardial infarction Status: Acute (2) Chest pain: Code(s): R07.9 - Chest pain, unspecified Status: Acute (3) Prostate cancer: Code(s): C61 - Malignant neoplasm of prostate Status: Acute (4) BPH (benign prostatic hyperplasia): Code(s): N40.0 - Benign prostatic hyperplasia without lower urinary tract symptoms Status: Acute (5) Chronic pancreatitis: Qualifiers: Pancreatitis type: unspecified pancreatitis type Qualified Code(s): K86.1 - Other chronic pancreatitis Code(s): K86.1 - Other chronic pancreatitis Status: Acute (6) CAD (coronary artery disease): Qualifiers: Coronary Disease-Associated Artery/Lesion type: unspecified vessel or lesion type [place] vs. transplanted heart: unspecified whether [place] or transplanted heart Associated angina: with unspecified angina Qualified Code(s): I25.119 - Atherosclerotic heart disease of [place] coronary artery with unspecified angina pectoris Code(s): I25.10 - Atherosclerotic heart disease of [place] coronary artery without angina pectoris Status: Chronic (7) PAD (peripheral artery disease): Onset Date: ~2011 Code(s): I73.9 - Peripheral vascular disease, unspecified Status: Chronic (8) History of stroke: Onset Date: ~11/2016 Code(s): Z86.73 - Personal history of transient ischemic attack (TIA), and cerebral infarction without residual deficits Status: Acute (9) Diabetic peripheral neuropathy: Code(s): E11.42 - Type 2 diabetes mellitus with diabetic polyneuropathy Status: Acute (10) Essential hypertension: Code(s): I10 - Essential (primary) hypertension Status: Acute (11) Hyperlipidemia LDL goal <70: Code(s): E78.5 - Hyperlipidemia, unspecified Status: Chronic DS: Discharge Diagnosis Discharge Diagnosis (1) Non-ST elevation [place] (NSTEMI): Code(s): I21.4 - Non-ST elevation (NSTEMI) myocardial infarction Status: Acute (2) Chest pain: Code(s): R07.9 - Chest pain, unspecified Status: Acute (3) Nausea: Code(s): R11.0 - Nausea Status: Acute (4) BMI 28.0-28.9,adult: Code(s): Z68.28 - Body mass index [BMI] 28.0-28.9, adult Status: Acute (5) Prostate cancer: Code(s): C61 - Malignant neoplasm of prostate Status: Acute (6) BPH (benign prostatic hyperplasia): Code(s): N40.0 - Benign prostatic hyperplasia without lower urinary tract symptoms Status: Acute (7) Antiplatelet or antithrombotic long-term use: Code(s): 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 transplanted heart: unspecified whether [place] or transplanted heart Associated angina: with unspecified angina Qualified Code(s): I25.119 - Atherosclerotic heart disease of [place] coronary artery with unspecified angina pectoris Code(s): I25.10 - Atherosclerotic heart disease of [place] coronary artery without angina pectoris Status: Chronic (10) Type 2 diabetes mellitus with hyperglycemia: Code(s): E11.65 - Type 2 diabetes mellitus with hyperglycemia Status: Acute (11) Hyperlipidemia LDL goal <70: Code(s): E78.5 - Hyperlipidemia, unspecified Status: Chronic (12) Status post left heart catheterization (LHC) by percutaneous approach: Code(s): Z98.890 - Other specified postprocedural states Sta
[2021-04-10 12:04] LABS: Glucose Point of Care 189 mg/dl (65-105)
[2021-04-10] MEDS: DULoxetine HCL 60 MG CAPSULE.DR PO (12:30)
[2021-04-10] MEDS: FAMOTIDINE 20 MG TABLET 40 MG PO (12:31)
[2021-04-10] MEDS: EZETIMIBE 10 MG TABLET PO (12:31)
[2021-04-10] MEDS: FENOFIBRATE 160 MG TABLET PO (12:32)
[2021-04-10] MEDS: FINASTERIDE 5 MG TABLET PO (12:32)
[2021-04-10] MEDS: TAMSULOSIN HCL 0.4 MG CAPSULE PO (12:33)
[2021-04-10] MEDS: hydroCHLOROthiazide 25 MG TABLET PO (12:33)
[2021-04-10] MEDS: SODIUM CHLORIDE 0.9% IV 250 ML 80 ML IV CONT (12:35)
[2021-04-10] MEDS: HYDROcodone/acetaminophen (*CRX) 5-325 MG TABLET 1 TAB PO (15:44)
[2021-04-10 16:47] LABS: Glucose Point of Care 179 mg/dl (65-105)
== END 2021-04-10 16:40 | disposition home health service (06) | DRG 247 ==
LOC: ANHED 13:17 → ANHIMU 16:15
PROVIDERS: Internal Medicine; Internal Medicine Cardiovascular Disease; Physician Assistant; Admitting Provider Internal Medicine; Emergency Provider Emergency Medicine; PCP Family Medicine; Visit Provider Hospitalist
PROC: 4A023N7 Measurement of Cardiac Sampling and Pressure, Left Heart, Percutaneous Approach (ICD-10-PCS; CPT 93452; principal; 2021-04-09 09:00)
PROC: 027034Z Dilation of Coronary Artery, One Artery with Drug-eluting Intraluminal Device, Percutaneous Approach (ICD-10-PCS; 2021-04-09 09:00)
DX: I21.4 Non-ST elevation (NSTEMI) myocardial infarction (principal); K86.1 Other chronic pancreatitis; C61 Malignant neoplasm of prostate; N40.0 Benign prostatic hyperplasia without lower urinary tract symptoms; I25.119 Atherosclerotic heart disease of native coronary artery with unspecified angina pectoris; E11.42 Type 2 diabetes mellitus with diabetic polyneuropathy; E11.51 Type 2 diabetes mellitus with diabetic peripheral angiopathy without gangrene; E11.65 Type 2 diabetes mellitus with hyperglycemia; I10 Essential (primary) hypertension; E78.5 Hyperlipidemia, unspecified; F10.11 Alcohol abuse, in remission; Z79.02 Long term (current) use of antithrombotics/antiplatelets; Z79.82 Long term (current) use of aspirin; Z79.4 Long term (current) use of insulin; Z79.899 Other long term (current) drug therapy; Z86.73 Personal history of transient ischemic attack (TIA), and cerebral infarction without residual deficits; Z87.891 Personal history of nicotine dependence; Z98.42 Cataract extraction status, left eye; Z98.41 Cataract extraction status, right eye; Z96.1 Presence of intraocular lens; Z95.828 Presence of other vascular implants and grafts; Z95.5 Presence of coronary angioplasty implant and graft
CPT/HCPCS: 36415; 71046; 80048; 80053; 82948; 83690; 84484; 85025; 85027; 85610; 85730; 93005; 93458; 96365; 96366; 96375; 99291; A9270; C1725; C1769; C1874; C1887; C1894; C9600; G0378; J0583; J1644; J2250; J2405; J3010; J7030; J7040; J7050

== ENCOUNTER 2021-04-28 19:03 | Emergency (ER) | payer MEDICARE, MEDICAID, SELFPAY ==
[2021-04-28 19:09] VITALS: BP 150/79; PULSE 86; RESP 18; TEMP 36.4; O2SAT 100
--- NOTE | 2021-04-28 22:19 | ED.LOWEXIN ---
HPI - Extremity Injury (Lower) General Chief Complaint: Extremity Injury, Lower Stated Complaint: pain to left leg Time Seen by Provider: 04/28/21 21:48 Source: patient and family Mode of arrival: ambulatory Limitations: no limitations History of Present Illness HPI Narrative: Patient is 65 years old white male came to the emergency room with his because of shooting pain from left foot all the way to the back of left knee and left calf muscle started 4 AM and wake him up from sleep. Patient denies having similar symptoms or recent trauma. The last few days patient been a little work around the house. History vascular bypass at the left leg 6 months ago. Currently patient on aspirin and Plavix. Related Data Home Medications Medication Instructions Recorded Confirmed multivitamin 1 tablet PO DAILY 03/07/19 04/21/21 fenofibrate 160 mg tablet 160 mg PO DAILY tablet 09/16/20 04/21/21 isosorbide mononitrate 60 mg 60 mg PO DAILY tablet 09/16/20 04/21/21 tablet,extended release 24 hr omega-3 fatty acids 1,000 mg 2,000 mg PO BID cap 10/21/20 04/21/21 capsule amlodipine [Norvasc] 10 mg PO DAILY 02/09/21 04/21/21 niacin 1,000 mg PO BID 02/17/21 04/21/21 ezetimibe 10 mg tablet 10 mg PO DAILY tablet 02/26/21 04/21/21 famotidine 40 mg tablet 40 mg PO DAILY tablet 02/26/21 04/21/21 gabapentin 300 mg PO TID 03/31/21 04/21/21 pantoprazole 40 mg BID 03/31/21 04/21/21 atorvastatin 80 mg tablet 80 mg PO DAILY 04/15/21 04/21/21 cholecalciferol (vitamin D3) 25 25 mcg PO DAILY 04/15/21 04/21/21 mcg (1,000 unit) capsule Allergies Allergy/AdvReac Type Severity Reaction Status Date / Time No Known Allergies Allergy Verified 04/15/21 12:50 Review of Systems Review of Systems: CONSTITUTIONAL: Denies fever, chills, or sweats. EYES: Denies visual changes, redness, or discharge. ENT: Denies rhinorrhea, congestion, sore throat, or otalgia. CARDIOVASCULAR: Denies chest pain, palpitations, or edema. RESPIRATORY: Denies cough or dyspnea. GASTROINTESTINAL: Denies abdominal pain, nausea, vomiting, or diarrhea. GENITOURINARY: Denies dysuria or hematuria. SKIN: Denies rash or itching. MUSCULOSKELETAL: Denies back pain, joint pain, or myalgia. NEUROLOGIC: Denies headache, numbness, or weakness. PSYCHIATRIC: Denies anxiety or depression. [facility] Past Medical History Medical History Adenomatous colon polyp Arthritis Caputo's esophagus with esophagitis CAD (coronary artery disease) Managed by Dr. Hoyt Chronic pancreatitis CVA (cerebral vascular accident) (~2014) Diabetic peripheral neuropathy Esophageal hiatal hernia Essential hypertension GERD (gastroesophageal reflux disease) History of stroke (~11/2016) Hyperlipidemia LDL goal <70 Kidney stones Myocardial infarction (~2003) Nausea Open wound of finger of right hand (~07/02/19) PAD (peripheral artery disease) (~2011) With right lower extremity stent and left aortofemoral bypass in 2019. CT evidence of moderate stenosis. 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 Prostate cancer Renal infarction Right kidney Renal insufficiency Multiple episodes of acute kidney injury Type 2 diabetes mellitus with hyperglycemia Vitamin D deficiency Surgical History Surgical History History of colonoscopy with polypectomy (05/2020) History of coronary artery stent placement (~2003) 4 stents placed History of esophagogastroduodenoscopy (EGD) (01/2021) May 2020 and January 2020 History of femoropopliteal bypass left - 09/11 History of incision and drainage perirectal abscess left anterior 02/17/21 History of skin graft for left 5th toe diabetic ulcer S/P peripheral artery angioplasty with stent placement 11/2020 right superficial femoral artery stent Status post cataract extraction of both eyes with insertion of intraocular lens Status post open reduction with internal fix
[2021-04-28] MEDS: HYDROcodone/acetaminophen (*CRX) 5-325 MG TABLET 1 TAB PO (22:50)
[2021-04-28 23:10] LABS: D Dimer 1.15 ug/mL (<0.48)
[2021-04-29] MEDS: ENOXAPARIN 80 MG/0.8 ML SYRINGE SUB-Q (00:27)
[2021-04-29 00:49] VITALS: BP 192/104; PULSE 79; RESP 18; O2SAT 98
== END 2021-04-29 00:34 | disposition home or self-care (01) ==
PROVIDERS: Emergency Provider Emergency Medicine; PCP Family Medicine
DX: M79.605 Pain in left leg (principal); I25.10 Atherosclerotic heart disease of native coronary artery without angina pectoris; E78.5 Hyperlipidemia, unspecified; I25.2 Old myocardial infarction; E11.9 Type 2 diabetes mellitus without complications; I10 Essential (primary) hypertension; Z86.73 Personal history of transient ischemic attack (TIA), and cerebral infarction without residual deficits; Z87.891 Personal history of nicotine dependence
CPT/HCPCS: 36415; 85380; 96372; 99283; A9270; J1650

== ENCOUNTER 2021-04-29 07:13 | Outpatient (CLI) | payer MEDICARE, MEDICAID, SELFPAY ==
--- NOTE | ~2021-04-29 | US_ITS ---
EXAMINATION: US venous doppler [facility] DATE: 04/29/2021 07:58 INDICATION: Left lower limb pain TECHNIQUE: Grayscale ultrasound images without and with compression and Doppler ultrasound images of the left lower extremity veins were obtained. COMPARISON: None. FINDINGS: The visualized portions of left common femoral vein, profunda (deep) femoral vein, femoral vein, popl iteal vein, peroneal veins, posterior tibial veins, gastrocnemius vein and greater saphenous vein out flow are patent. Sluggish flow was noted in the left popliteal vein. There is pain left femoral bypas s graft with normal triphasic waveform on color Doppler. Minimal amount of retrograde flow is seen wi thin the nearly completely thrombosed visualized portion of the [place] left femoral artery. IMPRESSION: 1. No deep venous thrombosis in the left lower limb. 2. Patent left femoral artery bypass graft. Reviewed, dictated and finalized at location B. [place] SUPERVISOR
== END 2021-04-29 07:14 | disposition home or self-care (01) ==
PROVIDERS: PCP Family Medicine; Visit Provider Emergency Medicine
DX: M79.662 Pain in left lower leg (principal)
CPT/HCPCS: 93971

== ENCOUNTER 2021-04-30 05:54 | Outpatient (CLI) | payer MEDICARE, MEDICAID, SELFPAY ==
--- NOTE | 2021-04-30 06:46 | SUR.OPER ---
Patient brought to GI Lab. Instructions for patient undergoing Capsule Endoscopy reviewed with patient. Consent form signed. Sensor array applied to patient's abdomen and connected to recorded. Patient swallowed capsule with 12 ozs of water infused with Simethicone. Patient instructed they may have clear liquids at 0830 this AM and eat or drink at 1030 this AM. Patient instructed to return to GI Lab at 1500 this afternoon for removal of recording device and to call [phone] or to return to the hospital if any nausea and vomiting or abdominal pain is experienced.
--- NOTE | 2021-05-01 09:40 | SUR.PHASEII ---
Patient returned to the GI Lab at 1440 for recorder box removal. Patient voiced no complaints. States they have understanding of instructions. Patient left ambulatory.
== END 2021-04-30 05:55 | disposition home or self-care (01) ==
PROVIDERS: PCP Family Medicine; Visit Provider Internal Medicine Gastroenterology
PROC: 0DJ07ZZ Inspection of Upper Intestinal Tract, Via Natural or Artificial Opening (ICD-10-PCS; CPT 91110; principal; 2021-04-30 07:00)
DX: R19.5 Other fecal abnormalities (principal); R11.10 Vomiting, unspecified
CPT/HCPCS: 91110

== ENCOUNTER 2021-05-08 14:18 | Outpatient (CLI) | payer MEDICARE, MEDICAID, SELFPAY ==
[2021-05-08 14:52] LABS: Basophils Percent Auto 0.2 % (0.2-1.2); Eosinophils Absolute Auto 0.3 K/mm3 (0-0.3); Eosinophils Percent Auto 3.2 % (0-4.4); Hematocrit 41.6 % (42.0-52.0); Hemoglobin 13.8 g/dL (14.0-18.0); Immature Granulocyte Absolute 0.06 K/mm3 (0.00-0.031); Immature Granulocyte Percent A 0.6 % (0-0.5); Lymphocytes Percent Auto 18.2 % (18.3-44.2); Mean Corpuscular HGB Conc 33.2 g/dl (32-36); Mean Corpuscular Hemoglobin 28.2 pg (26-34); Mean Corpuscular Volume 84.9 fl (80-100); Mean Platelet Volume 9.7 fl (7.4-10.4); Monocytes Absolute Auto 0.8 K/mm3 (0.1-0.6); Neutrophils Absolute Auto 6.9 K/mm3 (1.3-6.7); Neutrophils Percent Auto 69.8 % (45.5-73.1); Platelet Count Result 215 k/mm3 (150-375); Red Cell Distribution Width 13.6 % (11.5-14.5); White Blood Count 9.9 K/mm3 (4.5-10.0)
[2021-05-08 14:58] LABS: Prothrombin Time 12.9 Seconds (11.1-14.7)
[2021-05-08 15:00] LABS: Alanine Aminotransferase 36 U/L (4-50); Albumin Level 4.8 g/dL (3.5-5.1); Alkaline Phosphatase 67 U/L (38-126); Anion Gap 15 mmol/L (8-16); Aspartate Amino Transferase 33 U/L (17-59); Bilirubin,Total 0.5 mg/dL (0.2-1.3); Blood Urea Nitrogen 41 mg/dL (9-20); Calcium 10.4 mg/dL (8.4-10.2); Carbon Dioxide 28 mmol/L (22-30); Chloride 97 mmol/L (98-107); Estimated Glomerular Filt Rate 51; Glucose 130 mg/dL (65-110); Potassium 4.3 mmol/L (3.4-5.0); Sodium 140 mmol/L (137-145)
== END 2021-05-08 14:19 | disposition home or self-care (01) ==
PROVIDERS: PCP Family Medicine; Visit Provider Internal Medicine Cardiovascular Disease
DX: I25.10 Atherosclerotic heart disease of native coronary artery without angina pectoris (principal)
CPT/HCPCS: 36415; 80053; 85025; 85610

== ENCOUNTER 2021-05-23 09:50 | Outpatient (CLI) | payer MEDICARE, MEDICAID, SELFPAY ==
[2021-05-23 10:42] LABS: Alanine Aminotransferase 43 U/L (4-50); Albumin Level 4.5 g/dL (3.5-5.1); Alkaline Phosphatase 72 U/L (38-126); Anion Gap 5 mmol/L (8-16); Aspartate Amino Transferase 45 U/L (17-59); Bilirubin,Total 0.3 mg/dL (0.2-1.3); Blood Urea Nitrogen 40 mg/dL (9-20); Calcium 10.7 mg/dL (8.4-10.2); Carbon Dioxide 32 mmol/L (22-30); Chloride 98 mmol/L (98-107); Cholesterol 203 mg/dL (0-200); Estimated Glomerular Filt Rate > 60; Glucose 228 mg/dL (65-110); HDL Direct 38 mg/dL; Potassium 4.7 mmol/L (3.4-5.0); Sodium 135 mmol/L (137-145); Triglycerides 422 mg/dL (<150)
[2021-05-23 10:53] LABS: LDL Cholesterol Direct 112 mg/dL
== END 2021-05-23 09:51 | disposition home or self-care (01) ==
PROVIDERS: PCP Family Medicine; Visit Provider Internal Medicine Cardiovascular Disease
DX: E78.5 Hyperlipidemia, unspecified (principal)
CPT/HCPCS: 36415; 80053; 80061

== ENCOUNTER 2021-06-04 17:51 | Observation (INO) | payer MEDICARE, MEDICAID, SELFPAY ==
--- NOTE | ~2021-06-04 | CT_ITS ---
EXAMINATION: CTA chest PE protocol DATE: 06/04/2021 19:45 INDICATION: Chest pain. TECHNIQUE: Computed tomography angiography (CTA) of the chest was performed with 100 mL Omnipaque-350 intravenous contrast timed to evaluate the pulmonary arteries. Coronal maximum intensity projection 3D-reconstructions were created by the technologist. Automated exposure control and iterative reconst ruction technique were employed. The dose-length product was 686.41 mGy-cm. COMPARISON: Chest CT 02/20/2019 FINDINGS: There is mild emphysema. There is a stable 4 mm nodule in right lower lobe. Calcified pulmo nary nodules and calcified hilar and mediastinal lymph nodes are consistent with old granulomatous di sease. There is a calcified pleural plaque at left lung base. There is mild atelectasis in left lower lobe, lingula, and left upper lobe. No pleural effusion. Cardiomegaly is noted. There are coronary a rtery calcifications. No pericardial effusion. There is no pulmonary embolus. There are calcification s of the pancreas, consistent with chronic pancreatitis. Calcifications in the spleen are consistent with old granulomatous disease. There is mild thoracic spondylosis. IMPRESSION: 1. No pulmonary embolus. 2. Mild emphysema. 3. Cardiomegaly. Reviewed, dictated and finalized at location E. 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
--- NOTE | ~2021-06-04 | XR_ITS ---
EXAMINATION: XR chest 1V portable DATE: 06/04/2021 18:40 INDICATION: Central chest pain. Shortness of breath. TECHNIQUE: A single frontal view of the chest was obtained. COMPARISON: Chest 2 views 04/08/2021, CT abdomen and pelvis 03/23/2021 FINDINGS: Calcified pulmonary nodules and calcified hilar and mediastinal lymph nodes are consistent with old granulomatous disease. There is a calcified pleural plaque at left lung base. No pleural eff usion or pneumothorax. The heart size is normal. There is a prominent left paracardial fat pad. IMPRESSION: 1. No acute cardiopulmonary disease. Reviewed, dictated and finalized at location E. TEGY DIRECTOR
--- NOTE | 2021-06-04 17:57 | ECG_ITS ---
Measurements Intervals [place] Rate: 74 P: 39 MT: 156 QRS: -9 QRSD: 102 T: 66 QT: 390 QTc: 434 Interpretive Statements SINUS RHYTHM INFERIOR INFARCT, AGE INDETERMINATE BORDERLINE ST-T WAVE ABNORMALITY- LAT/HIGH LAT LEADS ABNORMAL ECG Electronically Signed On 06-04-2021 20:38:37 [employer] SUPERVISOR by Raulito Hoyt D.O.
--- NOTE | 2021-06-04 17:58 | ED.CHESTPAIN ---
HPI - Chest Pain General Chief Complaint: Chest Pain Stated Complaint: chest pain Time Seen by Provider: 06/04/21 17:59 Source: patient Mode of arrival: wheelchair History of Present Illness HPI narrative: this is a 65-year-old gentleman with a history of CAD had a cardiac catheterization in mid March appears to have a stent in the RCA and left circumflex presents with a 10/10 chest discomfort substernal with no radiation patient had this pain started about 3 in the afternoon apparently misplaces nitroglycerin so did not take any. Patient had some diaphoresis nausea and some shortness of breath. Currently there is no abdominal pain no diarrhea constipation, patient with no fever chills. 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 Onset (ago): hour(s) Timing of current episode: constant Prior episodes: Yes Onset: during rest Pain location: substernal Pain radiation: none Severity: severe Pain scale (0-10): 10 Quality: heaviness Relieving factors: nothing Exacerbating factors: nothing Context: recent illness Associated symptoms: nausea, diaphoresis and dyspnea Treatment prior to arrival: none Risk Factors Coronary artery disease risk factors: diabetes and hyperlipidemia Related Data Home Medications Medication Instructions Recorded Confirmed multivitamin 1 tablet PO DAILY 03/07/19 06/04/21 isosorbide mononitrate 60 mg 60 mg PO DAILY tablet 09/16/20 06/04/21 tablet,extended release 24 hr amlodipine [Norvasc] 10 mg PO DAILY 02/09/21 06/04/21 ezetimibe 10 mg tablet 10 mg PO DAILY tablet 02/26/21 06/04/21 famotidine 40 mg tablet 40 mg PO DAILY tablet 02/26/21 06/04/21 gabapentin 300 mg PO TID 03/31/21 06/04/21 pantoprazole 40 mg BID 03/31/21 06/04/21 cholecalciferol (vitamin D3) 25 25 mcg PO DAILY 04/15/21 06/04/21 mcg (1,000 unit) capsule fenofibrate 160 mg PO DAILY 06/04/21 06/04/21 niacin 1,000 mg PO BID 06/04/21 06/04/21 Allergies Allergy/AdvReac Type Severity Reaction Status Date / Time No Known Allergies Allergy Verified 06/04/21 18:47 Review of Systems Review of Systems: All systems reviewed & are unremarkable except as noted in HPI and below PMFSH Past Medical History Medical History Adenomatous colon polyp Arthritis Caputo's esophagus with esophagitis CAD (coronary artery disease) Managed by Dr. Hoyt Chronic pancreatitis CVA (cerebral vascular accident) (~2014) Diabetic peripheral neuropathy Esophageal hiatal hernia Essential hypertension GERD (gastroesophageal reflux disease) History of stroke (~11/2016) Hyperlipidemia LDL goal <70 Kidney stones Myocardial infarction (~2003) Nausea Open wound of finger of right hand (~07/02/19) PAD (peripheral artery disease) (~2011) With right lower extremity stent and left aortofemoral bypass in 2019. CT evidence of moderate stenosis. 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 Prostate cancer Renal infarction Right kidney Renal insufficiency Multiple episodes of acute kidney injury Type 2 diabetes mellitus with hyperglycemia Vitamin D deficiency Surgical History Surgical History History of colonoscopy with polypectomy (05/2020) History of coronary artery stent placement (~2003) 4 stents placed History of esophagogastroduodenoscopy (EGD) (01/2021) May 2020 and January 2020 History of femoropopliteal bypass left - 09/11 History of incision and drainage perirectal abscess left anterior 02/17/21 History of skin graft for left 5th toe diabetic ulcer S/P peripheral artery angioplasty with stent placement 11/2020 right superficial femoral artery stent Status post cataract extraction of both eyes with insertion of intraocular lens Status post open reduction with internal fixation of fracture Hips and legs as a child Family History Fam
[2021-06-04 18:00] VITALS: BP 164/99; PULSE 76; RESP 20; TEMP 36.9; O2SAT 98
[2021-06-04] MEDS: ASPIRIN 81 MG CHEWABLE TABLET 324 MG PO (18:05)
[2021-06-04] MEDS: ONDANSETRON INJ 4 MG/2 ML VIAL IV PUSH (18:05)
[2021-06-04] MEDS: NITROGLYCERIN SL 0.4 MG TABLET SUBLINGUAL (18:10)
[2021-06-04 18:20] LABS: Basophils Absolute Auto 0.02 K/mm3 (0.00-0.10); Basophils Percent Auto 0.3 % (0.0-1.0); Eosinophils Absolute Auto 0.44 K/mm3 (0.02-0.50); Eosinophils Percent Auto 6.7 % (1.0-6.0); Hematocrit 37.4 % (37.0-46.0); Hemoglobin 12.4 g/dL (12.4-15.3); Immature Granulocyte Absolute 0.06 K/mm3 (0.00-0.00); Immature Granulocyte Percent A 0.9 % (0.0-0.0); Lymphocytes Absolute Auto 1.69 K/mm3 (1.10-4.50); Lymphocytes Percent Auto 25.7 % (18.0-42.0); Mean Corpuscular HGB Conc 33.2 g/dL (32.0-36.0); Mean Corpuscular Hemoglobin 28.1 pg (27.0-31.0); Mean Corpuscular Volume 84.6 fL (78.0-102.0); Mean Platelet Volume 9.6 fl (8.7-11.0); Monocytes Absolute Auto 0.55 K/mm3 (0.10-0.90); Monocytes Percent Auto 8.4 % (2.0-11.0); Neutrophils Absolute Auto 3.8 K/mm3 (1.7-7.2); Platelet Count Result 219 K/mm3 (150-420); Red Blood Count 4.42 M/mm3 (4.70-6.10); Red Cell Distribution Width 13.6 % (11.6-14.4); White Blood Count 6.6 K/mm3 (4.8-10.8)
[2021-06-04] MEDS: MAG HYDROX/ALUMINUM HYD/SIMETH 30 ML, PHENobarb/HYOSCY/ATROPINE/SCOP 32.4 MG, LIDOCAINE... PO ×2 (18:25→20:38)
[2021-06-04 18:35] LABS: Partial Thromboplastin Time 24.1 SEC (23.90-30.70); Prothrombin Time 10.2 Seconds (9.50-12.10)
[2021-06-04 18:45] LABS: Alanine Aminotransferase 47 U/L (16-63); Albumin Level 3.3 g/dL (3.4-5.0); Alkaline Phosphatase 67 U/L (46-116); Anion Gap 10 mmol/L (8-16); Aspartate Amino Transferase 25 U/L (15-37); Bilirubin,Total 0.2 mg/dL (0.00-1.00); Blood Urea Nitrogen 36 mg/dL (7-18); Calcium 9.4 mg/dL (8.5-10.1); Carbon Dioxide 30 mmol/L (21-32); Chloride 100 mmol/L (98-108); Estimated CRCL calculation 49 ml/min; Estimated Glomerular Filt Rate 57; Glucose 189 mg/dL (70-99); Lactic Acid Reflex 1.5 mmol/L (0.4-2.0); Lipase 430 U/L (73-393); NT Pro B Type Natriuretic Pept 2096 pg/mL (0-125); Osmolality Calculated 303 mOsm/kg (285-295); Potassium 4.2 mmol/L (3.5-5.1); Sodium 140 mmol/L (136-145); Total Protein 7.1 g/dL (6.4-8.2); Troponin I 33.4 ng/L (0.00-60.4)
[2021-06-04 18:57] LABS: D Dimer 1.76 mg/L (0.19-0.50)
--- NOTE | 2021-06-04 19:33 | PC.NURSE ---
Took Pt report on Pt at this time from Nurse Nuzhat CASEY. Pt. resting on stretcher being preped to take to CT. Pt states pain is a 3 on a 1-10 scale. Noted smiling and conversational.
--- NOTE | 2021-06-04 20:17 | PC.NURSE ---
Pt returned for CT via stretcher. no change in condition.
--- NOTE | 2021-06-04 20:30 | PC.NURSE ---
Pt reporting chest preasure at this itmwe. EDER Vasques advised tristian recieved.
--- NOTE | 2021-06-04 21:19 | PC.NURSE ---
Pt report called to Sabi CASEY. Pt packaged for transport to floor. Pt reports pain a 7 but im releasing a lot of Gas
[2021-06-05] VITALS: BP 174/74; PULSE 63; RESP 20; TEMP 36.4; O2SAT 99
[2021-06-05 01:20] VITALS: BP 148/62; PULSE 65; RESP 18; TEMP 36.6; O2SAT 97
--- NOTE | 2021-06-05 01:30 | PC.NURSE ---
Patient admitted to room 209 from the ER, is alert and oriented and denies pain. Request a snack at this time and is oriented to call light and surroundings.
[2021-06-05 01:33] VITALS: BMI 30.2
[2021-06-05 03:53] VITALS: BP 174/64; PULSE 60; TEMP 36.4; O2SAT 98
[2021-06-05 03:54] VITALS: PULSE 60
[2021-06-05 05:18] LABS: Hematocrit 35.5 % (37.0-46.0); Hemoglobin 11.5 g/dL (12.4-15.3); Mean Corpuscular HGB Conc 32.4 g/dL (32.0-36.0); Mean Corpuscular Hemoglobin 27.6 pg (27.0-31.0); Mean Corpuscular Volume 85.1 fL (78.0-102.0); Mean Platelet Volume 10.3 fl (8.7-11.0); Platelet Count Result 195 K/mm3 (150-420); Red Blood Count 4.17 M/mm3 (4.70-6.10); Red Cell Distribution Width 13.7 % (11.6-14.4); White Blood Count 6.3 K/mm3 (4.8-10.8)
[2021-06-05 05:38] LABS: Alanine Aminotransferase 39 U/L (16-63); Alkaline Phosphatase 56 U/L (46-116); Anion Gap 9 mmol/L (8-16); Aspartate Amino Transferase 14 U/L (15-37); Bilirubin,Total 0.2 mg/dL (0.00-1.00); Blood Urea Nitrogen 34 mg/dL (7-18); Calcium 9.2 mg/dL (8.5-10.1); Carbon Dioxide 29 mmol/L (21-32); Chloride 102 mmol/L (98-108); Estimated CRCL calculation 54 ml/min; Estimated Glomerular Filt Rate 56; Glucose 106 mg/dL (70-99); Magnesium 2.1 mg/dL (1.8-2.4); NT Pro B Type Natriuretic Pept 1490 pg/mL (0-125); Osmolality Calculated 297 mOsm/kg (285-295); Potassium 4.2 mmol/L (3.5-5.1); Sodium 140 mmol/L (136-145); Total Protein 6.3 g/dL (6.4-8.2); Troponin I 39.2 ng/L (0.00-60.4)
[2021-06-05] MEDS: HYDROcodone/acetaminophen (*CRX) 5-325 MG TABLET 1 TAB PO (05:44)
[2021-06-05] MEDS: GABAPENTIN 300 MG CAPSULE PO (06:02)
--- NOTE | 2021-06-05 07:20 | PM.SD2 ---
Same Day Admit/Disch: HPI History of Present Illness Chief complaint: atypical chest pain/GERD Narrative: Cornelius Babin Jr. is a 65 year old male that presented to emergency department with complaints of chest pain. Patient has a past medical history of [place] with stent placement, arthritis, Caputo's esophagus with esophagitis, CAD, chronic pancreatitis, CVA, diabetic neuropathy, esophageal hiatal hernia, essential hypertension, GERD, CVA, hyperlipidemia, kidney stones, prostate cancer, renal infarction, renal insufficiency, and type 2 diabetes, patient does have a cardiac history he recently had a cardiac cath with stent placement x4 in March, he also has a history of chronic acid reflux. Patient notes that he has had a esophageal dilation in the past due to his severe acid reflux. According to patient at approximately 3:00 PM he developed chest discomfort. Patient notes that he was not able to distinguish whether it was chest pains from A IN or from his acid reflux. Patient notes that in March he proceeded to the emergency department thinking that his acid reflux was acting up and was admitted for a IN with stent placement. He was told by his management recruiter if he felt any chest discomfort he would need to proceed to the nearest emergency department. Patient notes that at 6:00 his chest discomfort did not resolve so he came to our emergency department. Patient notes that after he received a GI cocktail his symptoms resolved. He also notes that he misplaced his nitro at home and did not take any nitro. . Patient notes that he does eat foods that aggravate his acid reflux. Vital signs 97.5, 60, 98, blood pressure 174/64, 98% on room air. WBC 6.6, hemoglobin 12.4, hematocrit 37.4, platelets 219, D-dimer 1.79, sodium 140, potassium 4.2, BUN 36, creatinine 1.26, glucose 189, lactic acid 1.5, magnesium 2.1, AST 25, ALT 47, troponin 33.4, BUN 2096, chest x-ray no acute findings, CTA no PE indicated mild emphysema, EKG sinus rhythm with a heart rate of 74. Patient admitted for acid reflux and to rule out IN. The patient denies SOB, CP, palpitation, extremity numbness, lightheadedness, dizziness, constipation, diarrhea, chills, or fever. [facility] Past Medical History Medical History Adenomatous colon polyp Arthritis Caputo's esophagus with esophagitis CAD (coronary artery disease) Managed by Dr. Hoyt Chronic pancreatitis CVA (cerebral vascular accident) (~2014) Diabetic peripheral neuropathy Esophageal hiatal hernia Essential hypertension GERD (gastroesophageal reflux disease) History of stroke (~11/2016) Hyperlipidemia LDL goal <70 Kidney stones Myocardial infarction (~2003) Nausea Open wound of finger of right hand (~07/02/19) PAD (peripheral artery disease) (~2011) With right lower extremity stent and left aortofemoral bypass in 2018. CT evidence of moderate stenosis. 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 Prostate cancer Renal infarction Right kidney Renal insufficiency Multiple episodes of acute kidney injury Type 2 diabetes mellitus with hyperglycemia Vitamin D deficiency Surgical History Surgical History History of colonoscopy with polypectomy (05/2020) History of coronary artery stent placement (~2003) 4 stents placed History of esophagogastroduodenoscopy (EGD) (01/2021) May 2020 and January 2020 History of femoropopliteal bypass left - 09/11 History of incision and drainage perirectal abscess left anterior 02/17/21 History of skin graft for left 5th toe diabetic ulcer S/P peripheral artery angioplasty with stent placement 11/2020 right superficial femoral artery stent Status post cataract extraction of both eyes with insertion of intraocular lens Status post open reduction with internal fixation of fracture Hips and legs as a child Family History Family History (Reviewed 06/04/21 @ 18:02 by [place]
[2021-06-05 07:46] LABS: Glucose Point of Care 107 mg/dl (65-105)
[2021-06-05] MEDS: CHOLECALCIFEROL 1,000 UNITS TABLET 1000 UNITS PO (09:14)
[2021-06-05] MEDS: NIACIN SA 500 MG TABLET 1000 MG PO (09:28)
[2021-06-05] MEDS: EZETIMIBE 10 MG TABLET PO (09:28)
[2021-06-05] MEDS: OMEGA 3 POLYUNSAT FATTY ACIDS 1 GM CAP 2 GM PO (09:28)
[2021-06-05] MEDS: ROSUVASTATIN 10 MG TABLET 40 MG PO (09:28)
[2021-06-05] MEDS: ISOSORBIDE MONONITRATE 60 MG TAB.ER.24H PO (09:28)
[2021-06-05] MEDS: ASPIRIN 81 MG ENTERIC TABLET PO (09:29)
[2021-06-05] MEDS: DULoxetine HCL 30 MG CAPSULE.DR 60 MG PO (09:29)
[2021-06-05] MEDS: FAMOTIDINE 20 MG TABLET 40 MG PO (09:30)
[2021-06-05] MEDS: FENOFIBRATE NANOCRYSTALLIZED 145 MG TABLET PO (09:30)
[2021-06-05] MEDS: PANTOPRAZOLE SODIUM IV 40 MG VIAL IV PUSH (09:30)
[2021-06-05 09:31] VITALS: PULSE 100
[2021-06-05] MEDS: TAMSULOSIN HCL 0.4 MG CAPSULE PO (09:31)
[2021-06-05] MEDS: METOPROLOL SUCCINATE EXT REL 50 MG TABCR PO (09:31)
[2021-06-05] MEDS: hydroCHLOROthiazide 25 MG TABLET PO (09:31)
[2021-06-05] MEDS: FINASTERIDE 5 MG TABLET PO (09:31)
[2021-06-05] MEDS: amLODIPine BESYLATE 5 MG TABLET 10 MG PO (09:31)
[2021-06-05] MEDS: MULTIVITAMINS THERAPEUTIC TAB (*BKC) 1 TABLET PO (09:31)
[2021-06-05] MEDS: CLOPIDOGREL BISULFATE 75 MG TABLET PO (09:31)
[2021-06-05 12:07] LABS: Glucose Point of Care 238 mg/dl (65-105)
--- NOTE | 2021-06-08 15:44 | PC.NURSE ---
Pt states he received and understood his discharge instructions. Pt has no other comments.
--- NOTE | 2021-06-10 12:23 | PC.NURSE ---
06-05-21 @ 3289 patient discharge to home. lungs cta. no sob. denies cp or gi distress. importance of sitting up after he eats. importance of picking up new meds. if cp returns to return to er.
== END 2021-06-05 13:40 | disposition home or self-care (01) ==
LOC: CHSED 20:11 → CHS2ND 20:38
PROVIDERS: Nurse Practitioner; Admitting Provider Emergency Medicine; Emergency Provider Emergency Medicine; PCP Family Medicine; Visit Provider Emergency Medicine
DX: R07.89 Other chest pain (principal); K21.9 Gastro-esophageal reflux disease without esophagitis; I25.10 Atherosclerotic heart disease of native coronary artery without angina pectoris; I10 Essential (primary) hypertension; I73.9 Peripheral vascular disease, unspecified; I25.2 Old myocardial infarction; E11.42 Type 2 diabetes mellitus with diabetic polyneuropathy; E55.9 Vitamin D deficiency, unspecified; E78.5 Hyperlipidemia, unspecified; K22.70 Barrett's esophagus without dysplasia; K20.90 Esophagitis, unspecified without bleeding; K44.9 Diaphragmatic hernia without obstruction or gangrene; C61 Malignant neoplasm of prostate; N28.0 Ischemia and infarction of kidney; N28.9 Disorder of kidney and ureter, unspecified; R79.89 Other specified abnormal findings of blood chemistry; Z95.5 Presence of coronary angioplasty implant and graft; Z86.73 Personal history of transient ischemic attack (TIA), and cerebral infarction without residual deficits; Z86.010 Personal history of colon polyps; Z87.891 Personal history of nicotine dependence; Z87.442 Personal history of urinary calculi; Z79.4 Long term (current) use of insulin
CPT/HCPCS: 36415; 71045; 71275; 80053; 82948; 83605; 83690; 83735; 83880; 84484; 85025; 85027; 85380; 85610; 85730; 93005; 96374; 96375; 99285; A9270; C9113; G0378; J1815; J2405; Q9967

== ENCOUNTER 2021-06-17 20:36 | Observation (INO) | payer MEDICARE, MEDICAID, SELFPAY ==
[2021-06-17] VITALS (16 sets, daily range): BP systolic 135–181; BP diastolic 78–94; PULSE 73–89; RESP 13–21; TEMP 36.8; O2SAT 95–100
--- NOTE | ~2021-06-17 | XR_ITS ---
EXAMINATION: XR chest 2V EXAM DATE: 06/17/2021 21:08 INDICATION: Midsternal CP, N,V Today HX Stents, CAD, HTN TECHNIQUE: Frontal and lateral projections of the chest obtained and reviewed. Comparison is made to prior examination from 06/04/2021. FINDINGS: Large bridging lower thoracic endplate osteophytes, diffuse idiopathic skeletal hyperostos is. Some scattered calcified granulomas. The cardiomediastinal silhouette is prominent but magnified on this AP technique. Left pleural blunting unchanged from prior study, probably chronic pleural blun ting. Left calcified pleural plaques. IMPRESSION: 1. No acute cardiothymic findings were interval change. Reviewed, dictated and finalized at location G. R PASTE MIXER
--- NOTE | ~2021-06-17 | CT_ITS ---
EXAMINATION: CT chest abdomen pelvis wo con DATE: 06/18/2021 02:51 INDICATION: Severe esophagitis. Assess for esophageal perforation. TECHNIQUE: Computed tomography (CT) of the chest, abdomen, and pelvis was performed without intraveno us contrast. Automated exposure control and iterative reconstruction technique were employed. The dos e-length product was 933.39 mGy-cm. COMPARISON: Chest CT dated 06/04/[address] abdomen and pelvis dated 03/23/2021 FINDINGS: CHEST CT: Mild emphysema. Calcified pleural plaque along the posterior dome of left hemidiaphragm. There is yuriy e associated atelectasis and pleural parenchymal scarring with architectural distortion in the basila r left lower lobe and lingula. Scattered bilateral calcified pulmonary nodules along with calcified m ediastinal and bilateral hilar lymph nodes consistent with old granulomatous disease. 405 mm noncalci fied right lower lobe nodule unchanged since 02/20/2019 consistent with old granulomatous disease. No pneumonia, pulmonary edema, pleural effusion or pneumothorax. Heart size is normal. Atherosclerotic coronary artery calcification and possible coronary artery stenting. No pericardial effusion. No path ologically enlarged thoracic lymphadenopathy. Small sliding-type hiatal hernia. Esophagus appears unr emarkable with no pneumomediastinum. Mild thoracic spondylosis. ABDOMEN/PELVIS CT: Effusion scattered small hepatic and splenic calcifications consistent with old granulomatous disease . Gallbladder and bilateral adrenal glands are normal. Multiple dystrophic calcifications throughout the pancreas consistent with sequela of chronic pancreatitis. No periappendiceal inflammatory strandi ng to suggest acute pancreatitis. 1.5 cm cyst at the upper pole of the right kidney. There are severa l small calcifications in both kidneys the majority of which appear to be associated with vessels how ever a couple lower pole of the left kidney could represent nonobstructing renal stones. Bowels inclu ding the appendix are normal. Bladder is normal. Prostatomegaly measuring 4.9 x 3.6 cm. No free intra peritoneal gas or fluid. No pathologically enlarged abdominal or pelvic lymphadenopathy. There is pancho cified atherosclerosis of the aorta and many of the other arteries. Mild lumbar spondylosis. IMPRESSION: 1. Mild emphysema and chronic scarring with calcified pleural parenchymal plaques at the left lung ba se likely sequela of prior exudative effusion. 2. Small sliding-type hiatal hernia. No evident esophagitis or pneumoperitoneum. 3. No acute intra-abdominal/pelvic process. 4. Prostatomegaly. 5. A few small scattered calcifications at the bilateral renal trish which appear primarily atheroscle rotic although could not exclude nonobstructing nephrolithiasis. Reviewed, dictated and finalized at location A. PRODUCT PURCHASER IMPRESSION: 1. Mild emphysema and chronic scarring with calcified pleural parenchymal plaqu es at the left lung base likely sequela of prior exudative effusion. 2. Small sliding-type hiatal hernia. No evident esophagitis or pneumoperitoneum . 3. No acute intra-abdominal/pelvic process. 4. Prostatomegaly. 5. A few small scattered calcifications at the bilateral renal trish which appea r primarily atherosclerotic although could not exclude nonobstructing nephrolit hiasis.
--- NOTE | 2021-06-17 20:41 | ECG_ITS ---
Measurements Intervals [place] Rate: 87 P: 34 [place]: 174 QRS: -11 QRSD: 109 T: 68 QT: 366 QTc: 441 Interpretive Statements SINUS RHYTHM INFERIOR INFARCT, AGE INDETERMINATE BORDERLINE ST-T WAVE ABNORMALITY- HIGH LATERAL LEADS ABNORMAL ECG Electronically Signed On 06-18-2021 5:47:37 IN HOME CAREGIVER by Raulito Hoyt D.O.
[2021-06-17] MEDS: ONDANSETRON INJ 4 MG/2 ML VIAL IV PUSH (20:54)
--- NOTE | 2021-06-17 21:02 | ED.CHESTPAIN ---
HPI - Chest Pain General Chief Complaint: Chest Pain Stated Complaint: chest pain Time Seen by Provider: 06/17/21 20:45 Source: patient History of Present Illness HPI narrative: Patient presents with chest pain. Reports has had pain all day today. Describes it as an ache constant but waxes and wanes and intensity worse with laying flat or bending over. He is attempted Maalox at home with some relief he did attempt nitro at home but did not have relief. Symptoms are associated with nausea and vomiting but they are not resolving he came to the ER for evaluation. Reports a recent admission to [facility] earlier this month for similar symptoms he was discharged home with reflux medications and his symptoms improved. He does report a history of GERD as well as coronary artery disease and prior stent placement. Related Data Home Medications Medication Instructions Recorded Confirmed multivitamin 1 tablet PO DAILY 03/07/19 06/08/21 isosorbide mononitrate 60 mg 60 mg PO DAILY tablet 09/16/20 06/08/21 tablet,extended release 24 hr amlodipine [Norvasc] 10 mg PO DAILY 02/09/21 06/08/21 famotidine 40 mg tablet 40 mg PO DAILY tablet 02/26/21 06/08/21 fenofibrate 160 mg PO DAILY 06/04/21 06/08/21 niacin 1,000 mg PO BID 06/04/21 06/08/21 Allergies Allergy/AdvReac Type Severity Reaction Status Date / Time No Known Allergies Allergy Verified 06/17/21 20:47 Review of Systems Review of Systems: CONSTITUTIONAL: Denies fever, chills, or sweats. EYES: Denies visual changes, redness, or discharge. ENT: Denies rhinorrhea, congestion, sore throat, or otalgia. CARDIOVASCULAR: Denies palpitations, or edema. RESPIRATORY: Denies cough or dyspnea. GASTROINTESTINAL: Denies abdominal pain, nausea, vomiting, or diarrhea. GENITOURINARY: Denies dysuria or hematuria. SKIN: Denies rash or itching. MUSCULOSKELETAL: Denies back pain, joint pain, or myalgia. NEUROLOGIC: Denies headache, numbness, dizziness, or weakness. PSYCHIATRIC: Denies anxiety or depression. All systems reviewed & are unremarkable except as noted in HPI and below PMFSH Past Medical History Medical History Adenomatous colon polyp Arthritis Caputo's esophagus with esophagitis CAD (coronary artery disease) Managed by Dr. Hoyt Chronic pancreatitis CVA (cerebral vascular accident) (~2014) Diabetic peripheral neuropathy Esophageal hiatal hernia Essential hypertension GERD (gastroesophageal reflux disease) History of stroke (~11/2016) Hyperlipidemia LDL goal <70 Kidney stones Myocardial infarction (~2003) Nausea Open wound of finger of right hand (~07/02/19) PAD (peripheral artery disease) (~2011) With right lower extremity stent and left aortofemoral bypass in 2018. CT evidence of moderate stenosis. 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 Prostate cancer Renal infarction Right kidney Renal insufficiency Multiple episodes of acute kidney injury Type 2 diabetes mellitus with hyperglycemia Vitamin D deficiency Surgical History Surgical History History of colonoscopy with polypectomy (05/2020) History of coronary artery stent placement (~2003) 4 stents placed History of esophagogastroduodenoscopy (EGD) (01/2021) May 2020 and January 2020 History of femoropopliteal bypass left - 09/11 History of incision and drainage perirectal abscess left anterior 02/17/21 History of skin graft for left 5th toe diabetic ulcer S/P peripheral artery angioplasty with stent placement 11/2020 right superficial femoral artery stent Status post cataract extraction of both eyes with insertion of intraocular lens Status post open reduction with internal fixation of fracture Hips and legs as a child Family History Family History Mother Diabetes mellitus Family history of arthritis Family history
[2021-06-17 21:05] LABS: Basophils Percent Auto 0.4 % (0.2-1.2); Eosinophils Absolute Auto 0.3 K/mm3 (0-0.3); Eosinophils Percent Auto 3.9 % (0-4.4); Hematocrit 43.5 % (42.0-52.0); Hemoglobin 14.4 g/dL (14.0-18.0); Immature Granulocyte Absolute 0.06 K/mm3 (0.00-0.031); Immature Granulocyte Percent A 0.7 % (0-0.5); Lymphocytes Absolute Auto 1.98 K/mm3 (0.9-3.2); Lymphocytes Percent Auto 24.4 % (18.3-44.2); Mean Corpuscular HGB Conc 33.1 g/dl (32-36); Mean Corpuscular Hemoglobin 28.2 pg (26-34); Mean Corpuscular Volume 85.1 fl (80-100); Mean Platelet Volume 9.6 fl (7.4-10.4); Monocytes Absolute Auto 0.7 K/mm3 (0.1-0.6); Neutrophils Absolute Auto 5.1 K/mm3 (1.3-6.7); Neutrophils Percent Auto 62.6 % (45.5-73.1); Platelet Count Result 241 k/mm3 (150-375); Red Blood Count 5.11 M/mm3 (4.6-6.20); White Blood Count 8.1 K/mm3 (4.5-10.0)
[2021-06-17 21:14] LABS: INR 0.9; Prothrombin Time 11.9 Seconds (11.1-14.7)
[2021-06-17 21:15] LABS: Partial Thromboplastin Time 28.4 SECONDS (22.3-36.8)
[2021-06-17 21:16] LABS: Alanine Aminotransferase 31 U/L (4-50); Albumin Level 4.7 g/dL (3.5-5.1); Alkaline Phosphatase 70 U/L (38-126); Anion Gap 7 mmol/L (8-16); Aspartate Amino Transferase 44 U/L (17-59); Bilirubin,Total 0.3 mg/dL (0.2-1.3); Blood Urea Nitrogen 42 mg/dL (9-20); Carbon Dioxide 36 mmol/L (22-30); Chloride 94 mmol/L (98-107); Estimated CRCL calculation 51 ml/min; Estimated Glomerular Filt Rate > 60; Glucose 156 mg/dL (65-110); Lipase 539 U/L (23-300); Potassium 4.3 mmol/L (3.4-5.0); Sodium 137 mmol/L (137-145)
[2021-06-17] MEDS: MAG HYDROX/AL HYDROX/SIMETH 30 ML UDC PO (21:20)
[2021-06-17] MEDS: LIDOCAINE HCL 2% VISC SOLN 15 ML UDC 20 ML PO (21:20)
[2021-06-17] MEDS: PANTOPRAZOLE SODIUM IV 40 MG VIAL (21:23)
[2021-06-17 21:27] LABS: Troponin I 0.021 ng/mL (0.000-0.034)
[2021-06-17] MEDS: SODIUM CHLORIDE 0.9% IV 500 ML 999 ML IV CONT (21:34)
[2021-06-17] MEDS: FAMOTIDINE 20 MG/2 ML VIAL IV PUSH (21:34)
[2021-06-17] MEDS: SUCRALFATE 1 GM TABLET PO (22:31)
[2021-06-17] MEDS: NITROGLYCERIN SL 0.4 MG TABLET SUBLINGUAL (23:28)
[2021-06-17] MEDS: ACETAMINOPHEN 500 MG TABLET 1000 MG PO (23:28)
[2021-06-17] MEDS: ASPIRIN 81 MG CHEWABLE TABLET 324 MG PO (23:28)
[2021-06-18] VITALS (16 sets, daily range): BP systolic 111–161; BP diastolic 67–85; PULSE 70–92; RESP 15–24; TEMP 35.6–36.9; O2SAT 94–100; BMI 27.1
[2021-06-18 00:39] LABS: Glucose Point of Care 77 mg/dl (65-105)
[2021-06-18 00:43] LABS: Troponin I 0.023 ng/mL (0.000-0.034)
[2021-06-18] MEDS: NITROGLYCERIN OINTMENT 1 INCH DOSE TRANSDERM ×4 (01:13→18:01)
--- NOTE | 2021-06-18 01:39 | PM.IMHP ---
H&P: HPI History of Present Illness Date/Time: 06/18/21 01:39 Chief Complaint: Chest pain Narrative: 65 year old male that presented to emergency department with complaints of chest pain. Patient has a past medical history of [place] with stent placement, arthritis, Caputo's esophagus with esophagitis, CAD, chronic pancreatitis, CVA, diabetic neuropathy, esophageal hiatal hernia, essential hypertension, GERD, CVA, hyperlipidemia, kidney stones, prostate cancer, renal infarction, renal insufficiency, and type 2 diabetes, patient does have a cardiac history he recently had a cardiac cath with stent placement x4 patient was told by his nurse practitioner manager to come back to the ER for any chest pain, patient complaining of chest pain all day today dull in nature in the upper chest associated with 1 episode of vomiting worsening with deep breath worsening with movement of the chest did not improve significantly with antacid or nitrate cardiology was consulted plan for admitted to the hospital rule out ACS patient will be treated for ACS and also possible reflux esophagitis Review of Systems Review of Systems: All systems reviewed & are unremarkable except as noted in HPI and below [facility] Past Medical History Medical History Adenomatous colon polyp Arthritis Caputo's esophagus with esophagitis CAD (coronary artery disease) Managed by Dr. Hoyt Chronic pancreatitis CVA (cerebral vascular accident) (~2014) Diabetic peripheral neuropathy Esophageal hiatal hernia Essential hypertension GERD (gastroesophageal reflux disease) History of stroke (~11/2016) Hyperlipidemia LDL goal <70 Kidney stones Myocardial infarction (~2003) Nausea Open wound of finger of right hand (~07/02/19) PAD (peripheral artery disease) (~2011) With right lower extremity stent and left aortofemoral bypass in 2018. CT evidence of moderate stenosis. 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 Prostate cancer Renal infarction Right kidney Renal insufficiency Multiple episodes of acute kidney injury Type 2 diabetes mellitus with hyperglycemia Vitamin D deficiency Surgical History Surgical History History of colonoscopy with polypectomy (05/2020) History of coronary artery stent placement (~2003) 4 stents placed History of esophagogastroduodenoscopy (EGD) (01/2021) May 2020 and January 2020 History of femoropopliteal bypass left - 09/11 History of incision and drainage perirectal abscess left anterior 02/17/21 History of skin graft for left 5th toe diabetic ulcer S/P peripheral artery angioplasty with stent placement 11/2020 right superficial femoral artery stent Status post cataract extraction of both eyes with insertion of intraocular lens Status post open reduction with internal fixation of fracture Hips and legs as a child Family History Family History Mother Diabetes mellitus Family history of arthritis Family history of diabetes mellitus in first degree relative Family history of coronary artery disease Hypertension Cerebrovascular accident Father Family history of alcoholism Sibling Myocardial infarction Diabetes mellitus Other Family history of cardiovascular disease Social History Social History Social History: Patient lives with his of 45 years. They had 3 children. 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 He used to drink alcohol quite heavily (mostly beer) but he quit drinking 20 years ago. He used to smoke quite heavily and smoked between 3-3.5 packs of cigarettes per day for approximately 30 years but quit smoking in 2003. He denies any history of illicit substance use. Primary care physician: Dr. Jan Espinosa Code status: Full code Surrogate decision maker: Smoking pac
[2021-06-18 01:44] LABS: SARS-CoV-2 RNA PCR Negative
[2021-06-18 02:54] LABS: Cholesterol 183 mg/dL (0-200); HDL Direct 32 mg/dL; Lipase 394 U/L (23-300); Triglycerides 337 mg/dL (<150)
[2021-06-18 03:04] LABS: LDL Cholesterol Direct 91 mg/dL
[2021-06-18 03:18] LABS: Troponin I 0.026 ng/mL (0.000-0.034)
[2021-06-18] MEDS: DEXTROSE 50% 25 GM/50 ML SYRINGE IV PUSH (03:19)
[2021-06-18 03:22] LABS: Glucose Point of Care 52 mg/dl (65-105)
--- NOTE | 2021-06-18 03:31 | ADMGEN ---
This patient, Cornelius Babin Jr., was admitted to IMU Room 202-01. Patient/family oriented to hospital policies and general routines including ID bracelet, bed and alarms, visiting hours, pain management, procedures, bathroom and other care routines, personal items, smoking policy, room service/diet, and visiting hours. Information on how to activate the Rapid Response Team has been discussed. Patient/Family are encouraged to report perceived risks to care and to ask questions if they do not understand what they are told or what they should do.
[2021-06-18] MEDS: methylPREDNISolone SOD SUCC 40 MG VIAL IV PUSH (03:57)
[2021-06-18] MEDS: PANTOPRAZOLE SODIUM IV 40 MG VIAL IV PUSH ×3 (03:57→18:01)
[2021-06-18] MEDS: SODIUM CHLORIDE 0.9% IV 1,000 ML 75 ML IV CONT (03:58)
[2021-06-18 04:08] LABS: Glucose Point of Care 105 mg/dl (65-105)
[2021-06-18] MEDS: DEXTROSE 5%/0.9% SOD CHL 1,000 ML 50 ML IV CONT (05:17)
[2021-06-18 05:18] LABS: Basophils Percent Auto 0.3 % (0.2-1.2); Eosinophils Absolute Auto 0.3 K/mm3 (0-0.3); Eosinophils Percent Auto 2.5 % (0-4.4); Hematocrit 35.6 % (42.0-52.0); Hemoglobin 11.9 g/dL (14.0-18.0); Immature Granulocyte Absolute 0.04 K/mm3 (0.00-0.031); Immature Granulocyte Percent A 0.4 % (0-0.5); Lymphocytes Percent Auto 22.7 % (18.3-44.2); Mean Corpuscular HGB Conc 33.4 g/dl (32-36); Mean Corpuscular Hemoglobin 27.9 pg (26-34); Mean Corpuscular Volume 83.6 fl (80-100); Mean Platelet Volume 9.7 fl (7.4-10.4); Monocytes Percent Auto 9.4 % (2.6-8.5); Neutrophils Absolute Auto 6.6 K/mm3 (1.3-6.7); Neutrophils Percent Auto 64.7 % (45.5-73.1); Platelet Count Result 197 k/mm3 (150-375); Red Blood Count 4.26 M/mm3 (4.6-6.20); White Blood Count 10.1 K/mm3 (4.5-10.0)
[2021-06-18 05:35] LABS: Alanine Aminotransferase 25 U/L (4-50); Alkaline Phosphatase 60 U/L (38-126); Anion Gap 6 mmol/L (8-16); Aspartate Amino Transferase 29 U/L (17-59); Bilirubin,Total 0.4 mg/dL (0.2-1.3); Blood Urea Nitrogen 41 mg/dL (9-20); Calcium 9.2 mg/dL (8.4-10.2); Carbon Dioxide 29 mmol/L (22-30); Chloride 101 mmol/L (98-107); Estimated CRCL calculation 41 ml/min; Estimated Glomerular Filt Rate 47; Glucose 72 mg/dL (65-110); Potassium 3.8 mmol/L (3.4-5.0); Sodium 136 mmol/L (137-145)
--- NOTE | 2021-06-18 06:58 | PM.CNCAR ---
Assessment and Plan Assessment and plan (1) Chest pain: Qualifiers: Chest pain type: unspecified Qualified Code(s): R07.9 - Chest pain, unspecified Code(s): R07.9 - Chest pain, unspecified Status: Acute Assessment and Plan: Doubt ACS as a cause of his chest pains. Probably due to esophagitis as seen on CT or heartburn related. Consider GI consult. NV has been ruled out by series of troponin and EKG. (2) Acid reflux disease: Qualifiers: Esophagitis presence: without esophagitis Qualified Code(s): K21.9 - Gastro-esophageal reflux disease without esophagitis Code(s): K21.9 - Gastro-esophageal reflux disease without esophagitis Status: Acute Assessment and Plan: Management per hospitalist. (3) CAD (coronary artery disease): Qualifiers: Coronary Disease-Associated Artery/Lesion type: unspecified vessel or lesion type [place] vs. transplanted heart: unspecified whether [place] or transplanted heart Associated angina: with unspecified angina Qualified Code(s): I25.119 - Atherosclerotic heart disease of [place] coronary artery with unspecified angina pectoris Code(s): I25.10 - Atherosclerotic heart disease of [place] coronary artery without angina pectoris Status: Chronic Assessment and Plan: He does have severe bifurcation lesions in mid LCx and ostial OM that is not amenable to PCI due to severe tortuosity of vessel. On dual antiplatelet agents. (4) PAD (peripheral artery disease): Onset Date: ~2011 Code(s): I73.9 - Peripheral vascular disease, unspecified Status: Chronic Assessment and Plan: Managed by Dr. Wyatt Kaiser. (5) Hyperlipidemia LDL goal <70: Code(s): E78.5 - Hyperlipidemia, unspecified Status: Chronic Assessment and Plan: On Rosuvastatin, Fenofibrate, Vascepa, Niacin. (6) Essential hypertension: Code(s): I10 - Essential (primary) hypertension Status: Acute Assessment and Plan: Stable. History of Present Illness History of Present Illness Consult date/time: 06/18/21 06:58 Patient is a 65 yr old man presents to ER with chest pain. He has a history of CAD (had sob with Brilinta), hypertension, dyslipidemia, PAD, IDDM, chronic GERD. Reports last night having severe mid chest and slightly to the left chest burning pain. He does have chronic heartburns but this was more severe. He also vomited. He came to hospital. GI cocktail took the edge off but did not completely resolve. NTG SL had no effect. It was worse with deep breath or bending down. He currently has no discomfort but it comes and goes. Workup thus far shows negative Troponin x 3 sets; Cr 1.5/Cr Cl 41; Hb 11.9. CXR is unremarkable, EKG shows Sinus rhythm, inferior infarct, age indeterminate, borderline ST-T wave in high lateral leads. CT chest/abd shows distal esophagitis. Previously had NSTEMI on 04/09/21 and unsuccessful staged stenting of bifurcation lesions of mid LCx and ostial OM with 90% lesions due to severe tortuosity. Reports fatigue. He had left leg bypass surgery with Dr. Kaiser in September 2019 and did well. He can walk up to 1 block now before he has severe bilateral calf pains due to neuropathy. Denies palpitations, edema, orthopnea. Cardiovascular Procedures Crawler Dragline Operator:: 05/13/21 Dr. Rowland at [facility]: Haziness of stent in RCA so a redilation of stent performed with good results. Attempt but could not place wire into LCx due to severe tortuosity. 04/10/21 Dr. Rowland: LM distal 30%, ostial OM 90%, mid LCx 90% as bifurcation lesions, ostial RCA 99%, mid RCA 70%, patent stent in prox RPL , occluded stent in PDA, patent stent in mid LCx, PCI to ostial and mid RCA, successful. 11/01/14 Cardiac cath in [place], [place]: Patent distal RCA stent into right PL branch; Right PDA stent occluded with distal Right PDA filling from collaterals from left circulation; 90% mid LCx stenosis; PCI with MICHELLE to mid LCx with good result. Ec
[2021-06-18] MEDS: ENOXAPARIN 40 MG/0.4 ML SYRINGE SUB-Q (08:58)
[2021-06-18] MEDS: ASPIRIN 81 MG CHEWABLE TABLET PO (08:58)
[2021-06-18] MEDS: DICLOFENAC SODIUM 1% 100 GM GEL (*BKC) 1 APPLIC TOPICAL ×4 (08:58→21:00)
[2021-06-18] MEDS: FAMOTIDINE 20 MG/2 ML VIAL IV PUSH ×2 (08:59→21:00)
[2021-06-18 09:29] LABS: Glucose Point of Care 126 mg/dl (65-105)
--- NOTE | 2021-06-18 09:42 | PM.IMPN ---
Progress Note: A&P Assessment and Plan (1) Chest pain: Qualifiers: Chest pain type: unspecified Qualified Code(s): R07.9 - Chest pain, unspecified Code(s): R07.9 - Chest pain, unspecified Status: Acute Assessment and Plan: Rule out ACS serial cardiac marker ECG cardiology consult Aspirin nitrate Pending home medication reconciliation Resume beta-jamie (2) Acid reflux disease: Qualifiers: Esophagitis presence: without esophagitis Qualified Code(s): K21.9 - Gastro-esophageal reflux disease without esophagitis Code(s): K21.9 - Gastro-esophageal reflux disease without esophagitis Status: Acute Assessment and Plan: IV Protonix GI cocktail Consider GI evaluation if no improvement May benefit from CT scan of the chest (3) S/P right coronary artery (RCA) stent placement: Code(s): Z95.5 - Presence of coronary angioplasty implant and graft Status: Acute Assessment and Plan: Continue antiplatelet (4) Erosive esophagitis: Code(s): K22.10 - Ulcer of esophagus without bleeding Status: Acute Assessment and Plan: PPI (5) History of stroke: Onset Date: ~11/2016 Code(s): Z86.73 - Personal history of transient ischemic attack (TIA), and cerebral infarction without residual deficits Status: Acute Assessment and Plan: Continue home medication (6) PAD (peripheral artery disease): Onset Date: ~2011 Code(s): I73.9 - Peripheral vascular disease, unspecified Status: Chronic Assessment and Plan: Continue home medication pending medication reconciliation (7) Type 2 diabetes mellitus with hyperglycemia: Code(s): E11.65 - Type 2 diabetes mellitus with hyperglycemia Status: Acute Assessment and Plan: Started insulin sliding scale Patient is on U 500 pending medication reconciliation (8) Diabetic peripheral neuropathy: Code(s): E11.42 - Type 2 diabetes mellitus with diabetic polyneuropathy Status: Acute Assessment and Plan: Pain control (9) Caputo's esophagus with esophagitis: Code(s): K22.70 - Caputo's esophagus without dysplasia; K20.9 - Esophagitis, unspecified Status: Acute Assessment and Plan: As above (10) Essential hypertension: Code(s): I10 - Essential (primary) hypertension Status: Acute Assessment and Plan: Resume home medication once confirmed Additional Plan # atypical chest pain significant history of coronary artery disease with stent placement in the past. EKG on arrival with normal sinus rhythm, left axis deviation nonspecific ST-T changes. Compared to EKG done 06/04/21 all the changes looks similar. Did not relieve with nitroglycerin or GI cocktail received in the ER. Troponin done in the ER was negative with serial troponins continue to be negative. COVID test is negative. Patient had elevated lipase level of 539 on admission. Patient does have history of chronic pancreatitis. Chest x-ray with no acute findings. Chronic finding of left pleural blunting due to chronic pleural plaques. CT chest abdomen and pelvis done 06/18/2021 with mild emphysema and chronic scarring with calcified pleural plaque, Flax of the left lung base likely sequelae of prior exam dated effusion. Small sliding-type hiatal hernia with no evident esophagitis a pneumoperitoneum no acute intra abdominal or pelvic process. Prostatomegaly. Small scattered calcification at the bilateral renal trish which is here primarily atherosclerotic although not excluded nonobstructing nephrolithiasis. Uric acid checked was 7 Possible pleurisy and Solu-Medrol was given Recent capsule endoscopy done 04/30/2021: Unremarkable Cardiology is consulted recommend GI consultation. Resume home medication for his coronary artery disease and GERD On PPI b.i.d. Very atypical chest pain non STEMI has been ruled out Likely related to GI in pancreatitis mil
[2021-06-18] MEDS: LIDOCAINE 5% PATCH 1 PATCH TRANSDERM (11:48)
[2021-06-18] MEDS: TAMSULOSIN HCL 0.4 MG CAPSULE PO (11:49)
[2021-06-18] MEDS: FINASTERIDE 5 MG TABLET PO (11:49)
[2021-06-18] MEDS: ROSUVASTATIN 10 MG TABLET 40 MG PO (11:49)
[2021-06-18] MEDS: SUCRALFATE SUSP 100 MG/ML 10 ML UDC 1000 MG PO ×3 (11:49→21:00)
[2021-06-18] MEDS: FENOFIBRATE 160 MG TABLET PO (11:49)
[2021-06-18] MEDS: METOPROLOL SUCCINATE EXT REL 50 MG TABCR PO (11:50)
[2021-06-18] MEDS: CLOPIDOGREL BISULFATE 75 MG TABLET PO (11:50)
[2021-06-18] MEDS: DULoxetine HCL 60 MG CAPSULE.DR PO (11:50)
[2021-06-18] MEDS: ISOSORBIDE MONONITRATE 60 MG TAB.ER.24H PO (11:50)
[2021-06-18] MEDS: MULTIVITAMINS THERAPEUTIC TAB (*BKC) 1 TABLET PO (11:50)
[2021-06-18] MEDS: amLODIPine BESYLATE 5 MG TABLET 10 MG PO (11:50)
[2021-06-18] MEDS: INSULIN ASPART (*BKC) 100 UNITS/ML SUB-Q ×2 (12:07→18:00)
[2021-06-18 12:26] LABS: Glucose Point of Care 229 mg/dl (65-105)
--- NOTE | 2021-06-18 13:05 | WPDGICN ---
Assessment and Plan Assessment and plan (1) Atypical chest pain: Code(s): R07.89 - Other chest pain Status: Acute Assessment and Plan: he had a recent EGD 03/2021 that only showed Lewis's without active inflammation. He is managed with proton pump inhibitor, also GI cocktail did not make much of difference. He is complaining of chest pressure but also burning sensation, had recent cardiac intervention with stenting placement but also severe bifurcation lesions in mid LCx and ostial OM that is not amenable to PCI due to severe tortuosity of vessel- cardiology is on board and this is managed medically I do not think that we need to repeat another EGD, also reviewed CT chest- no evidence of esophagitis He also had last month a small bowel capsule endoscopy because dark stools - no sign of bleeding and this was normal continue with ppi, gi cocktail or carafate ok to advance diet (2) Acid reflux disease: Qualifiers: Esophagitis presence: without esophagitis Qualified Code(s): K21.9 - Gastro-esophageal reflux disease without esophagitis Code(s): K21.9 - Gastro-esophageal reflux disease without esophagitis Status: Acute Assessment and Plan: on medical treatment- had EGD 2 months ago egd in 3 years but mostly for lewis's surveillance (3) S/P right coronary artery (RCA) stent placement: Code(s): Z95.5 - Presence of coronary angioplasty implant and graft Status: Acute Assessment and Plan: cardiology on board (4) Type 2 diabetes mellitus with hyperglycemia: Code(s): E11.65 - Type 2 diabetes mellitus with hyperglycemia Status: Acute (5) Lewis's esophagus with esophagitis: Code(s): K22.70 - Lewis's esophagus without dysplasia; K20.9 - Esophagitis, unspecified Status: Acute GI Consult Note Consult date/time: 06/18/21 13:05 Reason for consult: GERD and chest pain HPI: Cornelius Gautam Babin Jr. is a 65 year old male who is my clinic patient with history of hypertension, coronary artery disease on plavix that required stenting Mar 2021 because NSTEMI at [facility] then 04/2021 cath showed haziness of stent in RCA so a redilation of stent performed with good results. Attempt but could not place wire into LCx due to severe tortuosity- patient has been told to come to ER whenever chest pain gets worse. He also has type 2 diabetes mellitus, peripheral diabetic neuropathy, chronic kidney disease, dyslipidemia, peripheral vascular disease s/p vascular procedure in leg. I performed EGD and colonoscopy on May 2020 with moderate esophagitis, Lewis's and 1 cm hiatal hernia, repeat EGGD 03/2021 showed Lewis's without any more active inflammation- patient using ppi. Then he also had small bowel capsule endoscopy because report of dark stools- study was unremarkable, no signs of bleeding with normal SB mucosa. Also had GES that was normal. He is back to the ER because noted more chest pressure with burning sensation and episode of emesis. He received GI cocktail with only minimal improvement, NTG SL had no effect. It was worse with deep breath or bending down. CT chest and abdomen reviewed, with small hiatal hernia, no evidence of esophagitis, mild emphysema. Now he is wearing Nitro patch. Overall better. Cardiac enzymes negative. Review of Systems Constitutional: Constitutional: Denies headache(s) and Denies weakness Eyes: Eyes: Denies blurry vision ENT: Reports Normal hearing present, Denies headache(s) and Denies neck pain Cardiovascular: Cardiovascular: Reports chest pain and Denies dyspnea Respiratory: Respiratory: Denies dyspnea Gastrointestinal: Gastrointestinal: Reports heartburn Genitourinary: Genitourinary: Denies dysuria Musculoskeletal: Musculoskeletal: Denies neck pain Integumentary/Breasts: Skin/Breast: Denies dry skin Neurologic: Reports Normal hearing present, Denies headache(s) and Denies weakness Psychiatric: Psychiatric: Denies anxiety Endo
--- NOTE | 2021-06-18 14:04 | PCCCNOTE ---
On 06/18/21, the student, Michelle Gomez, provided care and completed [facility] documentation on this patient. I have reviewed the student's documentation and agree with the findings.
[2021-06-18 16:53] LABS: Glucose Point of Care 236 mg/dl (65-105)
[2021-06-18] MEDS: OMEGA 3 POLYUNSAT FATTY ACIDS 1 GM CAP 2 GM PO (18:01)
[2021-06-18 20:10] LABS: Glucose Point of Care 251 mg/dl (65-105)
[2021-06-18] MEDS: NIACIN SA 500 MG TABLET 2000 MG PO (21:00)
[2021-06-19] VITALS (9 sets, daily range): BP systolic 134–176; BP diastolic 65–108; PULSE 70–86; RESP 15–20; TEMP 36.3–36.6; O2SAT 98–100
[2021-06-19] MEDS: NITROGLYCERIN OINTMENT 1 INCH DOSE TRANSDERM ×2 (00:54→05:56)
[2021-06-19 04:35] LABS: Basophils Percent Auto 0.1 % (0.2-1.2); Eosinophils Percent Auto 0.5 % (0-4.4); Hematocrit 34.6 % (42.0-52.0); Hemoglobin 11.6 g/dL (14.0-18.0); Immature Granulocyte Absolute 0.05 K/mm3 (0.00-0.031); Immature Granulocyte Percent A 0.6 % (0-0.5); Lymphocytes Absolute Auto 1.59 K/mm3 (0.9-3.2); Lymphocytes Percent Auto 17.9 % (18.3-44.2); Mean Corpuscular HGB Conc 33.5 g/dl (32-36); Mean Corpuscular Hemoglobin 28.6 pg (26-34); Mean Corpuscular Volume 85.4 fl (80-100); Mean Platelet Volume 9.4 fl (7.4-10.4); Monocytes Absolute Auto 0.8 K/mm3 (0.1-0.6); Monocytes Percent Auto 8.5 % (2.6-8.5); Neutrophils Absolute Auto 6.4 K/mm3 (1.3-6.7); Neutrophils Percent Auto 72.4 % (45.5-73.1); Platelet Count Result 170 k/mm3 (150-375); Red Blood Count 4.05 M/mm3 (4.6-6.20); Red Cell Distribution Width 13.8 % (11.5-14.5); White Blood Count 8.9 K/mm3 (4.5-10.0)
[2021-06-19 05:02] LABS: Alanine Aminotransferase 23 U/L (4-50); Albumin Level 3.9 g/dL (3.5-5.1); Alkaline Phosphatase 61 U/L (38-126); Anion Gap 8 mmol/L (8-16); Aspartate Amino Transferase 24 U/L (17-59); Bilirubin,Total 0.4 mg/dL (0.2-1.3); Blood Urea Nitrogen 32 mg/dL (9-20); Calcium 8.5 mg/dL (8.4-10.2); Carbon Dioxide 25 mmol/L (22-30); Chloride 102 mmol/L (98-107); Estimated CRCL calculation 56 ml/min; Estimated Glomerular Filt Rate > 60; Glucose 164 mg/dL (65-110); Magnesium 2.2 mg/dL (1.6-2.3); Potassium 4.4 mmol/L (3.4-5.0); Sodium 135 mmol/L (137-145)
[2021-06-19] MEDS: DEXTROSE 5%/0.9% SOD CHL 1,000 ML 50 ML IV CONT (05:56)
[2021-06-19] MEDS: SUCRALFATE SUSP 100 MG/ML 10 ML UDC 1000 MG PO ×2 (05:56→12:58)
--- NOTE | 2021-06-19 08:00 | PM.PNCARD ---
Progress Note: A&P Assessment and Plan (1) Chest pain: Qualifiers: Chest pain type: unspecified Qualified Code(s): R07.9 - Chest pain, unspecified Code(s): R07.9 - Chest pain, unspecified Status: Acute Assessment and Plan: Doubt ACS as a cause of his chest pains. Probably due to esophagitis as seen on CT or heartburn related vs chronic CAD. GI following. IL has been ruled out by series of troponin and EKG. Stop NTP. Increase Isosorbide mononitrate 120 mg daily. August d/c home from cardiology standpoint and f/u with me in 2 weeks. (2) Acid reflux disease: Qualifiers: Esophagitis presence: without esophagitis Qualified Code(s): K21.9 - Gastro-esophageal reflux disease without esophagitis Code(s): K21.9 - Gastro-esophageal reflux disease without esophagitis Status: Acute Assessment and Plan: Management per hospitalist. (3) CAD (coronary artery disease): Qualifiers: Coronary Disease-Associated Artery/Lesion type: unspecified vessel or lesion type [place] vs. transplanted heart: unspecified whether [place] or transplanted heart Associated angina: with unspecified angina Qualified Code(s): I25.119 - Atherosclerotic heart disease of [place] coronary artery with unspecified angina pectoris Code(s): I25.10 - Atherosclerotic heart disease of [place] coronary artery without angina pectoris Status: Chronic Assessment and Plan: He does have severe bifurcation lesions in mid LCx and ostial OM that is not amenable to PCI due to severe tortuosity of vessel. On dual antiplatelet agents. (4) PAD (peripheral artery disease): Onset Date: ~2011 Code(s): I73.9 - Peripheral vascular disease, unspecified Status: Chronic Assessment and Plan: Managed by Dr. Wyatt Kaiser. (5) Hyperlipidemia LDL goal <70: Code(s): E78.5 - Hyperlipidemia, unspecified Status: Chronic Assessment and Plan: On Rosuvastatin, Fenofibrate, Vascepa, Niacin. (6) Essential hypertension: Code(s): I10 - Essential (primary) hypertension Status: Acute Assessment and Plan: Stable. Subjective Date/time seen: 06/19/21 08:00 Denies any more chest pain or sob. Exam Const: General: cooperative, healthy appearing and comfortable Resp: Auscultation: clear to auscultation bilaterally, no crackles, no rales, no rhonchi and no wheezes Cardio: Jugular venous distension: no JVD Rate: regular rate Rhythm: regular rhythm Heart sounds: no murmurs Peripheral pulses: dorsalis pedis present GI: GI Palp: No abdominal tenderness and Yes Soft to palpation Neuro: General: oriented to person, oriented to place and oriented to time Extrem: Right lower extremity: no edema Left lower extremity: no edema Objective Data Vital Signs Vital Signs: Vital Signs - 24 hr 06/18/21 08:35 06/18/21 10:00 06/18/21 12:00 Temperature 96.8 F L Pulse Rate 70 78 80 Respiratory Rate 24 H Blood Pressure 143/77 H Pulse Oximetry 97 06/18/21 12:44 06/18/21 14:00 06/18/21 16:00 Temperature 96.0 F L Pulse Rate 79 92 84 Respiratory Rate 20 Blood Pressure 161/85 H Pulse Oximetry 100 06/18/21 16:54 06/18/21 18:00 06/18/21 20:00 Temperature 96.5 F L Pulse Rate 80 83 79 Respiratory Rate 20 15 Blood Pressure 154/76 H Pulse Oximetry 98 06/18/21 20:16 06/18/21 22:00 06/19/21 00:00 Temperature 97.8 F Pulse Rate 80 92 86 Respiratory Rate 20 15 Blood Pressure 126/72 Pulse Oximetry 94 06/19/21 00:45 06/19/21 02:00 06/19/21 04:00 Temperature 97.4 F L Pulse Rate 85 81 83 Respiratory Rate 20 15 Blood Pressure 152/73 H Pulse Oximetry 98 06/19/21 06:00 Temperature Pulse Rate 81 Respiratory Rate Blood Pressure Pulse Oximetry Intake/Output Intake/Output: Intake & Output 06/16/21 06/17/21 06/18/21 06/19/21 23:59 23:59 23:59 23:59 Intake Total 1340 1000 Output Total 500
[2021-06-19] MEDS: TAMSULOSIN HCL 0.4 MG CAPSULE PO (08:50)
[2021-06-19] MEDS: OMEGA 3 POLYUNSAT FATTY ACIDS 1 GM CAP 2 GM PO (08:50)
[2021-06-19] MEDS: PANTOPRAZOLE SODIUM IV 40 MG VIAL IV PUSH (08:50)
[2021-06-19] MEDS: ROSUVASTATIN 10 MG TABLET 40 MG PO (08:50)
[2021-06-19] MEDS: METOPROLOL SUCCINATE EXT REL 50 MG TABCR PO (08:51)
[2021-06-19] MEDS: MULTIVITAMINS THERAPEUTIC TAB (*BKC) 1 TABLET PO (08:51)
[2021-06-19] MEDS: ENOXAPARIN 40 MG/0.4 ML SYRINGE SUB-Q (08:52)
[2021-06-19] MEDS: DICLOFENAC SODIUM 1% 100 GM GEL (*BKC) 1 APPLIC TOPICAL (08:52)
[2021-06-19] MEDS: FAMOTIDINE 20 MG/2 ML VIAL IV PUSH (08:52)
[2021-06-19] MEDS: ISOSORBIDE MONONITRATE 60 MG TAB.ER.24H 120 MG PO (08:52)
[2021-06-19] MEDS: DULoxetine HCL 60 MG CAPSULE.DR PO (08:52)
[2021-06-19] MEDS: FINASTERIDE 5 MG TABLET PO (08:52)
[2021-06-19] MEDS: FENOFIBRATE 160 MG TABLET PO (08:52)
[2021-06-19] MEDS: amLODIPine BESYLATE 5 MG TABLET 10 MG PO (08:53)
[2021-06-19] MEDS: CLOPIDOGREL BISULFATE 75 MG TABLET PO (08:53)
[2021-06-19] MEDS: ASPIRIN 81 MG CHEWABLE TABLET PO (08:53)
[2021-06-19 09:58] LABS: Glucose Point of Care 167 mg/dl (65-105)
--- NOTE | 2021-06-19 11:52 | PM.DS ---
DS: Admitting Diagnosis Discharge Date 06/19/2021 Admitting Diagnosis Chest pain DS: Discharge Diagnosis Discharge Diagnosis (1) Chest pain: Qualifiers: Chest pain type: unspecified Qualified Code(s): R07.9 - Chest pain, unspecified Code(s): R07.9 - Chest pain, unspecified Status: Acute (2) Acid reflux disease: Qualifiers: Esophagitis presence: without esophagitis Qualified Code(s): K21.9 - Gastro-esophageal reflux disease without esophagitis Code(s): K21.9 - Gastro-esophageal reflux disease without esophagitis Status: Acute (3) S/P right coronary artery (RCA) stent placement: Code(s): Z95.5 - Presence of coronary angioplasty implant and graft Status: Acute (4) Erosive esophagitis: Code(s): K22.10 - Ulcer of esophagus without bleeding Status: Acute (5) History of stroke: Onset Date: ~11/2016 Code(s): Z86.73 - Personal history of transient ischemic attack (TIA), and cerebral infarction without residual deficits Status: Acute (6) PAD (peripheral artery disease): Onset Date: ~2011 Code(s): I73.9 - Peripheral vascular disease, unspecified Status: Chronic (7) Type 2 diabetes mellitus with hyperglycemia: Code(s): E11.65 - Type 2 diabetes mellitus with hyperglycemia Status: Acute (8) Diabetic peripheral neuropathy: Code(s): E11.42 - Type 2 diabetes mellitus with diabetic polyneuropathy Status: Acute (9) Caputo's esophagus with esophagitis: Code(s): K22.70 - Caputo's esophagus without dysplasia; K20.9 - Esophagitis, unspecified Status: Acute Assessment and Plan: As above (10) Essential hypertension: Code(s): I10 - Essential (primary) hypertension Status: Acute DS: Summary Hospital Course Hospital Course: # atypical chest pain significant history of coronary artery disease with stent placement in the past. EKG on arrival with normal sinus rhythm, left axis deviation nonspecific ST-T changes. Compared to EKG done 06/04/21 all the changes looks similar. Did not relieve with nitroglycerin or GI cocktail received in the ER. Troponin done in the ER was negative with serial troponins continue to be negative. COVID test is negative. Patient had elevated lipase level of 539 on admission. Patient does have history of chronic pancreatitis. Chest x-ray with no acute findings. Chronic finding of left pleural blunting due to chronic pleural plaques. CT chest abdomen and pelvis done 06/18/2021 with mild emphysema and chronic scarring with calcified pleural plaque, Flax of the left lung base likely sequelae of prior exam dated effusion. Small sliding-type hiatal hernia with no evident esophagitis a pneumoperitoneum no acute intra abdominal or pelvic process. Prostatomegaly. Small scattered calcification at the bilateral renal trish which is here primarily atherosclerotic although not excluded nonobstructing nephrolithiasis. Uric acid checked was 7 Possible pleurisy and Solu-Medrol was given Recent capsule endoscopy done 04/30/2021: Unremarkable Cardiology is consulted recommend GI consultation. Resume home medication for his coronary artery disease and GERD On PPI b.i.d. Very atypical chest pain, non STEMI has been ruled out Likely related to GI in pancreatitis mildly elevated lipase level on admission Conservative management with IV fluids and pain control. Gastroenterology was also consulted and recommendations reviewed. No scopes were recommended The pain improved and he was started on diet with clear liquid diet and will advance for regular diet which he tolerated as well. There is also possible musculoskeletal reason for his chest pain will apply lidocaine patch/diclofenac gel to the area of local tenderness and improved the pain. # coronary artery disease status post stents recent on 04/09/2021 ostial and mid RCA previous history of stents prior to that with recent cath
--- NOTE | 2021-06-19 12:40 | WPDGIPROGNO ---
Progress Note: A&P Assessment and Plan (1) Acid reflux disease: Qualifiers: Esophagitis presence: without esophagitis Qualified Code(s): K21.9 - Gastro-esophageal reflux disease without esophagitis Code(s): K21.9 - Gastro-esophageal reflux disease without esophagitis Status: Acute Assessment and Plan: continue medical treatment, egd on 03/2021 tolerating diet ok to discharge home by GI standpoint (2) Chest pain: Qualifiers: Chest pain type: unspecified Qualified Code(s): R07.9 - Chest pain, unspecified Code(s): R07.9 - Chest pain, unspecified Status: Acute Assessment and Plan: better, by cardiology (3) S/P right coronary artery (RCA) stent placement: Code(s): Z95.5 - Presence of coronary angioplasty implant and graft Status: Acute (4) Type 2 diabetes mellitus with hyperglycemia: Code(s): E11.65 - Type 2 diabetes mellitus with hyperglycemia Status: Acute Subjective Date/time seen: 06/19/21 12:40 Interval history: tolerating diet, no nausea, minimal chest discomfort and ready to go home Review of Systems Review of Systems: All systems reviewed & are unremarkable except as noted in HPI and below Exam Const: General: comfortable and no acute distress HENMT: General nose exam: Normal nares present Eyes: General: appearance normal, both eyes and all related structures Neck: Neck: no JVD Resp: Auscultation: clear to auscultation bilaterally Cardio: Rate: regular rate Rhythm: regular rhythm GI: Inspection: non-distended GI Palp: Yes Soft to palpation and No Guarding due to palpation present (GI) Auscultation: normal bowel sounds Skin: General skin exam: normal color Neuro: General: gait normal Speech: normal speech Extrem: General: normal to inspection Psych: Mental Status: mental status grossly normal Objective Data Vital Signs Vital Signs: Vital Signs - 24 hr 06/18/21 12:44 06/18/21 14:00 06/18/21 16:00 Temperature 96.0 F L Pulse Rate 79 92 84 Respiratory Rate 20 Blood Pressure 161/85 H Pulse Oximetry 100 06/18/21 16:54 06/18/21 18:00 06/18/21 20:00 Temperature 96.5 F L Pulse Rate 80 83 79 Respiratory Rate 20 15 Blood Pressure 154/76 H Pulse Oximetry 98 06/18/21 20:16 06/18/21 22:00 06/19/21 00:00 Temperature 97.8 F Pulse Rate 80 92 86 Respiratory Rate 20 15 Blood Pressure 126/72 Pulse Oximetry 94 06/19/21 00:45 06/19/21 02:00 06/19/21 04:00 Temperature 97.4 F L Pulse Rate 85 81 83 Respiratory Rate 20 15 Blood Pressure 152/73 H Pulse Oximetry 98 06/19/21 06:00 06/19/21 08:00 06/19/21 08:51 Temperature 97.7 F Pulse Rate 81 71 70 Respiratory Rate 16 Blood Pressure 135/65 Pulse Oximetry 98 06/19/21 10:00 06/19/21 12:00 Temperature Pulse Rate 73 76 Respiratory Rate Blood Pressure Pulse Oximetry Intake/Output Intake/Output: Intake & Output 06/16/21 06/17/21 06/18/21 06/19/21 23:59 23:59 23:59 23:59 Intake Total 1340 1407 Output Total 500 Balance 840 1407 Meds/Results Medications: Active Medications Generic Name Dose Route Start Last Admin Trade Name Freq PRN Reason Stop Dose Admin Acetaminophen 650 mg 06/18/21 01:29 Acetaminophen 325 Mg Tablet PO Q4H PRN Mild Pain (1-3) Hydrocodone Bitart/Acetaminophen 1 tab 06/18/21 01:34 Hydrocodone/Acetaminophen (*Crx) 5-325 Mg Tablet PO Q6H PRN Pain Rated 4-6 Al Hydrox/Mg Hydrox/Simethicone 30 ml 06/18/21 01:29 Mag Hydrox/Al Hydrox/Simeth 30 Ml Udc PO Q6H PRN Indigestion Amlodipine Besylate 10 mg 06/18/21 10:15 06/19/21 08:53 Amlodipine Besylate 5 Mg Tablet PO 10 mg DAILY SAVITA Administration Aspirin 81 mg 06/18/21 08:00 06/19/21 08:53 Aspirin 81 Mg Chewable Tablet PO 81 mg DAILY@0800 [facility] Administration Clopidogrel Bisulfate 75 mg 06/18/21 10:15 06/19/21 08:53 Clopidogrel Bisu
[2021-06-19 12:42] LABS: Glucose Point of Care 166 mg/dl (65-105)
--- NOTE | 2021-06-19 14:48 | PCCCNOTE ---
On 06/19/21, the student, Michelle Gomez, provided care and completed [facility] documentation on this patient. I have reviewed the student's documentation and agree with the findings.
== END 2021-06-19 13:26 | disposition home or self-care (01) ==
LOC: ANHED 21:38 → ANHIMU 06-18 03:41
PROVIDERS: Admitting Provider Internal Medicine; Emergency Provider Emergency Medicine; PCP Family Medicine; Visit Provider Internal Medicine
DX: R07.9 Chest pain, unspecified (principal); K21.9 Gastro-esophageal reflux disease without esophagitis; K22.70 Barrett's esophagus without dysplasia; E11.65 Type 2 diabetes mellitus with hyperglycemia; I25.10 Atherosclerotic heart disease of native coronary artery without angina pectoris; E11.42 Type 2 diabetes mellitus with diabetic polyneuropathy; I10 Essential (primary) hypertension; K86.1 Other chronic pancreatitis; E78.5 Hyperlipidemia, unspecified; I25.2 Old myocardial infarction; E11.51 Type 2 diabetes mellitus with diabetic peripheral angiopathy without gangrene; E55.9 Vitamin D deficiency, unspecified; Z86.73 Personal history of transient ischemic attack (TIA), and cerebral infarction without residual deficits; Z85.46 Personal history of malignant neoplasm of prostate; Z95.5 Presence of coronary angioplasty implant and graft; Z95.820 Peripheral vascular angioplasty status with implants and grafts; Z87.891 Personal history of nicotine dependence; Z20.822 Contact with and (suspected) exposure to COVID-19
CPT/HCPCS: 36415; 71046; 71250; 74176; 80053; 80061; 82948; 83690; 83735; 84484; 84550; 85025; 85610; 85730; 93005; 96361; 96372; 96374; 96375; 96376; 99285; A9270; C9113; C9803; G0378; J1650; J1815; J2405; J2920; J7030; J7040; J7042; U0003; U0005

== ENCOUNTER 2021-06-27 07:25 | Outpatient (CLI) | payer MEDICARE, MEDICAID, SELFPAY ==
[2021-06-27 08:46] LABS: Alanine Aminotransferase 26 U/L (4-50); Alkaline Phosphatase 63 U/L (38-126); Anion Gap 8 mmol/L (8-16); Aspartate Amino Transferase 36 U/L (17-59); Bilirubin,Total 0.2 mg/dL (0.2-1.3); Blood Urea Nitrogen 25 mg/dL (9-20); Calcium 9.4 mg/dL (8.4-10.2); Carbon Dioxide 30 mmol/L (22-30); Chloride 104 mmol/L (98-107); Estimated Glomerular Filt Rate > 60; Glucose 149 mg/dL (65-110); Lipase 218 U/L (23-300); Potassium 4.1 mmol/L (3.4-5.0); Sodium 142 mmol/L (137-145)
== END 2021-06-27 07:26 | disposition home or self-care (01) ==
LOC: ANHLAB 07:27
PROVIDERS: PCP Family Medicine; Visit Provider Nurse Practitioner
DX: K85.90 Acute pancreatitis without necrosis or infection, unspecified (principal); N17.9 Acute kidney failure, unspecified
CPT/HCPCS: 36415; 80053; 83690

== ENCOUNTER 2021-07-06 23:05 | Emergency (ER) | payer MEDICARE, MEDICAID, SELFPAY ==
--- NOTE | ~2021-07-06 | CT_ITS ---
EXAMINATION: CTA chest PE protocol DATE: 07/07/2021 00:46 INDICATION: Chest pain. TECHNIQUE: Computed tomography (CT) pulmonary angiogram of the chest was performed with 100 mL Omnipa que-350 intravenous contrast. Additional 3D reconstructions utilizing coronal maximum intensity proje ction (MIP) were performed. Automated exposure control and iterative reconstruction technique were em ployed. The dose-length product was 460.95 mGy-cm. COMPARISON: 07/07/2021 and 06/18/2021 FINDINGS: Excellent contrast opacification of the pulmonary arteries. There is mild streak artifact from dense contrast in the superior vena cava and right atrium. Normal scattered respiratory motion artifact whi ch does not significantly limit evaluation. No pulmonary embolism. Few scattered calcified pulmonary nodules along with calcified bilateral hilar and mediastinal lymph nodes consistent with old granulom atous disease. Discoid atelectasis in the left lower lobe and chronic pleural plaque on the left sergey diaphragm likely sequela of a chronic exudative effusion. No pneumonia, pulmonary edema, pleural effu rian or pneumothorax. Heart size is normal. No pericardial effusion. Atherosclerotic coronary artery calcific lesions and likely coronary artery stenting. Thoracic aorta is normal in caliber with no dis section. No pathologically enlarged thoracic lymphadenopathy. Wall thickening in the mid to distal es ophagus consistent with known history of Caputo's esophagus and esophagitis. 1.8 cm right renal cyst . Small region of cortical scarring at the upper pole of the right kidney. Stigmata of chronic pancre atitis including multiple parenchymal calcifications and a chronic 9 mm cystic lesion likely a pseudo cyst at the body of the pancreas which is been present since at least 02/20/2019. There are bridging osteophytes at multiple levels in the spine, consistent with diffuse idiopathic skeletal hyperostosis (DISH). IMPRESSION: 1. No pulmonary embolism or other acute cardiopulmonary disease. 2. Wall thickening the mid to distal esophagus consistent with known history of Caputo's esophagus a nd esophagitis. 3. Stigmata of chronic pancreatitis. 4. Chronic scarring at the upper pole the right kidney likely sequela of prior infarct or infection. Reviewed, dictated and finalized at location A. IMPRESSION: 1. No pulmonary embolism or other acute cardiopulmonary disease. 2. Wall thickening the mid to distal esophagus consistent with known history of Caputo's esophagus and esophagitis. 3. Stigmata of chronic pancreatitis. 4. Chronic scarring at the upper pole the right kidney likely sequela of prior infarct or infection.
--- NOTE | ~2021-07-06 | XR_ITS ---
XR chest 2V DATE: 07/06/2021 23:37 INDICATION: Onset of chest pain this morning. TECHNIQUE: PA and lateral views COMPARISON: June 18, 2021 CTA chest abdomen pelvis FINDINGS: Normal heart size. Aortic arch calcification. No hilar or mediastinal enlargement. No pulmonary infiltrate or consolidation, pleural effusion or pulmonary vascular congestion or pneumo thorax. Prominent left posterior diaphragmatic calcified pleural plaque, which previously was suggested to be sequela of prior exudative effusion on June 18, 2021 CDT chest examination. Diffuse idiopathic skeletal hyperostosis of the thoracic spine. IMPRESSION: No active cardiopulmonary disease Reviewed, dictated and finalized at location A.
--- NOTE | ~2021-07-06 | CT_ITS ---
EXAMINATION: CTA chest DATE: 07/07/2021 00:15 INDICATION: Chest pain TECHNIQUE: Computed tomographic angiography (CTA) of the chest was performed without and with 100 mL Omnipaque-350 intravenous contrast. Volume-rendered 3D-reconstructions of the aorta and large arterie s were constructed by the technologist on a separate workstation. Automated exposure control and iter ative reconstruction technique were employed. The dose-length product was 512.35 mGy-cm. COMPARISON: 06/18/2021 FINDINGS: There are bilateral scattered calcified pulmonary nodules along with calcified bilateral hilar and me diastinal lymph nodes consistent with old granulomatous disease. Mild discoid atelectasis in the left lower lobe. Increased subpleural fat in the inferior left hemithorax with calcified pleural plaque a long the left hemidiaphragm suggesting a prior exudative effusion. Pneumatocele in the left upper lob e. No pneumonia, pulmonary edema, pleural effusion or pneumothorax. Heart size is normal. No pericard ial effusion. Atherosclerotic coronary artery calcifications and possible stenting along the right co ronary artery. Thoracic aorta is normal in caliber with no dissection. Although not performed as a de dicated pulmonary embolism protocol there is good contrast opacification of the pulmonary arteries de monstrating no pulmonary embolism. There is mild diffuse wall thickening of the mid to distal esophag us suggestive of esophagitis. Stigmata of chronic pancreatitis including multiple dystrophic calcific ations along the pancreas and chronic 9 mm cystic lesion likely a pseudocyst along the tail of pancre as which is been unchanged since 02/20/2019. Small region of cortical atrophy at the upper pole of th e right kidney likely sequela of prior infarct. 1.8 cm cyst at the upper pole of the right kidney. IMPRESSION: 1. Normal caliber thoracic aorta with no dissection. 2. Mild thickening along the mid to distal esophagus consistent with esophagitis which could be infec tious, inflammatory or due to reflux 3. Wall thickening in the mid to distal esophagus consistent with known history of Caputo's esophagu s with esophagitis. 4. Stigmata of chronic pancreatitis. 5. Chronic infarct at the upper pole of the right kidney. Reviewed, dictated and finalized at location A. IMPRESSION: 1. Normal caliber thoracic aorta with no dissection. 2. Mild thickening along the mid to distal esophagus consistent with esophagiti s which could be infectious, inflammatory or due to reflux 3. Wall thickening in the mid to distal esophagus consistent with known history of Caputo's esophagus with esophagitis. 4. Stigmata of chronic pancreatitis. 5. Chronic infarct at the upper pole of the right kidney.
[2021-07-06 23:07] VITALS: BP 163/88; PULSE 74; RESP 11; TEMP 36.1; O2SAT 100
--- NOTE | 2021-07-06 23:12 | ECG_ITS ---
Measurements Intervals [place] Rate: 70 P: 37 [place]: 164 QRS: -14 QRSD: 110 T: 91 QT: 375 QTc: 406 Interpretive Statements SINUS RHYTHM LEFT VENTRICULAR HYPERTROPHY AND ST-T CHANGE [VOLTAGE CRITERIA PLUS ST/T ABNORMALITY] COMPARED TO ECG 06/17/2021 20:46:25 LEFT VENTRICULAR HYPERTROPHY NOW PRESENT ST (T WAVE) DEVIATION NOW PRESENT Electronically Signed On 07-07-2021 18:12:45 CDT by Dot Mora M.D.
[2021-07-06] MEDS: ASPIRIN 81 MG CHEWABLE TABLET 324 MG PO (23:23)
--- NOTE | 2021-07-06 23:52 | ED.CHESTPAIN ---
HPI - Chest Pain General Chief Complaint: Chest Pain Stated Complaint: CP, nausea Time Seen by Provider: 07/06/21 23:42 Source: patient History of Present Illness HPI narrative: Patient presents with chest pain. Reports he had chest pain all day and he saw his instructional supervisor and had radiation therapy as symptoms persisted did not resolve so he came to the ER for evaluation. Does report history of esophageal problems, cardiac problems, and pancreas problems. Says it feels like a burning squeezing sensation, radiating up towards his throat there are no clear aggravating or alleviating factors his symptoms are associated with nausea and vomiting he denies any diarrhea fevers or shortness of breath. Denies any diaphoresis. Related Data Home Medications Medication Instructions Recorded Confirmed multivitamin 1 tablet PO DAILY 03/07/19 06/24/21 amlodipine [Norvasc] 10 mg PO DAILY 02/09/21 06/24/21 famotidine 40 mg tablet 40 mg PO DAILY tablet 02/26/21 06/24/21 fenofibrate 160 mg PO DAILY 06/04/21 06/24/21 niacin 1,000 mg PO BID 06/04/21 06/24/21 Allergies Allergy/AdvReac Type Severity Reaction Status Date / Time No Known Allergies Allergy Verified 07/06/21 23:20 Review of Systems Review of Systems: CONSTITUTIONAL: Denies fever, chills, or sweats. EYES: Denies visual changes, redness, or discharge. ENT: Denies rhinorrhea, congestion, sore throat, or otalgia. CARDIOVASCULAR: Denies palpitations, or edema. RESPIRATORY: Denies cough or dyspnea. GASTROINTESTINAL: Denies abdominal pain, or diarrhea. GENITOURINARY: Denies dysuria or hematuria. SKIN: Denies rash or itching. MUSCULOSKELETAL: Denies back pain, joint pain, or myalgia. NEUROLOGIC: Denies headache, numbness, dizziness, or weakness. PSYCHIATRIC: Denies anxiety or depression. All systems reviewed & are unremarkable except as noted in HPI and below PMFSH Past Medical History Medical History Adenomatous colon polyp Arthritis Caputo's esophagus with esophagitis CAD (coronary artery disease) Managed by Dr. Hoyt Chronic pancreatitis CVA (cerebral vascular accident) (~2014) Diabetic peripheral neuropathy Esophageal hiatal hernia Essential hypertension GERD (gastroesophageal reflux disease) History of stroke (~11/2016) Hyperlipidemia LDL goal <70 Kidney stones Myocardial infarction (~2003) Nausea Open wound of finger of right hand (~07/02/19) PAD (peripheral artery disease) (~2011) With right lower extremity stent and left aortofemoral bypass in 2018. CT evidence of moderate stenosis. 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 Prostate cancer Renal infarction Right kidney Renal insufficiency Multiple episodes of acute kidney injury Type 2 diabetes mellitus with hyperglycemia Vitamin D deficiency Surgical History Surgical History History of colonoscopy with polypectomy (05/2020) History of coronary artery stent placement (~2003) 4 stents placed History of esophagogastroduodenoscopy (EGD) (01/2021) May 2020 and January 2020 History of femoropopliteal bypass left - 09/11 History of incision and drainage perirectal abscess left anterior 02/17/21 History of skin graft for left 5th toe diabetic ulcer S/P peripheral artery angioplasty with stent placement 11/2020 right superficial femoral artery stent Status post cataract extraction of both eyes with insertion of intraocular lens Status post open reduction with internal fixation of fracture Hips and legs as a child Family History Family History Mother Diabetes mellitus Family history of arthritis Family history of diabetes mellitus in first degree relative Family history of coronary artery disease Hypertension Cerebrovascular accident Father Family history of alcoholism Sibling Myocardial infarction Diabetes mellitus Other
[2021-07-06 23:53] LABS: Basophils Percent Auto 0.3 % (0.2-1.2); Eosinophils Absolute Auto 0.2 K/mm3 (0-0.3); Eosinophils Percent Auto 3.8 % (0-4.4); Hematocrit 43.1 % (42.0-52.0); Hemoglobin 14.4 g/dL (14.0-18.0); Immature Granulocyte Absolute 0.03 K/mm3 (0.00-0.031); Immature Granulocyte Percent A 0.5 % (0-0.5); Lymphocytes Absolute Auto 1.47 K/mm3 (0.9-3.2); Mean Corpuscular HGB Conc 33.4 g/dl (32-36); Mean Corpuscular Hemoglobin 28.1 pg (26-34); Mean Corpuscular Volume 84.2 fl (80-100); Mean Platelet Volume 9.7 fl (7.4-10.4); Monocytes Absolute Auto 0.6 K/mm3 (0.1-0.6); Monocytes Percent Auto 9.4 % (2.6-8.5); Platelet Count Result 191 k/mm3 (150-375); Red Blood Count 5.12 M/mm3 (4.6-6.20); Red Cell Distribution Width 13.5 % (11.5-14.5); White Blood Count 6.4 K/mm3 (4.5-10.0)
[2021-07-06 23:56] VITALS: PULSE 74; RESP 18
[2021-07-06 23:56] LABS: Alanine Aminotransferase 34 U/L (4-50); Albumin Level 4.6 g/dL (3.5-5.1); Alkaline Phosphatase 75 U/L (38-126); Anion Gap 12 mmol/L (8-16); Aspartate Amino Transferase 35 U/L (17-59); Bilirubin,Total 0.2 mg/dL (0.2-1.3); Blood Urea Nitrogen 42 mg/dL (9-20); Calcium 12.6 mg/dL (8.4-10.2); Carbon Dioxide 33 mmol/L (22-30); Chloride 93 mmol/L (98-107); Estimated CRCL calculation 44 ml/min; Estimated Glomerular Filt Rate 51; Glucose 134 mg/dL (65-110); Lipase 215 U/L (23-300); Potassium 4.4 mmol/L (3.4-5.0); Prothrombin Time 12.9 Seconds (11.1-14.7); Sodium 138 mmol/L (137-145)
[2021-07-06 23:57] LABS: Partial Thromboplastin Time 29.3 SECONDS (22.3-36.8)
[2021-07-07] VITALS (39 sets, daily range): BP systolic 100–194; BP diastolic 60–83; PULSE 64–81; RESP 10–24; O2SAT 93–100
[2021-07-07 00:10] LABS: Troponin I 0.253 ng/mL (0.000-0.034)
[2021-07-07] MEDS: ONDANSETRON INJ 4 MG/2 ML VIAL IV PUSH (00:14)
[2021-07-07] MEDS: LIDOCAINE HCL 2% VISC SOLN 15 ML UDC 10 ML PO (00:15)
[2021-07-07] MEDS: SODIUM CHLORIDE 0.9% IV 500 ML 999 ML IV CONT (00:15)
[2021-07-07] MEDS: MAG HYDROX/AL HYDROX/SIMETH 30 ML UDC PO (00:15)
[2021-07-07] MEDS: NITROGLYCERIN OINTMENT 1 INCH DOSE TRANSDERM (00:21)
[2021-07-07] MEDS: HEPARIN SODIUM 5,000 UNITS/ML VIAL 4000 UNITS IV PUSH (00:56)
[2021-07-07] MEDS: HEPARIN SOD/D5W 100 UNITS/ML 25,000 UNITS/250 ML BAG 9 UNITS IV CONT (00:57)
[2021-07-07 02:31] LABS: Basophils Percent Auto 0.4 % (0.2-1.2); Eosinophils Absolute Auto 0.2 K/mm3 (0-0.3); Eosinophils Percent Auto 4.2 % (0-4.4); Hematocrit 39.2 % (42.0-52.0); Immature Granulocyte Absolute 0.03 K/mm3 (0.00-0.031); Immature Granulocyte Percent A 0.5 % (0-0.5); Lymphocytes Absolute Auto 1.43 K/mm3 (0.9-3.2); Mean Corpuscular HGB Conc 33.2 g/dl (32-36); Mean Corpuscular Hemoglobin 27.7 pg (26-34); Mean Corpuscular Volume 83.4 fl (80-100); Mean Platelet Volume 9.3 fl (7.4-10.4); Monocytes Absolute Auto 0.5 K/mm3 (0.1-0.6); Monocytes Percent Auto 8.4 % (2.6-8.5); Neutrophils Absolute Auto 3.5 K/mm3 (1.3-6.7); Neutrophils Percent Auto 61.5 % (45.5-73.1); Platelet Count Result 177 k/mm3 (150-375); Red Cell Distribution Width 13.5 % (11.5-14.5); White Blood Count 5.7 K/mm3 (4.5-10.0)
[2021-07-07 02:45] LABS: INR 1.1; Prothrombin Time 13.6 Seconds (11.1-14.7)
--- NOTE | 2021-07-07 02:46 | PC.NURSE ---
pt states he lost nitro paste, unsure when. new paste applied at this time.
[2021-07-07 02:47] LABS: Partial Thromboplastin Time 85.4 SECONDS (22.3-36.8)
[2021-07-07 02:58] LABS: Troponin I 0.285 ng/mL (0.000-0.034)
[2021-07-07 03:03] LABS: SARS-CoV-2 RNA PCR Negative
--- NOTE | 2021-07-07 03:10 | PC.NURSE ---
spoke with Rocio from [facility] transfer center at this time. awaiting a bed at this time.
[2021-07-07] MEDS: MORPHINE SULFATE (*CRX) 4 MG/ML INJ IV PUSH (03:13)
== END 2021-07-07 07:15 | disposition short-term general hospital (02) ==
PROVIDERS: Emergency Provider Emergency Medicine; PCP Family Medicine
DX: I21.4 Non-ST elevation (NSTEMI) myocardial infarction (principal); Z20.822 Contact with and (suspected) exposure to COVID-19; I25.10 Atherosclerotic heart disease of native coronary artery without angina pectoris; E11.42 Type 2 diabetes mellitus with diabetic polyneuropathy; E11.51 Type 2 diabetes mellitus with diabetic peripheral angiopathy without gangrene; K86.1 Other chronic pancreatitis; E78.5 Hyperlipidemia, unspecified; E55.9 Vitamin D deficiency, unspecified; K21.00 Gastro-esophageal reflux disease with esophagitis, without bleeding; K22.70 Barrett's esophagus without dysplasia; M19.90 Unspecified osteoarthritis, unspecified site; I25.2 Old myocardial infarction; Z95.5 Presence of coronary angioplasty implant and graft; Z98.42 Cataract extraction status, left eye; Z98.41 Cataract extraction status, right eye; Z96.1 Presence of intraocular lens; Z85.46 Personal history of malignant neoplasm of prostate; Z87.442 Personal history of urinary calculi; Z86.010 Personal history of colon polyps; Z79.82 Long term (current) use of aspirin; Z79.4 Long term (current) use of insulin; Z79.899 Other long term (current) drug therapy; I51.7 Cardiomegaly
CPT/HCPCS: 36415; 71046; 71275; 80053; 83690; 84484; 85025; 85610; 85730; 93005; 96361; 96374; 96375; 99291; A9270; C9803; J1644; J2270; J2405; J7040; Q9967; U0003; U0005

== ENCOUNTER 2021-07-25 18:07 | Observation (INO) | payer MEDICARE, MEDICAID, SELFPAY ==
--- NOTE | ~2021-07-25 | CT_ITS ---
EXAMINATION: Day Wayne MD DATE: 07/25/2021 19:09 INDICATION: Epigastric and retrosternal pain. TECHNIQUE: Computed tomographic angiography (CTA) of the chest, abdomen, and pelvis was performed wit h 100 mL Omnipaque-350 intravenous contrast. Automated exposure control and iterative reconstruction technique were employed. The dose-length product was 1191.10 mGy-cm. Maximum intensity projection 3D- reconstructions of the aorta and other arteries were constructed by the technologist on a separate wo rkstation. COMPARISON: Chest CT 07/07/2021, 02/20/19, CT abdomen and pelvis 03/23/21 FINDINGS: CHEST CTA: Calcified pulmonary nodules and calcified hilar and mediastinal lymph nodes are consistent with old g ranulomatous disease. There is a chronic 5 mm nodule in right lower lobe, likely benign. There is mil d atelectasis bilaterally. There is a calcified pleural plaque at left lung base. There is a pneumato priscilla in left upper lobe. No pleural effusion. The heart size is normal. There are coronary artery pancho cifications. No pericardial effusion. There is mild aortic atherosclerosis. No aneurysm or dissection . There is no pulmonary embolus. There is mild thoracic spondylosis. ABDOMEN AND PELVIS CTA: The liver, gallbladder, and spleen are normal. There are calcifications of the pancreas, consistent w ith chronic pancreatitis. There is an 11 mm cystic lesion in the pancreas, likely a pseudocyst. The a drenal glands are normal. There is cortical thinning of the kidneys. There is a 15 mm cyst in right k idney. There is chronic hypoenhancement of right kidney upper pole, consistent with nephropathy. Ther e are bilateral inguinal hernias containing fat. The prostate is mildly enlarged. There is diverticul osis of the colon without evidence of diverticulitis. There are no dilated loops of bowel. The append ix is normal. There is moderate stenosis of celiac axis and superior mesenteric artery. There is mild stenosis of origin of inferior mesenteric artery. There is no significant stenosis of right renal ar perla. There are 3 left-sided renal arteries with moderate stenosis of one of them. There is moderate stenosis of right superficial femoral artery. There is a bypass graft from left common femoral artery . There is total occlusion of left superficial femoral artery. There are no pathologically enlarged l ymph nodes. There is no free intraperitoneal fluid. There is mild lumbar spondylosis. IMPRESSION: 1. Aortic atherosclerosis. No aneurysm or dissection. 2. Moderate stenosis of one of the left renal arteries. 3. 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 4. Peripheral arterial disease. 5. Bilateral inguinal hernias containing fat. Reviewed, dictated and finalized at location E.
--- NOTE | ~2021-07-25 | XR_ITS ---
EXAMINATION: XR chest 2V DATE: 07/25/2021 18:31 INDICATION: Chest pain. TECHNIQUE: Frontal and lateral views of the chest were obtained. COMPARISON: Chest 2 views 07/06/2021 FINDINGS: Calcified bilateral lung nodules and calcified hilar and mediastinal lymph nodes are consis tent with old granulomatous disease. There is mild atelectasis at left lung base. No pleural effusion or pneumothorax. The heart size is normal. IMPRESSION: 1. Mild atelectasis at left lung base. Reviewed, dictated and finalized at location E.
[2021-07-25 18:11] VITALS: BP 137/78; PULSE 84; RESP 20; TEMP 36.3; O2SAT 100
--- NOTE | 2021-07-25 18:15 | ECG_ITS ---
Measurements Intervals [place] Rate: 81 P: 65 MI: 159 QRS: 5 QRSD: 104 T: 32 QT: 387 QTc: 452 Interpretive Statements SINUS RHYTHM CANNOT RULE OUT INFERIOR MYOCARDIAL INFARCTION , PROBABLY OLD [40+ ms Q WAVE AND/OR ST/T ABNORMALITY IN II/aVF] NONSPECIFIC ST ABNORMALITY ABNORMAL ECG COMPARED TO ECG 07/06/2021 23:17:32 NO SIGNIFICANT CHANGES Electronically Signed On 07-26-2021 16:12:13 CDT by Franco Enciso M.D.
[2021-07-25 18:24] LABS: Basophils Percent Auto 0.1 % (0.2-1.2); Eosinophils Absolute Auto 0.2 K/mm3 (0-0.3); Eosinophils Percent Auto 2.5 % (0-4.4); Hematocrit 35.9 % (42.0-52.0); Hemoglobin 11.9 g/dL (14.0-18.0); Immature Granulocyte Absolute 0.04 K/mm3 (0.00-0.031); Immature Granulocyte Percent A 0.5 % (0-0.5); Lymphocytes Absolute Auto 1.32 K/mm3 (0.9-3.2); Lymphocytes Percent Auto 17.6 % (18.3-44.2); Mean Corpuscular HGB Conc 33.1 g/dl (32-36); Mean Corpuscular Hemoglobin 28.5 pg (26-34); Mean Corpuscular Volume 85.9 fl (80-100); Mean Platelet Volume 9.2 fl (7.4-10.4); Monocytes Absolute Auto 0.6 K/mm3 (0.1-0.6); Neutrophils Absolute Auto 5.4 K/mm3 (1.3-6.7); Neutrophils Percent Auto 71.3 % (45.5-73.1); Platelet Count Result 190 k/mm3 (150-375); Red Blood Count 4.18 M/mm3 (4.6-6.20); Red Cell Distribution Width 14.3 % (11.5-14.5); White Blood Count 7.5 K/mm3 (4.5-10.0)
[2021-07-25 18:34] LABS: Partial Thromboplastin Time 31.2 SECONDS (22.3-36.8)
[2021-07-25 18:35] LABS: Alanine Aminotransferase 39 U/L (4-50); Albumin Level 4.7 g/dL (3.5-5.1); Alkaline Phosphatase 73 U/L (38-126); Anion Gap 13 mmol/L (8-16); Aspartate Amino Transferase 49 U/L (17-59); Bilirubin,Total 0.3 mg/dL (0.2-1.3); Blood Urea Nitrogen 41 mg/dL (9-20); Calcium 9.8 mg/dL (8.4-10.2); Carbon Dioxide 33 mmol/L (22-30); Chloride 91 mmol/L (98-107); Estimated CRCL calculation 33 ml/min; Estimated Glomerular Filt Rate 36; Glucose 271 mg/dL (65-110); Lipase 319 U/L (23-300); Potassium 4.4 mmol/L (3.4-5.0); Sodium 137 mmol/L (137-145)
[2021-07-25 18:45] LABS: Troponin I 0.017 ng/mL (0.000-0.034)
--- NOTE | 2021-07-25 18:52 | ED.CHESTPAIN ---
HPI - Chest Pain General Chief Complaint: Chest Pain Stated Complaint: chest pain, vomiting Time Seen by Provider: 07/25/21 18:27 Source: patient Mode of arrival: ambulatory Limitations: no limitations History of Present Illness HPI narrative: Patient is a 66 years old white male came to the emergency room with his complaining of severe vomiting over the 2 days on average 3-4 times a day. Woke up this morning with severe epigastric and retrosternal pain, burning, stabbing, sharp, patient unable to keep anything down with severe nausea. The pain worse with eating or drinking. Nothing make. Patient is status post coronary stent placement on July 13 Related Data Home Medications Medication Instructions Recorded Confirmed multivitamin 1 tablet PO DAILY 03/07/19 06/24/21 amlodipine [Norvasc] 10 mg PO DAILY 02/09/21 06/24/21 famotidine 40 mg tablet 40 mg PO DAILY tablet 02/26/21 06/24/21 fenofibrate 160 mg PO DAILY 06/04/21 06/24/21 niacin 1,000 mg PO BID 06/04/21 06/24/21 Allergies Allergy/AdvReac Type Severity Reaction Status Date / Time No Known Allergies Allergy Verified 07/25/21 18:16 Review of Systems Review of Systems: CONSTITUTIONAL: Denies fever, chills, or sweats. EYES: Denies visual changes, redness, or discharge. ENT: Denies rhinorrhea, congestion, sore throat, or otalgia. CARDIOVASCULAR: Denies chest pain, palpitations, or edema. RESPIRATORY: Denies cough or dyspnea. GASTROINTESTINAL: Denies abdominal pain, nausea, vomiting, or diarrhea. GENITOURINARY: Denies dysuria or hematuria. SKIN: Denies rash or itching. MUSCULOSKELETAL: Denies back pain, joint pain, or myalgia. NEUROLOGIC: Denies headache, numbness, or weakness. PSYCHIATRIC: Denies anxiety or depression. [facility] Past Medical History Medical History Adenomatous colon polyp Arthritis Caputo's esophagus with esophagitis CAD (coronary artery disease) Managed by Dr. Hoyt Chronic pancreatitis CVA (cerebral vascular accident) (~2014) Diabetic peripheral neuropathy Esophageal hiatal hernia Essential hypertension GERD (gastroesophageal reflux disease) History of stroke (~11/2016) Hyperlipidemia LDL goal <70 Kidney stones Myocardial infarction (~2003) Nausea Open wound of finger of right hand (~07/02/19) PAD (peripheral artery disease) (~2011) With right lower extremity stent and left aortofemoral bypass in 2019. CT evidence of moderate stenosis. 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 Prostate cancer Renal infarction Right kidney Renal insufficiency Multiple episodes of acute kidney injury Type 2 diabetes mellitus with hyperglycemia Vitamin D deficiency Surgical History Surgical History History of colonoscopy with polypectomy (05/2020) History of coronary artery stent placement (~2003) 4 stents placed History of esophagogastroduodenoscopy (EGD) (01/2021) May 2020 and January 2020 History of femoropopliteal bypass left - 09/11 History of incision and drainage perirectal abscess left anterior 02/17/21 History of skin graft for left 5th toe diabetic ulcer S/P peripheral artery angioplasty with stent placement 11/2020 right superficial femoral artery stent Status post cataract extraction of both eyes with insertion of intraocular lens Status post open reduction with internal fixation of fracture Hips and legs as a child Family History Family History Mother Diabetes mellitus Family history of arthritis Family history of diabetes mellitus in first degree relative Family history of coronary artery disease Hypertension Cerebrovascular accident Father Family history of alcoholism Sibling Myocardial infarction Diabetes mellitus Other Family history of cardiovascular disease Social History Social History
[2021-07-25] MEDS: HYDROmorphone HCL INJ (*CRX) 1 MG/ML SYR 0.5 MG IV PUSH (19:14)
[2021-07-25] MEDS: SODIUM CHLORIDE 0.9% IV 1,000 ML 999 ML IV CONT (19:14)
[2021-07-25] MEDS: METOCLOPRAMIDE HCL INJ 10 MG/2 ML VIAL IV PUSH (19:15)
[2021-07-25] MEDS: diphenhydrAMINE HCl INJ 50 MG/ML VIAL IV PUSH (19:16)
[2021-07-25] MEDS: PANTOPRAZOLE SODIUM IV 40 MG VIAL IV PUSH (19:18)
[2021-07-25 20:02] LABS: Lipase 318 U/L (23-300)
[2021-07-25 20:25] VITALS: BP 126/55; PULSE 85; RESP 20; O2SAT 99
[2021-07-25 20:31] LABS: Erythrocyte Sedimentation Rate 66 mm/hr (0-20)
[2021-07-25 21:10] VITALS: BMI 28.2
--- NOTE | 2021-07-25 21:10 | ADMGEN ---
This patient, Cornelius Babin Jr., was admitted to IMU Room 202-01 at 2110. Patient/family oriented to hospital policies and general routines including ID bracelet, bed and alarms, visiting hours, pain management, procedures, bathroom and other care routines, personal items, smoking policy, room service/diet, and visiting hours. Information on how to activate the Rapid Response Team has been discussed. Patient/Family are encouraged to report perceived risks to care and to ask questions if they do not understand what they are told or what they should do.
[2021-07-25 21:14] VITALS: PULSE 84
[2021-07-25 21:20] VITALS: BP 140/96; PULSE 83; RESP 20; TEMP 36.3; O2SAT 98
[2021-07-25 22:00] VITALS: PULSE 80
[2021-07-25 22:02] LABS: Troponin I 0.015 ng/mL (0.000-0.034)
[2021-07-25 22:47] LABS: Add Urine Microscopic? YES; Appearance Urine Cloudy (Clear); Bacteria Urine Trace /hpf; Bilirubin Urine Negative (Negative); Blood Urine Negative (Negative); Color Urine Yellow (Yellow); Glucose Urine UA 1+ mg/dL (Negative); Ketones Urine Negative (Negative); Leukocyte Esterase Ur Negative LEU/UL (Negative); Mucus Urine Rare /lpf; Nitrate Urine Negative (Negative); Protein Urine 2+ mg/dL (Negative); Urobilinogen Urine Negative mg/dL (<2.0)
[2021-07-25 22:49] LABS: Specific Grav Ur 1.043 (1.001-1.035)
[2021-07-25 23:35] VITALS: BP 114/66; PULSE 80; RESP 20; TEMP 36.6; O2SAT 98
[2021-07-26] VITALS (17 sets, daily range): BP systolic 125–170; BP diastolic 55–74; PULSE 62–74; RESP 12–20; TEMP 36.4–37.4; O2SAT 97–100
[2021-07-26 00:27] LABS: Glucose Point of Care 101 mg/dl (65-105)
[2021-07-26] MEDS: SODIUM CHLORIDE 0.9% IV 1,000 ML 125 ML IV CONT ×2 (00:42→10:03)
[2021-07-26] MEDS: BELLADONNA ALK/PHENOB ELIX 10 ML, MAG HYDROX/ALUMINUM HYD/SIMETH 30 ML, LIDOCAINE HCL 2... PO (00:42)
--- NOTE | 2021-07-26 00:59 | PM.IMHP ---
H&P: HPI History of Present Illness Date/Time: 07/26/21 00:59 Chief Complaint: Epigastric pain Narrative: This is a 66-year-old male with past medical history significant for coronary artery disease, mi coma percutaneous transluminal coronary artery angioplasty stent placement, hypertension: Benign prostatic hyperplasia, type 2 diabetes mellitus insulin dependent. Patient presents to the emergency room with complaints of epigastric pain according to patient his been having nausea and vomiting for the last 3 days or so try various things at home to make it stop however was not successful has not been able to eat anything in in the last 3 days or so. Patient denies any hematemesis, fevers ,rigors ,chills ,cough, sputum production, dizziness, palpitations, lightheadedness, syncope, near syncope, leg swelling. Epigastric pain is localized to the retrosternal area with radiation on to the chest had some cough as well which is dry. Preliminary workup has been essentially nonrevealing. At the time of my visit patient rated his pain a 5/10 which was relieved after GI cocktail. Review of Systems Review of Systems: Nausea vomiting epigastric pain Constitutional: Constitutional: Denies chills, Denies fatigue, Denies fever(s) and Denies weakness Eyes: Eyes: Denies change in vision ENT: Denies dysphagia, Denies vertigo, Denies dizziness, Denies nasal congestion, Denies nasal discharge, Denies nasal obstruction and Denies odynophagia Cardiovascular: Cardiovascular: Denies pedal edema, Denies leg edema, Denies radiating jaw, neck or arm pain, Denies palpitations, Denies dyspnea, Denies dyspnea on exertion, Denies orthopnea and Denies paroxysmal nocturnal dyspnea Respiratory: Respiratory: Denies chest congestion, Reports cough, Denies excessive phlegm production, Reports dyspnea and Denies wheezing Gastrointestinal: Gastrointestinal: Reports abdominal pain, Denies dyspepsia, Reports heartburn, Denies diarrhea, Reports nausea and Reports vomiting Genitourinary: Genitourinary: Denies dysuria Musculoskeletal: Musculoskeletal: Denies arthralgias and Denies joint swelling Integumentary/Breasts: Skin/Breast: Denies rash Neurologic: Denies dizziness, Denies focal weakness and Denies Sensory deficit (Neuro) Psychiatric: Psychiatric: Reports no additional psychiatric complaints and Reports as per HPI Endocrine: Endocrine: Denies cold intolerance, Denies heat intolerance and Denies palpitations Allergic/Immunologic: Allergic/Immunologic: Reports no additional allergic/immunologic complaints and Reports as per HPI [facility] Past Medical History Medical History Adenomatous colon polyp Arthritis Caputo's esophagus with esophagitis CAD (coronary artery disease) Managed by Dr. Hoyt Chronic pancreatitis CVA (cerebral vascular accident) (~2014) Diabetic peripheral neuropathy Esophageal hiatal hernia Essential hypertension GERD (gastroesophageal reflux disease) History of stroke (~11/2016) Hyperlipidemia LDL goal <70 Kidney stones Myocardial infarction (~2003) Nausea Open wound of finger of right hand (~07/02/19) PAD (peripheral artery disease) (~2011) With right lower extremity stent and left aortofemoral bypass in 2018. CT evidence of moderate stenosis. 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 Prostate cancer Renal infarction Right kidney Renal insufficiency Multiple episodes of acute kidney injury Type 2 diabetes mellitus with hyperglycemia Vitamin D deficiency Surgical History Surgical History History of colonoscopy with polypectomy (05/2020) History of coronary artery stent placement (~2003) 4 stents placed History of esophagogastroduodenoscopy (EGD) (01/2021) May 2020 and January 2020 History of femoropopliteal bypass left - 09/11 History of incision and drainage perirectal abscess left anterior 02/17/21 History of skin gr
[2021-07-26 01:24] LABS: Troponin I 0.021 ng/mL (0.000-0.034)
[2021-07-26 04:39] LABS: Anion Gap 8 mmol/L (8-16); Blood Urea Nitrogen 34 mg/dL (9-20); Calcium 8.5 mg/dL (8.4-10.2); Carbon Dioxide 28 mmol/L (22-30); Chloride 99 mmol/L (98-107); Estimated CRCL calculation 47 ml/min; Estimated Glomerular Filt Rate 55; Glucose 96 mg/dL (65-110); Potassium 3.7 mmol/L (3.4-5.0); Sodium 135 mmol/L (137-145)
[2021-07-26 08:05] LABS: Glucose Point of Care 104 mg/dl (65-105)
[2021-07-26] MEDS: PANTOPRAZOLE SODIUM IV 40 MG VIAL IV PUSH ×2 (08:24→21:24)
[2021-07-26] MEDS: OMEGA 3 POLYUNSAT FATTY ACIDS 1 GM CAP 2 GM PO ×2 (08:24→16:16)
[2021-07-26] MEDS: ROSUVASTATIN 10 MG TABLET 40 MG PO (08:24)
[2021-07-26] MEDS: MULTIVITAMINS THERAPEUTIC TAB (*BKC) 1 TABLET PO (08:24)
[2021-07-26] MEDS: TAMSULOSIN HCL 0.4 MG CAPSULE PO (08:24)
[2021-07-26] MEDS: FINASTERIDE 5 MG TABLET PO (08:24)
[2021-07-26] MEDS: ISOSORBIDE MONONITRATE 20 MG TABLET 40 MG PO ×3 (08:24→19:47)
[2021-07-26] MEDS: CLOPIDOGREL BISULFATE 75 MG TABLET PO (08:25)
[2021-07-26] MEDS: DULoxetine HCL 60 MG CAPSULE.DR PO (08:25)
[2021-07-26] MEDS: FAMOTIDINE 20 MG TABLET 40 MG PO (08:25)
[2021-07-26] MEDS: amLODIPine BESYLATE 5 MG TABLET 10 MG PO (08:25)
[2021-07-26] MEDS: FENOFIBRATE 160 MG TABLET PO (08:25)
[2021-07-26] MEDS: carvediloL 12.5 MG TABLET PO ×2 (08:25→21:24)
--- NOTE | 2021-07-26 10:38 | PM.IMPN ---
Progress Note: A&P Assessment and Plan (1) Coronary artery disease: Code(s): I25.10 - Atherosclerotic heart disease of [place] coronary artery without angina pectoris Status: Acute Assessment and Plan: Hold antiplatelet for today Pending GI evaluation (2) Epigastric pain: Code(s): R10.13 - Epigastric pain Status: Acute Assessment and Plan: Patient has history of GERD Probably related to gastritis IV Protonix Patient has hematemesis GI consulted Continue H&H (3) Vomiting: Qualifiers: Nausea presence: with nausea Vomiting type: unspecified Qualified Code(s): R11.2 - Nausea with vomiting, unspecified Code(s): R11.10 - Vomiting, unspecified Status: Acute Assessment and Plan: Secondary to above Zofran (4) BALTAZAR (acute kidney injury): Code(s): N17.9 - Acute kidney failure, unspecified Status: Acute Assessment and Plan: Most likely related to dehydration IV fluid (5) Chest pain: Qualifiers: Chest pain type: unspecified Qualified Code(s): R07.9 - Chest pain, unspecified Code(s): R07.9 - Chest pain, unspecified Status: Acute Assessment and Plan: Serial troponin continue to 1 (6) Acid reflux disease: Qualifiers: Esophagitis presence: without esophagitis Qualified Code(s): K21.9 - Gastro-esophageal reflux disease without esophagitis Code(s): K21.9 - Gastro-esophageal reflux disease without esophagitis Status: Acute Assessment and Plan: Protonix (7) Prostate cancer: Code(s): C61 - Malignant neoplasm of prostate Status: Acute Assessment and Plan: Old records (8) Abnormal CT of the abdomen: Code(s): R93.5 - Abnormal findings on diagnostic imaging of other abdominal regions, including retroperitoneum Status: Acute Assessment and Plan: 1. Aortic atherosclerosis. No aneurysm or dissection. 2. Moderate stenosis of one of the left renal arteries. 3. 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 4. Peripheral arterial disease. 5. Kidney cyst pancreatic cyst follow-up with PCP Follow-up with PCP as outpatient Subjective Date/time seen: 07/26/21 10:38 Interval history: Patient presented to the hospital with nausea and vomiting and able to tolerate food worsening rapidly associated with epigastric pain CT scan of the abdomen showed pancreatic pseudocyst renal artery stenosis peripheral vascular disease mesenteric artery stenosis no evidence of dissection Patient notes that his vomitus was coffee-ground in color Patient feels better today Patient denies fever headache chest pain shortness of breath I am seeing the patient for nausea and vomiting Exam Narrative: Alert Chest no wheeze crackles Abdomen nontender nondistended CVS S1 + S2 Lower extremity edema Objective Data Vital Signs Vital Signs: Vital Signs - 24 hr 07/25/21 18:11 07/25/21 20:25 07/25/21 21:14 Temperature 97.3 F L Pulse Rate 84 85 84 Respiratory Rate 20 20 Blood Pressure 137/78 126/55 L Pulse Oximetry 100 99 07/25/21 21:20 07/25/21 22:00 07/25/21 23:35 Temperature 97.3 F L 97.8 F Pulse Rate 83 80 80 Respiratory Rate 20 20 Blood Pressure 140/96 H 114/66 Pulse Oximetry 98 98 07/26/21 00:00 07/26/21 01:10 07/26/21 02:00 Temperature Pulse Rate 69 69 69 Respiratory Rate Blood Pressure Pulse Oximetry 07/26/21 04:00 07/26/21 04:13 07/26/21 06:00 Temperature 99.3 F Pulse Rate 68 74 Respiratory Rate 20 Blood Pressure 138/69 Pulse Oximetry 100 97 07/26/21 08:00 07/26/21 10:00 Temperature 97.7 F Pulse Rate 69 69 Respiratory Rate 12 Blood Pressure 148/74 H Pulse Oximetry 100 Intake/Output Intake/Output: Intake & Output 07/23/21 07/24/21 07/25/21 07/26/21 23:59 23:59 23:59 23:59 Intake Total 1000 2100 Output Total 900 Balance 1000 1200 Meds/Results Medication
[2021-07-26 10:56] LABS: Basophils Percent Auto 0.2 % (0.2-1.2); Eosinophils Absolute Auto 0.2 K/mm3 (0-0.3); Eosinophils Percent Auto 4.4 % (0-4.4); Hematocrit 30.9 % (42.0-52.0); Hemoglobin 10.1 g/dL (14.0-18.0); Immature Granulocyte Absolute 0.02 K/mm3 (0.00-0.031); Immature Granulocyte Percent A 0.5 % (0-0.5); Lymphocytes Absolute Auto 0.83 K/mm3 (0.9-3.2); Lymphocytes Percent Auto 19.2 % (18.3-44.2); Mean Corpuscular HGB Conc 32.7 g/dl (32-36); Mean Corpuscular Hemoglobin 28.3 pg (26-34); Mean Corpuscular Volume 86.6 fl (80-100); Monocytes Absolute Auto 0.4 K/mm3 (0.1-0.6); Monocytes Percent Auto 10.2 % (2.6-8.5); Neutrophils Absolute Auto 2.8 K/mm3 (1.3-6.7); Neutrophils Percent Auto 65.5 % (45.5-73.1); Platelet Count Result 139 k/mm3 (150-375); Red Blood Count 3.57 M/mm3 (4.6-6.20); Red Cell Distribution Width 14.2 % (11.5-14.5); White Blood Count 4.3 K/mm3 (4.5-10.0)
[2021-07-26 11:09] LABS: Alanine Aminotransferase 32 U/L (4-50); Alkaline Phosphatase 58 U/L (38-126); Anion Gap 9 mmol/L (8-16); Aspartate Amino Transferase 36 U/L (17-59); Bilirubin,Total 0.3 mg/dL (0.2-1.3); Blood Urea Nitrogen 31 mg/dL (9-20); Calcium 8.4 mg/dL (8.4-10.2); Carbon Dioxide 28 mmol/L (22-30); Chloride 100 mmol/L (98-107); Estimated CRCL calculation 44 ml/min; Estimated Glomerular Filt Rate 51; Glucose 138 mg/dL (65-110); Potassium 3.6 mmol/L (3.4-5.0); Sodium 137 mmol/L (137-145)
[2021-07-26 11:12] LABS: INR 1.1; Prothrombin Time 13.7 Seconds (11.1-14.7)
[2021-07-26 11:25] LABS: Iron 87 ug/dL (49-181)
[2021-07-26 11:34] LABS: Percent Iron Saturation 23 % (20-50)
[2021-07-26] MEDS: INSULIN HUMAN REGULAR (*BKC) 100 UNITS/ML 25 UNITS SUB-Q (11:57)
[2021-07-26 12:16] LABS: Glucose Point of Care 201 mg/dl (65-105)
[2021-07-26 16:44] LABS: Glucose Point of Care 106 mg/dl (65-105)
[2021-07-26 19:58] LABS: Glucose Point of Care 152 mg/dl (65-105)
[2021-07-26] MEDS: SODIUM CHLORIDE 0.9% IV 1,000 ML 75 ML IV CONT (21:23)
[2021-07-27] VITALS (23 sets, daily range): BP systolic 119–162; BP diastolic 64–84; PULSE 62–78; RESP 18–25; TEMP 36.2–36.7; O2SAT 93–100
[2021-07-27 04:31] LABS: Basophils Percent Auto 0.2 % (0.2-1.2); Eosinophils Absolute Auto 0.3 K/mm3 (0-0.3); Eosinophils Percent Auto 5.9 % (0-4.4); Hemoglobin 9.8 g/dL (14.0-18.0); Immature Granulocyte Absolute 0.04 K/mm3 (0.00-0.031); Immature Granulocyte Percent A 0.9 % (0-0.5); Lymphocytes Absolute Auto 0.91 K/mm3 (0.9-3.2); Lymphocytes Percent Auto 20.5 % (18.3-44.2); Mean Corpuscular HGB Conc 33.8 g/dl (32-36); Mean Corpuscular Hemoglobin 28.2 pg (26-34); Mean Corpuscular Volume 83.6 fl (80-100); Mean Platelet Volume 9.5 fl (7.4-10.4); Monocytes Absolute Auto 0.5 K/mm3 (0.1-0.6); Monocytes Percent Auto 10.2 % (2.6-8.5); Neutrophils Absolute Auto 2.8 K/mm3 (1.3-6.7); Neutrophils Percent Auto 62.3 % (45.5-73.1); Platelet Count Result 136 k/mm3 (150-375); Red Blood Count 3.47 M/mm3 (4.6-6.20); White Blood Count 4.4 K/mm3 (4.5-10.0)
[2021-07-27 04:44] LABS: Alanine Aminotransferase 31 U/L (4-50); Albumin Level 3.9 g/dL (3.5-5.1); Alkaline Phosphatase 61 U/L (38-126); Anion Gap 8 mmol/L (8-16); Aspartate Amino Transferase 37 U/L (17-59); Bilirubin,Total 0.3 mg/dL (0.2-1.3); Blood Urea Nitrogen 23 mg/dL (9-20); Carbon Dioxide 27 mmol/L (22-30); Chloride 102 mmol/L (98-107); Estimated CRCL calculation 51 ml/min; Estimated Glomerular Filt Rate > 60; Glucose 120 mg/dL (65-110); Potassium 3.8 mmol/L (3.4-5.0); Sodium 137 mmol/L (137-145)
[2021-07-27 08:18] LABS: Glucose Point of Care 122 mg/dl (65-105)
[2021-07-27 08:45] LABS: Glucose Point of Care 121 mg/dl (65-105)
[2021-07-27] MEDS: LACTATED RINGERS 1,000 ML 150 ML IV CONT (08:45)
--- NOTE | 2021-07-27 09:03 | WPDANESEPPF ---
Anes - Initial Pre Proc Eval Procedure: Operation Date: 07/27/21 14:30 Proposed Procedures p Esophagogastroduodenoscopy - Jayden Baker MD Date/Time: 07/27/21 09:03 Surgeon: lAyx Ricks MD Pre Op Diagnosis: Vomiting, BALTAZAR, Chest Pain Patient Data Age: 66 Gender: M Height: 1.7 m Weight: 81.8 kg Last Vital Signs Temp 98.0 F 07/27/21 08:51 Pulse 69 07/27/21 08:51 Resp 22 H 07/27/21 08:51 BP 146/69 H 07/27/21 08:51 Pulse Ox 100 07/27/21 08:51 Allergies Allergy/AdvReac Type Severity Reaction Status Date / Time No Known Allergies Allergy Verified 07/27/21 08:37 Home Medications Medication Instructions Recorded Confirmed Type multivitamin 1 tablet PO DAILY 03/07/19 07/26/21 History blood sugar diagnostic #400 ea 08/26/20 07/26/21 Rx pen needle, diabetic 31 gauge x #200 each 08/28/20 07/26/21 Rx 3/16 amlodipine [Norvasc] 10 mg PO DAILY 02/09/21 07/25/21 History finasteride [Proscar] 5 mg PO QAM 30 Days #30 tablet 02/18/21 07/26/21 Rx tamsulosin 0.4 mg PO QAM 30 Days #30 cap 02/18/21 07/26/21 Rx duloxetine 60 mg capsule,delayed 60 mg PO DAILY #30 cap 02/23/21 07/26/21 Rx release famotidine 40 mg tablet 40 mg PO DAILY tablet 02/26/21 07/26/21 History dulaglutide 3 mg/0.5 mL 3 mg SUBCUT WEEKLY 30 Days #2.5 ml 03/04/21 07/26/21 Rx subcutaneous pen injector insulin regular hum U-500 conc 25 unit SUBCUT BID #9 ml 03/04/21 07/26/21 Rx flash glucose scanning reader #1 ea 04/01/21 07/26/21 Rx flash glucose sensor #6 ea 04/01/21 07/26/21 Rx clopidogrel 75 mg PO QAM 90 Days #90 tablet 04/10/21 07/26/21 Rx Vascepa 1 gram capsule 2 g PO BID #120 cap NS 05/25/21 07/26/21 Rx rosuvastatin 40 mg tablet 40 mg PO DAILY #30 tablet 05/25/21 07/26/21 Rx fenofibrate 160 mg PO DAILY 06/04/21 07/26/21 History nitroglycerin See Rx Instructions .ROUTE 06/05/21 07/26/21 Rx .COMPLEX #25 tablet lidocaine 1 applic TOPICAL BID PRN #30 g 06/19/21 07/26/21 Rx ondansetron 4 mg disintegrating 4 mg PO Q8H PRN #30 tablet 07/01/21 07/26/21 Rx tablet hydrochlorothiazide 25 mg tablet See Rx Instructions .ROUTE 07/22/21 07/26/21 Rx .COMPLEX #90 tablet carvedilol 12.5 mg PO BID 07/25/21 07/25/21 History isosorbide mononitrate 40 mg PO TID 07/26/21 07/26/21 History Laboratory Tests 07/26/21 07/26/21 07/26/21 10:48 10:48 10:48 WBC 4.3 K/mm3 L K/mm3 (4.5-10.0) RBC 3.57 M/mm3 L M/mm3 (4.6-6.20) Hgb 10.1 g/dL L g/dL (14.0-18.0) Hct 30.9 % L % (42.0-52.0) MCV 86.6 fl fl (80-100) MCH 28.3 pg pg (26-34) MCHC 32.7 g/dl g/dl (32-36) RDW 14.2 % % (11.5-14.5) Plt Count 139 k/mm3 L k/mm3 (150-375) MPV 9.0 fl fl (7.4-10.4) Immature Gran % (Auto) 0.5 % % (0-0.5) Neut % (Auto) 65.5 % % (45.5-73.1) Lymph % (Auto) 19.2 % % (18.3-44.2) Ness % (Auto) 10.2 % H % (2.6-8.5) Eos % (Auto) 4.4 % % (0-4.4) Baso % (Auto) 0.2 % % (0.2-1.2) Lymph # (Auto) 0.83 K/mm3 L K/mm3 (0.9-3.2) Ness # (Auto) 0.4 K/mm3 K/mm3 (0.1-0.6) Eos # (Auto) 0.2 K/mm3 K/mm3 (0-0.3) Baso # (Auto) 0.0 K/mm3 K/mm3 (0.0-0.1) Abs Immat Gran (auto) 0.02 K/mm3 K/mm3 (0.00-0.031) Absolute Neuts (auto) 2.8 K/mm3 K/mm3 (1.3-6.7) Absolute Nucleated RBC 0.0 K/mm3 K/mm3 (0.0-0.012) Nucleated RBC % 0.0 % % (0.0-0.2) PT INR Sodium 137 mmol/L mmol/L (137-145) Potassium 3.6 mmol/L mmol/L (3.4-5.0) Chloride 100 mmol/L mmol/L (98-107) Carbon Dioxide 28 mmol/L mmol/L (22-30) Anion Gap 9 mmol/L mmol/L (8-16) BUN 31 mg/dL H mg/dL (9-20) Creatinine 1.40 mg/dL H mg/dL (0.7-1.3) Estim Creat Clear Calc 44 ml/min ml/min Estimated GFR 51 L (59 - ) Glucos
--- NOTE | 2021-07-27 09:08 | WPDGICN ---
Assessment and Plan Assessment and plan (1) Nausea and vomiting in adult: Code(s): R11.2 - Nausea with vomiting, unspecified Status: Resolved Assessment and Plan: will proceed with egd, report of dark emesis he has known Caputo's esophagus, already on ppi (2) Coffee ground emesis: Code(s): K92.0 - Hematemesis Status: Acute Assessment and Plan: no more bleeding, monitor h/h (3) Coronary artery disease: Code(s): I25.10 - Atherosclerotic heart disease of [place] coronary artery without angina pectoris Status: Acute Assessment and Plan: on medical treatment (4) Epigastric pain: Code(s): R10.13 - Epigastric pain Status: Acute Assessment and Plan: will assess with egd, more recommendations to follow (5) BALTAZAR (acute kidney injury): Code(s): N17.9 - Acute kidney failure, unspecified Status: Acute (6) CAD (coronary artery disease): Qualifiers: Coronary Disease-Associated Artery/Lesion type: unspecified vessel or lesion type [place] vs. transplanted heart: unspecified whether [place] or transplanted heart Associated angina: with unspecified angina Qualified Code(s): I25.119 - Atherosclerotic heart disease of [place] coronary artery with unspecified angina pectoris Code(s): I25.10 - Atherosclerotic heart disease of [place] coronary artery without angina pectoris Status: Chronic (7) Type 2 diabetes mellitus with hyperglycemia: Code(s): E11.65 - Type 2 diabetes mellitus with hyperglycemia Status: Acute Assessment and Plan: probably contributing to n/v GI Consult Note Consult date/time: 07/27/21 09:08 Reason for consult: nausea and dark emesis HPI: Cornelius Florez Talya Daley is a 66 year old male who is well to me with history of hypertension, coronary artery disease on plavix that required stenting Mar 2021 because NSTEMI at [facility] then 04/2021 cath showed haziness of stent in RCA so a redilation of stent performed with good results, type 2 diabetes mellitus, peripheral diabetic neuropathy, chronic kidney disease, dyslipidemia, peripheral vascular disease s/p vascular procedure in leg. He had EGD and colonoscopy on May 2020 with moderate esophagitis, Caputo's and small hiatal hernia, repeat EGGD 03/2021 showed Caputo's without any more active inflammation. Had small bowel capsule endoscopy because report of dark stools- study was unremarkable, no signs of bleeding with normal SB mucosa. He is admitted here with intractable nausea and vomiting for 3 days, then noted dark emesis. Denies melena. Also epigastric discomfort. Started on iv protonix and now NPO awaiting for EGD. Review of Systems Constitutional: Constitutional: Denies chills Eyes: Eyes: Reports no additional eye complaints ENT: Reports Normal hearing present Cardiovascular: Cardiovascular: Denies lightheadedness Respiratory: Respiratory: Denies cough Gastrointestinal: Gastrointestinal: Reports abdominal pain, Reports nausea and Reports vomiting Genitourinary: Genitourinary: Denies dysuria Musculoskeletal: Musculoskeletal: Denies neck pain Integumentary/Breasts: Skin/Breast: Denies dry skin Neurologic: Denies headache(s) Psychiatric: Psychiatric: Denies behavioral changes [facility] Past Medical History Medical History (Updated 07/27/21 @ 15:41 by Jayden Baker MD) Adenomatous colon polyp Arthritis Caputo's esophagus with esophagitis CAD (coronary artery disease) Managed by Dr. Hoyt Chronic pancreatitis Coffee ground emesis CVA (cerebral vascular accident) (~2014) Diabetic peripheral neuropathy Esophageal hiatal hernia Essential hypertension GERD (gastroesophageal reflux disease) History of stroke (~11/2016) Hyperlipidemia LDL goal <70 Kidney stones Myocardial infarction (~2003) Nausea Open wound of finger of right hand (~07/02/19) PAD (peripheral artery disease) (~2011) With right lower extremity stent and left aor
[2021-07-27] MEDS: BENZOCAINE (*SP) 60 ML SPRAY CAN (HURRICAINE) 1 SPRAY MUCOUS MEM (09:14)
[2021-07-27 09:37] LABS: Glucose Point of Care 116 mg/dl (65-105)
--- NOTE | 2021-07-27 10:27 | PM.IMPN ---
Progress Note: A&P Assessment and Plan (1) Coronary artery disease: Code(s): I25.10 - Atherosclerotic heart disease of [place] coronary artery without angina pectoris Status: Acute Assessment and Plan: Resume Plavix per GI recommendation monitor overnight (2) Epigastric pain: Code(s): R10.13 - Epigastric pain Status: Acute Assessment and Plan: Patient has history of GERD Probably related to gastritis IV Protonix Patient has hematemesis GI consulted Patient was found to have Caputo esophagus GERD gastric retention (3) Vomiting: Qualifiers: Nausea presence: with nausea Vomiting type: unspecified Qualified Code(s): R11.2 - Nausea with vomiting, unspecified Code(s): R11.10 - Vomiting, unspecified Status: Acute Assessment and Plan: Secondary to above Zofran probably related to gastric retention GERD continue Protonix and Reglan (4) BALTAZAR (acute kidney injury): Code(s): N17.9 - Acute kidney failure, unspecified Status: Acute Assessment and Plan: Most likely related to dehydration IV fluid (5) Chest pain: Qualifiers: Chest pain type: unspecified Qualified Code(s): R07.9 - Chest pain, unspecified Code(s): R07.9 - Chest pain, unspecified Status: Acute Assessment and Plan: Continue to monitor (6) Acid reflux disease: Qualifiers: Esophagitis presence: without esophagitis Qualified Code(s): K21.9 - Gastro-esophageal reflux disease without esophagitis Code(s): K21.9 - Gastro-esophageal reflux disease without esophagitis Status: Acute Assessment and Plan: Protonix (7) Prostate cancer: Code(s): C61 - Malignant neoplasm of prostate Status: Acute Assessment and Plan: Old records (8) Abnormal CT of the abdomen: Code(s): R93.5 - Abnormal findings on diagnostic imaging of other abdominal regions, including retroperitoneum Status: Acute Assessment and Plan: 1. Aortic atherosclerosis. No aneurysm or dissection. 2. Moderate stenosis of one of the left renal arteries. 3. 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 4. Peripheral arterial disease. 5. Kidney cyst pancreatic cyst follow-up with PCP Follow-up with PCP as outpatient Anticipate discharge in a.m. if tolerated diet and no evidence of bleeding after starting Plavix Subjective Date/time seen: 07/27/21 10:27 Interval history: Patient presented to the hospital with nausea and vomiting and able to tolerate food worsening rapidly associated with epigastric pain CT scan of the abdomen showed pancreatic pseudocyst renal artery stenosis peripheral vascular disease mesenteric artery stenosis no evidence of dissection Patient notes that his vomitus was coffee-ground in color Patient feels better today EGD was done today Patient denies fever headache chest pain shortness of breath I am seeing the patient for nausea and vomiting Exam Narrative: Alert Chest no wheeze crackles Abdomen nontender nondistended CVS S1 + S2 Lower extremity edema Objective Data Vital Signs Vital Signs: Vital Signs - 24 hr 07/26/21 12:00 07/26/21 14:00 07/26/21 16:00 Temperature 97.6 F 97.8 F Pulse Rate 62 69 70 Respiratory Rate 12 14 Blood Pressure 125/55 L 134/60 Pulse Oximetry 98 99 07/26/21 18:00 07/26/21 19:58 07/26/21 20:00 Temperature 98.0 F Pulse Rate 71 64 72 Respiratory Rate 20 Blood Pressure 170/73 H Pulse Oximetry 97 97 07/26/21 21:24 07/26/21 22:00 07/26/21 23:22 Temperature 98.6 F Pulse Rate 64 64 66 Respiratory Rate 20 Blood Pressure 144/65 H Pulse Oximetry 99 07/27/21 00:00 07/27/21 02:00 07/27/21 04:00 Temperature 97.6 F Pulse Rate 70 67 69 Respiratory Rate 20 Blood Pressure 119/64 Pulse Oximetry 95 100 07/27/21 06:00 07/27/21 08:00 07/27/21 08:38 Temperature Pulse Rate 69 68 Respiratory Rate B
[2021-07-27 10:43] LABS: Hematocrit 30.7 % (42.0-52.0); Hemoglobin 10.3 g/dL (14.0-18.0)
[2021-07-27] MEDS: carvediloL 12.5 MG TABLET PO ×2 (10:46→20:54)
[2021-07-27] MEDS: amLODIPine BESYLATE 5 MG TABLET 10 MG PO (10:46)
[2021-07-27] MEDS: FAMOTIDINE 20 MG TABLET 40 MG PO (10:47)
[2021-07-27] MEDS: DULoxetine HCL 60 MG CAPSULE.DR PO (10:47)
[2021-07-27] MEDS: FENOFIBRATE 160 MG TABLET PO (10:47)
[2021-07-27] MEDS: FINASTERIDE 5 MG TABLET PO (10:47)
[2021-07-27] MEDS: ISOSORBIDE MONONITRATE 20 MG TABLET 40 MG PO ×2 (10:48→17:49)
[2021-07-27] MEDS: PANTOPRAZOLE SODIUM IV 40 MG VIAL IV PUSH ×2 (10:48→20:54)
[2021-07-27] MEDS: MULTIVITAMINS THERAPEUTIC TAB (*BKC) 1 TABLET PO (10:48)
[2021-07-27] MEDS: OMEGA 3 POLYUNSAT FATTY ACIDS 1 GM CAP 2 GM PO ×2 (10:48→17:49)
[2021-07-27] MEDS: TAMSULOSIN HCL 0.4 MG CAPSULE PO (10:48)
[2021-07-27] MEDS: ROSUVASTATIN 10 MG TABLET 40 MG PO (10:48)
[2021-07-27] MEDS: SUCRALFATE SUSP 100 MG/ML 10 ML UDC 1000 MG PO ×3 (11:02→20:54)
[2021-07-27 11:36] LABS: Glucose Point of Care 126 mg/dl (65-105)
[2021-07-27] MEDS: ONDANSETRON INJ 4 MG/2 ML VIAL IV PUSH (13:37)
[2021-07-27] MEDS: METOCLOPRAMIDE HCL 5 MG TABLET PO ×3 (13:37→20:54)
--- NOTE | 2021-07-27 14:06 | PHAR ---
The patient's home med of Trulicity (dulaflutide) 3mg/0.5ml pen has been verified.
[2021-07-27] MEDS: BELLADONNA ALK/PHENOB ELIX 10 ML, MAG HYDROX/ALUMINUM HYD/SIMETH 30 ML, LIDOCAINE HCL 2... PO (15:17)
[2021-07-27 17:00] LABS: Glucose Point of Care 145 mg/dl (65-105)
[2021-07-27] MEDS: INSULIN HUMAN REGULAR (*BKC) 100 UNITS/ML 25 UNITS SUB-Q (17:49)
[2021-07-27 20:26] LABS: Glucose Point of Care 126 mg/dl (65-105)
[2021-07-28] VITALS (9 sets, daily range): BP systolic 148–158; BP diastolic 69–86; PULSE 63–76; RESP 18–20; TEMP 36.4–37.1; O2SAT 95–100
[2021-07-28 04:47] LABS: Basophils Percent Auto 0.2 % (0.2-1.2); Eosinophils Absolute Auto 0.2 K/mm3 (0-0.3); Eosinophils Percent Auto 4.5 % (0-4.4); Hematocrit 29.5 % (42.0-52.0); Hemoglobin 9.7 g/dL (14.0-18.0); Immature Granulocyte Absolute 0.04 K/mm3 (0.00-0.031); Immature Granulocyte Percent A 0.9 % (0-0.5); Lymphocytes Absolute Auto 0.96 K/mm3 (0.9-3.2); Lymphocytes Percent Auto 20.6 % (18.3-44.2); Mean Corpuscular HGB Conc 32.9 g/dl (32-36); Mean Corpuscular Hemoglobin 28.1 pg (26-34); Mean Corpuscular Volume 85.5 fl (80-100); Mean Platelet Volume 9.3 fl (7.4-10.4); Monocytes Absolute Auto 0.4 K/mm3 (0.1-0.6); Monocytes Percent Auto 9.4 % (2.6-8.5); Neutrophils Percent Auto 64.4 % (45.5-73.1); Platelet Count Result 133 k/mm3 (150-375); Red Blood Count 3.45 M/mm3 (4.6-6.20); Red Cell Distribution Width 14.3 % (11.5-14.5); White Blood Count 4.7 K/mm3 (4.5-10.0)
[2021-07-28 05:01] LABS: Alanine Aminotransferase 29 U/L (4-50); Alkaline Phosphatase 58 U/L (38-126); Anion Gap 8 mmol/L (8-16); Aspartate Amino Transferase 32 U/L (17-59); Bilirubin,Total 0.2 mg/dL (0.2-1.3); Blood Urea Nitrogen 22 mg/dL (9-20); Calcium 8.5 mg/dL (8.4-10.2); Carbon Dioxide 25 mmol/L (22-30); Chloride 103 mmol/L (98-107); Estimated CRCL calculation 51 ml/min; Estimated Glomerular Filt Rate > 60; Glucose 131 mg/dL (65-110); Potassium 4.1 mmol/L (3.4-5.0); Sodium 136 mmol/L (137-145)
[2021-07-28] MEDS: SUCRALFATE SUSP 100 MG/ML 10 ML UDC 1000 MG PO ×2 (06:01→12:18)
[2021-07-28] MEDS: METOCLOPRAMIDE HCL 5 MG TABLET PO ×2 (06:01→12:17)
[2021-07-28 08:07] LABS: Glucose Point of Care 149 mg/dl (65-105)
[2021-07-28] MEDS: INSULIN HUMAN REGULAR (*BKC) 100 UNITS/ML 25 UNITS SUB-Q (09:03)
[2021-07-28] MEDS: amLODIPine BESYLATE 5 MG TABLET 10 MG PO (09:03)
[2021-07-28] MEDS: CLOPIDOGREL BISULFATE 75 MG TABLET PO (09:04)
[2021-07-28] MEDS: DULoxetine HCL 60 MG CAPSULE.DR PO (09:04)
[2021-07-28] MEDS: carvediloL 12.5 MG TABLET PO (09:04)
[2021-07-28] MEDS: FENOFIBRATE 160 MG TABLET PO (09:05)
[2021-07-28] MEDS: FINASTERIDE 5 MG TABLET PO (09:05)
[2021-07-28] MEDS: FAMOTIDINE 20 MG TABLET 40 MG PO (09:05)
[2021-07-28] MEDS: MULTIVITAMINS THERAPEUTIC TAB (*BKC) 1 TABLET PO (09:06)
[2021-07-28] MEDS: TAMSULOSIN HCL 0.4 MG CAPSULE PO (09:06)
[2021-07-28] MEDS: OMEGA 3 POLYUNSAT FATTY ACIDS 1 GM CAP 2 GM PO (09:06)
[2021-07-28] MEDS: ISOSORBIDE MONONITRATE 20 MG TABLET 40 MG PO ×2 (09:06→12:18)
[2021-07-28] MEDS: PANTOPRAZOLE SODIUM IV 40 MG VIAL IV PUSH (09:06)
[2021-07-28] MEDS: ROSUVASTATIN 10 MG TABLET 40 MG PO (09:06)
--- NOTE | 2021-07-28 10:16 | PM.DS ---
DS: Admitting Diagnosis Discharge Date 07/28/2021 Admitting Diagnosis Nausea vomiting DS: Discharge Diagnosis Discharge Diagnosis (1) Coronary artery disease: Code(s): I25.10 - Atherosclerotic heart disease of [place] coronary artery without angina pectoris Status: Acute Assessment and Plan: Resume Plavix repeat CBC in 1 week (2) Epigastric pain: Code(s): R10.13 - Epigastric pain Status: Acute Assessment and Plan: Patient has history of GERD Probably related to reflux esophagitis bethany esophagus Protonix Carafate patient was given 2 week duration of medication patient to follow-up with GI for the final duration probably patient will need 4-8 weeks of treatment Patient has hematemesis Follow-up with GI as outpatient EGD showed Caputo esophagus GERD gastric retention concern for gastroparesis (3) Vomiting: Qualifiers: Nausea presence: with nausea Vomiting type: unspecified Qualified Code(s): R11.2 - Nausea with vomiting, unspecified Code(s): R11.10 - Vomiting, unspecified Status: Acute Assessment and Plan: Probably related to gastroparesis GI added Reglan discussed with the patient regarding benefit risk neurological complication (4) BALTAZAR (acute kidney injury): Code(s): N17.9 - Acute kidney failure, unspecified Status: Acute Assessment and Plan: Most likely related to dehydration IV fluid resolved (5) Chest pain: Qualifiers: Chest pain type: unspecified Qualified Code(s): R07.9 - Chest pain, unspecified Code(s): R07.9 - Chest pain, unspecified Status: Acute Assessment and Plan: Continue to monitor (6) Acid reflux disease: Qualifiers: Esophagitis presence: without esophagitis Qualified Code(s): K21.9 - Gastro-esophageal reflux disease without esophagitis Code(s): K21.9 - Gastro-esophageal reflux disease without esophagitis Status: Acute Assessment and Plan: Protonix Carafate (7) Prostate cancer: Code(s): C61 - Malignant neoplasm of prostate Status: Acute Assessment and Plan: Follow-up with PCP (8) Abnormal CT of the abdomen: Code(s): R93.5 - Abnormal findings on diagnostic imaging of other abdominal regions, including retroperitoneum Status: Acute Assessment and Plan: 1. Aortic atherosclerosis. No aneurysm or dissection. 2. Moderate stenosis of one of the left renal arteries. 3. 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 4. Peripheral arterial disease. 5. Kidney cyst pancreatic cyst follow-up with PCP Follow-up with PCP as outpatient Anticipate discharge in a.m. if tolerated diet and no evidence of bleeding after starting Plavix (9) Gastroparesis: Code(s): K31.84 - Gastroparesis Status: Acute DS: Summary Hospital Course Hospital Course: Patient presented to the hospital with nausea and vomiting associated with hematemesis and epigastric was found to have acute blood loss anemia dehydration acute renal failure GI was consulted patient has EGD showed reflux esophagitis bethany esophagus and possible gastroparesis patient was treated with IV fluid IV Protonix oral Carafate oral Reglan patient condition improved patient will be discharged on oral Carafate oral Protonix oral Reglan medication prescription was given for 2 weeks to follow-up with PCP and GI in 1 week Probably patient will require treatment for 6-8 weeks then may need deescalation of therapy follow-up with GI as outpatient Time Spent with Patient Time attestation: Total time spent providing and/or coordinating discharge services: Exam Narrative: Alert Chest no wheeze crackles Abdomen nontender nondistended CVS S1 + S2 Lower extremity edema DS: Data Data Completed and Pending Pending studies at discharge: Pending at discharge 07/27/21 09:19 Surgical [PTH] Routine Labs on day of discharge: Labs from [facility]
--- NOTE | 2021-07-28 10:44 | WPDGIPROGNO ---
Progress Note: A&P Assessment and Plan (1) Vomiting: Qualifiers: Nausea presence: with nausea Vomiting type: unspecified Qualified Code(s): R11.2 - Nausea with vomiting, unspecified Code(s): R11.10 - Vomiting, unspecified Status: Acute Assessment and Plan: resolved he can go home by gi standpoint with antiemetics as needed, also started on low dose of reglan follow-up office in 6-8 weeks (2) Coffee ground emesis: Code(s): K92.0 - Hematemesis Status: Acute Assessment and Plan: resolved, no active bleeding probably from esophagitis (3) Erosive esophagitis: Code(s): K22.10 - Ulcer of esophagus without bleeding Status: Acute (4) Caputo's esophagus with esophagitis: Code(s): K22.70 - Caputo's esophagus without dysplasia; K20.9 - Esophagitis, unspecified Status: Acute Assessment and Plan: next egd for Caputo's surveillance in 3 years (pending biopsies) (5) Type 2 diabetes mellitus with hyperglycemia: Code(s): E11.65 - Type 2 diabetes mellitus with hyperglycemia Status: Acute (6) Gastroparesis: Code(s): K31.84 - Gastroparesis Status: Acute Subjective Date/time seen: 07/28/21 10:44 Interval history: no more nausea, he is doing better and had pancakes for breakfast, he is comfortable. EGD yesterday with some retained food in stomach, Caputo's and esophagitis. Review of Systems Review of Systems: All systems reviewed & are unremarkable except as noted in HPI and below Exam Const: General: comfortable and no acute distress HENMT: General nose exam: Normal nares present Eyes: General: appearance normal, both eyes and all related structures Neck: Neck: no JVD Resp: Auscultation: clear to auscultation bilaterally Cardio: Rate: regular rate Rhythm: regular rhythm GI: Inspection: non-distended GI Palp: Yes Soft to palpation and No Guarding due to palpation present (GI) Auscultation: normal bowel sounds Skin: General skin exam: normal color Neuro: General: gait normal Speech: normal speech Extrem: General: normal to inspection Psych: Mental Status: mental status grossly normal Objective Data Vital Signs Vital Signs: Vital Signs - 24 hr 07/27/21 11:51 07/27/21 12:00 07/27/21 12:04 Temperature 97.1 F L Pulse Rate 63 68 Respiratory Rate 20 Blood Pressure 158/84 H Pulse Oximetry 99 100 07/27/21 14:00 07/27/21 16:00 07/27/21 16:41 Temperature 97.9 F Pulse Rate 67 64 62 Respiratory Rate 20 Blood Pressure 142/67 H Pulse Oximetry 97 07/27/21 18:00 07/27/21 20:00 07/27/21 20:54 Temperature 97.8 F Pulse Rate 73 78 69 Respiratory Rate 20 Blood Pressure 146/80 H Pulse Oximetry 93 07/27/21 22:00 07/27/21 23:29 07/28/21 00:00 Temperature 97.3 F L Pulse Rate 71 74 76 Respiratory Rate 20 Blood Pressure 152/66 H Pulse Oximetry 99 96 07/28/21 02:00 07/28/21 03:27 07/28/21 04:00 Temperature 98.7 F Pulse Rate 76 75 76 Respiratory Rate 18 Blood Pressure 148/69 H Pulse Oximetry 97 95 07/28/21 06:00 07/28/21 08:16 Temperature 97.5 F L Pulse Rate 63 65 Respiratory Rate 20 Blood Pressure 158/86 H Pulse Oximetry 100 Intake/Output Intake/Output: Intake & Output 07/25/21 07/26/21 07/27/21 07/28/21 23:59 23:59 23:59 23:59 Intake Total 1000 4100 1950 590 Output Total 2100 3125 975 Balance 1000 1201 -7613 -581 Meds/Results Medications: Active Medications Generic Name Dose Route Start Last Admin Trade Name Radha PRN Reason Stop Dose Admin Amlodipine Besylate 10 mg 07/26/21 09:00 07/28/21 09:03 Amlodipine Besylate 5 Mg Tablet PO 10 mg DAILY SAVITA Administration Carvedilol 12.5 mg 07/26/21 09:00 07/28/21 09:04 Carvedilol 12.5 Mg Tablet PO 12.5 mg Q12HR SAVITA Administration Clopidogrel Bisulfate 75 mg 07/26/21 09:00 07/28/21 09:04 Clopidogrel Bisulfate 75 Mg Tablet PO 75 mg QAM SAVITA Adm
[2021-07-28 11:20] LABS: Hematocrit 29.1 % (42.0-52.0); Hemoglobin 9.8 g/dL (14.0-18.0)
--- NOTE | 2021-07-28 11:46 | WPDANESPN ---
Anes - Prog Note Post-Op Date/Time: 07/28/21 11:46 Cardiovascular status: normal Respiratory status: normal Airway patency: baseline Mental status: baseline Post-Op hydration status: normal Vital Signs: Last Vital Signs Temp 36.4 C L 07/28/21 08:16 Pulse 68 07/28/21 10:00 Resp 20 07/28/21 08:16 BP 158/86 H 07/28/21 08:16 Pulse Ox 100 07/28/21 08:16 Pain Score (VAS): 0/10 I/O: Intake & Output 07/27/21 07/28/21 07/28/21 23:59 07:59 15:59 Intake Total 1560 350 240 Output Total 929 650 325 Balance 635 -300 -85 Laboratory Tests 07/28/21 11:08 07/28/21 04:19 07/27/21 07/27/21 07/28/21 16:27 19:37 04:19 WBC 4.7 RBC 3.45 L Hgb 9.7 L Hct 29.5 L MCV 85.5 MCH 28.1 MCHC 32.9 RDW 14.3 Plt Count 133 L MPV 9.3 Immature Gran % (Auto) 0.9 H Neut % (Auto) 64.4 Lymph % (Auto) 20.6 [place] % (Auto) 9.4 H Eos % (Auto) 4.5 H Baso % (Auto) 0.2 Lymph # (Auto) 0.96 [place] # (Auto) 0.4 Eos # (Auto) 0.2 Baso # (Auto) 0.0 Abs Immat Gran (auto) 0.04 H Absolute Neuts (auto) 3.0 Absolute Nucleated RBC 0.0 Nucleated RBC % 0.0 Sodium Potassium Chloride Carbon Dioxide Anion Gap BUN Creatinine Estim Creat Clear Calc Estimated GFR Glucose POC Capillary Glucose 145 H 126 H Calcium Total Bilirubin AST ALT Alkaline Phosphatase Total Protein Albumin 07/28/21 07/28/21 07/28/21 04:19 07:52 11:08 WBC RBC Hgb 9.8 L Hct 29.1 L MCV MCH MCHC RDW Plt Count MPV Immature Gran % (Auto) Neut % (Auto) Lymph % (Auto) [place] % (Auto) Eos % (Auto) Baso % (Auto) Lymph # (Auto) [place] # (Auto) Eos # (Auto) Baso # (Auto) Abs Immat Gran (auto) Absolute Neuts (auto) Absolute Nucleated RBC Nucleated RBC % Sodium 136 L Potassium 4.1 Chloride 103 Carbon Dioxide 25 Anion Gap 8 BUN 22 H Creatinine 1.20 Estim Creat Clear Calc 51 Estimated GFR > 60 Glucose 131 H POC Capillary Glucose 149 H Calcium 8.5 Total Bilirubin 0.2 AST 32 ALT 29 Alkaline Phosphatase 58 Total Protein 7.0 Albumin 4.0 Microbiology 07/25/21 20:40 Unspecified Urine Urine Culture - Final Post-procedural complaints: none Patient Feedback: Patient satisfied with anesthetic care.
[2021-07-28 12:21] LABS: Glucose Point of Care 99 mg/dl (65-105)
== END 2021-07-28 13:20 | disposition home or self-care (01) ==
LOC: ANHED 20:10 → ANHIMU 21:40
PROVIDERS: Internal Medicine Gastroenterology; Admitting Provider Internal Medicine; Emergency Provider Emergency Medicine; PCP Family Medicine; Visit Provider Internal Medicine
PROC: 0DJ08ZZ Inspection of Upper Intestinal Tract, Via Natural or Artificial Opening Endoscopic (ICD-10-PCS; CPT 43235; principal; 2021-07-27 14:30)
DX: K22.70 Barrett's esophagus without dysplasia (principal); K21.9 Gastro-esophageal reflux disease without esophagitis; K44.9 Diaphragmatic hernia without obstruction or gangrene; K92.0 Hematemesis; I10 Essential (primary) hypertension; E11.51 Type 2 diabetes mellitus with diabetic peripheral angiopathy without gangrene; E11.42 Type 2 diabetes mellitus with diabetic polyneuropathy; E55.9 Vitamin D deficiency, unspecified; E78.5 Hyperlipidemia, unspecified; I25.10 Atherosclerotic heart disease of native coronary artery without angina pectoris; I25.2 Old myocardial infarction; N40.0 Benign prostatic hyperplasia without lower urinary tract symptoms; N17.9 Acute kidney failure, unspecified; Z95.5 Presence of coronary angioplasty implant and graft; Z79.4 Long term (current) use of insulin; Z86.73 Personal history of transient ischemic attack (TIA), and cerebral infarction without residual deficits; Z85.46 Personal history of malignant neoplasm of prostate; Z98.41 Cataract extraction status, right eye; Z98.42 Cataract extraction status, left eye; Z96.1 Presence of intraocular lens; Z87.891 Personal history of nicotine dependence; Z79.02 Long term (current) use of antithrombotics/antiplatelets
CPT/HCPCS: 43239; 36415; 71046; 71275; 74174; 80048; 80053; 81001; 82948; 83540; 83550; 83690; 84484; 85014; 85018; 85025; 85610; 85652; 85730; 87086; 87088; 88305; 88313; 93005; 96361; 96374; 96375; 96376; 99285; A9270; C9113; G0378; J0131; J1170; J1200; J1815; J2405; J2704; J2765; J7030; J7120; Q9967

== ENCOUNTER 2021-08-08 09:30 | Outpatient (CLI) | payer MEDICARE, MEDICAID, SELFPAY ==
[2021-08-08 09:50] LABS: Basophils Percent Auto 0.4 % (0.2-1.2); Eosinophils Absolute Auto 0.1 K/mm3 (0-0.3); Eosinophils Percent Auto 1.9 % (0-4.4); Hematocrit 33.8 % (42.0-52.0); Hemoglobin 11.6 g/dL (14.0-18.0); Immature Granulocyte Absolute 0.04 K/mm3 (0.00-0.031); Immature Granulocyte Percent A 0.8 % (0-0.5); Lymphocytes Absolute Auto 1.01 K/mm3 (0.9-3.2); Lymphocytes Percent Auto 19.2 % (18.3-44.2); Mean Corpuscular HGB Conc 34.3 g/dl (32-36); Mean Corpuscular Hemoglobin 28.6 pg (26-34); Mean Corpuscular Volume 83.5 fl (80-100); Mean Platelet Volume 9.5 fl (7.4-10.4); Monocytes Absolute Auto 0.5 K/mm3 (0.1-0.6); Monocytes Percent Auto 9.1 % (2.6-8.5); Neutrophils Absolute Auto 3.6 K/mm3 (1.3-6.7); Neutrophils Percent Auto 68.6 % (45.5-73.1); Platelet Count Result 199 k/mm3 (150-375); Red Blood Count 4.05 M/mm3 (4.6-6.20); Red Cell Distribution Width 14.3 % (11.5-14.5); White Blood Count 5.3 K/mm3 (4.5-10.0)
[2021-08-08 10:41] LABS: Iron 68 ug/dL (49-181)
[2021-08-08 10:50] LABS: Percent Iron Saturation 18 % (20-50)
== END 2021-08-08 09:31 | disposition home or self-care (01) ==
LOC: ANHLAB 09:31
PROVIDERS: PCP Nurse Practitioner; Visit Provider Nurse Practitioner
DX: D64.9 Anemia, unspecified (principal)
CPT/HCPCS: 36415; 82728; 83540; 83550; 85025

== ENCOUNTER 2021-08-13 11:05 | Emergency (ER) | payer MEDICARE, MEDICAID, SELFPAY ==
--- NOTE | ~2021-08-13 | US_ITS ---
EXAMINATION: US right upper quadrant EXAM DATE: 08/13/2021 13:06 INDICATION: Epigastric pain/vomiting. TECHNIQUE: Multiple grayscale and Doppler images of the abdomen right upper quadrant were obtained (b y a technologist who performed the scan) and subsequently reviewed. There is no prior study for francesco sandoval. FINDINGS: The pancreatic head and body are normal in appearance. The pancreatic tail is not visualized. The l iver has normal echogenicity and contour. There are no focal liver lesions identified. There is no evidence of intrahepatic biliary duct dilation. Portal venous flow was seen in the hepatopedal, nor mal direction and has normal Doppler waveform. No right-sided hydronephrosis. Common bile duct measures 3 mm, which is normal. The gallbladder wall is normal in thickness, with ex pected amount of distention. No sonographic evidence of pericholecystic fluid. There is no cholelit hiases. Technologist performing exam reports patient did not demonstrate sonographic Jacques's sign. Please note that this sign is less reliable in patients who have received pain medication. IMPRESSION: Unremarkable abdominal ultrasound exam. Reviewed, dictated and finalized at location A.
[2021-08-13 11:16] VITALS: BP 102/58; PULSE 85; RESP 18; TEMP 36.8; O2SAT 100
[2021-08-13 11:34] LABS: Basophils Percent Auto 0.2 % (0.2-1.2); Eosinophils Absolute Auto 0.2 K/mm3 (0-0.3); Eosinophils Percent Auto 2.7 % (0-4.4); Hematocrit 33.3 % (42.0-52.0); Hemoglobin 11.1 g/dL (14.0-18.0); Immature Granulocyte Absolute 0.05 K/mm3 (0.00-0.031); Immature Granulocyte Percent A 0.6 % (0-0.5); Lymphocytes Absolute Auto 0.92 K/mm3 (0.9-3.2); Lymphocytes Percent Auto 11.4 % (18.3-44.2); Mean Corpuscular HGB Conc 33.3 g/dl (32-36); Mean Corpuscular Hemoglobin 27.8 pg (26-34); Mean Corpuscular Volume 83.3 fl (80-100); Mean Platelet Volume 9.4 fl (7.4-10.4); Monocytes Absolute Auto 0.5 K/mm3 (0.1-0.6); Monocytes Percent Auto 6.2 % (2.6-8.5); Neutrophils Absolute Auto 6.3 K/mm3 (1.3-6.7); Neutrophils Percent Auto 78.9 % (45.5-73.1); Platelet Count Result 213 k/mm3 (150-375); White Blood Count 8.1 K/mm3 (4.5-10.0)
[2021-08-13 12:04] LABS: Alanine Aminotransferase 27 U/L (4-50); Albumin Level 4.3 g/dL (3.5-5.1); Alkaline Phosphatase 75 U/L (38-126); Anion Gap 9 mmol/L (8-16); Aspartate Amino Transferase 33 U/L (17-59); Bilirubin,Total 0.2 mg/dL (0.2-1.3); Blood Urea Nitrogen 25 mg/dL (9-20); Calcium 9.7 mg/dL (8.4-10.2); Carbon Dioxide 33 mmol/L (22-30); Chloride 95 mmol/L (98-107); Estimated CRCL calculation 47 ml/min; Estimated Glomerular Filt Rate 55; Glucose 174 mg/dL (65-110); Lipase 298 U/L (23-300); Potassium 3.9 mmol/L (3.4-5.0); Sodium 137 mmol/L (137-145)
[2021-08-13 12:18] LABS: Appearance Urine Clear (Clear); Bilirubin Urine Negative (Negative); Blood Urine Negative (Negative); Color Urine Yellow (Yellow); Glucose Urine UA Negative (Negative); Ketones Urine Negative (Negative); Leukocyte Esterase Ur Negative LEU/UL (Negative); Nitrate Urine Negative (Negative); Protein Urine 2+ mg/dL (Negative); Specific Grav Ur 1.025 (1.001-1.035); Urobilinogen Urine 0.2 mg/dL (<2.0)
[2021-08-13 12:23] LABS: Bacteria Urine Trace /hpf; Mucus Urine Rare /lpf; RBC Urine 0-2 /hpf (0-2); WBC Urine 0-3 /hpf
[2021-08-13 12:28] VITALS: BP 124/68; PULSE 80
[2021-08-13 12:30] VITALS: BP 116/66; PULSE 81
[2021-08-13 12:31] LABS: Add Urine Microscopic? YES
[2021-08-13 12:32] VITALS: BP 88/70; PULSE 83
[2021-08-13 12:35] VITALS: BP 98/64; PULSE 81; RESP 17; O2SAT 100
--- NOTE | 2021-08-13 13:04 | PC.NURSE ---
Pt went to [facility]/S via stretcher at this time.
[2021-08-13 13:33] LABS: Lactic Acid Reflex 1.6 mmol/L (0.7-2.1)
[2021-08-13] MEDS: METOCLOPRAMIDE HCL 10 MG TABLET PO (13:35)
--- NOTE | 2021-08-13 13:38 | ED.NAVMDI ---
HPI - Nausea/Vomiting/Diarrhea General Chief complaint: Nausea/Vomiting/Diarrhea Stated complaint: vomiting Time Seen by Provider: 08/13/21 12:00 History of Present Illness HPI Narrative: Patient is a 66-year-old male who presents ER for nausea and vomiting. Ongoing intermittently over the last month. More persistent over the last week. Occurs with eating. No fevers or chills or sweats. No dark black stools or hematemesis/coffee-ground emesis. Patient recently was hospitalized for cardiac issues and received a stent. Patient also had GI bleed. He had an EGD that showed Caputo's esophagus, retained gastric contents, and esophagitis. He was started on a PPI. He reports compliance with home meds. He is not on any medication for gastroparesis. He is having normal bowel movements. No chest pain or pressure. Patient also endorses chronic fatigue/weakness. Related Data Home Medications Medication Instructions Recorded Confirmed multivitamin 1 tablet PO DAILY 03/07/19 08/12/21 famotidine 40 mg tablet 40 mg PO DAILY tablet 02/26/21 08/12/21 carvedilol 12.5 mg PO BID 07/25/21 08/12/21 isosorbide mononitrate 40 mg PO TID 07/26/21 08/12/21 insulin regular hum U-500 conc 20 unit SUBCUT DAILY ml 07/31/21 08/12/21 niacin [Niaspan Extended-Release] 1,000 mg PO HS 08/13/21 08/13/21 Allergies Allergy/AdvReac Type Severity Reaction Status Date / Time No Known Allergies Allergy Verified 08/13/21 11:07 Review of Systems Review of Systems: All systems reviewed & are unremarkable except as noted in HPI and below Constitutional: Constitutional: Denies chills, Reports fatigue, Denies fever(s) and Reports weakness Cardiovascular: Cardiovascular: Denies chest pain, Denies rapid heart rate and Denies radiating jaw, neck or arm pain Respiratory: Respiratory: Denies cough and Denies dyspnea Gastrointestinal: Gastrointestinal: Denies abdominal pain, Denies constipation, Denies diarrhea, Reports nausea and Reports vomiting Genitourinary: Genitourinary: Denies dysuria and Denies urinary frequency Musculoskeletal: Musculoskeletal: Denies back pain and Denies muscle cramps PMFSH Past Medical History Medical History (Updated 08/13/21 @ 13:42 by Jose Obrien MD) Abnormal CT of the abdomen Adenomatous colon polyp Arthritis Caputo's esophagus with esophagitis Black stools CAD (coronary artery disease) Managed by Dr. Hoyt Chronic pancreatitis CVA (cerebral vascular accident) (~2014) Diabetic peripheral neuropathy Esophageal hiatal hernia Essential hypertension GERD (gastroesophageal reflux disease) History of CVA with residual deficit Hyperlipidemia LDL goal <70 Kidney stones Myocardial infarction (~2003) PAD (peripheral artery disease) (~2011) With right lower extremity stent and left aortofemoral bypass in 2018. CT evidence of moderate stenosis. 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 Perirectal abscess Prostate cancer Renal infarction Right kidney Renal insufficiency Multiple episodes of acute kidney injury Type 2 diabetes mellitus with hyperglycemia Vitamin D deficiency Surgical History Surgical History History of colonoscopy with polypectomy (05/2020) History of coronary artery stent placement (~2003) 4 stents placed History of esophagogastroduodenoscopy (EGD) (01/2021) May 2020 and January 2020 History of femoropopliteal bypass left - 09/11 History of incision and drainage perirectal abscess left anterior 02/17/21 History of skin graft for left 5th toe diabetic ulcer S/P peripheral artery angioplasty with stent placement 11/2020 right superficial femoral artery stent Status post cataract extraction of both eyes with insertion of intraocular lens Status post open reduction with internal fixation of fracture Hips and legs as a child Family History Family History Mother Diabetes mellit
[2021-08-13 14:25] VITALS: BP 98/64; PULSE 79; RESP 18; O2SAT 100
== END 2021-08-13 14:43 | disposition home or self-care (01) ==
PROVIDERS: Emergency Medicine; Emergency Provider Emergency Medicine; PCP Nurse Practitioner
DX: E11.43 Type 2 diabetes mellitus with diabetic autonomic (poly)neuropathy (principal); K31.84 Gastroparesis; E11.51 Type 2 diabetes mellitus with diabetic peripheral angiopathy without gangrene; E11.42 Type 2 diabetes mellitus with diabetic polyneuropathy; I25.10 Atherosclerotic heart disease of native coronary artery without angina pectoris; I10 Essential (primary) hypertension; E78.5 Hyperlipidemia, unspecified; K22.70 Barrett's esophagus without dysplasia; K20.90 Esophagitis, unspecified without bleeding; K86.1 Other chronic pancreatitis; K44.9 Diaphragmatic hernia without obstruction or gangrene; I25.2 Old myocardial infarction; N28.9 Disorder of kidney and ureter, unspecified; E55.9 Vitamin D deficiency, unspecified; Z87.442 Personal history of urinary calculi; Z85.46 Personal history of malignant neoplasm of prostate; Z95.1 Presence of aortocoronary bypass graft; Z95.5 Presence of coronary angioplasty implant and graft; Z98.42 Cataract extraction status, left eye; Z98.41 Cataract extraction status, right eye; Z96.1 Presence of intraocular lens; Z87.891 Personal history of nicotine dependence; Z79.4 Long term (current) use of insulin; Z79.899 Other long term (current) drug therapy
CPT/HCPCS: 36415; 76705; 80053; 81001; 83605; 83690; 85025; 99284; A9270

== ENCOUNTER 2021-08-15 09:27 | Outpatient (CLI) | payer MEDICARE, MEDICAID, SELFPAY ==
[2021-08-15 09:52] LABS: Glucose 169 mg/dL (65-110); Hemoglobin A1C 6.4 % (<5.7)
== END 2021-08-15 09:28 | disposition home or self-care (01) ==
PROVIDERS: PCP Nurse Practitioner; Visit Provider Nurse Practitioner Family
DX: E11.65 Type 2 diabetes mellitus with hyperglycemia (principal)
CPT/HCPCS: 36415; 82947; 83036

== ENCOUNTER 2021-08-21 14:10 | Emergency (ER) | payer MEDICARE, MEDICAID, SELFPAY ==
--- NOTE | ~2021-08-21 | US_ITS ---
EXAMINATION: US venous doppler LE RT DATE: 08/21/2021 16:00 INDICATION: Right lower limb pain TECHNIQUE: Bhat scale images without and with compression and Doppler images of the right lower extre mity veins were obtained. COMPARISON: None FINDINGS: The right common femoral vein, profunda femoral vein, femoral vein, popliteal vein, peronea l trunk, posterior tibial veins, and greater saphenous vein are patent. IMPRESSION: 1. Patent right lower extremity veins. No evidence of deep venous thrombosis. Reviewed, dictated and finalized at location B.
[2021-08-21 14:34] VITALS: BP 135/55; PULSE 71; RESP 18; TEMP 37.1; O2SAT 100
--- NOTE | 2021-08-21 14:41 | ED.EXTPRO ---
HPI - Extremity Problem General Chief complaint: Extremity Problem,Nontraumatic Stated complaint: right leg pain Time Seen by Provider: 08/21/21 14:30 History of Present Illness HPI Narrative: 66-year-old male history of peripheral vascular disease and DVTs presents to the emergency room for evaluation of acute onset of right lower extremity pain. Patient denies injury or trauma. Patient states he was woke up this morning right lower leg pain attempted to walk on it but was able unable to due to the pain. Patient states the pain starts in his toes and radiates up into his knee, and is sharp. Related Data Home Medications Medication Instructions Recorded Confirmed multivitamin 1 tablet PO DAILY 03/07/19 08/18/21 famotidine 40 mg tablet 40 mg PO DAILY tablet 02/26/21 08/18/21 carvedilol 12.5 mg PO BID 07/25/21 08/18/21 isosorbide mononitrate 40 mg PO TID 07/26/21 08/18/21 insulin regular hum U-500 conc 20 unit SUBCUT DAILY ml 07/31/21 08/18/21 niacin [Niaspan Extended-Release] 1,000 mg PO HS 08/13/21 08/18/21 aspirin 81 mg tablet,delayed 81 mg PO DAILY 08/18/21 08/18/21 release Allergies Allergy/AdvReac Type Severity Reaction Status Date / Time No Known Allergies Allergy Verified 08/21/21 14:40 Review of Systems Review of Systems: CONSTITUTIONAL: Denies fever, chills, or sweats. EYES: Denies visual changes, redness, or discharge. ENT: Denies rhinorrhea, congestion, sore throat, or otalgia. CARDIOVASCULAR: Denies chest pain, palpitations, or edema. RESPIRATORY: Denies cough or dyspnea. GASTROINTESTINAL: Denies abdominal pain, nausea, vomiting, or diarrhea. GENITOURINARY: Denies dysuria or hematuria. SKIN: Denies rash or itching. MUSCULOSKELETAL: Reports right lower extremity pain NEUROLOGIC: Denies headache, numbness, dizziness, or weakness. PSYCHIATRIC: Denies anxiety or depression. [facility] Past Medical History Medical History Abnormal CT of the abdomen Adenomatous colon polyp Arthritis Caputo's esophagus with esophagitis Black stools CAD (coronary artery disease) Managed by Dr. Hoyt Chronic pancreatitis CVA (cerebral vascular accident) (~2014) Diabetic peripheral neuropathy Esophageal hiatal hernia Essential hypertension GERD (gastroesophageal reflux disease) History of CVA with residual deficit Hyperlipidemia LDL goal <70 Kidney stones Myocardial infarction (~2003) PAD (peripheral artery disease) (~2011) With right lower extremity stent and left aortofemoral bypass in 2019. CT evidence of moderate stenosis. 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 Perirectal abscess Prostate cancer Renal infarction Right kidney Renal insufficiency Multiple episodes of acute kidney injury Type 2 diabetes mellitus with hyperglycemia Vitamin D deficiency Surgical History Surgical History History of colonoscopy with polypectomy (05/2020) History of coronary artery stent placement (~2003) 4 stents placed History of esophagogastroduodenoscopy (EGD) (01/2021) May 2020 and January 2020 History of femoropopliteal bypass left - 09/11 History of incision and drainage perirectal abscess left anterior 02/17/21 History of skin graft for left 5th toe diabetic ulcer S/P peripheral artery angioplasty with stent placement 11/2020 right superficial femoral artery stent Status post cataract extraction of both eyes with insertion of intraocular lens Status post open reduction with internal fixation of fracture Hips and legs as a child Family History Family History Mother Diabetes mellitus Family history of arthritis Family history of diabetes mellitus in first degree relative Family history of coronary artery disease Hypertension Cerebrovascular accident Father Family history of alcoholism Sibling Myocardial infarction Diabetes mellitus
[2021-08-21 15:28] LABS: Basophils Percent Auto 0.3 % (0.2-1.2); Eosinophils Absolute Auto 0.3 K/mm3 (0-0.3); Eosinophils Percent Auto 3.3 % (0-4.4); Hemoglobin 11.1 g/dL (14.0-18.0); Immature Granulocyte Absolute 0.09 K/mm3 (0.00-0.031); Immature Granulocyte Percent A 1.2 % (0-0.5); Lymphocytes Absolute Auto 0.79 K/mm3 (0.9-3.2); Lymphocytes Percent Auto 10.4 % (18.3-44.2); Mean Corpuscular HGB Conc 33.6 g/dl (32-36); Mean Corpuscular Volume 83.1 fl (80-100); Mean Platelet Volume 9.1 fl (7.4-10.4); Monocytes Absolute Auto 0.7 K/mm3 (0.1-0.6); Monocytes Percent Auto 8.5 % (2.6-8.5); Neutrophils Absolute Auto 5.8 K/mm3 (1.3-6.7); Neutrophils Percent Auto 76.3 % (45.5-73.1); Platelet Count Result 180 k/mm3 (150-375); Red Blood Count 3.97 M/mm3 (4.6-6.20); Red Cell Distribution Width 14.1 % (11.5-14.5); White Blood Count 7.6 K/mm3 (4.5-10.0)
[2021-08-21 15:31] LABS: Alanine Aminotransferase 27 U/L (4-50); Albumin Level 4.4 g/dL (3.5-5.1); Alkaline Phosphatase 60 U/L (38-126); Anion Gap 7 mmol/L (8-16); Aspartate Amino Transferase 47 U/L (17-59); Bilirubin,Total 0.2 mg/dL (0.2-1.3); Blood Urea Nitrogen 29 mg/dL (9-20); Calcium 9.9 mg/dL (8.4-10.2); Carbon Dioxide 31 mmol/L (22-30); Chloride 97 mmol/L (98-107); Estimated CRCL calculation 51 ml/min; Estimated Glomerular Filt Rate > 60; Glucose 202 mg/dL (65-110); Potassium 3.7 mmol/L (3.4-5.0); Sodium 135 mmol/L (137-145)
[2021-08-21 15:32] LABS: INR 1.1; Partial Thromboplastin Time 29.4 SECONDS (22.3-36.8); Prothrombin Time 13.8 Seconds (11.1-14.7)
[2021-08-21] MEDS: MORPHINE SULFATE (*CRX) 2 MG/ML INJ IV PUSH (16:06)
[2021-08-21] MEDS: ONDANSETRON INJ 4 MG/2 ML VIAL IV PUSH (16:06)
[2021-08-21 17:14] VITALS: BP 152/87; PULSE 69; RESP 19; O2SAT 100
== END 2021-08-21 17:17 | disposition home or self-care (01) ==
PROVIDERS: Emergency Provider Nurse Practitioner Family; PCP Nurse Practitioner
DX: M79.661 Pain in right lower leg (principal); C61 Malignant neoplasm of prostate; I25.10 Atherosclerotic heart disease of native coronary artery without angina pectoris; I10 Essential (primary) hypertension; E11.51 Type 2 diabetes mellitus with diabetic peripheral angiopathy without gangrene; E11.42 Type 2 diabetes mellitus with diabetic polyneuropathy; E78.5 Hyperlipidemia, unspecified; I25.2 Old myocardial infarction; N28.9 Disorder of kidney and ureter, unspecified; E55.9 Vitamin D deficiency, unspecified; K86.1 Other chronic pancreatitis; K21.9 Gastro-esophageal reflux disease without esophagitis; K44.9 Diaphragmatic hernia without obstruction or gangrene; K22.70 Barrett's esophagus without dysplasia; M19.90 Unspecified osteoarthritis, unspecified site; Z86.73 Personal history of transient ischemic attack (TIA), and cerebral infarction without residual deficits; Z87.442 Personal history of urinary calculi; Z86.010 Personal history of colon polyps; Z95.5 Presence of coronary angioplasty implant and graft; Z98.42 Cataract extraction status, left eye; Z98.41 Cataract extraction status, right eye; Z96.1 Presence of intraocular lens; Z79.4 Long term (current) use of insulin; Z79.82 Long term (current) use of aspirin; Z87.891 Personal history of nicotine dependence
CPT/HCPCS: 36415; 80053; 85025; 85610; 85730; 93971; 96374; 96375; 99284; J2270; J2405

== ENCOUNTER 2021-09-01 12:24 | Outpatient (NON) | payer MEDICARE, MEDICAID, SELFPAY ==
[2021-09-01 13:51] LABS: Toxigenic C. Diff NEGATIVE (NEGATIVE)
== END 2021-09-01 12:25 | disposition home or self-care (01) ==
LOC: ANHLAB 12:26
PROVIDERS: PCP Nurse Practitioner; Visit Provider Nurse Practitioner
DX: R19.7 Diarrhea, unspecified (principal)
CPT/HCPCS: 87045; 87177; 87209; 87427; 87493

== ENCOUNTER 2021-09-09 12:21 | Inpatient (IN) | payer MEDICARE, MEDICAID, SELFPAY ==
[2021-09-09] VITALS (13 sets, daily range): BP systolic 97–179; BP diastolic 58–99; PULSE 73–91; RESP 15–19; TEMP 36–37.3; O2SAT 97–100; BMI 27.2
--- NOTE | 2021-09-09 | ECHO_ITS ---
Patient Info Name: Cornelius Babin Age: 66 years : 1955 Gender: Male Ht: 67 in Wt: 174 lbs BSA: 1.95 m2 HR: 86 bpm BP: 179 / 98 mmHg Heart Rhythm: Sinus Rhythm Technical Quality: Fair Exam Date: 09/09/2021 4:05 PM Exam Location: [facility] Patient Status: Emergency Admit Date: 09/09/2021 Staff Ordering Physician: Raulito Hoyt DO [employer] Loader: Genet De Paz RDCS Attending Provider: Wyatt Webster DO Referring Physician: Lai GONSALVES; Exam Type: CA echo doppler color flow Study Info Indications - cp, elevated troponin Complete two-dimensional, color flow and Doppler transthoracic echocardiogram is performed. Summary 1. Complete two-dimensional, color flow and Doppler transthoracic echocardiogram is performed. 2. Left ventricular chamber dimension is normal. 3. Left ventricular systolic function is normal, estimated at 60-65%. 4. There is moderately increased left ventricular wall thickness. 5. The left ventricular diastolic function is grade I diastolic dysfunction. 6. E/e' 5 is not elevated. 7. The aortic valve is not well visualized. Cannot determine number of aortic valve leaflets. 8. There is moderate aortic valve sclerosis. 9. There is mild aortic valve stenosis based on a peak velocity of 131 cm/s, mean gradient of 3 mmHg, and aortic valve area of 1.6 cm2. 10. No pulmonary hypertension, estimated pulmonary arterial systolic pressure is 17 mmHg. Left Ventricle E/e' 5 is not elevated. Left ventricular chamber dimension is normal. Left ventricular systolic function is normal, estimated at 60-65%. There is moderately increased left ventricular wall thickness. The left ventricular diastolic function is grade I diastolic dysfunction. Right Ventricle Right ventricular chamber dimension is normal. Right ventricular systolic function is normal. Left Atria Left atrial chamber dimension is normal. Right Atria Right atrial chamber dimension is normal. Aortic Valve The aortic valve is not well visualized. Cannot determine number of aortic valve leaflets. There is mild aortic valve stenosis based on a peak velocity of 131 cm/s, mean gradient of 3 mmHg, and aortic valve area of 1.6 cm2. There is moderate aortic valve sclerosis. There is no aortic valve regurgitation. Pulmonic Valve There is no pulmonic regurgitation. Mitral Valve There is no mitral valve stenosis. There is no mitral valve regurgitation. Tricuspid Valve There is no tricuspid valve regurgitation. No pulmonary hypertension, estimated pulmonary arterial systolic pressure is 17 mmHg. Pericardium/Pleural There is trivial pericardial effusion. Inferior Vena Cava Normal inferior vena cava with >50% collapse upon inspiration consistent with normal right atrial pressure, 5 mmHg. Aorta The aortic root size at the sinus of Valsalva is normal. Left Ventricular Outflow Tract Name Value Normal LVOT 2D LVOT Diameter 2.0 cm LVOT Doppler LVOT Peak Gradient 2 mmHg LVOT Mean Gradient 1 mmHg LVOT VTI 10 cm
--- NOTE | ~2021-09-09 | XR_ITS ---
EXAMINATION: XR chest 2V DATE: 09/09/2021 13:19 INDICATION: Chest pressure. Left arm pain and weakness. TECHNIQUE: frontal and lateral views of the chest were obtained. COMPARISON: Chest radiograph and CT dated 07/25/2021 FINDINGS: Calcite pleural plaque and associated mild pleural parenchymal scarring at the left lung base. There are few scattered bilateral calcified pulmonary nodules along with calcified hilar and mediastinal ly mph nodes consistent with old granulomatous disease. No new airspace opacities, pulmonary edema, pleu ral effusion or pneumothorax. The cardiomediastinal silhouette is normal. There are bridging osteophy denisse at multiple levels in the spine, consistent with diffuse idiopathic skeletal hyperostosis (DISH). IMPRESSION: 1. Outside pleural plaque and chronic pleural parenchymal scarring at the left lung base likely seque la of a chronic exudative effusion. No acute cardiopulmonary disease. Reviewed, dictated and finalized at location A. IMPRESSION: 1. Outside pleural plaque and chronic pleural parenchymal scarring at the left lung base likely sequela of a chronic exudative effusion. No acute cardiopulmon wily disease.
--- NOTE | ~2021-09-09 | CT_ITS ---
EXAMINATION: CT abdomen pelvis wo con DATE: 09/09/2021 14:15 INDICATION: Left upper quadrant abdominal pain. Nausea and vomiting. TECHNIQUE: Computed tomography (CT) of the abdomen and pelvis was performed without intravenous contr ast. Automated exposure control and iterative reconstruction technique were employed. The dose-length product was 687.44 mGy-cm. COMPARISON: CT abdomen and pelvis 07/25/2021 FINDINGS: The visualized portions of the lung bases demonstrate mild atelectasis. There is a calcifie d pleural plaque on the left. Calcified right lung nodules and calcified mediastinal lymph nodes are consistent with old granulomatous disease. No pleural effusion. The heart size is normal. There are c oronary artery calcifications. There is a small pericardial effusion. Calcifications in the liver and spleen are consistent with old granulomatous disease. The gallbladder is normal. Calcifications in t he pancreas are consistent with chronic pancreatitis. The adrenal glands and kidneys are normal. Calc ifications at the hilum of left kidney are likely vascular. The prostate is mildly enlarged. There is diverticulosis of the colon without evidence of diverticulitis. There are no dilated loops of bowel. The appendix is normal. There are bilateral inguinal hernias containing fat. There are no pathologic ally enlarged lymph nodes. There is no free intraperitoneal fluid. There is a graft from left common femoral artery extending into the thigh. There is mild thoracolumbar spondylosis. IMPRESSION: 1. Stable small pericardial effusion. 2. Bilateral inguinal hernias containing fat. Reviewed, dictated and finalized at location B.
--- NOTE | 2021-09-09 12:24 | ECG_ITS ---
Measurements Intervals [place] Rate: 91 P: 24 NE: 156 QRS: 7 QRSD: 102 T: 85 QT: 362 QTc: 446 Interpretive Statements SINUS RHYTHM LEFT VENTRICULAR HYPERTROPHY WITH ST-T CHANGE INFERIOR INFARCT, AGE INDETERMINATE BORDERLINE ST-T WAVE ABNORMALITY- ANTEROLATERAL LEADS BASELINE ARTIFACT- I, II, AVR ABNORMAL ECG Electronically Signed On 09-09-2021 13:10:47 CDT by Raulito Hoyt D.O.
[2021-09-09 12:40] LABS: Basophils Percent Auto 0.3 % (0.2-1.2); Eosinophils Absolute Auto 0.2 K/mm3 (0-0.3); Hematocrit 36.4 % (42.0-52.0); Hemoglobin 11.9 g/dL (14.0-18.0); Immature Granulocyte Absolute 0.03 K/mm3 (0.00-0.031); Immature Granulocyte Percent A 0.4 % (0-0.5); Lymphocytes Absolute Auto 0.85 K/mm3 (0.9-3.2); Lymphocytes Percent Auto 12.2 % (18.3-44.2); Mean Corpuscular HGB Conc 32.7 g/dl (32-36); Mean Corpuscular Hemoglobin 27.7 pg (26-34); Mean Corpuscular Volume 84.8 fl (80-100); Mean Platelet Volume 8.9 fl (7.4-10.4); Monocytes Absolute Auto 0.5 K/mm3 (0.1-0.6); Monocytes Percent Auto 7.3 % (2.6-8.5); Neutrophils Absolute Auto 5.3 K/mm3 (1.3-6.7); Neutrophils Percent Auto 76.8 % (45.5-73.1); Platelet Count Result 186 k/mm3 (150-375); Red Blood Count 4.29 M/mm3 (4.6-6.20); Red Cell Distribution Width 15.1 % (11.5-14.5); White Blood Count 6.9 K/mm3 (4.5-10.0)
[2021-09-09 12:51] LABS: Prothrombin Time 13.1 Seconds (11.1-14.7)
[2021-09-09 12:52] LABS: Partial Thromboplastin Time 29.9 SECONDS (22.3-36.8)
[2021-09-09 12:54] LABS: Alanine Aminotransferase 27 U/L (6-50); Albumin Level 4.9 g/dL (3.5-5.1); Alkaline Phosphatase 71 U/L (38-126); Anion Gap 11 mmol/L (8-16); Aspartate Amino Transferase 47 U/L (17-59); Bilirubin,Total 0.5 mg/dL (0.2-1.3); Blood Urea Nitrogen 24 mg/dL (9-20); Calcium 10.2 mg/dL (8.4-10.2); Carbon Dioxide 32 mmol/L (22-30); Chloride 94 mmol/L (98-107); Estimated CRCL calculation 38 ml/min; Estimated Glomerular Filt Rate 43; Glucose 102 mg/dL (65-110); Lipase 167 U/L (23-300); Potassium 3.5 mmol/L (3.4-5.0); Sodium 137 mmol/L (137-145)
[2021-09-09 13:13] LABS: Troponin I 0.053 ng/mL (0.000-0.034)
--- NOTE | 2021-09-09 13:27 | ECG_ITS ---
Measurements Intervals [place] Rate: 91 P: 40 GA: 170 QRS: -7 QRSD: 99 T: 42 QT: 362 QTc: 447 Interpretive Statements SINUS RHYTHM LEFT VENTRICULAR HYPERTROPHY WITH ST-T CHANGE INFERIOR INFARCT, AGE INDETERMINATE BORDERLINE ST-T WAVE ABNORMALITY- ANTEROLAT/HIGH LAT LEADS BASELINE ARTIFACT- I, II, AVR ABNORMAL ECG Electronically Signed On 09-09-2021 13:43:08 CDT by Raulito Hoyt D.O.
--- NOTE | 2021-09-09 13:36 | ED.CHESTPAIN ---
HPI - Chest Pain General Chief Complaint: Chest Pain Stated Complaint: chest pain Time Seen by Provider: 09/09/21 13:27 Source: RN notes reviewed History of Present Illness HPI narrative: Patient presents emergency department from home for chest pain. Patient states symptoms began last night with a feeling of heartburn. He states he had some burning in the left lower chest and upper abdomen. He states that the symptoms became worse today and he now has pain going into his left arm he states he did have several episodes of nausea vomiting with this and does feel nauseous. He denies any fevers or chills. Notes associated shortness of breath denies any diarrhea. Patient states he does have cardiac history and is followed by Dr. Hoyt. States he has a previous history of stents as well as disease in the posterior vessels of his heart in which they were not able to access or place stents and is being medically managed Related Data Home Medications Medication Instructions Recorded Confirmed multivitamin 1 tablet PO DAILY 03/07/19 09/03/21 famotidine 40 mg tablet 40 mg PO DAILY tablet 02/26/21 09/03/21 carvedilol 12.5 mg PO BID 07/25/21 09/03/21 isosorbide mononitrate 40 mg PO TID 07/26/21 09/03/21 niacin [Niaspan Extended-Release] 1,000 mg PO HS 08/13/21 09/03/21 aspirin 81 mg tablet,delayed 81 mg PO DAILY 08/18/21 09/03/21 release Allergies Allergy/AdvReac Type Severity Reaction Status Date / Time No Known Allergies Allergy Verified 09/09/21 13:39 Review of Systems Review of Systems: Gen.: Denies fevers or chills ENT: Denies congestion Respiratory: Denies shortness of breath or cough CV: See HPI GI: Reports left-sided abdominal pain nausea vomiting denies diarrhea Musculoskeletal: Denies back pain or muscle pain Neuro: Denies numbness, tingling, weakness or focal weakness Skin: Denies rash Except as documented, all other systems reviewed and negative PMFSH Past Medical History Medical History Adenomatous colon polyp Arthritis Caputo's esophagus with esophagitis Black stools CAD (coronary artery disease) Managed by Dr. Hoyt Chronic pancreatitis CVA (cerebral vascular accident) (~2014) Diabetic peripheral neuropathy Esophageal hiatal hernia Essential hypertension Gastrointestinal hemorrhage with hematemesis GERD (gastroesophageal reflux disease) History of CVA with residual deficit Hyperlipidemia LDL goal <70 Kidney stones Myocardial infarction (~2003) PAD (peripheral artery disease) (~2011) With right lower extremity stent and left aortofemoral bypass in 2018. CT evidence of moderate stenosis. 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 Perirectal abscess Prostate cancer Renal infarction Right kidney Renal insufficiency Multiple episodes of acute kidney injury Type 2 diabetes mellitus with hyperglycemia Vitamin D deficiency Surgical History Surgical History History of colonoscopy with polypectomy (05/2020) History of coronary artery stent placement (~2003) 4 stents placed History of esophagogastroduodenoscopy (EGD) (01/2021) May 2020 and January 2020 History of femoropopliteal bypass left - 09/11 History of incision and drainage perirectal abscess left anterior 02/17/21 History of skin graft for left 5th toe diabetic ulcer S/P peripheral artery angioplasty with stent placement 11/2020 right superficial femoral artery stent Status post cataract extraction of both eyes with insertion of intraocular lens Status post open reduction with internal fixation of fracture Hips and legs as a child Family History Family History Mother Diabetes mellitus Family history of arthritis Family history of diabetes mellitus in first degree relative Family history of coronary artery disease Hypertension
[2021-09-09] MEDS: ASPIRIN 81 MG CHEWABLE TABLET 324 MG PO (13:44)
[2021-09-09] MEDS: NITROGLYCERIN OINTMENT 1 INCH DOSE 0.5 INCH TRANSDERM (13:45)
[2021-09-09] MEDS: SODIUM CHLORIDE 0.9% IV 1,000 ML 999 ML IV CONT (13:50)
--- NOTE | 2021-09-09 14:19 | ECG_ITS ---
Measurements Intervals [place] Rate: 81 P: 38 CT: 180 QRS: 2 QRSD: 104 T: 40 QT: 385 QTc: 448 Interpretive Statements SINUS RHYTHM INFERIOR INFARCT, AGE INDETERMINATE ST-T WAVE ABNORMALITY IN ANTEROLATERAL LEADS- CONSIDER ISCHEMIA ABNORMAL ECG Electronically Signed On 09-09-2021 15:16:02 CDT by Raulito Hoyt D.O.
[2021-09-09] MEDS: MORPHINE SULFATE (*CRX) 2 MG/ML INJ IV PUSH ×2 (14:28→21:56)
[2021-09-09] MEDS: ONDANSETRON INJ 4 MG/2 ML VIAL IV PUSH (15:20)
[2021-09-09] MEDS: HEPARIN SODIUM 5,000 UNITS/ML VIAL 4000 UNITS IV PUSH ×2 (15:20→21:05)
[2021-09-09] MEDS: PANTOPRAZOLE SODIUM IV 40 MG VIAL IV PUSH (15:20)
--- NOTE | 2021-09-09 15:20 | PM.CNCAR ---
Assessment and Plan Assessment and plan (1) Chest pain: Code(s): R07.9 - Chest pain, unspecified Status: Acute Assessment and Plan: First Troponin 0.053. EKG with some ST depression in anterolateral leads. Could be NSTEMI. Start Heparin drip, on dual antiplatelet agents, Rosuvastatin, Imdur, Carvedilol. Pain control with Morphine and NT patch. Plan for left heart cath once kidney function improves. (2) Coronary artery disease: Code(s): I25.10 - Atherosclerotic heart disease of [place] coronary artery without angina pectoris Status: Acute Assessment and Plan: Has known bifurcation lesions in 80% in LCx and 80% in OM branch that was not amenable to PCI due to tortuosity of vessels. (3) PAD (peripheral artery disease): Onset Date: ~2011 Code(s): I73.9 - Peripheral vascular disease, unspecified Status: Chronic (4) Type 2 diabetes mellitus with hyperglycemia: Code(s): E11.65 - Type 2 diabetes mellitus with hyperglycemia Status: Acute Assessment and Plan: Managed by hospitalist. (5) Hyperlipidemia LDL goal <70: Code(s): E78.5 - Hyperlipidemia, unspecified Status: Chronic Assessment and Plan: On Rosuvastatin, Vascepa, Niacin. (6) Essential hypertension: Code(s): I10 - Essential (primary) hypertension Status: Acute Assessment and Plan: Mildly high. Would add Losartan once kidney function stabilizes. (7) GERD (gastroesophageal reflux disease): Qualifiers: Esophagitis presence: with esophagitis Esophagitis bleeding: with hemorrhage Qualified Code(s): K21.01 - Gastro-esophageal reflux disease with esophagitis, with bleeding Code(s): K21.9 - Gastro-esophageal reflux disease without esophagitis Status: Chronic (8) BALTAZAR (acute kidney injury): Code(s): N17.9 - Acute kidney failure, unspecified Status: Acute Assessment and Plan: Monitor kidney function to return to baseline normal function with IVF. Probably related to volume depletion with nausea/vomiting. History of Present Illness History of Present Illness Consult date/time: 09/09/21 15:20 Reason for consult: CP. Patient is a 66 yr old man who is my regular cardiology patient presents to ER for chest pain. He has a history of CAD (had sob with Brilinta), hypertension, dyslipidemia, PAD, IDDM, prostate cancer. States he had tuna fish for dinner last night and since then had left sided chest pressure and left arm pain. It is associated with nausea and vomiting. He was not sure if it was his usual heartburn as he gets these frequently also. EKG shows Sinus rhythm with inferior infarct, age indeterminate, ST-T wave abnormality in anterolateral leads- consider ischemia. Troponin 0.053. CXR shows pleural plaques and scarring of lung. CT abd shows stable small pericardial effusion. Cr 1.6/GFR 38, Hb 11.9. He had left leg bypass surgery with Dr. Kaiser in September 2019 and did well. He can walk short distances only with a walker now before he has severe bilateral calf pains due to neuropathy. Cardiovascular Procedures Footwear Stitcher:: 05/13/21 Dr. Rowland at [facility]: Haziness of stent in RCA so a redilation of stent performed with good results. Attempt but could not place wire into LCx due to severe tortuosity. 04/10/21 Dr. Rowland: LM distal 30%, ostial OM 90%, mid LCx 90% as bifurcation lesions, ostial RCA 99%, mid RCA 70%, patent stent in prox RPL , occluded stent in PDA, patent stent in mid LCx, PCI to ostial and mid RCA, successful. 11/01/14 Cardiac cath in [place], [place]: Patent distal RCA stent into right PL branch; Right PDA stent occluded with distal Right PDA filling from collaterals from left circulation; 90% mid LCx stenosis; PCI with MICHELLE to mid LCx with good result. Echo/MUGA:: 02/12/21 Echo: EF 55-60%, mod LVH, grade I diastolic dysfunction, mild TR/PI, trace pericardial effusion. 07/20/19 Echo: EF 60-65%, mild LVH, grade II diastolic dysfunctio
[2021-09-09] MEDS: HEPARIN SOD/D5W 100 UNITS/ML 25,000 UNITS/250 ML BAG 9 UNITS IV CONT (15:21)
--- NOTE | 2021-09-09 15:28 | PC.NURSE ---
pt states he feels shaky and states he hasn't ate all day, requesting BS be checked
--- NOTE | 2021-09-09 15:33 | PC.NURSE ---
Pt BS 86. given a box lunch and apple juice
[2021-09-09 15:34] LABS: Glucose Point of Care 86 mg/dl (65-105)
[2021-09-09 16:25] LABS: Troponin I 0.042 ng/mL (0.000-0.034)
[2021-09-09 16:53] LABS: SARS-CoV-2 RNA PCR Negative
[2021-09-09 18:19] LABS: Glucose Point of Care 139 mg/dl (65-105)
--- NOTE | 2021-09-09 18:20 | ADMGEN ---
This patient, Cornelius Babin Jr., was admitted to IMU Room 200-01. Patient/family oriented to hospital policies and general routines including ID bracelet, bed and alarms, visiting hours, pain management, procedures, bathroom and other care routines, personal items, smoking policy, room service/diet, and visiting hours. Information on how to activate the Rapid Response Team has been discussed. Patient/Family are encouraged to report perceived risks to care and to ask questions if they do not understand what they are told or what they should do.
[2021-09-09 18:52] LABS: Troponin I 0.042 ng/mL (0.000-0.034)
--- NOTE | 2021-09-09 20:27 | PM.IMHP ---
H&P: HPI History of Present Illness Date/Time: Patient requires inpatient monitoring with expected length of stay to exceed 2 midnights for management of care. 09/09/21 20:27 Chief Complaint: Chest pain Narrative: Mr. Babin is a 66-year-old gentleman who presented emergency room with complaints of chest discomfort that occurred last evening and then again after vomiting this morning. patient states that last evening he was sitting there eating began having some chest discomfort that went away quickly. Patient states this morning he woke up around 2:00 a.m. with chest pain and then he vomited. patient states that the pain was midsternal in area without any radiation, but he did have shortness of breath and diaphoresis. Patient states his talked him into coming to the emergency room and while he was sitting in the waiting room he began having midsternal chest discomfort that radiated down to his left arm. Patient does have a known history of coronary artery disease status post stent placement. Patient underwent cardiac catheterization in June of this year and had a drug-eluting stent placed to his RCA. At that time was also noted that patient had a difficult lesion that could not be intervened on. Patient was noted to have bifurcation lesions in the left circumflex and OM branch that were both 80%. It was thought that these lesions could not be intervened on due to the tortuosity of the vessels. Patient states he has been taking all medications without any difficulty. Upon evaluation emergency room patient's initial troponin was mildly elevated at 0.053. EKG did show new ST depressions in the lateral leads. As already stated patient has a known history of coronary artery disease status post stent placement. Patient also has a history of peripheral arterial disease, hypertension, dyslipidemia, diabetes mellitus, and GERD. Review of Systems Review of Systems: A 12 point review of systems was completed patient all pertinent positive and negative per HPI the remainder are unremarkable. [facility] Past Medical History Medical History Adenomatous colon polyp Arthritis Caputo's esophagus with esophagitis Black stools CAD (coronary artery disease) Managed by Dr. Hoyt Chronic pancreatitis CVA (cerebral vascular accident) (~2014) Diabetic peripheral neuropathy Esophageal hiatal hernia Essential hypertension Gastrointestinal hemorrhage with hematemesis GERD (gastroesophageal reflux disease) History of CVA with residual deficit Hyperlipidemia LDL goal <70 Kidney stones Myocardial infarction (~2003) PAD (peripheral artery disease) (~2011) With right lower extremity stent and left aortofemoral bypass in 2019. CT evidence of moderate stenosis. 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 Perirectal abscess Prostate cancer Renal infarction Right kidney Renal insufficiency Multiple episodes of acute kidney injury Type 2 diabetes mellitus with hyperglycemia Vitamin D deficiency Surgical History Surgical History History of colonoscopy with polypectomy (05/2020) History of coronary artery stent placement (~2003) 4 stents placed History of esophagogastroduodenoscopy (EGD) (01/2021) May 2020 and January 2020 History of femoropopliteal bypass left - 09/11 History of incision and drainage perirectal abscess left anterior 02/17/21 History of skin graft for left 5th toe diabetic ulcer S/P peripheral artery angioplasty with stent placement 11/2020 right superficial femoral artery stent Status post cataract extraction of both eyes with insertion of intraocular lens Status post open reduction with internal fixation of fracture Hips and legs as a child Family History Family History (Updated 09/09/21 @ 18:14 by Lisa Sykes, CARMELA) Mother Diabetes mellitus Family history of arthritis Famil
[2021-09-09 20:44] LABS: Magnesium 1.3 mg/dL (1.6-2.3)
[2021-09-09 20:46] LABS: Partial Thromboplastin Time 49.4 SECONDS (22.3-36.8)
[2021-09-09] MEDS: MAG HYDROX/AL HYDROX/SIMETH 30 ML UDC PO (21:05)
[2021-09-09] MEDS: SODIUM CHLORIDE 0.9% IV 1,000 ML 100 ML IV CONT (21:05)
[2021-09-09] MEDS: NITROGLYCERIN SL 0.4 MG TABLET SUBLINGUAL ×2 (21:11→21:28)
[2021-09-09 21:15] LABS: Glucose Point of Care 239 mg/dl (65-105)
[2021-09-09] MEDS: carvediloL 12.5 MG TABLET PO (22:02)
[2021-09-09] MEDS: SUCRALFATE SUSP 100 MG/ML 10 ML UDC 1000 MG PO (22:02)
[2021-09-09] MEDS: NIACIN SA 500 MG TABLET 1000 MG PO (22:02)
[2021-09-10] VITALS (16 sets, daily range): BP systolic 109–171; BP diastolic 55–70; PULSE 63–78; RESP 16–20; TEMP 36.5–36.9; O2SAT 99–100
[2021-09-10] MEDS: MORPHINE SULFATE (*CRX) 2 MG/ML INJ IV PUSH ×4 (03:41→20:32)
[2021-09-10 03:53] LABS: Basophils Percent Auto 0.5 % (0.2-1.2); Eosinophils Absolute Auto 0.2 K/mm3 (0-0.3); Eosinophils Percent Auto 5.7 % (0-4.4); Hematocrit 33.1 % (42.0-52.0); Hemoglobin 10.4 g/dL (14.0-18.0); Immature Granulocyte Absolute 0.03 K/mm3 (0.00-0.031); Immature Granulocyte Percent A 0.7 % (0-0.5); Lymphocytes Percent Auto 21.3 % (18.3-44.2); Mean Corpuscular HGB Conc 31.4 g/dl (32-36); Mean Corpuscular Hemoglobin 28.3 pg (26-34); Mean Corpuscular Volume 89.9 fl (80-100); Mean Platelet Volume 9.5 fl (7.4-10.4); Monocytes Absolute Auto 0.5 K/mm3 (0.1-0.6); Monocytes Percent Auto 11.1 % (2.6-8.5); Neutrophils Absolute Auto 2.6 K/mm3 (1.3-6.7); Neutrophils Percent Auto 60.7 % (45.5-73.1); Platelet Count Result 158 k/mm3 (150-375); Red Blood Count 3.68 M/mm3 (4.6-6.20); Red Cell Distribution Width 15.2 % (11.5-14.5); White Blood Count 4.2 K/mm3 (4.5-10.0)
[2021-09-10 04:11] LABS: Alanine Aminotransferase 21 U/L (6-50); Albumin Level 3.6 g/dL (3.5-5.1); Alkaline Phosphatase 56 U/L (38-126); Anion Gap 11 mmol/L (8-16); Aspartate Amino Transferase 34 U/L (17-59); Bilirubin,Total 0.2 mg/dL (0.2-1.3); Blood Urea Nitrogen 25 mg/dL (9-20); Calcium 8.4 mg/dL (8.4-10.2); Carbon Dioxide 30 mmol/L (22-30); Chloride 98 mmol/L (98-107); Estimated CRCL calculation 41 ml/min; Estimated Glomerular Filt Rate 47; Glucose 124 mg/dL (65-110); Magnesium 1.5 mg/dL (1.6-2.3); Potassium 3.7 mmol/L (3.4-5.0); Sodium 139 mmol/L (137-145)
[2021-09-10 05:05] LABS: Partial Thromboplastin Time 165.5 SECONDS (22.3-36.8)
[2021-09-10] MEDS: SUCRALFATE SUSP 100 MG/ML 10 ML UDC 1000 MG PO ×4 (06:01→20:31)
[2021-09-10] MEDS: SODIUM CHLORIDE 0.9% IV 1,000 ML 100 ML IV CONT ×2 (06:01→16:14)
--- NOTE | 2021-09-10 08:03 | PM.PNCARD ---
Progress Note: A&P Assessment and Plan (1) Chest pain: Code(s): R07.9 - Chest pain, unspecified Status: Acute Assessment and Plan: First Troponin 0.053 then trended down. EKG with some ST depression in anterolateral leads. Could be NSTEMI. On Heparin drip, on dual antiplatelet agents, Rosuvastatin, Imdur, Carvedilol. Pain control with Morphine and NTG patch. Plan for left heart cath once kidney function improves, will give him one more day of IVF hydration. (2) Coronary artery disease: Code(s): I25.10 - Atherosclerotic heart disease of [place] coronary artery without angina pectoris Status: Acute Assessment and Plan: Has known bifurcation lesions in 80% in LCx and 80% in OM branch that was not amenable to PCI due to tortuosity of vessels. (3) PAD (peripheral artery disease): Onset Date: ~2011 Code(s): I73.9 - Peripheral vascular disease, unspecified Status: Chronic (4) Type 2 diabetes mellitus with hyperglycemia: Code(s): E11.65 - Type 2 diabetes mellitus with hyperglycemia Status: Acute Assessment and Plan: Managed by hospitalist. (5) Hyperlipidemia LDL goal <70: Code(s): E78.5 - Hyperlipidemia, unspecified Status: Chronic Assessment and Plan: On Rosuvastatin, Vascepa, Niacin. (6) Essential hypertension: Code(s): I10 - Essential (primary) hypertension Status: Acute Assessment and Plan: Mildly high. Would add Losartan once kidney function stabilizes. (7) GERD (gastroesophageal reflux disease): Qualifiers: Esophagitis presence: with esophagitis Esophagitis bleeding: with hemorrhage Qualified Code(s): K21.01 - Gastro-esophageal reflux disease with esophagitis, with bleeding Code(s): K21.9 - Gastro-esophageal reflux disease without esophagitis Status: Chronic (8) BALTAZAR (acute kidney injury): Code(s): N17.9 - Acute kidney failure, unspecified Status: Acute Assessment and Plan: Monitor kidney function to return to baseline normal function with IVF. Probably related to volume depletion with nausea/vomiting. Subjective Date/time seen: 09/10/21 08:03 Continues to have chest pain intermittently up to 6/10. No SOB. He is hungry. Exam Const: General: cooperative, healthy appearing and comfortable Resp: Auscultation: clear to auscultation bilaterally, no crackles, no rales, no rhonchi and no wheezes Cardio: Jugular venous distension: no JVD Rate: regular rate Rhythm: regular rhythm Heart sounds: no murmurs Peripheral pulses: dorsalis pedis present GI: GI Palp: No abdominal tenderness and Yes Soft to palpation Neuro: General: oriented to person, oriented to place and oriented to time Extrem: Right lower extremity: no edema Left lower extremity: no edema Objective Data Vital Signs Vital Signs: Vital Signs - 24 hr 09/09/21 12:25 09/09/21 13:36 09/09/21 13:37 Temperature 97.0 F L Pulse Rate 91 89 89 Respiratory Rate 18 18 Blood Pressure 97/58 L 148/99 H Pulse Oximetry 100 99 09/09/21 13:52 09/09/21 15:27 09/09/21 17:19 Temperature Pulse Rate 88 85 Respiratory Rate 16 15 Blood Pressure 138/86 179/98 H Pulse Oximetry 100 100 98 09/09/21 17:45 09/09/21 18:18 09/09/21 20:00 Temperature 96.8 F L 99.1 F Pulse Rate 79 86 83 Respiratory Rate 17 19 18 Blood Pressure 155/78 H 139/72 130/61 Pulse Oximetry 97 100 100 09/09/21 20:16 09/09/21 21:29 09/09/21 22:02 Temperature Pulse Rate 78 82 Respiratory Rate Blood Pressure Pulse Oximetry 100 09/09/21 23:58 09/10/21 00:00 09/10/21 02:00 Temperature 96.9 F L Pulse Rate 73 73 70 Respiratory Rate 18 18 Blood Pressure 146/75 H Pulse Oximetry 100 100 09/10/21 03:48 09/10/21 04:00 09/10/21 05:56 Temperature 98 F Pulse Rate 72 72 74 Respiratory Rate 18 18 Blood Pressure 128/64 Pulse Oximetry 100 100 Intake/Output Intake/Output: Intake & Output
[2021-09-10] MEDS: carvediloL 12.5 MG TABLET PO ×2 (08:48→20:32)
[2021-09-10] MEDS: PANTOPRAZOLE SODIUM IV 40 MG VIAL IV PUSH (08:48)
[2021-09-10] MEDS: OMEGA 3 POLYUNSAT FATTY ACIDS 1 GM CAP 2 GM PO ×2 (08:48→17:45)
[2021-09-10] MEDS: ROSUVASTATIN 10 MG TABLET 40 MG PO (08:48)
[2021-09-10] MEDS: amLODIPine BESYLATE 5 MG TABLET 10 MG PO (08:48)
[2021-09-10] MEDS: ASPIRIN 81 MG ENTERIC TABLET PO (08:49)
[2021-09-10] MEDS: ISOSORBIDE MONONITRATE 20 MG TABLET 40 MG PO ×3 (08:49→17:43)
[2021-09-10] MEDS: FINASTERIDE 5 MG TABLET PO (08:49)
[2021-09-10] MEDS: THERAPEUTIC MULTIVITAMINS/MINERALS TAB (*BKC) 1 TABLET PO (08:49)
[2021-09-10] MEDS: DULoxetine HCL 60 MG CAPSULE.DR PO (08:49)
[2021-09-10] MEDS: TAMSULOSIN HCL 0.4 MG CAPSULE PO (08:49)
[2021-09-10] MEDS: CLOPIDOGREL BISULFATE 75 MG TABLET PO (08:49)
[2021-09-10] MEDS: hydroCHLOROthiazide 25 MG TABLET BY MOUTH (08:49)
[2021-09-10] MEDS: FAMOTIDINE 20 MG TABLET 40 MG PO (08:49)
[2021-09-10 08:52] LABS: Glucose Point of Care 153 mg/dl (65-105)
[2021-09-10] MEDS: INSULIN HUMAN REGULAR (*BKC) 100 UNITS/ML 15 UNITS IV PUSH (08:52)
--- NOTE | 2021-09-10 11:49 | PM.IMPN ---
Progress Note: A&P Assessment and Plan (1) Acute non-ST elevation myocardial infarction (NSTEMI): Code(s): I21.4 - Non-ST elevation (NSTEMI) myocardial infarction Status: Acute Assessment and Plan: patient does have new ST depressions in the lateral leads. Second 2 troponins have been 0.042. Patient has been placed on a heparin drip and Cardiology has been consulted. Planned left heart catheterization (2) [id number] kidney injury: Code(s): N17.9 - Acute kidney failure, unspecified; N18.9 - Chronic kidney disease, unspecified Status: Acute Assessment and Plan: Patient did have multiple episodes of vomiting at home throughout the night. At this point time will continue gently hydrate patient and monitor kidney function. Baseline creatinine appears to be 1.2-1.3. Monitor creatinine and electrolytes. (3) Type 2 diabetes mellitus with hyperglycemia: Code(s): E11.65 - Type 2 diabetes mellitus with hyperglycemia Status: Acute Assessment and Plan: Will resume home patient's home medications once we have verified medication list. Will have blood glucose monitoring before meals and at bedtime with sliding scale insulin available. (4) Caputo's esophagus with esophagitis: Code(s): K22.70 - Caputo's esophagus without dysplasia; K20.9 - Esophagitis, unspecified Status: Acute Assessment and Plan: Will place patient on IV Protonix daily and have p.r.n. Maalox available. Will continue with patient's home Pepcid. Subjective Date/time seen: 09/10/21 11:49 no new issues Exam Narrative: Constitutional: Patient is well-nourished in no acute distress. Patient is alert and oriented x3 HEENT: Moist mucous membranes. No scleral icterus. No lymphadenopathy. Neck: No carotid bruits noted no JVD noted Lungs: Lung sounds are clear to auscultation bilaterally. No accessory muscle use. No rhonchi, rales, or wheezes noted. Cardiovascular: Apical pulse is regular rate and rhythm. S1-S2 noted, no S3 or S4 noted. No gallops, murmurs, or rubs noted. Abdomen: Soft, round, and nontender. No palpable masses. Extremities: No edema. Nontender. Skin: No rashes or lesions. Warm and dry. Skin is intact. Neurological: No focal neurological deficits. Cranial nerves II-XII grossly intact. Psychiatric: Cooperative, appropriate mood, and affect Objective Data Vital Signs Vital Signs: Vital Signs - 24 hr 09/09/21 12:25 09/09/21 13:36 09/09/21 13:37 Temperature 97.0 F L Pulse Rate 91 89 89 Respiratory Rate 18 18 Blood Pressure 97/58 L 148/99 H Pulse Oximetry 100 99 09/09/21 13:52 09/09/21 15:27 09/09/21 17:19 Temperature Pulse Rate 88 85 Respiratory Rate 16 15 Blood Pressure 138/86 179/98 H Pulse Oximetry 100 100 98 09/09/21 17:45 09/09/21 18:18 09/09/21 20:00 Temperature 96.8 F L 99.1 F Pulse Rate 79 86 83 Respiratory Rate 17 19 18 Blood Pressure 155/78 H 139/72 130/61 Pulse Oximetry 97 100 100 09/09/21 20:16 09/09/21 21:29 09/09/21 22:02 Temperature Pulse Rate 78 82 Respiratory Rate Blood Pressure Pulse Oximetry 100 09/09/21 23:58 09/10/21 00:00 09/10/21 02:00 Temperature 96.9 F L Pulse Rate 73 73 70 Respiratory Rate 18 18 Blood Pressure 146/75 H Pulse Oximetry 100 100 09/10/21 03:48 09/10/21 04:00 09/10/21 05:56 Temperature 98 F Pulse Rate 72 72 74 Respiratory Rate 18 18 Blood Pressure 128/64 Pulse Oximetry 100 100 09/10/21 08:00 09/10/21 08:09 09/10/21 08:48 Temperature 97.7 F Pulse Rate 72 77 Respiratory Rate 18 Blood Pressure 171/70 H Pulse Oximetry 99 99 09/10/21 10:00 Temperature Pulse Rate 67 Respiratory Rate Blood Pressure Pulse Oximetry Intake/Output Intake/Output: Intake & Output 09/07/21 09/08/21 09/09/21 09/10/21 23:59 23:59 23:59 23:59 Intake Total 1000 2320 Output Total 1075 Balance 1000 1245 Meds/Results Medications:
[2021-09-10 12:07] LABS: Glucose Point of Care 103 mg/dl (65-105)
--- NOTE | 2021-09-10 12:16 | PC.NURSE ---
Addendum entered by Lisa Sykes RN 09/10/21 13:22: Per pharmacist magnesium is to infuse in one hour not four. Original Note: Spoke with Dr. Ochoa regarding patient's magnesium level of 1.5. New order to give Magnesium Sulfate IVPB 4g over 4 hours.
[2021-09-10 12:44] LABS: Partial Thromboplastin Time 69.5 SECONDS (22.3-36.8)
[2021-09-10] MEDS: HEPARIN SODIUM 5,000 UNITS/ML VIAL 3000 UNITS IV PUSH (13:11)
[2021-09-10] MEDS: MAGNESIUM SULF 4 GM/WATER100ML 4 GM/100 ML BAG IVPB (13:14)
[2021-09-10] MEDS: HEPARIN SOD/D5W 100 UNITS/ML 25,000 UNITS/250 ML BAG 12 UNITS IV CONT (13:14)
--- NOTE | 2021-09-10 15:46 | PCCCNOTE ---
On 09/10/21, the student, [Albertina Gomez], provided care and completed [facility] documentation on this patient. I have reviewed the student's documentation and agree with the findings.
[2021-09-10 16:20] LABS: Glucose Point of Care 168 mg/dl (65-105)
[2021-09-10] MEDS: INSULIN HUMAN REGULAR (*BKC) 100 UNITS/ML 10 UNITS IV PUSH (17:38)
[2021-09-10 20:08] LABS: Partial Thromboplastin Time 122.9 SECONDS (22.3-36.8)
[2021-09-10] MEDS: NIACIN SA 500 MG TABLET 1000 MG PO (20:31)
[2021-09-10 20:33] LABS: Glucose Point of Care 125 mg/dl (65-105)
[2021-09-11] VITALS (27 sets, daily range): BP systolic 118–170; BP diastolic 51–91; PULSE 60–81; RESP 12–96; TEMP 36.4–36.8; O2SAT 94–100
[2021-09-11] MEDS: SODIUM CHLORIDE 0.9% IV 1,000 ML 100 ML IV CONT ×2 (02:23→11:24)
[2021-09-11 03:39] LABS: Anion Gap 8 mmol/L (8-16); Blood Urea Nitrogen 17 mg/dL (9-20); Calcium 7.9 mg/dL (8.4-10.2); Carbon Dioxide 28 mmol/L (22-30); Chloride 100 mmol/L (98-107); Estimated CRCL calculation 55 ml/min; Estimated Glomerular Filt Rate > 60; Glucose 123 mg/dL (65-110); Potassium 3.9 mmol/L (3.4-5.0); Sodium 136 mmol/L (137-145)
[2021-09-11 03:47] LABS: Partial Thromboplastin Time 75.1 SECONDS (22.3-36.8)
[2021-09-11] MEDS: SUCRALFATE SUSP 100 MG/ML 10 ML UDC 1000 MG PO ×3 (05:27→20:55)
[2021-09-11 07:40] LABS: Glucose Point of Care 116 mg/dl (65-105)
--- NOTE | 2021-09-11 07:59 | PM.PNCARD ---
Progress Note: A&P Assessment and Plan (1) Chest pain: Code(s): R07.9 - Chest pain, unspecified Status: Acute Assessment and Plan: First Troponin 0.053 then trended down. EKG with some ST depression in anterolateral leads. Echo shows no wall motion abnormalities. Could be NSTEMI. On Heparin drip, on dual antiplatelet agents, Rosuvastatin, Imdur, Carvedilol. Pain control with Morphine and NTG patch. Plan for left heart cath once kidney function improves, will give him one more day of IVF hydration. Kidney function back to baseline. Notified [facility] for left heart cath. Patient understands risks/benefits/alternative treatment and agreeable for procedure. (2) Coronary artery disease: Code(s): I25.10 - Atherosclerotic heart disease of [place] coronary artery without angina pectoris Status: Acute Assessment and Plan: Has known bifurcation lesions in 80% in LCx and 80% in OM branch that was not amenable to PCI due to tortuosity of vessels. (3) PAD (peripheral artery disease): Onset Date: ~2011 Code(s): I73.9 - Peripheral vascular disease, unspecified Status: Chronic (4) Type 2 diabetes mellitus with hyperglycemia: Code(s): E11.65 - Type 2 diabetes mellitus with hyperglycemia Status: Acute Assessment and Plan: Managed by hospitalist. (5) Hyperlipidemia LDL goal <70: Code(s): E78.5 - Hyperlipidemia, unspecified Status: Chronic Assessment and Plan: On Rosuvastatin, Vascepa, Niacin. (6) Essential hypertension: Code(s): I10 - Essential (primary) hypertension Status: Acute Assessment and Plan: Stable. Start Losartan 25 mg daily. (7) GERD (gastroesophageal reflux disease): Qualifiers: Esophagitis presence: with esophagitis Esophagitis bleeding: with hemorrhage Qualified Code(s): K21.01 - Gastro-esophageal reflux disease with esophagitis, with bleeding Code(s): K21.9 - Gastro-esophageal reflux disease without esophagitis Status: Chronic (8) BALTAZAR (acute kidney injury): Code(s): N17.9 - Acute kidney failure, unspecified Status: Acute Assessment and Plan: Kidney function back to baseline with IVF. Probably related to volume depletion with nausea/vomiting. Subjective Date/time seen: 09/11/21 07:59 Has intermittent chest pressure with nausea. No sob. Exam Const: General: cooperative, healthy appearing and comfortable Resp: Auscultation: clear to auscultation bilaterally, no crackles, no rales, no rhonchi and no wheezes Cardio: Jugular venous distension: no JVD Rate: regular rate Rhythm: regular rhythm Heart sounds: no murmurs Peripheral pulses: dorsalis pedis present GI: GI Palp: No abdominal tenderness and Yes Soft to palpation Neuro: General: oriented to person, oriented to place and oriented to time Extrem: Right lower extremity: no edema Left lower extremity: no edema Objective Data Vital Signs Vital Signs: Vital Signs - 24 hr 09/10/21 08:00 09/10/21 08:09 09/10/21 08:48 Temperature 97.7 F Pulse Rate 72 77 Respiratory Rate 18 Blood Pressure 171/70 H Pulse Oximetry 99 99 09/10/21 10:00 09/10/21 12:00 09/10/21 14:00 Temperature 98.4 F Pulse Rate 67 63 68 Respiratory Rate 16 Blood Pressure 109/55 L Pulse Oximetry 99 09/10/21 16:00 09/10/21 18:00 09/10/21 20:00 Temperature 98.4 F 97.8 F Pulse Rate 65 63 65 Respiratory Rate 20 18 Blood Pressure 133/63 144/62 H Pulse Oximetry 99 100 09/10/21 20:32 09/10/21 22:00 09/11/21 00:00 Temperature 98.2 F Pulse Rate 78 64 66 Respiratory Rate 18 Blood Pressure 139/56 L Pulse Oximetry 100 09/11/21 02:00 09/11/21 03:57 09/11/21 05:19 Temperature 97.9 F Pulse Rate 72 72 Respiratory Rate 22 H Blood Pressure 146/60 H Pulse Oximetry 100 98 09/11/21 06:00 Temperature Pulse Rate 72 Respiratory Rate Blood Pressure Pulse Oximetry Intake/Output
[2021-09-11] MEDS: MORPHINE SULFATE (*CRX) 2 MG/ML INJ IV PUSH ×2 (08:00→11:27)
[2021-09-11] MEDS: ROSUVASTATIN 10 MG TABLET 40 MG PO (08:01)
[2021-09-11] MEDS: OMEGA 3 POLYUNSAT FATTY ACIDS 1 GM CAP 2 GM PO ×2 (08:02→16:03)
[2021-09-11] MEDS: DULoxetine HCL 60 MG CAPSULE.DR PO (08:02)
[2021-09-11] MEDS: ISOSORBIDE MONONITRATE 20 MG TABLET 40 MG PO ×2 (08:02→16:03)
[2021-09-11] MEDS: ASPIRIN 81 MG ENTERIC TABLET PO (08:03)
[2021-09-11] MEDS: hydroCHLOROthiazide 25 MG TABLET BY MOUTH (08:03)
[2021-09-11] MEDS: TAMSULOSIN HCL 0.4 MG CAPSULE PO (08:03)
[2021-09-11] MEDS: carvediloL 12.5 MG TABLET PO ×2 (08:04→20:54)
[2021-09-11] MEDS: amLODIPine BESYLATE 5 MG TABLET 10 MG PO (08:04)
[2021-09-11] MEDS: FAMOTIDINE 20 MG TABLET 40 MG PO (08:04)
[2021-09-11] MEDS: THERAPEUTIC MULTIVITAMINS/MINERALS TAB (*BKC) 1 TABLET PO (08:05)
[2021-09-11] MEDS: PANTOPRAZOLE SODIUM IV 40 MG VIAL IV PUSH (08:06)
[2021-09-11] MEDS: CLOPIDOGREL BISULFATE 75 MG TABLET PO (08:06)
[2021-09-11] MEDS: FINASTERIDE 5 MG TABLET PO (08:07)
[2021-09-11 11:19] LABS: Glucose Point of Care 141 mg/dl (65-105)
[2021-09-11] MEDS: HEPARIN SOD/D5W 100 UNITS/ML 25,000 UNITS/250 ML BAG 10 UNITS IV CONT (11:23)
--- NOTE | 2021-09-11 12:39 | PM.IMPN ---
Progress Note: A&P Assessment and Plan (1) Acute non-ST elevation myocardial infarction (NSTEMI): Code(s): I21.4 - Non-ST elevation (NSTEMI) myocardial infarction Status: Acute Assessment and Plan: patient does have new ST depressions in the lateral leads. Second 2 troponins have been 0.042. Patient has been placed on a heparin drip and Cardiology has been consulted. Planned left heart catheterization (2) Kkjzj-qf-gyyrfrj kidney injury: Code(s): N17.9 - Acute kidney failure, unspecified; N18.9 - Chronic kidney disease, unspecified Status: Acute Assessment and Plan: Patient did have multiple episodes of vomiting at home throughout the night. At this point time will continue gently hydrate patient and monitor kidney function. Baseline creatinine appears to be 1.2-1.3. Monitor creatinine and electrolytes. (3) Type 2 diabetes mellitus with hyperglycemia: Code(s): E11.65 - Type 2 diabetes mellitus with hyperglycemia Status: Acute Assessment and Plan: Will resume home patient's home medications once we have verified medication list. Will have blood glucose monitoring before meals and at bedtime with sliding scale insulin available. (4) Caputo's esophagus with esophagitis: Code(s): K22.70 - Caputo's esophagus without dysplasia; K20.9 - Esophagitis, unspecified Status: Acute Assessment and Plan: Will place patient on IV Protonix daily and have p.r.n. Maalox available. Will continue with patient's home Pepcid. Subjective Date/time seen: 09/11/21 12:39 Doing well, no complaints Exam Narrative: Constitutional: Patient is well-nourished in no acute distress. Patient is alert and oriented x3 HEENT: Moist mucous membranes. No scleral icterus. No lymphadenopathy. Neck: No carotid bruits noted no JVD noted Lungs: Lung sounds are clear to auscultation bilaterally. No accessory muscle use. No rhonchi, rales, or wheezes noted. Cardiovascular: Apical pulse is regular rate and rhythm. S1-S2 noted, no S3 or S4 noted. No gallops, murmurs, or rubs noted. Abdomen: Soft, round, and nontender. No palpable masses. Extremities: No edema. Nontender. Skin: No rashes or lesions. Warm and dry. Skin is intact. Neurological: No focal neurological deficits. Cranial nerves II-XII grossly intact. Psychiatric: Cooperative, appropriate mood, and affect Objective Data Vital Signs Vital Signs: Vital Signs - 24 hr 09/10/21 14:00 09/10/21 16:00 09/10/21 18:00 Temperature 98.4 F Pulse Rate 68 65 63 Respiratory Rate 20 Blood Pressure 133/63 Pulse Oximetry 99 09/10/21 20:00 09/10/21 20:32 09/10/21 22:00 Temperature 97.8 F Pulse Rate 65 78 64 Respiratory Rate 18 Blood Pressure 144/62 H Pulse Oximetry 100 09/11/21 00:00 09/11/21 02:00 09/11/21 03:57 Temperature 98.2 F 97.9 F Pulse Rate 66 72 72 Respiratory Rate 18 22 H Blood Pressure 139/56 L 146/60 H Pulse Oximetry 100 100 09/11/21 05:19 09/11/21 06:00 09/11/21 08:00 Temperature 97.5 F L Pulse Rate 72 70 Respiratory Rate 15 Blood Pressure 150/75 H Pulse Oximetry 98 97 09/11/21 08:04 09/11/21 10:00 09/11/21 12:00 Temperature 97.5 F L Pulse Rate 70 67 68 Respiratory Rate 16 Blood Pressure 143/73 H Pulse Oximetry 95 Intake/Output Intake/Output: Intake & Output 09/08/21 09/09/21 09/10/21 09/11/21 23:59 23:59 23:59 23:59 Intake Total 1000 4838.8 2681.2 Output Total 1750 3000 Balance 1000 3088.8 -318.8 Meds/Results Medications: Active Medications Generic Name Dose Route Start Last Admin Trade Name Darrylq PRN Reason Stop Dose Admin Amlodipine Besylate 10 mg 09/10/21 09:00 09/11/21 08:04 Amlodipine Besylate 5 Mg Tablet PO 10 mg DAILY SAVITA Administration Aspirin 81 mg 09/10/21 09:00 09/11/21 08:03 Aspirin 81 Mg Enteric Tablet PO 81 mg DAILY SAVITA Administration Carvedilol 12.5 mg 09/09/21 21:00 09/11/21 08:0
--- NOTE | 2021-09-11 12:40 | WPDMODSED ---
Moderate Sedation Note-Pt Data Patient Data Diagnosis: severe coronary artery disease with multiple previous interventions recurrent chest pain Present Complaint: chest pain Procedure to be performed/Plan: coronary angiography Allergies Allergy/AdvReac Type Severity Reaction Status Date / Time lactose AdvReac Diarrhea Verified 09/09/21 18:21 Home Medications Medication Instructions Recorded Confirmed Type finasteride [Proscar] 5 mg PO QAM 30 Days #30 tablet 02/18/21 09/09/21 Rx tamsulosin 0.4 mg PO QAM 30 Days #30 cap 02/18/21 09/09/21 Rx duloxetine 60 mg capsule,delayed 60 mg PO DAILY #30 cap 02/23/21 09/09/21 Rx release famotidine 40 mg tablet 40 mg PO DAILY tablet 02/26/21 09/09/21 History dulaglutide 3 mg/0.5 mL 3 mg SUBCUT WEEKLY 30 Days #2.5 ml 03/04/21 09/09/21 Rx subcutaneous pen injector clopidogrel 75 mg PO QAM 90 Days #90 tablet 04/10/21 09/09/21 Rx rosuvastatin 40 mg tablet 40 mg PO DAILY #30 tablet 05/25/21 09/09/21 Rx nitroglycerin See Rx Instructions .ROUTE 06/05/21 09/09/21 Rx .COMPLEX #25 tablet hydrochlorothiazide 25 mg tablet See Rx Instructions .ROUTE 07/22/21 09/09/21 Rx .COMPLEX #90 tablet carvedilol 12.5 mg PO BID 07/25/21 09/09/21 History isosorbide mononitrate 40 mg PO TID 07/26/21 09/09/21 History sucralfate 1,000 mg PO ACHS 14 Days #560 ml 07/28/21 09/09/21 Rx amlodipine 10 mg tablet 10 mg PO DAILY #90 tablet 08/07/21 09/09/21 Rx niacin [Niaspan Extended-Release] 1,000 mg PO HS 08/13/21 09/09/21 History aspirin 81 mg tablet,delayed 81 mg PO DAILY 08/18/21 09/09/21 History release insulin regular hum U-500 conc See Rx Instructions SUBCUT DAILY 08/26/21 09/09/21 Rx #3 ml icosapent ethyl [Vascepa] 2 g PO BID 09/09/21 09/09/21 History pantoprazole [Protonix] 20 mg PO BID 09/09/21 09/09/21 History Current Medications: Active Medications Amlodipine Besylate (Amlodipine Besylate 5 Mg Tablet) 10 mg PO DAILY [facility] Last Admin: 09/11/21 08:04 Dose: 10 mg Documented by: Aspirin (Aspirin 81 Mg Enteric Tablet) 81 mg PO DAILY [facility] Last Admin: 09/11/21 08:03 Dose: 81 mg Documented by: Carvedilol (Carvedilol 12.5 Mg Tablet) 12.5 mg PO Q12HR [facility] Last Admin: 09/11/21 08:04 Dose: 12.5 mg Documented by: Clopidogrel Bisulfate (Clopidogrel Bisulfate 75 Mg Tablet) 75 mg PO QAM [facility] Last Admin: 09/11/21 08:06 Dose: 75 mg Documented by: Dextrose (Dextrose 50% 25 Gm/50 Ml Syringe) 12.5 gm IV PUSH PRN PRN; Protocol PRN Reason: Hypoglycemia Duloxetine HCl (Duloxetine Hcl 60 Mg Capsule.Dr) 60 mg PO DAILY [facility] Last Admin: 09/11/21 08:02 Dose: 60 mg Documented by: Famotidine (Famotidine 20 Mg Tablet) 40 mg PO DAILY [facility] Last Admin: 09/11/21 08:04 Dose: 40 mg Documented by: Finasteride (Finasteride 5 Mg Tablet) 5 mg PO QAM [facility] Last Admin: 09/11/21 08:07 Dose: 5 mg Documented by: Fish Oil ([place] 3 Polyunsat Fatty Acids 1 Gm Cap) 2 gm PO BID [facility] Last Admin: 09/11/21 08:02 Dose: 2 gm Documented by: Glucagon (Glucagon For Inj 1 Mg Vial) 1 mg IM PRN PRN; Protocol PRN Reason: Hypoglycemia Glucose (Glucose Oral Gel 15 Gm Of Glucse In 37.5 Gm Tube) 15 gm PO PRN PRN; Protocol PRN Reason: Hypoglycemia Heparin Sodium (Porcine) (Heparin Sodium 5,000 Units/Ml Vial) 4,000 units IV PUSH PRN PRN PRN Reason: aPTT less than 55 seconds Last Admin: 09/09/21 21:05 Dose: 4,000 units Documented by: Heparin Sodium (Porcine) (Heparin Sodium 5,000 Units/Ml Vial) 3,000 units IV PUSH PRN PRN PRN Reason: aPTT 55 - 70 seconds Last Admin: 09/10/21 13:11 Dose: 3,000 units Documented by: Hydrochlorothiazide (Hydrochlorothiazide 25 Mg Tablet) 25 mg BY MOUTH DAILY [facility] Last Admin: 09/11/21 08:03 Dose: 25 mg Documented by: Heparin Sodium/Dextrose (Heparin Sodium/D5w 100 Units/Ml) 25,000 units in 250 mls @ 10 mls/hr IV CONT .Q24H [facility]; Protocol Last Admin: 09/11/21 11:23 Dose: 1,000 unit/hr, 10 mls/hr Documented by: Dextrose (Dextrose 5% 1,000 Ml) 1,000 mls @ 100 mls/hr IVPB PRN
--- NOTE | 2021-09-11 13:13 | WPDCARDPROC ---
Cardiac Cath Procedure Note Date of procedure:: 09/11/21 Performing physician:: Kan Garcia MD Indication:: coronary artery disease with multiple previous interventions recurrent chest pain Brief clinical history:: this is a 66-year-old patient known to have severe diffuse multivessel coronary disease who has undergone revascularization interventionally in the past. He enters the hospital with another episode of chest pain and a small troponin rise prompting recommendation for another angiogram. Echocardiogram demonstrates preserved LV systolic function and so a left ventriculogram will not be performed Procedure Procedure performed:: coronary angiogram Sedation/Medication given:: fentanyl 25 mg Versed 2 mg case start 1245 p.m. case end time 1:11 p.m. sedation provided by Pascale Rosales RN, trained observer Access site:: right femoral artery Estimated blood loss:: 25 cc Procedure note:: patient was brought to the cardiac catheterization lab in the postabsorptive state where the right femoral triangle was prepared and draped normal fashion. Anesthesia was given with 1% lidocaine infiltrated locally modified Seldinger technique the femoral artery was punctured and a 5 [place] vascular sheath was placed. Following this I used a 5 [place] FL4 catheter to engage and inject the left coronary artery in multiple projections. I then used a 5 [place] JR4 catheter with which I was unable to successfully engage the right coronary artery there is ostial stent material protruding into the aorta. I then used a 5 [place] WRP catheter to non selectively engage and inject the right coronary artery just outside the ostium. Following these angiograms I then used a 5 [place] AR modified catheter to try to more effectively engage the right coronary which was not successful. The angiograms were then reviewed and the case was terminated. The patient was taken to the holding area for manual sheath removal he is known to have severe diffuse peripheral disease and is therefore not a candidate for Angio-Seal device. Findings:: Hemodynamics: Central aortic pressure is 118/72. The left main coronary artery is medium in caliber it has mild diffuse disease no flow-limiting lesions are seen angiographically unchanged from March of 2021 the left anterior descending is a small caliber vessel extending down to around the apex. The proximal segment of the LAD has mild diffuse disease but no flow-limiting lesions are seen. There is a 99% lesion in the ostium of the proximal diagonal branch which is a small to medium caliber vessel angiographically unchanged from [place] of 2021 the circumflex is a small caliber vessel giving rise to marginal branches. A distal bifurcation segment in the circumflex prior to the posterior branch in the 2nd marginal has proximal 90% stenosis there is a stent visible in the posterior branch after this lesion and the 2nd marginal branch has a proximal 90% stenosis as well. The right coronary artery is large in caliber and has multiple previously deployed stents from the ostium down to the 3rd portion of the vessel. The right coronary trunk appears to be nicely patent with mild luminal irregularities but no significant loss of lumen. Quality of the angiogram was not ideal as I was unable to engage the vessel selectively because of stent material protruding into the proximal aorta. There is no apparent loss of lumen however in the stented segments of the vessel. The right coronary artery gives flow to the moderate-sized RPL branch the RPDA is chronically occluded and is known to be occluded. The RPDA received [id number] collateral filling seen on the left coronary injections. Conclusion:: 1. Diffuse multivessel coronary artery disease with multiple stents being placed in the trunk of the right coronary artery from the ostium down to the 3rd portion. There is no significant apparent stenosis angiographically in the trunk of
--- NOTE | 2021-09-11 13:36 | PCCCNOTE ---
On 09/11/21, the student, [Albertina Gomez], provided care and completed [facility] documentation on this patient. I have reviewed the student's documentation and agree with the findings.
--- NOTE | 2021-09-11 14:09 | SUR.PHASEII ---
report called to santhosh stephens rn
[2021-09-11] MEDS: SODIUM CHLORIDE 0.9% IV 1,000 ML 125 ML IV CONT (15:13)
--- NOTE | 2021-09-11 15:14 | SUR.PHASEII ---
transferred to room on tele monitor. nx at bedside and assessed groin site. sat patient up to 30degrees. site wnl
[2021-09-11 15:43] LABS: Glucose Point of Care 134 mg/dl (65-105)
[2021-09-11] MEDS: PROMETHAZINE HCL 25 MG/ML AMPUL 12.5 MG IV PUSH (16:02)
[2021-09-11] MEDS: NIACIN SA 500 MG TABLET 1000 MG PO (20:54)
[2021-09-11 21:06] LABS: Glucose Point of Care 120 mg/dl (65-105)
[2021-09-12] VITALS (8 sets, daily range): BP systolic 123–145; BP diastolic 51–83; PULSE 70–75; RESP 20–24; TEMP 36.2–36.9; O2SAT 97–98
[2021-09-12] MEDS: SODIUM CHLORIDE 0.9% IV 1,000 ML 100 ML IV CONT (02:45)
[2021-09-12] MEDS: SUCRALFATE SUSP 100 MG/ML 10 ML UDC 1000 MG PO (06:20)
[2021-09-12 07:11] LABS: Glucose Point of Care 118 mg/dl (65-105)
--- NOTE | 2021-09-12 07:35 | PM.PNCARD ---
Progress Note: A&P Assessment and Plan (1) Chest pain: Code(s): R07.9 - Chest pain, unspecified Status: Acute Assessment and Plan: Frequent and intermittent. First Troponin 0.053 then trended down. EKG with some ST depression in anterolateral leads. Echo shows no wall motion abnormalities. Could be NSTEMI. On Heparin drip, on dual antiplatelet agents, Rosuvastatin, Imdur, Carvedilol. Pain control with Morphine and NTG patch. Plan for left heart cath once kidney function improves, will give him one more day of IVF hydration. Kidney function back to baseline. May use NTG SL prn for breakthrough chest pains despite Imdur 40 mg PO TID. Avoid vigorous exertion. (2) Coronary artery disease: Code(s): I25.10 - Atherosclerotic heart disease of [place] coronary artery without angina pectoris Status: Acute Assessment and Plan: Has known bifurcation lesions in 80% in LCx and 80% in OM branch that was not amenable to PCI due to tortuosity of vessels. Left heart cath with Dr. Garcia on 09/11/21 showed bifurcation lesions are 80-90% LCx and 90% in 2nd OM branch that is tortuous and unable to get to in the past, 99% stenosis of ostial-prox Diag that is small caliber vessel. Due to not being able to treat these high grade stenosis with percutaneous intervention, I discussed with patient open heart surgery and CABG. He is willing to pursue this out as his chest pains could very well be due to it. This is not urgent, and therefore, would have him f/u with me this week in my office, and I will refer him to [facility] CV surgeon per his request. May d/c home and f/u with me this week. Advise patient to call my office Tuesday to get appointment this week. (3) PAD (peripheral artery disease): Onset Date: ~2011 Code(s): I73.9 - Peripheral vascular disease, unspecified Status: Chronic (4) Type 2 diabetes mellitus with hyperglycemia: Code(s): E11.65 - Type 2 diabetes mellitus with hyperglycemia Status: Acute Assessment and Plan: Managed by hospitalist. (5) Hyperlipidemia LDL goal <70: Code(s): E78.5 - Hyperlipidemia, unspecified Status: Chronic Assessment and Plan: On Rosuvastatin, Vascepa, Niacin. (6) Essential hypertension: Code(s): I10 - Essential (primary) hypertension Status: Acute Assessment and Plan: Stable. Start on Losartan 25 mg daily. Stop Amlodipine. (7) GERD (gastroesophageal reflux disease): Qualifiers: Esophagitis presence: with esophagitis Esophagitis bleeding: with hemorrhage Qualified Code(s): K21.01 - Gastro-esophageal reflux disease with esophagitis, with bleeding Code(s): K21.9 - Gastro-esophageal reflux disease without esophagitis Status: Chronic (8) BALTAZAR (acute kidney injury): Code(s): N17.9 - Acute kidney failure, unspecified Status: Acute Assessment and Plan: Kidney function back to baseline with IVF. Probably related to volume depletion with nausea/vomiting. Subjective Date/time seen: 09/12/21 07:35 Reports intermittent chest pressure, and some soreness to right groin access site. No sob. Right groin without hematoma/bruit/bleeding. Exam Const: General: cooperative, healthy appearing and comfortable Resp: Auscultation: clear to auscultation bilaterally, no crackles, no rales, no rhonchi and no wheezes Cardio: Jugular venous distension: no JVD Rate: regular rate Rhythm: regular rhythm Heart sounds: no murmurs Peripheral pulses: dorsalis pedis present GI: GI Palp: No abdominal tenderness and Yes Soft to palpation Neuro: General: oriented to person, oriented to place and oriented to time Extrem: Right lower extremity: no edema Left lower extremity: no edema Objective Data Vital Signs Vital Signs: Vital Signs - 24 hr 09/11/21 08:00 09/11/21 08:04 09/11/21 10:00 Temperature 97.5 F L Pulse Rate 70 70 67 Pulse Rate [Bilateral Pedal (Dorsalis Pedis) Palp
[2021-09-12] MEDS: TAMSULOSIN HCL 0.4 MG CAPSULE PO (08:43)
[2021-09-12] MEDS: ROSUVASTATIN 10 MG TABLET 40 MG PO (08:43)
[2021-09-12] MEDS: FINASTERIDE 5 MG TABLET PO (08:43)
[2021-09-12] MEDS: OMEGA 3 POLYUNSAT FATTY ACIDS 1 GM CAP 2 GM PO (08:43)
[2021-09-12] MEDS: FAMOTIDINE 20 MG TABLET 40 MG PO (08:43)
[2021-09-12] MEDS: ISOSORBIDE MONONITRATE 20 MG TABLET 40 MG PO (08:43)
[2021-09-12] MEDS: ASPIRIN 81 MG ENTERIC TABLET PO (08:44)
[2021-09-12] MEDS: DULoxetine HCL 60 MG CAPSULE.DR PO (08:44)
[2021-09-12] MEDS: PANTOPRAZOLE SODIUM IV 40 MG VIAL IV PUSH (08:44)
[2021-09-12] MEDS: CLOPIDOGREL BISULFATE 75 MG TABLET PO (08:44)
[2021-09-12] MEDS: THERAPEUTIC MULTIVITAMINS/MINERALS TAB (*BKC) 1 TABLET PO (08:44)
[2021-09-12] MEDS: carvediloL 12.5 MG TABLET PO (08:44)
[2021-09-12] MEDS: hydroCHLOROthiazide 25 MG TABLET BY MOUTH (08:44)
[2021-09-12] MEDS: LOSARTAN POTASSIUM 25 MG TABLET PO (08:44)
--- NOTE | 2021-09-12 10:16 | PM.DS ---
DS: Admitting Diagnosis Discharge Date September 12, 2021 Admitting Diagnosis Non STEMI DS: Discharge Diagnosis Discharge Diagnosis (1) Acute non-ST elevation myocardial infarction (NSTEMI): Code(s): I21.4 - Non-ST elevation (NSTEMI) myocardial infarction Status: Acute Assessment and Plan: Status post left heart catheterization. Multi-vessel disease noted. CABG is going to be needed to be planned as an outpatient. Follow with Cardiology in 1 week (2) [id number] kidney injury: Code(s): N17.9 - Acute kidney failure, unspecified; N18.9 - Chronic kidney disease, unspecified Status: Acute Assessment and Plan: Creatinine 1.1 on discharge (3) Type 2 diabetes mellitus with hyperglycemia: Code(s): E11.65 - Type 2 diabetes mellitus with hyperglycemia Status: Acute Assessment and Plan: Resume home medications (4) Caputo's esophagus with esophagitis: Code(s): K22.70 - Caputo's esophagus without dysplasia; K20.9 - Esophagitis, unspecified Status: Acute Assessment and Plan: Resume home medications DS: Summary Hospital Course Hospital Course: see plan and dc diagnosis for plan and hospital course Time Spent with Patient Time attestation: Total time spent providing and/or coordinating discharge services: Greater than 30 min Exam Narrative: Constitutional: Patient is well-nourished in no acute distress. Patient is alert and oriented x3 HEENT: Moist mucous membranes. No scleral icterus. No lymphadenopathy. Neck: No carotid bruits noted no JVD noted Lungs: Lung sounds are clear to auscultation bilaterally. No accessory muscle use. No rhonchi, rales, or wheezes noted. Cardiovascular: Apical pulse is regular rate and rhythm. S1-S2 noted, no S3 or S4 noted. No gallops, murmurs, or rubs noted. Abdomen: Soft, round, and nontender. No palpable masses. Extremities: No edema. Nontender. Skin: No rashes or lesions. Warm and dry. Skin is intact. Neurological: No focal neurological deficits. Cranial nerves II-XII grossly intact. Psychiatric: Cooperative, appropriate mood, and affect DS: Data Data Completed and Pending Labs on day of discharge: Labs from last 24 hours 09/12/21 09/11/21 09/11/21 07:07 21:04 15:38 POC Capillary Glucose 118 H 120 H 134 H 05/20/22 11:09 POC Capillary Glucose 141 H Discharge Plan Discharge Attending physician on discharge: Kan Ochoa Consulting providers: Raulito Hoyt ; Tesha Cutler Discharging Clinician: Kan Ochoa Patient Disposition: Home, Self-Care Activity: no preference Diet: as tolerated Patient Instructions: Antibiotic Form Stand Alone Forms: General Discharge Information Follow-up/Referrals: Raulito Hoyt, [Physician] - Discharge Medications: New losartan 25 mg Tablet 25 mg PO DAILY 30 Days Qty: 30 RF: 0 Continued nitroglycerin 0.4 mg tablet, sublingual See Rx Instructions .ROUTE .COMPLEX Qty: 25 RF: 0 aspirin [Adult Aspirin Regimen] 81 mg tablet,delayed release (DR/EC) 81 mg PO DAILY RF: 0 famotidine [Pepcid] 40 mg tablet 40 mg PO DAILY RF: 0 clopidogrel 75 mg Tablet 75 mg PO QAM 90 Days Qty: 90 RF: 0 pantoprazole [Protonix] 20 mg tablet,delayed release (DR/EC) 20 mg PO BID RF: 0 icosapent ethyl [Vascepa] 1 gram capsule 2 g PO BID RF: 0 tamsulosin 0.4 mg Capsule 0.4 mg PO QAM 30 Days Qty: 30 RF: 6 finasteride [Proscar] 5 mg Tablet 5 mg PO QAM 30 Days Qty: 30 RF: 6 carvedilol 12.5 mg tablet 12.5 mg PO BID RF: 0 isosorbide mononitrate 20 mg tablet 40 mg PO TID RF: 0 sucralfate 100 mg/mL Suspension 1,000 mg PO ACHS 14 Days Qty: 560 RF: 0 niacin [Niaspan Extended-Release] 1,000 mg Tablet Extended Release 24 Hr 1,000 mg PO HS RF: 0 duloxetine [Cymbalta] 60 mg capsule,delayed release(DR/EC) 60 mg PO DAILY Qty: 30 RF: 5 Trulicity 3 mg/0.5 mL pen inj
== END 2021-09-12 11:39 | disposition home or self-care (01) | DRG 282 ==
LOC: ANHED 15:42 → ANHIMU 09-10 15:53
PROVIDERS: Emergency Medicine; Internal Medicine; Internal Medicine Cardiovascular Disease; Nurse Practitioner Adult Health; Specialist; Admitting Provider Internal Medicine; Emergency Provider Emergency Medicine; PCP Nurse Practitioner; Visit Provider Chiropractor
PROC: 4A023N7 Measurement of Cardiac Sampling and Pressure, Left Heart, Percutaneous Approach (ICD-10-PCS; CPT 93452; principal; 2021-09-11 15:00)
DX: I21.4 Non-ST elevation (NSTEMI) myocardial infarction (principal); E11.65 Type 2 diabetes mellitus with hyperglycemia; K22.70 Barrett's esophagus without dysplasia; E11.22 Type 2 diabetes mellitus with diabetic chronic kidney disease; Z87.891 Personal history of nicotine dependence; I25.10 Atherosclerotic heart disease of native coronary artery without angina pectoris; E11.51 Type 2 diabetes mellitus with diabetic peripheral angiopathy without gangrene; E78.5 Hyperlipidemia, unspecified; I12.9 Hypertensive chronic kidney disease with stage 1 through stage 4 chronic kidney disease, or unspecified chronic kidney disease; E55.9 Vitamin D deficiency, unspecified; K21.00 Gastro-esophageal reflux disease with esophagitis, without bleeding; Z86.73 Personal history of transient ischemic attack (TIA), and cerebral infarction without residual deficits; I25.2 Old myocardial infarction; Z85.46 Personal history of malignant neoplasm of prostate; Z83.3 Family history of diabetes mellitus; Z82.49 Family history of ischemic heart disease and other diseases of the circulatory system; Z95.5 Presence of coronary angioplasty implant and graft; Z79.899 Other long term (current) drug therapy; Z79.01 Long term (current) use of anticoagulants; Z79.4 Long term (current) use of insulin; N18.2 Chronic kidney disease, stage 2 (mild)
CPT/HCPCS: 36415; 71046; 74176; 80048; 80053; 82948; 83690; 83735; 84484; 85025; 85610; 85730; 93005; 93306; 93458; 96361; 96365; 96375; 99285; A9270; C1887; C1894; C9113; C9803; G0378; J1644; J1815; J2250; J2270; J2405; J2550; J3010; J3475; J7030; U0003; U0005

== ENCOUNTER 2021-09-29 00:16 | Day surgery (SDC) | payer MEDICARE, MEDICAID, SELFPAY ==
--- NOTE | 2021-09-17 10:49 | PC.NURSE ---
Spoke with Dr. Rhodes regarding patient and recent cardiac cath., pt being referred for possible CABG, althought Dr. Hoyt specified pt could hold Plavix for procedure he is considered high risk, patient and are very reluctant to stop Plavix for procedure. Dr. Rhodes will proceed with the flex. sig. without pt holding Plavix. I will call pt and and inform them of this.
[2021-09-17 10:52] VITALS: BMI 26.9
[2021-09-29 07:06] VITALS: BP 96/51; PULSE 79; RESP 20; TEMP 36.6; O2SAT 100
[2021-09-29] MEDS: LACTATED RINGERS 1,000 ML 150 ML IV CONT (07:25)
[2021-09-29 07:29] LABS: Glucose Point of Care 144 mg/dl (65-105)
[2021-09-29] MEDS: ONDANSETRON INJ 4 MG/2 ML VIAL IV PUSH (07:49)
--- NOTE | 2021-09-29 08:14 | WPDHPUPDATE1 ---
History and Physical Update Update Date/Time: 09/29/21 08:14 History and Physical has been reviewed, including an updated exam of the patient. There are NO changes in the patient's condition. Risks, benefits, and alternatives have been discussed and questions answered. Patient agrees to proceed with procedure.
[2021-09-29 08:27] VITALS: BP 151/63; PULSE 60; RESP 20; O2SAT 99
[2021-09-29 08:37] VITALS: BP 138/61; PULSE 60; RESP 21; O2SAT 98
[2021-09-29 08:39] LABS: Glucose Point of Care 135 mg/dl (65-105)
[2021-09-29 08:47] VITALS: BP 132/78; PULSE 58; RESP 15; O2SAT 98
== END 2021-09-29 09:04 | disposition home or self-care (01) ==
PROVIDERS: PCP Nurse Practitioner; Visit Provider Internal Medicine Gastroenterology
PROC: 0DJD8ZZ Inspection of Lower Intestinal Tract, Via Natural or Artificial Opening Endoscopic (ICD-10-PCS; CPT 45330; principal; 2021-09-29 08:30)
DX: R19.7 Diarrhea, unspecified (principal); K57.30 Diverticulosis of large intestine without perforation or abscess without bleeding; K64.4 Residual hemorrhoidal skin tags; C61 Malignant neoplasm of prostate; I25.10 Atherosclerotic heart disease of native coronary artery without angina pectoris; I25.2 Old myocardial infarction; E11.42 Type 2 diabetes mellitus with diabetic polyneuropathy; E78.5 Hyperlipidemia, unspecified; E11.51 Type 2 diabetes mellitus with diabetic peripheral angiopathy without gangrene; I12.9 Hypertensive chronic kidney disease with stage 1 through stage 4 chronic kidney disease, or unspecified chronic kidney disease; E11.22 Type 2 diabetes mellitus with diabetic chronic kidney disease; N18.9 Chronic kidney disease, unspecified; E55.9 Vitamin D deficiency, unspecified; K31.84 Gastroparesis; Z95.5 Presence of coronary angioplasty implant and graft; Z95.820 Peripheral vascular angioplasty status with implants and grafts; Z86.73 Personal history of transient ischemic attack (TIA), and cerebral infarction without residual deficits; K21.9 Gastro-esophageal reflux disease without esophagitis; Z87.891 Personal history of nicotine dependence
CPT/HCPCS: 45331; 82948; 88305; J2405; J2704; J7120

== ENCOUNTER 2021-10-26 23:10 | Observation (INO) | payer MEDICARE, MEDICAID, SELFPAY ==
--- NOTE | ~2021-10-26 | CT_ITS ---
EXAMINATION: CT brain wo con DATE: 10/27/2021 00:22 INDICATION: Left arm weakness TECHNIQUE: Computed tomography (CT) of the head was performed without intravenous contrast. The dose- length product was 605.33 mGy-cm. Automated exposure control and iterative reconstruction technique w ere employed. COMPARISON: 05/23/2016 FINDINGS: Mild atrophy. No acute intracranial hemorrhage, infarction, mass or mass effect. Basilar ci sterns are patent. There is intracranial atherosclerosis. There is mild mucosal thickening of the rig ht maxillary sinus. Mastoids are pneumatized. No depressed skull fractures. There is a focal chronic infarct of the right parietal coronal radiata. There are scattered mild periventricular and subcortic al white matter changes, most likely related to small vessel ischemic disease (microangiopathy). IMPRESSION: 1. No acute intracranial abnormality. 2: Chronic focal right infarct of the right parietal lobe. 3: Chronic age-related findings. Reviewed, dictated and finalized at location A.
--- NOTE | ~2021-10-26 | MR_ITS ---
EXAMINATION: MR cervical spine wo/w con DATE: 10/27/2021 13:17 INDICATION: Left arm weakness. Neck pain. TECHNIQUE: Magnetic resonance imaging (MRI) of the cervical spine was performed without and with 15 m L Multihance intravenous contrast. Sequences included sagittal T2-weighted FSE, sagittal T2-weighted FS FSE, sagittal T1-weighted FSE, axial T2-weighted FSE, and axial T1-weighted SE. Postcontrast seque nces included sagittal T1-weighted FS FSE, and axial T1-weighted FS SE. COMPARISON: None FINDINGS: Bone alignment is normal. Vertebral body heights are normal. Bone marrow signal intensity is normal . Disc height loss at C3-C4 and C4-C5, moderate disc height loss at C5-C6 and C6-C7. There is a small T2 hyperintense cord lesion just to the left of the midline at the level of C3-C4 and extending up t o 1.5 cm craniocaudally. Suggestive of an additional T2 hyperintense lesion at the right side of the medulla seen on the sagittal images with assessment on the axial images limited by motion. No abnorma lly enhancing lesions identified. The following disc levels are specifically discussed: C2-C3: The disc does not extend beyond the endplate margin. There is no uncovertebral joint osteoarth ritis. There is moderate right and severe left facet joint osteoarthritis. There is mild bilateral ne ural foraminal stenosis. There is no central canal stenosis. C3-C4: Disc is mildly bulging with annular fissure and small central disc extrusion with disc materia l extending up to 4 mm cephalad to the level of the inferior endplate of C2. There is mild bilateral uncovertebral joint osteoarthritis. There is mild right and moderate left facet joint osteoarthritis. There is mild bilateral neural foraminal stenosis. There is mild central canal stenosis with mild in dentation of the ventral surface of the cord. C4-C5: Posterior disc osteophyte complex. There is mild to moderate left and severe right uncovertebr al joint osteoarthritis. There is severe left and moderate right facet joint osteoarthritis. There is moderate right and mild to moderate left neural foraminal stenosis. There is mild central canal sten osis with slight flattening the ventral surface of the cord. C5-C6: Posterior disc osteophyte complex. There is moderate left and severe right uncovertebral joint osteoarthritis. There is mild right and moderate left facet joint osteoarthritis. There is moderate right and mild to moderate left neural foraminal stenosis. There is mild central canal stenosis with mild flattening of the ventral surface of the cord. C6-C7: Posterior disc osteophyte complex. There is severe bilateral uncovertebral joint osteoarthriti s. There is mild bilateral facet joint osteoarthritis. There is mild to moderate left and moderate ri ght neural foraminal stenosis. There is mild central canal stenosis with mild flattening the left toña tral surface of the cord. C7-T1: The disc does not extend beyond the endplate margin. There is no uncovertebral joint osteoarth ritis. There is moderate to severe bilateral facet joint osteoarthritis. There is no neural foraminal stenosis. There is no central canal stenosis. IMPRESSION: 1. Moderate cervical spondylosis. 2. Nonspecific small focus of increased left paracentral cord signal without evident enhancement or s welling at the level C3-C4 which may represent a region of myelopathy/myelomalacia related to the adj acent disc extrusion in mild central canal stenosis at C3-C4. There is however suggestion of possible additional T2 hyperintense white matter lesion at the right side of the medulla differential would a lso include multiple sclerosis or other demyelinating disease. Other potential less likely etiologies would include vasculitis, ischemia or infection. Neoplasm would also be less likely in the absence o f enlargement of the cord or enhancement. Consider further evaluation of the brai
--- NOTE | ~2021-10-26 | MR_ITS ---
EXAMINATION: MR brain/brain stem wo/w con DATE: 10/28/2021 09:47 INDICATION: Left upper extremity weakness TECHNIQUE: Magnetic resonance imaging (MRI) of the brain and brainstem was performed without and with 15 mL Multihance intravenous contrast. Sequences included sagittal and axial T1-weighted SE, axial d iffusion-weighted FS SE, axial T2*-weighted GRE, axial 3D SWAN, axial T2-weighted FLAIR, and axial T2 -weighted FSE. Postcontrast axial, sagittal and coronal T1-weighted SE was obtained. Apparent diffusi on coefficient (ADC) maps were created. COMPARISON: MR dated 05/24/[address] dated 10/27/2021 FINDINGS: Small focus of restricted diffusion consistent with acute infarct at the anterior and deep margins of the medial aspect of the right central sulcus. There is a second equivocal tiny focus of possible re stricted diffusion more posteriorly in the medial right parietal lobe. There is increased T2 signal i ntensity corresponding to an old lacunar infarct in the white matter of the posterior right frontal l obe centrum semiovale. No intracranial hemorrhage or abnormal intracranial mass lesion. Minimal scatt ered nonspecific increased T2-weighted signal intensity in the cerebral white matter, predominantly i nvolving the deep and periventricular white matter which is within normal limits for age. There are n o intraparenchymal signal abnormalities seen on the other pulse sequences. The ventricles are symmetr ic and normal in size. There are no abnormal extra-axial fluid collections. Flow voids are seen in th e cerebral arteries on the T2-weighted sequences consistent with their expected patency. Mild mucosal thickening the bilateral ethmoid and maxillary sinuses. Changes of bilateral intraocular lens replac ement. Visualized orbits and soft tissues are unremarkable. There are no areas of abnormal enhanceme nt on the post contrast images. IMPRESSION: 1. Small cortical infarct at the deep and anterior margins of the medial aspect of the right central sulcus, the more anterior portion involving the motor strip of the precentral gyrus. Additional possi ble tiny acute infarct in the more posterior medial right parietal lobe and small old lacunar infarct in the right frontal centrum semiovale. Reviewed, dictated and finalized at location A. IMPRESSION: 1. Small cortical infarct at the deep and anterior margins of the medial aspect of the right central sulcus, the more anterior portion involving the motor str ip of the precentral gyrus. Additional possible tiny acute infarct in the more posterior medial right parietal lobe and small old lacunar infarct in the right frontal centrum semiovale.
--- NOTE | ~2021-10-26 | CT_ITS ---
EXAMINATION: CT cervical spine wo con DATE: 10/27/2021 00:23 INDICATION: Neck pain. Left arm weakness. TECHNIQUE: Computed tomography (CT) of the cervical spine was performed without intravenous contrast. Automated exposure control and iterative reconstruction technique were employed. Exam dose: 463.25 mGy-cm total exam DLP. COMPARISON: None FINDINGS: There is mild reversal cervical curvature which may be due to muscle spasm. C1 and C2 are normally aligned and the odontoid process is intact. No fracture or dislocation, locked facet or prevertebral soft tissue swelling. There is mild degenerative disc disease at C2-3. There is moderate degenerative disc disease at C3-4, C4-5 and moderately severe degenerative disc disease at C5-6 and C6-7. There is prominent posterior spurring at C4-5 and C5-6 and C6-7. There is degenerative change at the apophyseal joints throughout the cervical spine. There is uncovertebral joint spurring, particularly prominent on the right at C3-4 and bilaterally at C4-5, C5-6 and C6-7.. IMPRESSION: Reversal cervical curvature which may be due to muscle spasm No fracture or dislocation or locked facet Extensive cervical spondylosis Reviewed, dictated and finalized at [facility]. Reviewed, dictated and finalized at location A.
--- NOTE | ~2021-10-26 | XR_ITS ---
EXAMINATION: XR chest 2V DATE: 10/27/2021 01:20 INDICATION: Left shoulder pain TECHNIQUE: frontal and lateral views of the chest were obtained. COMPARISON: Chest radiograph dated 09/09/[address] dated 07/25/2021 FINDINGS: Mild opacities in the bilateral lower lung zones which could represent atelectasis or pneumonia. A fe w bilateral scattered small calcified pulmonary nodules along with calcified bilateral hilar and medi astinal lymph nodes consistent with old granulomatous disease. No pleural effusion or pneumothorax. C ardiomediastinal silhouette is normal. Calcified pleural plaque along the posterior left hemidiaphrag m suggestive of prior exudative effusion. Moderate thoracolumbar spondylosis with bridging osteophyte s at multiple levels consistent with diffuse idiopathic skeletal hyperostosis (DISH). IMPRESSION: 1. Mild opacities at the bilateral lung bases which could represent atelectasis or pneumonia. 2. Calcified pleural plaque along the left hemidiaphragm likely sequela of chronic exudative effusion . Reviewed, dictated and finalized at location A. IMPRESSION: 1. Mild opacities at the bilateral lung bases which could represent atelectasis or pneumonia. 2. Calcified pleural plaque along the left hemidiaphragm likely sequela of machine wedger lisa exudative effusion.
--- NOTE | 2021-10-26 23:22 | ECG_ITS ---
Measurements Intervals [place] Rate: 73 P: 34 WI: 176 QRS: -13 QRSD: 108 T: 68 QT: 384 QTc: 425 Interpretive Statements SINUS RHYTHM LEFT VENTRICULAR HYPERTROPHY AND ST-T CHANGE INFERIOR INFARCT, AGE INDETERMINATE ABNORMAL ECG Electronically Signed On 10-27-2021 6:23:54 CDT by Raulito Hoyt D.O.
[2021-10-26 23:23] VITALS: BP 150/79; PULSE 73; RESP 14; TEMP 36.6; O2SAT 100
--- NOTE | 2021-10-26 23:30 | ED.EXTPRO ---
HPI - Extremity Problem General Chief complaint: Extremity Problem,Nontraumatic <Yesenia Ni PA-C - Last Filed: 10/27/21 02:01> Stated complaint: neck stiff, left arm numbness, unable to lift arm <Yesenia Ni PA-C - Last Filed: 10/27/21 02:01> Time Seen by Provider: 10/26/21 23:24 <NALDO Salinas Last Filed: 10/27/21 02:01> Source: patient <NALDO Salinas Last Filed: 10/27/21 02:01> Mode of arrival: ambulatory <NALDO Salinas Last Filed: 10/27/21 02:01> Limitations: no limitations <NALDO Salinas Last Filed: 10/27/21 02:01> History of Present Illness HPI Narrative: This is a 66 year old male that presents to the ER for worsening neck pain noted over the last 5 days. Reports pain and stiffness on the left side of his neck that radiates into his left shoulder and arm. Reports some paresthesias in the left arm and inability to raise the arm. He thinks this started around 6 PM tonight. No injury or trauma prior to this neck pain starting. Denies any other focal numbness or weakness, chest pain or shortness of breath. <NALDO Salinas Last Filed: 10/27/21 02:01> Related Data Home medications: Home Medications Medication Instructions Recorded Confirmed famotidine 40 mg tablet (Pepcid) 40 mg PO DAILY 02/26/21 09/17/21 carvedilol 12.5 mg tablet 12.5 mg PO BID 07/25/21 09/17/21 isosorbide mononitrate 20 mg tablet 40 mg PO TID 07/26/21 09/17/21 niacin 1,000 mg tablet,extended 1,000 mg PO HS 08/13/21 09/17/21 release 24 hr (Niaspan) aspirin 81 mg tablet,delayed 81 mg PO DAILY 08/18/21 09/17/21 release (Adult Aspirin Regimen) icosapent ethyl 1 gram capsule 2 g PO BID 09/09/21 09/17/21 (Vascepa) pantoprazole 20 mg tablet,delayed 20 mg PO BID 09/09/21 09/17/21 release (Protonix) ferrous sulfate 325 mg (65 mg 325 mg PO DAILY 09/15/21 09/17/21 iron) tablet <Yesenia Ni PA-C - Last Filed: 10/27/21 02:01> Allergies/Adverse reactions: Allergies Allergy/AdvReac Type Severity Reaction Status Date / Time lactose AdvReac Diarrhea Verified 10/27/21 00:02 <Yesenia Ni PA-C - Last Filed: 10/27/21 02:01> Review of Systems Review of Systems: CONSTITUTIONAL: Denies fever EYES: Denies visual changes CARDIOVASCULAR: Denies chest pain, or edema. RESPIRATORY: Denies dyspnea. GASTROINTESTINAL: Denies vomiting MUSCULOSKELETAL: Reports joint pain, and myalgia. NEUROLOGIC: Reports weakness. Denies numbness <Yesenia Ni PA-C - Last Filed: 10/27/21 02:01> All systems reviewed & are unremarkable except as noted in HPI and below <Yesenia Ni PA-C - Last Filed: 10/27/21 02:01> [facility] Past Medical History Medical History: Medical History Adenomatous colon polyp Arthritis Caputo's esophagus with esophagitis Black stools CAD (coronary artery disease) Managed by Dr. Hoyt Chronic pancreatitis CVA (cerebral vascular accident) (~2014) Diabetic peripheral neuropathy Esophageal hiatal hernia Essential hypertension Gastrointestinal hemorrhage with hematemesis GERD (gastroesophageal reflux disease) History of CVA with residual deficit Hyperlipidemia LDL goal <70 Kidney stones Myocardial infarction (~2003) PAD (peripheral artery disease) (~2011) With right lower extremity stent and left aortofemoral bypass in 2019. CT evidence of moderate stenosis. 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
[2021-10-26 23:36] LABS: Basophils Percent Auto 0.2 % (0.2-1.2); Eosinophils Absolute Auto 0.3 K/mm3 (0-0.3); Eosinophils Percent Auto 4.7 % (0-4.4); Hematocrit 29.6 % (42.0-52.0); Immature Granulocyte Absolute 0.07 K/mm3 (0.00-0.031); Immature Granulocyte Percent A 1.3 % (0-0.5); Lymphocytes Absolute Auto 0.96 K/mm3 (0.9-3.2); Lymphocytes Percent Auto 17.4 % (18.3-44.2); Mean Corpuscular HGB Conc 33.8 g/dl (32-36); Mean Corpuscular Hemoglobin 28.7 pg (26-34); Mean Corpuscular Volume 85.1 fl (80-100); Mean Platelet Volume 8.9 fl (7.4-10.4); Monocytes Absolute Auto 0.5 K/mm3 (0.1-0.6); Monocytes Percent Auto 9.4 % (2.6-8.5); Neutrophils Absolute Auto 3.7 K/mm3 (1.3-6.7); Platelet Count Result 188 k/mm3 (150-375); Red Blood Count 3.48 M/mm3 (4.6-6.20); Red Cell Distribution Width 14.6 % (11.5-14.5); White Blood Count 5.5 K/mm3 (4.5-10.0)
[2021-10-26 23:46] LABS: Prothrombin Time 13.2 Seconds (11.1-14.7)
[2021-10-26 23:49] LABS: Alanine Aminotransferase 24 U/L (6-50); Albumin Level 4.3 g/dL (3.5-5.1); Alkaline Phosphatase 63 U/L (38-126); Anion Gap 13 mmol/L (8-16); Aspartate Amino Transferase 31 U/L (17-59); Bilirubin,Total 0.2 mg/dL (0.2-1.3); Blood Urea Nitrogen 33 mg/dL (9-20); Calcium 9.1 mg/dL (8.4-10.2); Carbon Dioxide 22 mmol/L (22-30); Chloride 103 mmol/L (98-107); Estimated CRCL calculation 38 ml/min; Estimated Glomerular Filt Rate 43; Glucose 212 mg/dL (65-110); Potassium 3.9 mmol/L (3.4-5.0); Sodium 138 mmol/L (137-145)
[2021-10-27 00:01] LABS: Troponin I < 0.012 ng/mL (0.000-0.034)
[2021-10-27] MEDS: diazePAM INJ (*CRX) 10 MG/2 ML SYRINGE 5 MG IV PUSH (00:02)
[2021-10-27 00:34] VITALS: BP 141/61; PULSE 69; RESP 16; O2SAT 99
[2021-10-27 02:15] LABS: SARS-CoV-2 RNA PCR Negative
[2021-10-27 02:49] VITALS: BP 159/72; PULSE 71; RESP 18; O2SAT 99
[2021-10-27 03:17] VITALS: BMI 27.3
--- NOTE | 2021-10-27 03:21 | PC.NURSE ---
This patient, Cornelius Babin Jr., was admitted to [facility] Surg Room 314-02. Patient/family oriented to hospital policies and general routines including ID bracelet, bed and alarms, visiting hours, pain management, procedures, bathroom and other care routines, personal items, smoking policy, room service/diet, and visiting hours. Information on how to activate the Rapid Response Team has been discussed. Patient/Family are encouraged to report perceived risks to care and to ask questions if they do not understand what they are told or what they should do.
[2021-10-27 06:00] VITALS: BP 173/74; PULSE 73; RESP 18; TEMP 36.2; O2SAT 99
[2021-10-27 08:03] LABS: Glucose Point of Care 212 mg/dl (65-105)
[2021-10-27 11:27] LABS: Glucose Point of Care 261 mg/dl (65-105)
--- NOTE | 2021-10-27 11:37 | PM.IMHP ---
H&P: HPI History of Present Illness Date/Time: 10/27/21 11:37 Chief Complaint: neck pain left upper extremity weakness Narrative: this is a 66-year-old male who presents to the ER with worsening neck pain that started over the past few days. He states that he there is associated radiation of the pain to his left shoulder in arm and some paresthesia in the left arm and weakness associated with it. He has recently been worked up for his coronary artery disease and is planned to have CABG this 09 November. There is no associated leg weakness. He also has underlying peripheral vascular disease and recently had stents placed stent in his legs. He denies any chest pain or shortness of breath. No injury to the area. Review of Systems Review of Systems: - CONSTITUTIONAL: Denies weight loss, fever and chills. - HEENT: Denies changes in vision and hearing - RESPIRATORY: Denies SOB and cough. - CV: Denies palpitations and CP. - GI: Denies abdominal pain, nausea, vomiting and diarrhea. - : Denies dysuria and urinary frequency. - MSK: Denies myalgia and joint pain. - SKIN: Denies rash and pruritus. - NEUROLOGICAL: Denies headache and syncope. - PSYCHIATRIC: Denies recent changes in mood. Denies anxiety and depression. [facility] Past Medical History Medical History (Updated 10/27/21 @ 12:25 by Reginaldo Centeno MD) Adenomatous colon polyp Antiplatelet or antithrombotic long-term use Arthritis bilateral hands Caputo's esophagus with esophagitis Black stools CAD (coronary artery disease) Managed by Dr. Hoyt Cervical spinal stenosis Chronic pancreatitis Coronary artery disease CVA (cerebral vascular accident) (~2014) with residual deficit Diabetic peripheral neuropathy Erosive esophagitis Esophageal hiatal hernia Essential hypertension Gastrointestinal hemorrhage with hematemesis Gastroparesis GERD (gastroesophageal reflux disease) Hyperlipidemia LDL goal <70 Kidney stones Left arm weakness Murmur Myocardial infarction (~2003) PAD (peripheral artery disease) (~2011) With right lower extremity stent and left aortofemoral bypass in 2019. CT evidence of moderate stenosis. 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 Perirectal abscess Prostate cancer Renal infarction Right kidney Renal insufficiency Multiple episodes of acute kidney injury Type 2 diabetes mellitus with hyperglycemia Vitamin D deficiency Surgical History Surgical History (Updated 10/27/21 @ 06:40 by Kaela Pandey CMA) History of colonoscopy with polypectomy (05/2020) History of coronary artery stent placement (~2003) 4 stents placed History of esophagogastroduodenoscopy (EGD) (01/2021) May 2020 and January 2020 History of femoropopliteal bypass left - 09/11 History of incision and drainage perirectal abscess left anterior 02/17/21 History of skin graft for left 5th toe diabetic ulcer S/P peripheral artery angioplasty with stent placement 11/2020 right superficial femoral artery stent S/P right coronary artery (RCA) stent placement Status post cataract extraction of both eyes with insertion of intraocular lens Status post left heart catheterization (LHC) by percutaneous approach Status post open reduction with internal fixation of fracture Hips and legs as a child Family History Family History Mother Diabetes mellitus Family history of arthritis Family history of diabetes mellitus in first degree relative Family history of coronary artery disease Hypertension Cerebrovascular accident Chronic obstructive pulmonary disease Father Family history of alcoholism Sibling Diabetes mellitus Myocardial infarction Social History Social History Social History: Patient lives with his of 45 years. They had 3 children. 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 He used to drink alcoho
--- NOTE | 2021-10-27 12:14 | WPDNEURCNPN ---
Assessment and Plan Assessment and plan (1) Cervical radiculopathy: Code(s): M54.12 - Radiculopathy, cervical region Status: Acute (2) Adhesive capsulitis: Code(s): M75.00 - Adhesive capsulitis of unspecified shoulder Status: Acute Plan 1 possibility of cervical radiculopathy will benefit from the MRI cervical spine 2 if the MRI of cervical spine is negative then there is a possibility of shoulder adhesive capsulitis 3 other problems as mentioned above Additional Plan obtain the MRI of cervical spine before any further recommendations are made Consult date: 10/27/21 Time Seen: 11:00 Reason for consult: Neck pain HPI: Cornelius Babin Jr. is a 66 year old male admitted to [facility] through the emergency room for the complaints of increasing neck pain of 5 days duration in addition to complain of pain and stiffness on the left side of his neck which was radiating to his left shoulder and left upper extremity he was unable to raise the left shoulder he gave no history of recent or remote trauma. He had been taking multiple medication at home which particularly included carvedilol 12.5 mg twice a day isosorbide mononitrate 20 mg each 2 tablets 3 times a day vascepa1 g capsule 2 of them twice a day and pantoprazole 20 mg twice a day. History of cerebrovascular accident with residual deficit prostatic carcinoma, and also history of peripheral artery angioplasty with stent placement in November of 2020, it does have a history of years smoked 54 with smoking pack years 162 but being a former smoker and former alcohol intake, initial exam in the emergency room was grossly normal with fairly normal vital signs the CT scan of the brain was negative for the bleed or stroke CT scan of the cervical spine revealed multilevel cervical spondylosis with varying degrees of central canal and foraminal stenosis but normal EKG with mildly anemic on the routine lab studies, BUN of 33 with creatinine 1.6 and blood sugar 261, SARS-CoV-2 id negative [facility] Past Medical History Medical History (Updated 10/27/21 @ 12:25 by Reginaldo Centeno MD) Adenomatous colon polyp Antiplatelet or antithrombotic long-term use Arthritis bilateral hands Caputo's esophagus with esophagitis Black stools CAD (coronary artery disease) Managed by Dr. Hoyt Cervical spinal stenosis Chronic pancreatitis Coronary artery disease CVA (cerebral vascular accident) (~2014) with residual deficit Diabetic peripheral neuropathy Erosive esophagitis Esophageal hiatal hernia Essential hypertension Gastrointestinal hemorrhage with hematemesis Gastroparesis GERD (gastroesophageal reflux disease) Hyperlipidemia LDL goal <70 Kidney stones Left arm weakness Murmur Myocardial infarction (~2003) PAD (peripheral artery disease) (~2011) With right lower extremity stent and left aortofemoral bypass in 2018. CT evidence of moderate stenosis. 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 Perirectal abscess Prostate cancer Renal infarction Right kidney Renal insufficiency Multiple episodes of acute kidney injury Type 2 diabetes mellitus with hyperglycemia Vitamin D deficiency Surgical History Surgical History (Updated 10/27/21 @ 06:40 by Kaela Pandey, [facility]) History of colonoscopy with polypectomy (05/2020) History of coronary artery stent placement (~2003) 4 stents placed History of esophagogastroduodenoscopy (EGD) (01/2021) May 2020 and January 2020 History of femoropopliteal bypass left - 09/11 History of incision and drainage perirectal abscess left anterior 02/17/21 History of skin graft for left 5th toe diabetic ulcer S/P peripheral artery angioplasty with stent placement 11/2020 right superficial femoral artery stent S/P right coronary artery (RCA) stent placement Status post cataract extraction of both eyes with insertion of intraocular lens Status post left heart catheterization (LHC) by percutaneous approach
[2021-10-27 14:00] VITALS: BP 174/79; PULSE 85; RESP 18; TEMP 36.5; O2SAT 98
[2021-10-27] MEDS: SUCRALFATE SUSP 100 MG/ML 10 ML UDC 1000 MG PO ×2 (15:47→21:02)
[2021-10-27] MEDS: ISOSORBIDE MONONITRATE 20 MG TABLET 40 MG PO (15:47)
[2021-10-27] MEDS: PANTOPRAZOLE SOD SESQUIHYDRATE 20 MG TAB PO (15:48)
[2021-10-27] MEDS: OMEGA 3 POLYUNSAT FATTY ACIDS 1 GM CAP 2 GM PO (15:48)
[2021-10-27] MEDS: DIPHENOXYLATE/ATROPINE (*CRX) 2.5 MG TABLET 1 TABLET PO (15:54)
[2021-10-27 17:03] LABS: Glucose Point of Care 369 mg/dl (65-105)
[2021-10-27] MEDS: INSULIN ASPART (*BKC) 100 UNITS/ML SUB-Q ×2 (18:36)
[2021-10-27 20:27] LABS: Glucose Point of Care 362 mg/dl (65-105)
[2021-10-27 21:00] VITALS: PULSE 79
[2021-10-27] MEDS: carvediloL 12.5 MG TABLET PO (21:00)
[2021-10-27] MEDS: INSULIN GLARGINE (*BKC) 100 UNITS/ML 12 UNITS SUB-Q (21:00)
[2021-10-27] MEDS: NIACIN SA 500 MG TABLET 1000 MG PO (21:03)
[2021-10-27 22:00] VITALS: BP 160/73; PULSE 79; RESP 18; TEMP 36.4; O2SAT 100
--- NOTE | 2021-10-28 | ECHOL_ITS ---
Patient Info Name: Cornelius Babin Age: 66 years : 1955 Gender: Male Ht: 67 in Wt: 174 lbs BSA: 1.95 m2 HR: 92 bpm BP: 134 / 42 mmHg Heart Rhythm: Sinus Rhythm Technical Quality: Good Exam Date: 10/28/2021 3:55 PM Exam Location: [facility] Card Pulmonary Patient Status: Inpatient Admit Date: 10/27/2021 Staff Ordering Physician: Cate Marroquin APRN Ribbon Hand: Genet De Paz RDCS Attending Provider: Minor Borjas MD Referring Physician: Lopez MONSALVE; Exam Type: CA echo limited Study Info Indications - acute infarct Limited two-dimensional transthoracic echocardiogram is performed with agitated saline. Contrast/Agitated Saline Contrast/Ag. Saline: Agitated Saline Amount: 20.00 ml Existing IV Access: Yes IV Access Condition: patent with no signs of infiltration Summary 1. Limited echocardiogram to assess atrial septum. 2. Agitated saline injection with and without valsalva maneuver opacified right side cardiac chambers without shunt to left side cardiac chambers. 3. Intact interatrial septum visualized by 2D, color flow and agitated saline imaging. Atrial Septum Agitated saline injection with and without valsalva maneuver opacified right side cardiac chambers without shunt to left side cardiac chambers. Limited echocardiogram to assess atrial septum. Intact interatrial septum visualized by 2D, color flow and agitated saline imaging. Report Signatures
[2021-10-28] MEDS: SUCRALFATE SUSP 100 MG/ML 10 ML UDC 1000 MG PO ×4 (05:56→21:56)
[2021-10-28 06:00] VITALS: BP 172/93; PULSE 70; RESP 16; TEMP 36.1; O2SAT 98
[2021-10-28 07:27] LABS: Basophils Percent Auto 0.1 % (0.2-1.2); Eosinophils Percent Auto 0.1 % (0-4.4); Hemoglobin 10.1 g/dL (14.0-18.0); Immature Granulocyte Absolute 0.11 K/mm3 (0.00-0.031); Immature Granulocyte Percent A 1.3 % (0-0.5); Lymphocytes Absolute Auto 0.61 K/mm3 (0.9-3.2); Lymphocytes Percent Auto 7.1 % (18.3-44.2); Mean Corpuscular HGB Conc 33.7 g/dl (32-36); Mean Corpuscular Hemoglobin 27.9 pg (26-34); Mean Corpuscular Volume 82.9 fl (80-100); Mean Platelet Volume 9.3 fl (7.4-10.4); Monocytes Absolute Auto 0.6 K/mm3 (0.1-0.6); Neutrophils Absolute Auto 7.2 K/mm3 (1.3-6.7); Neutrophils Percent Auto 84.4 % (45.5-73.1); Platelet Count Result 181 k/mm3 (150-375); Red Blood Count 3.62 M/mm3 (4.6-6.20); Red Cell Distribution Width 14.5 % (11.5-14.5); White Blood Count 8.6 K/mm3 (4.5-10.0)
[2021-10-28 07:45] LABS: Alanine Aminotransferase 23 U/L (6-50); Albumin Level 4.4 g/dL (3.5-5.1); Alkaline Phosphatase 60 U/L (38-126); Anion Gap 12 mmol/L (8-16); Aspartate Amino Transferase 25 U/L (17-59); Bilirubin,Total 0.2 mg/dL (0.2-1.3); Blood Urea Nitrogen 33 mg/dL (9-20); Calcium 8.9 mg/dL (8.4-10.2); Carbon Dioxide 23 mmol/L (22-30); Chloride 100 mmol/L (98-107); Estimated CRCL calculation 55 ml/min; Estimated Glomerular Filt Rate > 60; Glucose 237 mg/dL (65-110); Magnesium 1.8 mg/dL (1.6-2.3); Potassium 4.1 mmol/L (3.4-5.0); Sodium 135 mmol/L (137-145)
[2021-10-28 07:56] LABS: Glucose Point of Care 238 mg/dl (65-105)
[2021-10-28] MEDS: FAMOTIDINE 20 MG TABLET 40 MG PO (08:23)
[2021-10-28] MEDS: TAMSULOSIN HCL 0.4 MG CAPSULE PO (08:23)
[2021-10-28] MEDS: ISOSORBIDE MONONITRATE 20 MG TABLET 40 MG PO ×3 (08:23→16:39)
[2021-10-28] MEDS: OMEGA 3 POLYUNSAT FATTY ACIDS 1 GM CAP 2 GM PO ×2 (08:23→16:38)
[2021-10-28] MEDS: PANTOPRAZOLE SOD SESQUIHYDRATE 20 MG TAB PO ×2 (08:23→16:39)
[2021-10-28] MEDS: LOSARTAN POTASSIUM 25 MG TABLET PO (08:23)
[2021-10-28] MEDS: ROSUVASTATIN 10 MG TABLET 40 MG PO (08:23)
[2021-10-28 08:24] VITALS: PULSE 72
[2021-10-28] MEDS: FINASTERIDE 5 MG TABLET PO (08:24)
[2021-10-28] MEDS: ASPIRIN 81 MG ENTERIC TABLET PO (08:24)
[2021-10-28] MEDS: DULoxetine HCL 60 MG CAPSULE.DR PO (08:24)
[2021-10-28] MEDS: CLOPIDOGREL BISULFATE 75 MG TABLET PO (08:24)
[2021-10-28] MEDS: FERROUS SULFATE 324 MG TABLET PO (08:24)
[2021-10-28] MEDS: INSULIN ASPART (*BKC) 100 UNITS/ML SUB-Q ×6 (08:24→16:40)
[2021-10-28] MEDS: carvediloL 12.5 MG TABLET PO ×2 (08:24→21:55)
[2021-10-28 11:20] LABS: Glucose Point of Care 239 mg/dl (65-105)
--- NOTE | 2021-10-28 13:55 | PM.IMPN ---
Progress Note: A&P Assessment and Plan (1) Adhesive capsulitis: Code(s): M75.00 - Adhesive capsulitis of unspecified shoulder Status: Acute Assessment and Plan: Gentle ROM. continue pain control. (2) Cervical radiculopathy: Code(s): M54.12 - Radiculopathy, cervical region Status: Acute Assessment and Plan: Continue pain control. On Cymbalta. (3) History of CVA with residual deficit: Code(s): I69.30 - Unspecified sequelae of cerebral infarction Status: Acute Assessment and Plan: Brain MRI shows small cortical infarct at the deep and anterior margins of the medial aspect of the right central sulcus, the more anterior portion involving the motor strip of the precentral gyrus. Additional possible tiny acute infarct in the more posterior medial right parietal lobe and small old lacunar infarct in the right frontal centrum semiovale Neurology consulted and appreciate recommendations. Continue BP and glucose control. Continue aspirin and plavix. (4) Left arm weakness: Code(s): R29.898 - Other symptoms and signs involving the musculoskeletal system Status: Acute Assessment and Plan: Continue therapy as above (5) Type 2 diabetes mellitus with hyperglycemia: Code(s): E11.65 - Type 2 diabetes mellitus with hyperglycemia Status: Acute Assessment and Plan: Patient's to bring his Trulicity medication in today. He takes it every Tuesday and missed his last dose. Continue accu-checks AC/HS. Change aspart sliding scale insulin to high dose correction. Continue lantus 12 units at HS. Last A1c 6.8% (6) Cervical spinal stenosis: Code(s): M48.02 - Spinal stenosis, cervical region Status: Acute Assessment and Plan: Neurology consulted and appreciate recommendations. (7) Acute renal insufficiency: Code(s): N28.9 - Disorder of kidney and ureter, unspecified Status: Acute Assessment and Plan: Improved. Avoid nephrotoxic agents. (8) Coronary artery disease: Code(s): I25.10 - Atherosclerotic heart disease of [place] coronary artery without angina pectoris Status: Chronic Assessment and Plan: Multivessel coronary disease with IFR positive for stenosis of LAD and IFR negative stenosis of proximal RCA. Workup for CABG. He is scheduled for CABG this November 09. Continue home medications. (9) PAD (peripheral artery disease): Onset Date: ~2011 Code(s): I73.9 - Peripheral vascular disease, unspecified Status: Chronic Assessment and Plan: Continue home medications. (10) Diabetic peripheral neuropathy: Code(s): E11.42 - Type 2 diabetes mellitus with diabetic polyneuropathy Status: Chronic Assessment and Plan: As above. (11) Hyperlipidemia LDL goal <70: Code(s): E78.5 - Hyperlipidemia, unspecified Status: Chronic Assessment and Plan: Continue high-dose statin. (12) Essential hypertension: Code(s): I10 - Essential (primary) hypertension Status: Chronic Assessment and Plan: Continue current medications. BP elevated today. Resume HCTZ 25 mg daily. Goal <130/80 Plan CODE STATUS: FULL CODE DISPOSITION: home with spouse. Estimated LOS 1-2 days. Time Spent With Patient Time with patient: 15 - 25 minutes Subjective Date/time seen: 10/28/21 13:55 He reports his left shoulder and arm pain and weakness is improving. He has some tingling in his fingertips still, but otherwise it is improved. He denies unsteady gait or speech changes. No overnight events or new complaints. Review of Systems Review of Systems: All systems reviewed & are unremarkable except as noted in HPI and below Exam Narrative: GENERAL: Well-appearing, well-nourished, and in no acute distress. HEAD: Normocephalic, atraumatic. EYES: PERRLA and EOMI. ENT: Keyonna story
[2021-10-28 14:00] VITALS: BP 134/62; PULSE 62; RESP 22; TEMP 36.2; O2SAT 97
[2021-10-28 16:37] LABS: Glucose Point of Care 265 mg/dl (65-105)
[2021-10-28 21:43] VITALS: BP 119/59; PULSE 81; RESP 18; TEMP 36.6; O2SAT 96
[2021-10-28 21:55] VITALS: PULSE 81
[2021-10-28] MEDS: NIACIN SA 500 MG TABLET 1000 MG PO (21:56)
[2021-10-28] MEDS: INSULIN GLARGINE (*BKC) 100 UNITS/ML 12 UNITS SUB-Q (21:58)
[2021-10-28 22:16] LABS: Glucose Point of Care 247 mg/dl (65-105)
[2021-10-29 05:37] VITALS: BP 132/59; PULSE 79; RESP 18; TEMP 36.7; O2SAT 97
[2021-10-29] MEDS: SUCRALFATE SUSP 100 MG/ML 10 ML UDC 1000 MG PO ×2 (06:12→12:28)
[2021-10-29 08:24] LABS: Glucose Point of Care 213 mg/dl (65-105)
[2021-10-29] MEDS: ROSUVASTATIN 10 MG TABLET 40 MG PO (09:09)
[2021-10-29 09:10] VITALS: PULSE 78
[2021-10-29] MEDS: FERROUS SULFATE 324 MG TABLET PO (09:10)
[2021-10-29] MEDS: PANTOPRAZOLE SOD SESQUIHYDRATE 20 MG TAB PO (09:10)
[2021-10-29] MEDS: ISOSORBIDE MONONITRATE 20 MG TABLET 40 MG PO ×2 (09:10→12:28)
[2021-10-29] MEDS: ASPIRIN 81 MG ENTERIC TABLET PO (09:10)
[2021-10-29] MEDS: LOSARTAN POTASSIUM 25 MG TABLET PO (09:10)
[2021-10-29] MEDS: OMEGA 3 POLYUNSAT FATTY ACIDS 1 GM CAP 2 GM PO (09:10)
[2021-10-29] MEDS: carvediloL 12.5 MG TABLET PO (09:10)
[2021-10-29] MEDS: CLOPIDOGREL BISULFATE 75 MG TABLET PO (09:10)
[2021-10-29] MEDS: ENOXAPARIN 40 MG/0.4 ML SYRINGE SUB-Q (09:11)
[2021-10-29] MEDS: TAMSULOSIN HCL 0.4 MG CAPSULE PO (09:11)
[2021-10-29] MEDS: DULoxetine HCL 60 MG CAPSULE.DR PO (09:11)
[2021-10-29] MEDS: FAMOTIDINE 20 MG TABLET 40 MG PO (09:11)
[2021-10-29] MEDS: hydroCHLOROthiazide 25 MG TABLET PO (09:11)
[2021-10-29] MEDS: FINASTERIDE 5 MG TABLET PO (09:11)
[2021-10-29] MEDS: INSULIN ASPART (*BKC) 100 UNITS/ML SUB-Q ×4 (09:13→12:29)
[2021-10-29 12:01] LABS: Glucose Point of Care 220 mg/dl (65-105)
[2021-10-29] MEDS: LOPERAMIDE HCL 2 MG CAPSULE 4 MG PO (12:28)
--- NOTE | 2021-10-29 12:45 | PM.DS ---
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 DS: Discharge Diagnosis Discharge Diagnosis (1) Adhesive capsulitis: Code(s): M75.00 - Adhesive capsulitis of unspecified shoulder Status: Acute (2) Cervical radiculopathy: Code(s): M54.12 - Radiculopathy, cervical region Status: Acute (3) Left arm weakness: Code(s): R29.898 - Other symptoms and signs involving the musculoskeletal system Status: Acute (4) Stroke: Qualifiers: CVA mechanism: unspecified Qualified Code(s): I63.9 - Cerebral infarction, unspecified Code(s): I63.9 - Cerebral infarction, unspecified Status: Acute (5) Type 2 diabetes mellitus with hyperglycemia: Code(s): E11.65 - Type 2 diabetes mellitus with hyperglycemia Status: Acute (6) Coronary artery disease: Code(s): I25.10 - Atherosclerotic heart disease of [place] coronary artery without angina pectoris Status: Chronic (7) Prostate cancer: Code(s): C61 - Malignant neoplasm of prostate Status: Chronic (8) PAD (peripheral artery disease): Onset Date: ~2011 Code(s): I73.9 - Peripheral vascular disease, unspecified Status: Chronic (9) Essential hypertension: Code(s): I10 - Essential (primary) hypertension Status: Chronic DS: Summary Hospital Course Reason for hospitalization: Neck pain and left arm weakness Hospital Course: Cornelius Babin Jr is a 66-year-old male with medical history of CAD scheduled to undergo CABG on 11/09/21, PAD s/p arterial stents, type 2 diabetes with peripheral neuropathy, ischemic stroke in 2014 with residual left arm weakness, hypertension, GERD, and cervical spinal stenosis. He presented to the ER with worsening neck pain that started a few days.? He had associated radiation of the pain to his left shoulder and arm with some paresthesia in his left arm, as well as weakness.?There is no associated leg weakness, speech changes, GUTIERRES or altered mental status.? He also has underlying peripheral vascular disease and recently had stents placed stent in his legs.? He denies any chest pain or shortness of breath.? No injury to the area. The patient was referred for observation and neurology was consulted. He had a had cervical spine CT showing reverals cerviccal curvature and extensive cervical spondylosis. Cervical spine MRI showed non-specific small focus of increasd left paracentral cord signal without evident enhancement or swelling at C3-C4 concerning for myelopahty/myelomalacia and possible additional T2 hyperintense white matter lesion at the right side of medulla. Brain MRI was obtained saying small cortical infarct at deep and anterior margins of the medial aspect of right central sulcus, the more anterior portion involving the motor strip of precentral gyrus, and possible tiny acute infarct in the more posterior medial right paretal lobe. Old small lacunar infarct was also noted. The patient was treated medically. He was continued on aspirin, plavix, high dose statin, and hypertensive medications. I discussed MRI results with Neurology, who argreed with medication management. His blood sugar was elevated during his hospital stay. A1c was 6.8% in 07/29/21 suggesting controlled sugars on home regimen. Trulicity was not available on our formulary and his could not bring in his medication. He was, therefore, treated with lantus 12 units and high-dose aspart meal/HS correction. He was counseled to take his Trulicity at discharge and to continue to monitor blood sugars with glucose sensor as previously instructed. Limited Echo with bubble study was obtained and showed no shunt. Carotid US was completed in August at [facility] for surgical work-up, which showed 70% left ICA, which should have continued monitoring
== END 2021-10-29 14:55 | disposition home or self-care (01) ==
LOC: ANHED 10-27 01:33 → ANH3MEDSUR 10-27 02:28
PROVIDERS: Physician Assistant; Admitting Provider Internal Medicine; Emergency Provider Emergency Medicine; PCP Nurse Practitioner; Visit Provider Internal Medicine
DX: I63.9 Cerebral infarction, unspecified (principal); M54.12 Radiculopathy, cervical region; M75.00 Adhesive capsulitis of unspecified shoulder; R53.1 Weakness; M48.02 Spinal stenosis, cervical region; M47.812 Spondylosis without myelopathy or radiculopathy, cervical region; N17.9 Acute kidney failure, unspecified; I12.9 Hypertensive chronic kidney disease with stage 1 through stage 4 chronic kidney disease, or unspecified chronic kidney disease; N18.30 Chronic kidney disease, stage 3 unspecified; I25.10 Atherosclerotic heart disease of native coronary artery without angina pectoris; I25.2 Old myocardial infarction; E11.51 Type 2 diabetes mellitus with diabetic peripheral angiopathy without gangrene; E11.65 Type 2 diabetes mellitus with hyperglycemia; E11.42 Type 2 diabetes mellitus with diabetic polyneuropathy; E11.22 Type 2 diabetes mellitus with diabetic chronic kidney disease; E78.5 Hyperlipidemia, unspecified; D64.9 Anemia, unspecified; K21.9 Gastro-esophageal reflux disease without esophagitis; K86.1 Other chronic pancreatitis; E55.9 Vitamin D deficiency, unspecified; Z20.822 Contact with and (suspected) exposure to COVID-19; Z86.73 Personal history of transient ischemic attack (TIA), and cerebral infarction without residual deficits; Z85.46 Personal history of malignant neoplasm of prostate; Z95.5 Presence of coronary angioplasty implant and graft; Z95.820 Peripheral vascular angioplasty status with implants and grafts; Z87.891 Personal history of nicotine dependence; Z79.82 Long term (current) use of aspirin; Z79.4 Long term (current) use of insulin; Z79.02 Long term (current) use of antithrombotics/antiplatelets
CPT/HCPCS: 36415; 70450; 70553; 71046; 72125; 72156; 80053; 82948; 83735; 84484; 85025; 85610; 85730; 93005; 93308; 96365; 96372; 96375; 99285; A9270; A9577; C9803; G0378; J0131; J1100; J1650; J1815; J3360; U0003; U0005